=== PATIENT | male | born 1960 | race Caucasian/White ===

== ENCOUNTER → 2018-10-25 14:55 | Outpatient (CLI) | payer OTHER, SELFPAY ==
--- NOTE | 2018-10-25 15:04 | VDLE_ITS ---
Reason For Study: Pain RIGHT LEFT GSV is normal. GSV is normal. CFV is compressible, spontaneous, phasic, CFV is compressible, spontaneous, phasic, competent and demonstrates normal competent, and demonstrates normal augmentation. augmentation. FV is compressible, spontaneous, phasic, FV is compressible, spontaneous, phasic, competent and demonstrates normal competent and demonstrates normal augmentation. augmentation. POP V is compressible, spontaneous, phasic, POP V is compressible, spontaneous, phasic, competent and demonstrates normal competent and demonstrates normal augmentation. augmentation. T/P Trunk is compressible. T/P Trunk is compressible. Acute deep vein thrombosis is noted in the PTV is compressible. right peroneal vein. LT PerV is compressible. Acute deep vein thrombosis is noted in the right posterior tibial vein. Acute deep vein thrombosis is noted in the right Gastroc V. Procedure Exam performed in department. A preliminary report was called and/or faxed to Dr. Wong. Interpretation Summary Acute deep vein thrombosis is noted in the right peroneal vein. Acute deep vein thrombosis is noted in the right posterior tibial vein. Acute deep vein thrombosis is noted in the right gastrocnemius vein. The remainder of the right lower extremity deep venous system is patent and compressible. Deep veins of the left lower extremity are patent and compressible segmentally. There is no evidence of left lower extremity deep vein thrombosis. Valvular competence appears intact within the proximal deep venous systems bilaterally. The greater saphenous veins appear bilaterally patent and compressible segmentally. Ordering Physician: Filomena Wong Referring Physician: Filomena Wong Performed By: Dionna Bray RVT, RDCS and Student
== END ==
PROVIDERS: Family Provider Family Medicine; PCP Family Medicine; Referring Provider Family Medicine; Visit Provider Family Medicine
DX: M79.606 Pain in leg, unspecified (principal)
CPT/HCPCS: 93970

== ENCOUNTER 2020-04-03 20:23 | Observation (INO) | payer OTHER, SELFPAY ==
[2020-04-03 20:23] VITALS: BP 137/91; PULSE 97; RESP 18; TEMP 36.6; O2SAT 96; BMI 27.1
--- NOTE | 2020-04-03 21:25 | ED.DCSUM_ITS ---
- ER Visit Summary Date of Service: 04/03/20 Chief Complaint: Rectal Bleeding History of Present Illness: The patient is a 59 M history of prior DVTs and diverticulosis. He is only on aspirin he does not take blood thinners otherwise. States today has had 3 episodes of bright red blood per rectum he considers a significant amount in the toilet bowl. No clots. No history of GI bleeds. Physical Examination: Middle-aged male no acute distress company by his vital signs stable afebrile. Initial blood pressure 137/91. He does not look septic or toxic. H EENT exam unremarkable. Neck nontender. Lungs clear to auscultation bilaterally. Heart regular rhythm no murmur. Abdomen soft nontender normal bowel sounds no peritoneal signs. Patient moving all 4 extremities. No edema. Neurologically is awake alert with no focal motor deficits. Test Results: CBC normal white count 8. Hemoglobin 14. Chemistries unremarkable normal creatinine and gap. PT/INR normal. Emergency Department Course and Treatment: Middle-aged male with suspected lower GI bleed. Possible diverticular bleed versus other etiologies. Type and screen labs. Most likely will need to be admitted for further evaluation. Treatment Plan: Repeat exam patient is doing well at 11:50 PM. He states he also had 2 further episodes of bleeding while in the emergency department in the bathroom. I have already spoken the hospitalist will be admitted for further evaluation and possible colonoscopy. I have the surgeon on page. Disposition: admission Impression: Lower GI bleed uncertain etiology Prior DVT History of diverticulosis This note was generated with [employer] dictation software. It may contain incorrect words, spelling, and punctuation that were not noted in review of the chart prior to signing ED Disposition - Plan for ED Patient: Referrals: Filomena Wong MD [Primary Care Provider] -
[2020-04-03 21:38] LABS: Absolute Lymphocyte Count 2.11 X10^3/uL (0.83-4.51); Absolute Neutrophil Count 5.5 X10^3/uL (2.0-7.7); Basophil# 0.04 X10^3/uL; Basophil% 0.5 % (0-1); Eosinophil# 0.21 X10^3/uL; Eosinophils% 2.4 % (0-5); Hematocrit 43.2 % (40-54); Hemoglobin 14.6 g/dL (13.0-16.5); Lymphocyte # 2.11 X10^3/ul (4.0); Lymphocyte % 23.8 % (19-41); Mean Corp Hgb Conc 33.8 g/dL (32-36); Mean Corpuscular Hgb 33.7 pg (27.0-32.0); Mean Corpuscular Volume 99.8 fL (80-94); Mean Platelet Vol. 9.7 fl (6.2-12.0); Monocyte# 0.94 X10^3/uL; Monocyte% 10.6 % (0-10); NRBC Flagged by Analyzer 0 % (0-5); Neutrophil # 5.49 X10^3/uL (2.7-7.7); Neutrophil % 61.7 % (47-70); Platelet Count 315 K/mm3 (150-450); RBC Distribution Width CV 12.4 % (11.6-14.6); RBC Distribution Width SD 45.2 fl (35.1-43.9); Red Blood Count 4.33 M/mm3 (4.6-6.2); White Blood Count 8.9 K/mm3 (4.4-11.0)
[2020-04-03 21:50] LABS: Anion Gap 7 (5-15); BUN 6 mg/dL (7-18); BUN/Creat Ratio 9.4 RATIO (10-20); Calcium,Total 8.5 mg/dL (8.5-10.1); Chloride 104 mmol/L (98-107); Creatinine, Serum 0.64 mg/dL (0.70-1.30); EST Glomerular Filtration Rate 137 mL/min (>60); Est Glom Filt Rate - Afr Amer 166 mL/min (>60); Estimated Creatinine Clearance 135.63 ml/min; Glucose 93 mg/dL (74-106); Potassium 3.8 mmol/L (3.5-5.1); Sodium Level 137 mmol/L (136-145)
[2020-04-03 21:53] LABS: Prothrombin Time (Protime)PT. 12.8 SECONDS (11.7-14.9)
[2020-04-03 23:00] VITALS: BP 152/102; PULSE 89; RESP 17; O2SAT 96
[2020-04-04 00:07] VITALS: BP 153/102; PULSE 89; RESP 18; TEMP 36.8; O2SAT 96
[2020-04-04 00:37] VITALS: BMI 25.5
[2020-04-04 00:40] VITALS: BMI 25.6
[2020-04-04] MEDS: 0.9% Normal Saline 1,000 ML 75 ML IV (00:51)
[2020-04-04 01:02] VITALS: BP 152/93; PULSE 89; RESP 16; TEMP 36.9; O2SAT 96
--- NOTE | 2020-04-04 01:16 | HP.PCM_ITS ---
Problem List (1) GI bleed Status: Acute Qualifiers: GI bleed type/associated pathology: unspecified gastrointestinal hemorrhage type Qualified Code(s): K92.2 - Gastrointestinal hemorrhage, unspecified (2) Diverticulosis Status: Chronic (3) History of DVT (deep vein thrombosis) Status: Chronic History of Present Illness Date of Admission: 04/04/20 Chief Complaint: Bright red bleeding per rectum - 1 day The patient is a 59 year old M with past medical history of DVT, on aspirin 325 mg daily, history of diverticulosis seen on last colonoscopy 8 years ago who comes in with complaints of rectal bleeding that started on the day of admission. Patient has had 5 episodes of bright red bleeding per rectum. Their initial stools were mixed with blood and later on bowel movements with just bloody. He reported having some abdominal discomfort on and off ongoing for about a month. At his last colonoscopy with Dr. Hollis, patient said they were just diverticulosis and nothing more. Denied any dizziness or palpitations or chest pain. He denies any use of NSAIDs. At time of being seen, patient denied any abdominal pain or dizziness. His vitals in the ED showed temperature of 98F, heart rate 97, blood pressure 137/91, respiratory rate 18, SPO2 96% on room air. BBC count is 8.9, hemoglobin 14.6, platelet count 315, INR 1.0, BMP was unremarkable. Past Medical History Past Medical History (Chronic Problems): Chronic Problems Diverticulosis (Chronic) History of DVT (deep vein thrombosis) (Chronic) Allergies No Known Allergies Allergy (Verified 04/03/20 20:26) Home Medications: Ambulatory Orders Medication Instructions Recorded Aspirin 325 mg PO DAILY 04/03/20 Surgical History: - - s/p cardiac cath in his 30s Psychiatric History: No pertinent psych hx Lives: Spouse/ Significant Other Smoking Status: Current every day smoker Tobacco Use: Cigarettes Alcohol: Heavy Drugs: None - *Family History Maternal History Items: No pertinent history Paternal History Items: Cancer - lung cancer Review of Systems Constitutional: Denies: Anorexia, Chills, Fever, Malaise, Weakness, Weight Change Eyes: Denies: Blurred vision, Cataracts, Pain, Redness HEENT: Denies: Difficulty Hearing, Difficulty Swallowing, Head Aches, Hearing Ch anges, Sinus Congestion, Sinus Drainage Cardiovascular: Denies: Chest Pain, Claudication, Light Headedness, Orthopnea, Palpitations Respiratory: Denies: Cough, Hemoptysis, Shortness of Breath, Shortness of breath at rest, Shortness of breath upon exertion, Sputum production Gastrointestinal: Reports: Hematochezia. Denies: Abdominal Pain, Constipation, Hematemesis, Nausea, Melena, Vomiting Genitourinary: Denies: Dysuria, Frequency, Incontinence Musculoskeletal: Denies: Joint Pain, Joint stiffness, Joint swelling, Joint Tenderness Skin: Denies: Rash, Wounds Neurological: Denies: Difficulty swallowing, Focal weakness, Numbness, Tingling Psychiatric: Denies: Anxiety, Depression, Homicidal Ideations, Suicidal Ideations Hematologic/ Lymphatic: Denies: Easy Bruising, Easy Bleeding VTE Information - Inpt Only VTE Present on Admission: No VTE Pharm Prophylaxis ordered?: Yes Patient Problems: Active and Suspected Problems GI bleed (Acute) - Physical Exam Vitals/I&O's: Vital Signs Temp Pulse Resp BP Pulse Ox 98.4 F 89 16 152/93 H 96 04/04/20 01:02 04/04/20 01:02 04/04/20 01:02 04/04/20 01:02 04/04/20 01:02 Oxygen Delivery Method Room Air Weight: 83.2 kg Body Mass Index (BMI) 25.5 General: Alert, Oriented x3, Cooperative, No apparent distress HEENT: Atraumatic, PERRLA, EOMI, Normocephalic Oral: Moist Mucosa Neck: Supple Lungs: Clear to auscultation, Normal air movement Cardiovascular: Regular rate, Regular Rhythm, Normal S2, No murmurs Abdomen: Bowel Sounds Present, Soft, Non Tender, Non-Distended, No Hepato- splenomegaly Extremities: No edema Skin: No rashes, No breakdown Musculoskeletal: No Tenderness to Palpation of Joints or Extremities Lymphatic: No Cervical, Supraclavicular, or Inguinal Adenopathy Neurological: Cranial nerves II-XII grossly intact, Neuro grossly intact Psych/Mental Status: Normal Affect Laboratory Results 04/03/20 21:27: WBC 8.9, RBC 4.33 L, Hgb 14.6, Hct 43.2, MCV 99.8 H, MCH 33.7 H, MCHC 33.8, RDW Std Deviation 45.2 H, RDW Coeff of Amber 12.4, Plt Count 315, MPV 9.7, Immature Gran % (Auto) 1.000 H, Neut % (Auto) 61.7, Lymph % (Auto) 23.8, [place] % (Auto) 10.6 H, Eos % (Auto) 2.4, Baso % (Auto) 0.5, Absolute Neuts (auto) 5.5, Absolute Lymphs (auto) 2.11, Nucleated RBC % 0 04/03/20 21:27: Sodium 137, Potassium 3.8, Chloride 104, Carbon Dioxide 26.0, Anion Gap 7, BUN 6 L, Creatinine 0.64 L, Estim Creat Clear Calc 135.63, Est GFR (MDRD) Af Amer 166, Est GFR (MDRD) Non-Af 137, BUN/Creatinine Ratio 9.4 L, Glucose 93, Calcium 8.5 04/03/20 21:27: PT 12.8, INR 1.0 04/03/20 21:27: Blood Type A NEGATIVE, Antibody Screen NEGATIVE Current Medications Acetaminophen (Tylenol) 650 mg PO Q6H PRN PRN PRN Reason: Pain Score 1-10/Temp > 100.7 F Al Hydroxide/Mg Hydroxide (Mylanta Ii) 30 ml PO Q6H PRN PRN PRN Reason: Gastric Burning Albuterol Sulfate (Ventolin Aerosols) 2.5 mg INHALATION Q2H PRN PRN PRN Reason: Shortness of Breath/Wheezing Sodium Chloride () 1,000 mls @ 75 mls/hr IV .[id number] [facility] Last Admin: 04/04/20 00:51 Dose: 75 mls/hr Documented by: Morphine Sulfate () 2 mg IV Q3H PRN PRN PRN Reason: Pain Score 6-10/10 Nicotine (Nicoderm Cq (Pbkc)) 21 mg TRANSDERM. DAILY [facility] Nicotine Polacrilex (Rugby Nicotine (Bkc)) 2 mg PO Q2H PRN PRN PRN Reason: Nicotine Craving Ondansetron HCl (Zofran) 4 mg IV Q8H PRN PRN PRN Reason: NAUSEA/VOMITING Oxycodone HCl (Oxyir) 5 mg PO Q4H PRN PRN PRN Reason: Pain Score 4-5/10 Psyllium Hydrophilic Mucilloid (Metamucil) 1 packet PO DAILY PRN PRN PRN Reason: Constipation Senna/Docusate Sodium (Senokot-S, Esther-Colace) 2 tablet PO BID PRN PRN PRN Reason: Constipation Sodium Chloride (0.9% Nacl (Sterile) Posiflush) 10 - 40 ml IV UD PRN PRN Reason: Port access or dressing change Sodium Chloride () 10 - 40 ml IV UD PRN PRN Reason: Midline Flush Sodium Chloride () 10 - 40 ml IV UD PRN PRN Reason: SALINE FLUSH Assessment/Plan All Active Problems GI bleed (Acute) 59 year old M with past medical history of DVT, on aspirin 325 mg daily, history of diverticulosis seen on last colonoscopy 8 years ago who comes in with complaints of rectal bleeding that started on the day of admission. 1. Acute GI bleed, likely lower, probably diverticular bleed No significant drop in Hb compared to previous. Hb 14.6 Will hold aspirin for now, clear liquid diet Empiric IV PPI BID for now Trend HH, gentle IVF, general surgeon consulted from ED 2. H/o recurrent DVT, on aspirin, Aspirin on hold for now Will continue on SCDs for now 3. DVT PPx- SCDs Inpatient E&M: 70176 Init Hosp L3
[2020-04-04 01:30] LABS: Hematocrit 40.7 % (40-54); Hemoglobin 14.1 g/dL (13.0-16.5)
[2020-04-04 05:29] VITALS: BP 132/84; PULSE 92; RESP 18; TEMP 37; O2SAT 97
[2020-04-04 06:38] LABS: Hematocrit 38.4 % (40-54)
[2020-04-04 08:16] VITALS: BP 138/87; PULSE 88; RESP 16; TEMP 36.5; O2SAT 98
--- NOTE | 2020-04-04 09:44 | NM_ITS ---
Tagged red blood cell scan next INDICATION: Diverticulitis, rectal bleeding. TECHNIQUE: After the administration of tagged red blood cells intravenously, multiple scintigraphic images of the abdomen were obtained. FINDINGS: Normal perfusion of the abdominal aorta and iliac arteries. Normal perfusion of the liver spleen and kidneys. Normal excretion by the kidneys into the bladder. No focal abnormal area of increased uptake within the abdomen or pelvis to suggest active gastrointestinal hemorrhage. Next IMPRESSION: No scintigraphic evidence of active gastrointestinal hemorrhage. Electronically Signed: Jaren Pitt MD at 11:50 EDT Tel , Service support , NM/GI Bleed Scan
[2020-04-04] MEDS: 0.9% Saline Lock 10 ML Syringe IV (09:55)
--- NOTE | 2020-04-04 10:00 | NURSING ---
Patient ordered to have a bleeding scan completed by Dr. Dias. Notified by ALYSHA Tavares that if result is negative that Dr. Dias will plan a colonoscopy as an outpatient but if bleeding is found that it may be completed this stay.
--- NOTE | 2020-04-04 10:55 | CON.PCM_ITS ---
Problem List (1) GI bleed Status: Acute Qualifiers: GI bleed type/associated pathology: unspecified gastrointestinal hemorrhage type Qualified Code(s): K92.2 - Gastrointestinal hemorrhage, unspecified Reason for Consult Date of Consultation: 04/04/20 Reason for Consultation: Lower GI bleed History of Present Illness: The patient is a 59 year old M who presented to the ED with rectal bleeding x 3 episodes. Patient noted the bleeding started yesterday afternoon. Patient noted gas-like pressure/pain and had a bowel movement which was mixed with blood. Patient noted the pain was located under the umbilicus and bilateral lower abdomen. Patient noted he had rectal bleeding twice throughout the night and 1 episode of bleeding this morning. He notes abdominal pain was not relieved with bowel movements however now the abdominal pain is relieved by a bowel movement. Patient's previous colonoscopy was [address] Hollis. He notes having 2 polyps being removed. He notes Dr. Hollis was not worried about the pathology of the polyps. Patient notes he has been taking a full strength daily aspirin. He has a previous history of DVT's with the last one being 1 year ago. Patient notes at age 35, he had pericarditis. He melgoza snot currently see a pipe insulator. Past Medical History Past Medical History (Chronic Problems): Chronic Problems Diverticulosis (Chronic) History of DVT (deep vein thrombosis) (Chronic) Allergies No Known Allergies Allergy (Verified 04/03/20 20:26) Home Medications: Ambulatory Orders Medication Instructions Recorded Aspirin 325 mg PO DAILY 04/03/20 Surgical History: - - s/p cardiac cath in his 30s Psychiatric History: No pertinent psych hx Lives: Spouse/ Significant Other Smoking Status: Current every day smoker Tobacco Use: Cigarettes Alcohol: Heavy Drugs: None - *Family History Maternal History Items: No pertinent history Paternal History Items: Cancer - lung cancer Review of Systems Constitutional: Reports: Malaise, Fatigue. Denies: Anorexia, Chills, Fever, Weight Change HEENT: Denies: Head Aches, Sinus Congestion, Sinus Drainage Cardiovascular: Denies: Chest Pain, Palpitations Respiratory: Denies: Cough, Shortness of breath at rest, Sputum production Gastrointestinal: Reports: Abdominal Pain, Diarrhea, Hematochezia. Denies: Hematemesis, Nausea, Melena, Vomiting Genitourinary: Denies: Dysuria Musculoskeletal: Denies: Joint Pain, Joint Tenderness Skin: Denies: Rash, Wounds Neurological: Denies: Numbness, Tingling, Focal weakness Psychiatric: Denies: Anxiety, Depression, Homicidal Ideations, Suicidal Ideations Hematologic/ Lymphatic: Denies: Easy Bruising, Easy Bleeding Patient Problems: Active and Suspected Problems GI bleed (Acute) - Physical Exam Vitals/I&O's: Vital Signs Temp Pulse Resp BP Pulse Ox 97.7 F L 88 16 138/87 H 98 04/04/20 08:16 04/04/20 08:16 04/04/20 08:16 04/04/20 08:16 04/04/20 08:16 Oxygen Delivery Method Room Air Weight: 183 lb 6.793 oz Body Mass Index (BMI) 25.5 Intake and Output for Last 24 Hours 04/02/20 04/03/20 04/04/20 23:59 23:59 23:59 Intake Total 192.5 / 192.5 Balance 192.5 / 192.5 General: Alert, Oriented x3, Cooperative HEENT: Atraumatic, PERRLA, EOMI, Normocephalic Neck: Supple, No JVD, Negative Carotid Bruits Lungs: Clear to auscultation, Normal air movement Cardiovascular: Regular rate, No murmurs Abdomen: Soft, Non Tender, Distended - slightly Extremities: No edema, Capillary Refill Less than 3 Seconds Skin: No rashes, No breakdown Musculoskeletal: No Tenderness to Palpation of Joints or Extremities Neurological: Neuro grossly intact Psych/Mental Status: Normal Affect, Appropriate Laboratory Results 04/03/20 21:27: WBC 8.9, RBC 4.33 L, Hgb 14.6, Hct 43.2, MCV 99.8 H, MCH 33.7 H, MCHC 33.8, RDW Std Deviation 45.2 H, RDW Coeff of Amber 12.4, Plt Count 315, MPV 9.7, Immature Gran % (Auto) 1.000 H, Neut % (Auto) 61.7, Lymph % (Auto) 23.8, [place] % (Auto) 10.6 H, Eos % (Auto) 2.4, Baso % (Auto) 0.5, Absolute Neuts (auto) 5.5, Absolute Lymphs (auto) 2.11, Nucleated RBC % 0 04/03/20 21:27: Sodium 137, Potassium 3.8, Chloride 104, Carbon Dioxide 26.0, Anion Gap 7, BUN 6 L, Creatinine 0.64 L, Estim Creat Clear Calc 135.63, Est GFR (MDRD) Af Amer 166, Est GFR (MDRD) Non-Af 137, BUN/Creatinine Ratio 9.4 L, Glucose 93, Calcium 8.5 04/03/20 21:27: PT 12.8, INR 1.0 04/03/20 21:27: Blood Type A NEGATIVE, Antibody Screen NEGATIVE 04/04/20 01:03: Hgb 14.1, Hct 40.7 04/04/20 06:34: Hgb 13.0, Hct 38.4 L Current Medications Acetaminophen (Tylenol) 650 mg PO Q6H PRN PRN PRN Reason: Pain Score 1-10/Temp > 100.7 F Al Hydroxide/Mg Hydroxide (Mylanta Ii) 30 ml PO Q6H PRN PRN PRN Reason: Gastric Burning Albuterol Sulfate (Ventolin Aerosols) 2.5 mg INHALATION Q2H PRN PRN PRN Reason: Shortness of Breath/Wheezing Sodium Chloride () 1,000 mls @ 75 mls/hr IV .[id number] [facility] Last Infusion: 04/04/20 02:16 Dose: 75 mls/hr Documented by: Pantoprazole Sodium 40 mg/ (Sodium Chloride) 110 mls @ 330 mls/hr IV Q12 [facility] Last Infusion: 04/04/20 02:16 Dose: Infused Documented by: Morphine Sulfate () 2 mg IV Q3H PRN PRN PRN Reason: Pain Score 6-10/10 Nicotine (Nicoderm Cq (Pbkc)) 21 mg TRANSDERM. DAILY [facility] Nicotine Polacrilex (Rugby Nicotine (Bkc)) 2 mg PO Q2H PRN PRN PRN Reason: Nicotine Craving Ondansetron HCl (Zofran) 4 mg IV Q8H PRN PRN PRN Reason: NAUSEA/VOMITING Oxycodone HCl (Oxyir) 5 mg PO Q4H PRN PRN PRN Reason: Pain Score 4-5/10 Psyllium Hydrophilic Mucilloid (Metamucil) 1 packet PO DAILY PRN PRN PRN Reason: Constipation Senna/Docusate Sodium (Senokot-S, Esther-Colace) 2 tablet PO BID PRN PRN PRN Reason: Constipation Sodium Chloride (0.9% Nacl (Sterile) Posiflush) 10 - 40 ml IV UD PRN PRN Reason: Port access or dressing change Sodium Chloride () 10 - 40 ml IV UD PRN PRN Reason: Midline Flush Last Admin: 04/04/20 09:55 Dose: 10 ml Documented by: Sodium Chloride () 10 - 40 ml IV UD PRN PRN Reason: SALINE FLUSH Assessment/Plan All Active Problems GI bleed (Acute) I have been consulted in conjunction with Dr. Dias Impression: Lower GI bleed Plan: I have discussed this patient in conjunction with Dr. Dias. Plan for bleeding scan. Hgb stable. Recommend upper/lower scope as an outpatient. If any active/urgent bleeding noted on the scan, patient may have to have urgent intervention. Patient has had the opportunity to ask and have questions answered. Patient verbally understands and agrees with the plan. Thank you for allowing us to participate in this patient's care. Office Visits / Consults: [id number] IP Consult L3
[2020-04-04 12:37] VITALS: BP 137/93; PULSE 82; RESP 16; TEMP 36.8; O2SAT 97
[2020-04-04 12:39] LABS: Hematocrit 41.4 % (40-54); Hemoglobin 13.8 g/dL (13.0-16.5)
--- NOTE | 2020-04-04 15:35 | PCM.DC.GS ---
Discharge Diet: Light diet - advance as tolerated Discharge Activity: Return to Normal Activity Additional Instructions: You will start Hydrocortisone with Lidocaine suppositories twice a day for 14 days. You will pick up attendant this prescription at the outpatient pharmacy once you are discharged. This medication will help with the bleeding. You will follow-up with our office in 7 days and also schedule a colonoscopy with Dr. Dias as an outpatient. Allergies/Adverse Reactions: Allergies No Known Allergies Allergy (Verified 04/03/20 20:26) Medications to take at Discharge Aspirin 325 mg PO DAILY 04/03/20 Primary Care Physician: Filomena Wong MD [Primary Care Provider] - Test Results: Test results from this visit will be discussed in further detail at your follow-up appointment, if applicable. Please Follow Up With: Kyra Small PA-C - [phone] When: 7 days
--- NOTE | 2020-04-04 16:34 | DCINST_ITS ---
- Discharge Diagnoses Current Active Problems: Current Active and Chronic Problems GI bleed (Acute) Diverticulosis (Chronic) History of DVT (deep vein thrombosis) (Chronic) You will use the following diet at home:: Regular Your food should be the consistency of: Regular Your liquids should be the consistency of: Regular/Thin Discharge Activity: Return to Normal Activity Call your doctor if you observe: Fever of 101 or Higher, Shortness of breath, Dizziness, Fainting spells, Swelling in the ankles, Chest pain, Increased palpitations (irregular heartbeat) Allergies/Adverse Reactions: Allergies No Known Allergies Allergy (Verified 04/03/20 20:26) Medications to take at Discharge Aspirin 325 mg PO DAILY 04/03/20 hydrocortisone See Rx Instructions .ROUTE .MEDSUPPLY #[id number] ea 04/04/20 Primary Care Physician: Filomena Wong MD [Primary Care Provider] - Please follow up with your Primary Care Physician in: 3-5 days Test Results: Test results from this visit will be discussed in further detail at your follow- up appointment, if applicable. Please Follow Up With: Kyra Small PA-C - [phone] When: 7 days
--- NOTE | 2020-04-04 16:36 | DS.PCM_ITS ---
Discharge Date and Diagnosis - Problem List Patient Problems: Active and Suspected Problems GI bleed (Acute) Date of Admission: 04/04/20 Date of Discharge: 04/04/20 - Primary Discharge Diagnosis Acute Problems: Active Problems GI bleed (Acute) - Secondary Discharge Diagnosis Chronic Problems: Chronic Problems Diverticulosis (Chronic) History of DVT (deep vein thrombosis) (Chronic) Hospital Course and Treatment Imaging Results: Bleeding Scan: IMPRESSION: No scintigraphic evidence of active gastrointestinal hemorrhage. Consults: General Surgery Operations: None Procedures: None Summary of Care Provided: Per HPI: The patient is a 59 year old M with past medical history of DVT, on aspirin 325 mg daily, history of diverticulosis seen on last colonoscopy 8 years ago who comes in with complaints of rectal bleeding that started on the day of admission. Patient has had 5 episodes of bright red bleeding per rectum. Their initial stools were mixed with blood and later on bowel movements with just bloody. He reported having some abdominal discomfort on and off ongoing for about a month. At his last colonoscopy with Dr. Hollis, patient said they were just diverticulosis and nothing more. Denied any dizziness or palpitations or chest pain. He denies any use of NSAIDs. At time of being seen, patient denied any abdominal pain or dizziness. His vitals in the ED showed temperature of 98F, heart rate 97, blood pressure 137/91, respiratory rate 18, SPO2 96% on room air. BBC count is 8.9, hemoglobin 14.6, platelet count 315, INR 1.0, BMP was unremarkable. Hospital Course: 1. Bright red blood per [id number]-old male who is only on a chronic aspirin because he has had 2 previous provoked DVTs presents with bright red blood per rectum for 1 day. He says this is painless. He had a colonoscopy about 8 years ago where polyps were removed. Denies any cramping or abdominal pain with this episode of bleeding. Surgery was consulted and they recommended a bleeding scan which was negative, given his hemoglobin being stable at around 13.8, it was felt that these were likely internal hemorrhoids that were bleeding and therefore he was discharged on a hydrocortisone suppository and follow-up in a week with general surgery. I recommend that he also follow-up with his primary care doctor in 3 to 5 days. I discussed the discharge plan with him and his both of whom expressed understanding of the risks and benefits of going home today. Patient Problems: Active and Suspected Problems GI bleed (Acute) - Physical Exam Vitals/I&O's: Vital Signs Temp Pulse Resp BP Pulse Ox 98.2 F 82 16 137/93 H 97 04/04/20 12:37 04/04/20 12:37 04/04/20 12:37 04/04/20 12:37 04/04/20 12:37 Oxygen Delivery Method Room Air Weight: 183 lb 6.793 oz Body Mass Index (BMI) 25.5 Intake and Output for Last 24 Hours 04/02/20 04/03/20 04/04/20 23:59 23:59 23:59 Intake Total 1045.0 / 1045.0 Balance 1045.0 / 1045.0 General: Alert, Oriented x3, Cooperative, No apparent distress HEENT: Atraumatic, PERRLA, EOMI, Normocephalic Oral: Moist Mucosa Neck: Supple, No JVD Lungs: Clear to auscultation, Normal air movement, No rhonchi, No wheeze, No rales Cardiovascular: Regular rate, Regular Rhythm, Normal S1, Normal S2, No murmurs Abdomen: Soft, Non Tender, Non-Distended, No Hepato-splenomegaly Extremities: No edema, Capillary Refill Less than 3 Seconds Skin: No rashes, No breakdown Neurological: Neuro grossly intact, Sensory exam intact to light touch and pain Psych/Mental Status: Normal Affect, Appropriate Laboratory Results 04/03/20 21:27: WBC 8.9, RBC 4.33 L, Hgb 14.6, Hct 43.2, MCV 99.8 H, MCH 33.7 H, MCHC 33.8, RDW Std Deviation 45.2 H, RDW Coeff of Amber 12.4, Plt Count 315, MPV 9.7, Immature Gran % (Auto) 1.000 H, Neut % (Auto) 61.7, Lymph % (Auto) 23.8, [place] % (Auto) 10.6 H, Eos % (Auto) 2.4, Baso % (Auto) 0.5, Absolute Neuts (auto) 5.5, Absolute Lymphs (auto) 2.11, Nucleated RBC % 0 04/03/20 21:27: Sodium 137, Potassium 3.8, Chloride 104, Carbon Dioxide 26.0, Anion Gap 7, BUN 6 L, Creatinine 0.64 L, Estim Creat Clear Calc 135.63, Est GFR (MDRD) Af Amer 166, Est GFR (MDRD) Non-Af 137, BUN/Creatinine Ratio 9.4 L, Glucose 93, Calcium 8.5 04/03/20 21:27: PT 12.8, INR 1.0 04/03/20 21:27: Blood Type A NEGATIVE, Antibody Screen NEGATIVE 04/04/20 01:03: Hgb 14.1, Hct 40.7 04/04/20 06:34: Hgb 13.0, Hct 38.4 L 04/04/20 12:24: Hgb 13.8, Hct 41.4 Current Medications Acetaminophen (Tylenol) 650 mg PO Q6H PRN PRN PRN Reason: Pain Score 1-10/Temp > 100.7 F Al Hydroxide/Mg Hydroxide (Mylanta Ii) 30 ml PO Q6H PRN PRN PRN Reason: Gastric Burning Albuterol Sulfate (Ventolin Aerosols) 2.5 mg INHALATION Q2H PRN PRN PRN Reason: Shortness of Breath/Wheezing Sodium Chloride () 1,000 mls @ 75 mls/hr IV .[id number] [facility] Last Infusion: 04/04/20 13:11 Dose: 75 mls/hr Documented by: Pantoprazole Sodium 40 mg/ (Sodium Chloride) 110 mls @ 330 mls/hr IV Q12 [facility] Last Infusion: 04/04/20 13:11 Dose: Infused Documented by: Morphine Sulfate () 2 mg IV Q3H PRN PRN PRN Reason: Pain Score 6-10/10 Nicotine (Nicoderm Cq (Pbkc)) 21 mg TRANSDERM. DAILY [facility] Last Admin: 04/04/20 13:11 Dose: Not Given Documented by: Nicotine Polacrilex (Rugby Nicotine (Bkc)) 2 mg PO Q2H PRN PRN PRN Reason: Nicotine Craving Ondansetron HCl (Zofran) 4 mg IV Q8H PRN PRN PRN Reason: NAUSEA/VOMITING Oxycodone HCl (Oxyir) 5 mg PO Q4H PRN PRN PRN Reason: Pain Score 4-5/10 Psyllium Hydrophilic Mucilloid (Metamucil) 1 packet PO DAILY PRN PRN PRN Reason: Constipation Senna/Docusate Sodium (Senokot-S, Esther-Colace) 2 tablet PO BID PRN PRN PRN Reason: Constipation Sodium Chloride (0.9% Nacl (Sterile) Posiflush) 10 - 40 ml IV UD PRN PRN Reason: Port access or dressing change Sodium Chloride () 10 - 40 ml IV UD PRN PRN Reason: Midline Flush Last Admin: 04/04/20 09:55 Dose: 10 ml Documented by: Sodium Chloride () 10 - 40 ml IV UD PRN PRN Reason: SALINE FLUSH Discharge Diet: Light diet - advance as tolerated Discharge Activity: Return to Normal Activity Call your doctor if you observe: Fever of 101 or Higher, Shortness of breath, Dizziness, Fainting spells, Swelling in the ankles, Chest pain, Increased palpitations (irregular heartbeat) Home Medications: Medications to take at Discharge Aspirin 325 mg PO DAILY 04/03/20 hydrocortisone See Rx Instructions .ROUTE .MEDSUPPLY #[id number] ea 04/04/20 Primary Care Physician: Filomena Wong MD [Primary Care Provider] - Please follow up with your Primary Care Physician in: 3-5 days Please Follow Up With: Kyra Small PA-C - [phone] When: 7 days Additional Instructions: You will start Hydrocortisone with Lidocaine suppositories twice a day for 14 days. You will lease picker this prescription at the outpatient pharmacy once you are discharged. This medication will help with the bleeding. You will follow-up with our office in 7 days and also schedule a colonoscopy with Dr. Dias as an outpatient. Disposition: Home Minutes spent on discharge:: 35 Patient Condition:: Stable Medical Necessity - Tobacco Use Smoking Status: Current every day smoker Tobacco Use: Cigarettes Meaningful Use Info Meaningful Use Diagnoses (Choose all that apply): None applicable OBSV E&M: 28183 Observ/hosp same date L3
== END 2020-04-04 16:46 | disposition home or self-care (01) ==
LOC: ED 21:04 → MS3 04-04 00:46
PROVIDERS: Admitting Provider Internal Medicine; Emergency Provider Emergency Medicine; PCP Family Medicine; Referring Provider Internal Medicine; Visit Provider Family Medicine
DX: K57.91 Diverticulosis of intestine, part unspecified, without perforation or abscess with bleeding (principal); Z86.718 Personal history of other venous thrombosis and embolism; Z79.82 Long term (current) use of aspirin; F17.210 Nicotine dependence, cigarettes, uncomplicated
CPT/HCPCS: 36415; 78278; 80048; 85014; 85018; 85025; 85610; 86850; 86900; 86901; 96361; 96365; 96366; 99218; 99284; 99406; A9560; J7030; A4216; G0378

== ENCOUNTER 2020-05-02 07:29 | Day surgery (SDC) | payer OTHER, SELFPAY ==
[2020-04-20 14:20] VITALS: BMI 25.5
--- NOTE | 2020-04-29 07:14 | HP_ITS ---
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 Wolfgang Dias MD) Smoking Status: Current every day smoker HPI HPI Surgical H&P: Yes HPI: LINDSAY HUNTER, is a 59 M who presents to the office today for Evaluation for colonoscopy. Patient had his last colonoscopy on August 07, 2009. He was noted to haveEvaluation for colonoscopy. Patient had his last colonoscopy on August 07, 2009. He was noted to have Some diverticulosis And some internal hemorrhoids. He subsequently was seen at [facility] on 04/04/2020. He was noted to have a lower GI bleed. He had a bleeding scan which was negative and no further episodes of bleeding and subsequently is following up in my office for an outpatient colonoscopy. He has had no bleeding for 1 week. ROS General General: No weight change, appetite, fatigue, colon cancer, breast cancer or weakness HEENT HEENT: No difficulty swallowing, eye injury, eye surgery, swollen glands or hoarseness Endo Endocrine: No thyroid disease, diabetes mellitus, thyroid cancer, Hair loss, heat intolerance or cold intolerance Musc Musculoskeletal: Yes back problems; no arthritis, rheumatoid arthritis, gout or joint pain Cardio Cardiovascular: No murmur, pacemaker, heart disease, atrial fibrillation, high blood pressure, heart attack, heart stent, palpitations, shortness of breat with exertion or chest pain Psych Psychiatric: No depression, anxiety or hearing voices Resp Respiratory: No shortness of breath, No sleep apnea, No cough, No COPD, No asthma, No emphysema, No wheezing Gastro Gastrointestinal: No abdominal pain, No nausea or vomiting, No diarrhea, No constipation, Yes blood in stool, Yes acid reflux, Yes hemorrhoids, No ulcers, No gallbladder problem, No black,tarry stools Neeraj Hematologic: Yes blood thinners, No blood disorders, No bleeding, No anemia, Yes blood clots Neuro Neurologic: No weakness Exam Const General: no acute distress, well developed, well hydrated Orientation: oriented to person, oriented to place, oriented to time [facility] Head: normocephalic, atraumatic Ears: external ears normal Mouth: moist mucous membranes Eyes Sclera: sclerae normal Pupils: normal by confrontation Neck Neck: no lymphadenopathy noted Neck mass: No Thyroid: thyroid normal, symmetrical Chest Chest palpation & inspection: normal inspection of the chest Resp Effort & Inspection: normal respiratory effort Auscultation: clear to auscultation bilaterally Percussion: percussion normal Cardio Rate: regular rate Rhythm: regular rhythm Heart Sounds: no murmurs GI Palpation: soft, no hepatosplenomegaly, no masses, nontender Rectal Exam: other Other: Rectal exam deferred. Extrem General: normal to inspection, no clubbing, cyanosis or edema Assessment & Plan Problems 1. Gastrointestinal hemorrhage, unspecified gastrointestinal hemorrhage type K92.2 Plan I have discussed the above with the patient. I have offered the patient colonoscopy for evaluation. I have explained the risks/benefits of the procedure and described the procedure. I have discussed the risks with the patient, including but not limited to: infection, bleeding, perforation of the GI tract requiring emergency surgery, inability to complete the procedure, injury to any internal organs, complications of anesthesia, etc. - the patient understands and agrees to proceed. I have answered all the patient's questions to the patient's satisfaction and the patient has no further questions. The patient has been given instructions for the colon cleansing preparation. Orders Orders: Colonoscopy 04/20/20 Coding Level of Care Code Off vis,est,level 3 Diagnoses Gastrointestinal hemorrhage, unspecified gastrointestinal hemorrhage type K92.2 ??GI bleed type/associated pathology: unspecified gastrointestinal hemorrhage type COVID (Procedure Consent) Procedure Criteria Procedure Criteria: Yes Elective The surgeon/proceduralist and patient have discussed in detail the risk of exposure to and/or potential harm posed by the COVID-19 virus with having a surgery/procedure at this time versus the risk of? delaying the surgery/procedure. It is not possible to know either the risk of delaying the surgery or procedure or chance of getting an infection with perfect accuracy, but a joint decision was made between the patient and the surgeon/proceduralist ?to proceed at this time with the scheduled surgery/procedure as indicated on the consent form. 04/29/201913 <Electronically signed by Wolfgang walden MD> Date _ Wolfgang Dias MD I have re-examined the patient. There are no clinical changes since date of exam.
[2020-05-02] VITALS (7 sets, daily range): BP systolic 133–162; BP diastolic 80–96; PULSE 75–82; RESP 16; TEMP 36.5–37.6; O2SAT 97–100; BMI 26.4
[2020-05-02] MEDS: Lactated Ringers 1,000 ML 100 ML IV (07:51)
--- NOTE | 2020-05-02 08:47 | OP.CCLET_ITS ---
05/02/2020 Filomena Wong [address] [place] [address] Re : Colonoscopy procedure for Giovany Barnard Dear Dr. Wong This procedure was performed on Saturday, May 02, 2020. My impressions and recommendations are as follows: Impressions : - Mild diverticulosis in the descending colon and in the transverse colon. There was no evidence of diverticular bleeding. No specimens collected. - Non-bleeding internal hemorrhoids. - The examination was otherwise normal. Recommendations : - Discharge patient to home. - Resume previous diet. - Continue present medications. - Repeat colonoscopy in 10 years for screening purposes. - Return to my office in 1 week. My findings are described in the full procedure note, which is enclosed. If I can be of further assistance, please feel free to contact me at Doctor phone number(s): , Fax: [phone], Work: . Sincerely, MD Wolfgang Steiner MD 05/02/2020 8:46:16 AM This report has been signed electronically.
--- NOTE | 2020-05-02 08:47 | OP.COLON_ITS ---
Patient Name: Giovany Barnard Procedure Date: 05/02/2020 8:24 AM Date of : 1960 Age: 59 Procedure: Colonoscopy Indications: Hematochezia Providers: Wolfgang Dias MD Referring MD: Filomena Wong Medicines: See the Anesthesia note for documentation of the administered medications Patient Profile: This is a 59 year old male. Refer to note in patient chart for documentation of history and physical. Last Colonoscopy: July 2009. Complications: No immediate complications. Procedure: Pre-Anesthesia Assessment: - Prior to the procedure, a History and Physical was performed, and patient medications and allergies were reviewed. The patient's tolerance of previous anesthesia was also reviewed. The risks and benefits of the procedure and the sedation options and risks were discussed with the patient. All questions were answered, and informed consent was obtained. Prior Anticoagulants: The patient has taken aspirin, last dose was 1 week prior to procedure. ASA Grade Assessment: II - A patient with mild systemic disease. After reviewing the risks and benefits, the patient was deemed in satisfactory condition to undergo the procedure. After I obtained informed consent, the scope was passed under direct vision. Throughout the procedure, the patient's blood pressure, pulse, and oxygen saturations were monitored continuously. The colonoscope was introduced through the anus and advanced to the cecum, identified by appendiceal orifice and ileocecal valve. The colonoscopy was performed without difficulty. The patient tolerated the procedure well. The quality of the bowel preparation was good. Scope In: 8:32:30 AM Scope Withdrawal Time 0 hours 6 minutes 41 seconds Scope Out: 8:41:44 AM Total Procedure Duration Time 0 hours 9 minutes 14 seconds Findings: Multiple small-mouthed diverticula were found in the descending colon and transverse colon. There was no evidence of diverticular bleeding. No biopsies or other specimens were collected for this exam. Non-bleeding internal hemorrhoids were found during retroflexion. The hemorrhoids were mild and small. The exam was otherwise without abnormality. Impression: - Mild diverticulosis in the descending colon and in the transverse colon. There was no evidence of diverticular bleeding. No specimens collected. - Non-bleeding internal hemorrhoids. - The examination was otherwise normal. Recommendation: - Discharge patient to home. - Resume previous diet. - Continue present medications. - Repeat colonoscopy in 10 years for screening purposes. - Return to my office in 1 week. Procedure Code(s): --- Professional --- 67581, Colonoscopy, flexible; diagnostic, including collection of specimen(s) by brushing or washing, when performed (separate procedure) Diagnosis Code(s): --- Professional --- K64.8, Other hemorrhoids K92.1, Melena (includes Hematochezia) K57.30, Diverticulosis of large intestine without perforation or abscess without bleeding CPT copyright 2017 [employer]. All rights reserved. The codes documented in this report are preliminary and upon bee worker review may be revised to meet current compliance requirements. MD Wolfgang Steiner MD 05/02/2020 8:46:16 AM This report has been signed electronically. Number of Addenda: 0 Note Initiated On: 05/02/2020 8:24 AM
== END 2020-05-02 09:21 | disposition home or self-care (01) ==
LOC: EN 07:29 → AC 07:30
PROVIDERS: Anesthesiology; PCP Family Medicine; Referring Provider Family Medicine; Visit Provider Surgery
PROC: 0DJD8ZZ Inspection of Lower Intestinal Tract, Via Natural or Artificial Opening Endoscopic (ICD-10-PCS; CPT 45378; principal; 2020-05-02 08:40)
DX: K92.1 Melena (principal); K64.8 Other hemorrhoids; K57.30 Diverticulosis of large intestine without perforation or abscess without bleeding; Z11.59 Encounter for screening for other viral diseases; Z79.82 Long term (current) use of aspirin; Z86.718 Personal history of other venous thrombosis and embolism; F17.200 Nicotine dependence, unspecified, uncomplicated; K21.9 Gastro-esophageal reflux disease without esophagitis
CPT/HCPCS: 45378; 87635; 94799; J7120; J1610; U0003

== ENCOUNTER 2020-12-14 14:31 | Outpatient (RCR) | payer OTHER, SELFPAY ==
[2020-05-02 07:46] VITALS: BMI 26.4
[2020-12-14] MEDS: COVID-19 VACC, MRNA(PFIZER)/PF 30 MCG/0.3 ML SYRINGE IM (16:26)
[2021-01-04] MEDS: COVID-19 VACC, MRNA(PFIZER)/PF 30 MCG/0.3 ML SYRINGE IM (15:50)
== END 2020-12-14 23:59 ==
LOC: IMMUN 14:31
PROVIDERS: PCP Family Medicine; Visit Provider Family Medicine
DX: Z23 Encounter for immunization (principal)
CPT/HCPCS: 0001A; 0002A; 91300

== ENCOUNTER 2021-09-17 11:13 | Outpatient (CLI) | payer OTHER, SELFPAY ==
[2021-09-17 11:40] VITALS: BP 161/81; PULSE 105; RESP 18; TEMP 36.9; O2SAT 95; BMI 29.0
[2021-09-17] MEDS: 0.9% Saline Lock 10 ML Syringe IV (11:50)
[2021-09-17 12:31] VITALS: BP 157/87; PULSE 92; RESP 18; TEMP 36.9; O2SAT 95
[2021-09-17 13:24] VITALS: BP 163/84; PULSE 93; RESP 16; TEMP 37.1; O2SAT 96
== END 2021-09-17 13:45 | disposition home or self-care (01) ==
LOC: MS3OUT 11:13 → MS3 11:14
PROVIDERS: PCP Family Medicine; Referring Provider Nurse Practitioner Adult Health; Visit Provider Nurse Practitioner Adult Health
DX: Z23 Encounter for immunization (principal); U07.1 COVID-19
CPT/HCPCS: J7050; M0245; Q0245; A4216

== ENCOUNTER → 2023-10-22 | Outpatient (CLI) | payer OTHER, SELFPAY ==
--- NOTE | 2023-10-22 13:40 | VDLE_ITS ---
Reason For Study: RLE Pain RIGHT LEFT GSV is normal. CFV is compressible, spontaneous, phasic, CFV is patent and compressible. competent, and demonstrates normal Acute thrombus within Prox SFV noted augmentation. approximately 4.77cm distal to SFJ. Incidental Finding. Acute deep vein thrombosis is noted in Extensive heterogenous irregular plaque is Profunda Femoral Vein. Itis dilated and noted in bilateral Common Femoral Arteries. NONCOMPRESSIBLE. 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 FV. It is dilated and NONCOMPRESSIBLE. Acute deep vein thrombosis is noted in the POP V. It is dilated and NONCOMPRESSIBLE. Acute deep vein thrombosis is noted in the Gastrocnemius V. It is dilated and NONCOMPRESSIBLE. Acute deep vein thrombosis is noted in the T/P Trunk. It is dilated and NONCOMPRESSIBLE. Acute deep vein thrombosis is noted in the PTV. It is dilated and NONCOMPRESSIBLE. RT PerV is compressible. Procedure This is a venous duplex using B-mode, color flow and spectral Doppler. Exam performed in department. The exam was diagnostic. A preliminary report was called and/or faxed to Dr. De Leon. VL/Venous Duplex US, Unilateral Interpretation Summary Acute deep vein thrombosis is noted in the right femoral vein, profunda vein, p opliteal vein, gastrocnemius vein, tibioperoneal trunk vein, posterior tibial vein. Acute superficial vein thrombosis noted in the right great saphenous vein. Incidental finding, bilateral common femoral artery plaque Ordering Physician: David De Leon Referring Physician: David De Leon Performed By: Tigre Sewell, RVT
== END | disposition home or self-care (01) ==
LOC: CVS 13:38
PROVIDERS: PCP Family Medicine; Referring Provider Family Medicine; Visit Provider Family Medicine
DX: M79.604 Pain in right leg (principal)
CPT/HCPCS: 93971

== ENCOUNTER → 2023-10-26 | Outpatient (CLI) | payer OTHER, SELFPAY ==
[2023-10-26 17:05] LABS: Absolute Lymphocyte Count 1.43 X10^3/uL (0.83-4.51); Absolute Neutrophil Count 6.6 X10^3/uL (2.0-7.7); Basophil# 0.07 X10^3/uL; Basophil% 0.7 % (0-1); Eosinophil# 0.31 X10^3/uL; Eosinophils% 3.2 % (0-5); Hematocrit 43.6 % (40-54); Hemoglobin 14.6 g/dL (13.0-16.5); Lymphocyte # 1.43 X10^3/ul (0.83-4.51); Lymphocyte % 14.6 % (19-41); Mean Corp Hgb Conc 33.5 g/dL (32-36); Mean Corpuscular Hgb 32.5 pg (27.0-32.0); Mean Corpuscular Volume 97.1 fL (80-94); Mean Platelet Vol. 9.5 fl (6.2-12.0); Monocyte# 1.35 X10^3/uL; Monocyte% 13.8 % (0-10); NRBC Flagged by Analyzer 0 % (0-5); Neutrophil # 6.55 X10^3/uL (2.7-7.7); Neutrophil % 66.7 % (47-70); Platelet Count 360 K/mm3 (150-450); RBC Distribution Width CV 12.2 % (11.6-14.6); RBC Distribution Width SD 43.6 fl (35.1-43.9); Red Blood Count 4.49 M/mm3 (4.6-6.2); White Blood Count 9.8 K/mm3 (4.4-11.0)
[2023-10-26 17:48] LABS: ALB/GLOB Ratio 0.6 RATIO (0.9-2.4); AST(SGOT) 37 U/L (15-37); Alanine Aminotransfer ALT/SGPT 36 U/L (16-61); Albumin, Serum 2.9 g/dL (3.2-5.0); Alkaline Phosphatase 90 U/L (45-117); Anion Gap 8 (5-15); BUN 12 mg/dL (7-18); BUN/Creat Ratio 17.8 RATIO (10-20); Calcium,Total 9.5 mg/dL (8.5-10.1); Chloride 100 mmol/L (98-107); Cholesterol 197 mg/dL (200); Creatinine, Serum 0.68 mg/dL (0.70-1.30); EST Glomerular Filtration Rate 127 mL/min (>60); Est Glom Filt Rate - Afr Amer 154 mL/min (>60); Globulin 5.1 g/dL (2.2-4.2); Glucose 111 mg/dL (74-106); High Density Lipoprotein 33 mg/dL; Potassium 3.7 mmol/L (3.5-5.1); Sodium Level 131 mmol/L (136-145); Thyroid Stim Hormone (TSH) 2.14 uIU/mL (0.358-3.74); Triglycerides 150 mg/dL; Very Low Density Lipoprotein 30 mg/dL (5-40)
== END | disposition home or self-care (01) ==
LOC: LAB 16:43
PROVIDERS: PCP Family Medicine; Referring Provider Family Medicine; Visit Provider Family Medicine
DX: I10 Essential (primary) hypertension (principal)
CPT/HCPCS: 36415; 80053; 80061; 84443; 85025

== ENCOUNTER → 2023-11-04 | Outpatient (CLI) | payer OTHER, SELFPAY ==
--- NOTE | 2023-11-04 12:49 | VDLE_ITS ---
Reason For Study: Pain RLE RIGHT LEFT Rt CFV, Rt FV, Rt PopV, Rt T/P Trunk, and Rt CFV is compressible, spontaneous, phasic, GastrocV are dilated and NON COMPRESSIBLE competent, and demonstrates normal Compared to previous study on 10/22/23 DVT is augmentation. now extending into Rt CFV. GSV is normal. PTV is compressible. RT PerV is compressible. Procedure This is a venous duplex using B-mode, color flow and spectral Doppler. Exam performed in department. A preliminary report was called and/or faxed to Richa MEZA, [facility] [employer]. VL/Venous Duplex US, Unilateral Interpretation Summary Acute deep vein thrombosis is noted in the right common femoral vein, femoral v ein, popliteal vein, tibioperoneal trunk vein, gastrocnemius vein. Extension of thrombus into common femoral vein new from prior study Ordering Physician: Yazan Jones Referring Physician: Filomena Wong Performed By: Doris Lin, HANNAH, RVT
== END | disposition home or self-care (01) ==
LOC: CVS 12:45
PROVIDERS: PCP Family Medicine; Referring Provider Surgery Trauma Surgery; Visit Provider Surgery Trauma Surgery
DX: I82.419 Acute embolism and thrombosis of unspecified femoral vein (principal)
CPT/HCPCS: 93971

== ENCOUNTER 2023-11-09 16:43 | Inpatient (IN) | payer OTHER, SELFPAY ==
[2023-11-09 16:29] VITALS: BMI 30.3
[2023-11-09 16:32] VITALS: BMI 30.3
[2023-11-09 17:00] VITALS: BP 155/95; PULSE 88; RESP 18; TEMP 36.3; O2SAT 98
--- NOTE | 2023-11-09 17:23 | PCM.HP.STD ---
HPI - General General Date of Admission: 11/09/23 HPI Narrative LINDSAY HUNTER, is a 63 M who presents with extensive RLE DVT with no improvement in symptoms or thrombus resolution with~3 weeks of anticoagulation. He presents for heparin bridging prior to venogram and thrombectomy. [facility] Medical History Diverticulosis GI bleed Hemorrhoid History of DVT (deep vein thrombosis) Home Medications omeprazole 20 mg capsule,delayed release 20 mg PO DAILY 04/20/20 [History Last Taken 11/09/23 09:00] amlodipine 5 mg tablet 5 mg PO DAILY 11/02/23 [History Last Taken 11/09/23 09:00] apixaban 5 mg (74 tabs) tablets in a dose pack (Eliquis DVT-PE Treat 30D Start) See Rx Instructions PO PER PKG DIR 11/02/23 [History Last Taken Unknown] enoxaparin 100 mg/mL subcutaneous syringe (Lovenox) 100 mg subcut Q12H 30 days #60 mL 11/03/23 [Rx Last Taken 11/09/23 09:00] Allergy/AdvReac Type Severity Reaction Status Date / Time erythromycin base AdvReac Intermediate Vomiting Verified 11/02/23 14:17 Family History Other Cancer Diabetes Heart disease Hypertension Myocardial infarction Surgical History History of cardiac catheterization History of colonoscopy (~2008) Social History Smoking Status: Current every day smoker tobacco type: cigarettes ROS Constitutional Constitutional: Denies chills, fever(s), frequent falls, lethargy or weakness Eyes Eyes: Denies blind spots, change in vision or loss of vision ENT HEENT: Denies bleeding gums, hoarseness or sore throat Cardiovascular Cardiovascular: Reports edema and leg edema; Denies abdominal pain, bluish discoloration of hand/feet, chest pain with activity, claudication, cold extremities, cyanosis, dyspnea on exertion, erythema on extremities, irregular heart rhythm, leg ulcers, numbness in extremities or weakness in extremities Respiratory/Chest Respiratory/Chest: Denies cough, excessive phlegm production, shortness of breath at rest, shortness of breath with exertion or wheezing Gastrointestinal Gastrointestinal: Denies anorexia, change in stool character, constipation, diarrhea, melena or rectal bleeding Genitourinary Genitourinary: Denies dysuria or hematuria Musculoskeletal Musculoskeletal: Denies abnormal gait Integumentary Integumentary: Reports other Details: ; Denies erythema, non-healing lesions or wounds Neurologic Neurologic: Denies abnormal speech, focal weakness, headache(s), loss of vision, numbness, paresthesias or sensory deficit Hematologic/Lymphatic Hematologic/Lymphatic: Denies easy bleeding, easy bruising or lymphadenopathy Vital Signs Vital Signs Vital Signs: 11/09/23 16:47 11/09/23 17:00 Temperature 97.3 F L Temperature Source Temporal Pulse Rate 88 Respiratory Rate 18 Respiratory Effort Normal Non-Labored Respiratory Depth Normal Respiratory Pattern Normal Blood Pressure 155/95 H Blood Pressure Mean 115 Blood Pressure Source Monitor Blood Pressure Position Semi-Fowlers Blood Pressure Location Left Arm Pulse Ox 98 Oxygen Delivery Method Room Air Room Air Weight Weight: 217 lb 6.012 oz Body Mass Index (BMI) 30.3 Physical Exam Const alert, oriented x3, no apparent distress and healthy appearing General Appearance: cooperative; Negative for combative or lethargic Orientation / Consciousness: awake Exam Limitations: no limitations HEENT Head and Scalp: normocephalic and atraumatic Eyes EOMs intact bilaterally General Eye: normal appearance of both eyes Neck full ROM, no lymphadenopathy, thyroid normal and No no carotid bruits General: trachea midline; Negative for lymphadenopathy or tenderness Thyroid: thyroid normal Lymph Lymphatic: Negative for no lymphadenopathy noted Resp normal respiratory effort and no use of accessory muscles Effort and Inspection: Negative for labored, stridor or audible wheezes Cardio regular rate and regular rhythm Back/Spine Cervical Spine: cervical ROM normal Extremity full ROM and normal capillary refill General Extremity: edema right lower extremity Skin no rashes or lesions noted and no wounds Neuro oriented x3, CN's II-XII intact bilaterally, no focal motor deficits and no sensory deficits noted Psych thought process normal, cooperative, affect normal, speech normal and activity/motor behavior normal Results Lab / Micro Data 11/09/23 17:02 11/09/23 17:02 Assessment & Plan Assessment/Plan (1) Dvt femoral (deep venous thrombosis): QUALIFIERS: Chronicity: acute Laterality: right Qualified Code(s): I82.411 - Acute embolism and thrombosis of right femoral vein PLAN: -heparin -venogram tomorrow
[2023-11-09 17:35] VITALS: O2SAT 94
[2023-11-09 17:50] LABS: Hematocrit 46.4 % (40-54); Hemoglobin 15.3 g/dL (13.0-16.5); Mean Corpuscular Hgb 31.6 pg (27.0-32.0); Mean Corpuscular Volume 95.9 fL (80-94); Mean Platelet Vol. 10.4 fl (6.2-12.0); Platelet Count 506 K/mm3 (150-450); RBC Distribution Width CV 11.9 % (11.6-14.6); RBC Distribution Width SD 41.7 fl (35.1-43.9); Red Blood Count 4.84 M/mm3 (4.6-6.2); White Blood Count 7.9 K/mm3 (4.4-11.0)
[2023-11-09 18:03] LABS: Anion Gap 6 (5-15); BUN 9 mg/dL (7-18); BUN/Creat Ratio 11.7 RATIO (10-20); Chloride 102 mmol/L (98-107); Creatinine, Serum 0.77 mg/dL (0.70-1.30); EST Glomerular Filtration Rate 110 mL/min (>60); Est Glom Filt Rate - Afr Amer 133 mL/min (>60); Estimated Creatinine Clearance 120.58 ml/min; Glucose 103 mg/dL (74-106); Partial Thromboplast Time 31.8 Seconds (24.1-36.2); Potassium 3.9 mmol/L (3.5-5.1); Sodium Level 136 mmol/L (136-145)
[2023-11-09] MEDS: HEPARIN/D5w 25,000 UNITS 25,000 UNITS/250 ML IV.SOLN. 14 UNITS CONT INF (18:35)
[2023-11-09 21:37] VITALS: BP 147/80; PULSE 80; RESP 18; TEMP 36.6; O2SAT 98
[2023-11-09] MEDS: 0.9% Normal Saline (1000mL) 1,000 ML 100 ML IV (23:00)
[2023-11-09] MEDS: 0.9% Normal Saline (1000mL) 1,000 ML 15 ML IV (23:00)
[2023-11-10] VITALS (12 sets, daily range): BP systolic 124–156; BP diastolic 81–94; PULSE 73–92; RESP 16–18; TEMP 36.2–36.9; O2SAT 93–99; BMI 30.3
[2023-11-10 00:58] LABS: Partial Thromboplast Time 46.1 Seconds (24.1-36.2)
--- NOTE | 2023-11-10 05:33 | EKG12_ITS ---
Test Reason : Pre-op Blood Pressure : / mmHG Vent. Rate : 082 BPM Atrial Rate : 082 BPM P-R Int : 164 ms QRS Dur : 080 ms QT Int : 394 ms P-R-T Axes : 072 042 046 degrees QTc Int : 460 ms Normal sinus rhythm Normal ECG When compared with ECG of 21-OCT-2015 12:34, No significant change was found Confirmed by Alan Del Cid [id number]), publishing editor KIM NARAYANAN ([id number]) on 11/10/2023 1:50:49 PM Referred By: Yazan Jones Confirmed By:Alan Del Cid
[2023-11-10 07:27] LABS: Hematocrit 41.7 % (40-54); Hemoglobin 13.9 g/dL (13.0-16.5); Mean Corp Hgb Conc 33.3 g/dL (32-36); Mean Corpuscular Hgb 31.6 pg (27.0-32.0); Mean Corpuscular Volume 94.8 fL (80-94); Mean Platelet Vol. 9.9 fl (6.2-12.0); Platelet Count 430 K/mm3 (150-450); RBC Distribution Width CV 11.9 % (11.6-14.6); RBC Distribution Width SD 41.1 fl (35.1-43.9); White Blood Count 7.2 K/mm3 (4.4-11.0)
[2023-11-10 08:07] LABS: Anion Gap 5 (5-15); BUN 9 mg/dL (7-18); BUN/Creat Ratio 13.8 RATIO (10-20); Calcium,Total 9.6 mg/dL (8.5-10.1); Chloride 107 mmol/L (98-107); Creatinine, Serum 0.65 mg/dL (0.70-1.30); EST Glomerular Filtration Rate 132 mL/min (>60); Est Glom Filt Rate - Afr Amer 160 mL/min (>60); Estimated Creatinine Clearance 142.84 ml/min; Glucose 120 mg/dL (74-106); Potassium 3.8 mmol/L (3.5-5.1); Sodium Level 137 mmol/L (136-145)
[2023-11-10 08:53] LABS: Partial Thromboplast Time 57.4 Seconds (24.1-36.2)
[2023-11-10] MEDS: amLODIPine 5 MG Tablet PO (08:59)
[2023-11-10] MEDS: 0.9% Normal Saline (1000mL) 1,000 ML 100 ML IV ×2 (09:37→20:14)
--- NOTE | 2023-11-10 10:40 | CASEMGMT ---
SUSANA KAUR Assessment: Face to Face with pt for initial transition planning/care coordination assessment. SUSANA KAUR introduced self and role at [facility], pt voices understanding and consents to assessment. Pt is A&O x4 and answers all questions appropriately at this time. Pt sitting up in bed in no distress with at bedside. Care providers, pharmacy, and demographics verified/updated. Admitting Dx: DVT/heparin bridge PCP:Judith Specialists: silva Jones Preferred Pharmacy: [facility] Retail Insurance: [employer] [facility] Prescription Benefit: yes LNOK: Lizett Barnard, Living Arrangements: Pt lives with in a two story home with 4 steps to enter. Pt reports he is I in ADL's and denies concerns at home. Transportation: Pt drives self and denies concerns with transportation. DME:Denies HHC/SNF: Denies hx of Pt states no concerns with going home at time of dc. Pt has given lovenox to self before in the past if he should need to again. Pt states no further concerns/needs. CM to follow. Advised pt to ask CM if any further question/concerns/needs arise, voices understanding. Pt Goal: Home Plan: Home Updated SUSANA KAUR
[2023-11-10] MEDS: HEPARIN/D5w 25,000 UNITS 25,000 UNITS/250 ML IV.SOLN. 15 UNITS CONT INF (12:13)
--- NOTE | 2023-11-10 16:13 | OP.PCM_ITS ---
Report of Operation Date of Procedure: 11/10/23 Pre-Operative Diagnosis: DVT Post-Operative Diagnosis: same Surgery/Procedure Performed:: Venogram IVC, right lower extremity IVUS IVC, right common/external iliac, right common femoral, right femoral/popliteal veins Percutaneous mechanical thrombectomy right lower extremity Angioplasty/stent right common/external iliac veins Surgeon: Yazan Jones Type of Anesthesia: Local and Sedation,Conscious Estimated Blood Loss (mL): 25 Description of Procedure: HPI: Patient is a 63-year-old male with extensive deep venous thrombosis which was unprovoked in nature. He has failed to improve symptoms and has actually had progression of thrombus while on anticoagulation. Who presents now for attempted percutaneous mechanical thrombectomy and evaluation for central obstruction. Description of procedure: Upon obtaining form consent and verification correct patient procedure site patient taken to the catheter he was positioned prepped and draped in you sterile fashion. Time was performed conscious sedation administered with Versed and fentanyl. Skin overlying the right popliteal vein was anesthetized with 1% lidocaine the vessel accessed under ultrasound guidance micropuncture needle wire. This then exchanged out for micropuncture sheath through which injection popliteal femoral venogram was performed which confirmed position within the main vessel and acute appearing thrombus. Through this a glide advantage wire was advanced the micro sheath exchanged out for an 8 [place] sheath. Using a glide advantage it a quick cross catheter were able to navigate across the thrombus and ultimately advance her catheter into the inferior vena cava and then traverse the atrium into the superior vena cava. Cath was then withdrawn and intravascular shunt probe was advanced recorded pullback performed of the IVC, right common iliac vein, right external and vein, right common femoral vein, right popliteal vein. This confirmed acute to subacute appearing thrombus throughout the femoral-popliteal vein as well as into the ostia of the profunda vein. There is also significant compression of both the common and ext ernal iliac veins. The patient was then bolused heparinized circuit for 3 minutes and the 8 [place] sheath exchanged for the Inari sheath. The Inari sheath and the clot Treiver device was advanced and multiple passes performed subacute appearing thrombus returned. After 2 passes with no more significant thrombus was returned repeat venogram was performed which revealed brisk contrast transit with no significant luminal irregularity. Intravascular supply was then readvanced and recorded pullback performed which confirmed resolution of the thrombus and no significant change in the compression visualized. Next a [employer] Vena 16 x 140 was advanced in position and deployed adequate coverage of the entirety of the compressed segments. This was then postdilated with a 14 mm angioplasty balloon after which the intravascular shunt probe was readvanced and recorded pullback of the stented segment performed which revealed adequate stent wall apposition and positioning with no residual compression. Repeat venogram confirmed brisk contrast transit across the stented segment. Wires and catheters then withdrawn and silk suture placed to the popliteal access site after which it was secured while removing the sheath. Manage pressure was then held after which satisfactory stasis noted. Patient was then taken the PACU for recovery bedrest. Grafts/Implants Used: Cook Vena [place] [id number]
[2023-11-10 16:24] LABS: ACT Activated Clotting Time 223 sec (74-137)
[2023-11-10 23:01] LABS: Partial Thromboplast Time 55.9 Seconds (24.1-36.2)
[2023-11-11 00:30] VITALS: BP 145/76; PULSE 92; RESP 18; TEMP 36.8; O2SAT 96
[2023-11-11 04:21] VITALS: BP 128/80; PULSE 85; RESP 18; TEMP 36.8; O2SAT 95
[2023-11-11] MEDS: 0.9% Normal Saline (1000mL) 1,000 ML 100 ML IV (04:24)
[2023-11-11] MEDS: HEPARIN/D5w 25,000 UNITS 25,000 UNITS/250 ML IV.SOLN. 13 UNITS CONT INF (04:25)
[2023-11-11 07:08] LABS: Hematocrit 41.1 % (40-54); Hemoglobin 13.6 g/dL (13.0-16.5); Mean Corp Hgb Conc 33.1 g/dL (32-36); Mean Corpuscular Hgb 32.1 pg (27.0-32.0); Mean Corpuscular Volume 96.9 fL (80-94); Mean Platelet Vol. 10.3 fl (6.2-12.0); Platelet Count 386 K/mm3 (150-450); RBC Distribution Width CV 11.9 % (11.6-14.6); RBC Distribution Width SD 42.6 fl (35.1-43.9); Red Blood Count 4.24 M/mm3 (4.6-6.2); White Blood Count 8.2 K/mm3 (4.4-11.0)
[2023-11-11 07:32] LABS: Anion Gap 6 (5-15); BUN 6 mg/dL (7-18); BUN/Creat Ratio 9.5 RATIO (10-20); Calcium,Total 9.1 mg/dL (8.5-10.1); Chloride 107 mmol/L (98-107); Creatinine, Serum 0.63 mg/dL (0.70-1.30); EST Glomerular Filtration Rate 137 mL/min (>60); Est Glom Filt Rate - Afr Amer 166 mL/min (>60); Estimated Creatinine Clearance 147.38 ml/min; Glucose 106 mg/dL (74-106); Potassium 3.9 mmol/L (3.5-5.1); Sodium Level 139 mmol/L (136-145)
--- NOTE | 2023-11-11 08:45 | PCM.PN.SRG ---
Subjective Subjective Patient is seen resting comfortably in bed this morning. He has been ambulating around the room without difficulty, tolerating a normal diet, voiding without difficulty. There is no bleeding or hematoma formation at the R popliteal fossa access site. Objective Data Objective Data Vital Signs: Vital Signs Temp Pulse Resp BP Pulse Ox O2 Del Method 98.2 F 85 18 128/80 H 95 Room Air 11/11/23 04:21 11/11/23 04:21 11/11/23 04:21 11/11/23 04:21 11/11/23 04:21 11/11/23 04:25 Oxygen Delivery Method Room Air Weight: 217 lb 6.012 oz Body Mass Index (BMI) 30.3 Intake & Output: Intake and Output for Last 24 Hours 11/09/23 11/10/23 11/11/23 23:59 23:59 23:59 Intake Total 240 / 740 4023.25 / 4023.25 973.75 / 973.75 Balance 240 / 740 4023.25 / 4023.25 973.75 / 973.75 Lab / Micro Data 11/11/23 06:30 11/11/23 06:30 Labs: Laboratory Results - last 24 hr 11/10/23 07:18: APTT 57.4 H 11/10/23 15:05: Activated Clotting Time 223 H 11/10/23 22:18: APTT 55.9 H 11/11/23 06:30: WBC 8.2, RBC 4.24 L, Hgb 13.6, Hct 41.1, MCV 96.9 H, MCH 32.1 H, MCHC 33.1, RDW Std Deviation 42.6, RDW Coeff of Amber 11.9, Plt Count 386, MPV 10.3, Sodium 139, Potassium 3.9, Chloride 107, Carbon Dioxide 26.0, Anion Gap 6, BUN 6 L, Creatinine 0.63 L, Estim Creat Clear Calc 147.38, Est GFR (MDRD) Af Amer 166, Est GFR (MDRD) Non-Af 137, BUN/Creatinine Ratio 9.5 L, Glucose 106, Calcium 9.1 Physical Exam Const alert, oriented x3 and no apparent distress General Appearance: cooperative and comfortable HEENT normocephalic, head/scalp atraumatic, hearing grossly normal bilaterally, external ears normal and external nose normal Eyes EOMs intact bilaterally General Eye: normal appearance of both eyes Neck General: normal visual inspection and trachea midline Resp normal respiratory effort, normal air movement, no retractions and no use of accessory muscles Effort and Inspection: able to speak in complete sentences; Negative for labored, grunting, stridor or audible wheezes Cardio regular rate and regular rhythm Extremity Extremity Narrative: R popliteal fossa access site with suture intact. No hematoma, ecchymosis, bleeding, erythema, focal swelling. Skin no rashes or lesions noted Trauma: no lacerations or abrasions Neuro oriented x3, CN's II-XII intact bilaterally, moves all extremities, no focal motor deficits and no sensory deficits noted Speech: speech normal Psych mental status grossly normal Appearance: grossly normal Attitude: calm and engaged Activity / Motor Behavior: appropriate eye contact Speech: normal speech Assessment & Plan Assessment/Plan (1) Dvt femoral (deep venous thrombosis): QUALIFIERS: Chronicity: acute Laterality: right Qualified Code(s): I82.411 - Acute embolism and thrombosis of right femoral vein PLAN: Plan Patient is s/p RLE thrombectomy and right iliac vein stenting. He tolerated the procedure well. He has been on therapeutic heparin drip overnight with no bleeding/hematoma at the access site. Hgb is stable. Will transition from heparin to lovenox this morning. He will continue lovenox at home x 1 month prior to transition to Xarelto. Will continue with Plavix 75mg daily at home. He will discharge home today with follow-up in the office in 1 week for suture removal.
--- NOTE | 2023-11-11 08:53 | PCM.DC.SUM ---
Providers Date of Admission: 11/09/23 Primary Care Physician: Dr. Filomena Wong MD Reason For Visit: DVT/ HEPARIN BRIDGE Diagnosis Discharge Diagnosis (1) Dvt femoral (deep venous thrombosis): Status: Acute Code(s): I82.419 - Acute embolism and thrombosis of unspecified femoral vein Qualifiers: Chronicity: acute Laterality: right Qualified Code(s): I82.411 - Acute embolism and thrombosis of right femoral vein Plan Patient is s/p RLE thrombectomy and right iliac vein stenting. He tolerated the procedure well. He has been on therapeutic heparin drip overnight with no bleeding/hematoma at the access site. Hgb is stable. Will transition from heparin to lovenox this morning. He will continue lovenox at home x 1 month prior to transition to Xarelto. Will continue with Plavix 75mg daily at home. He will discharge home today with follow-up in the office in 1 week for suture removal. Medications at Discharge Home Medications omeprazole 20 mg capsule,delayed release 20 mg PO DAILY 04/20/20 amlodipine 5 mg tablet 5 mg PO DAILY 11/02/23 enoxaparin 100 mg/mL subcutaneous syringe (Lovenox) 100 mg subcut Q12H 30 days #60 mL 11/03/23 clopidogrel 75 mg tablet 75 mg PO DAILY 30 days #30 tabs 11/11/23 oxycodone 5 mg tablet 5 mg PO Q8H PRN PRN Pain Score 4-10 3 days #9 tabs 11/11/23 Hospital Course Operations - (RLE thrombectomy and R iliac vein stent) Summary of Care Provided Hospital Course: Mr. Giovany Barnard is a 63-year-old male who was admitted on 11/09/2023 for heparin bridge for planned right lower extremity venogram with thrombectomy on 11/10/2023. The procedure went well with significant clot burden removed and right iliac vein stenting to address central venous compression. Patient tolerated the procedure well. Following the procedure he was transitioned back to therapeutic heparin drip which he tolerated overnight without any complications. This morning he was transitioned from heparin back to Lovenox which he will continue as an outpatient. Due to the right iliac vein stent, he was also initiated on Plavix. He received a loading dose of 300 mg yesterday and will continue with the maintenance dose of 75 mg p.o. daily for 1 year. The right popliteal access site has 1 suture which is intact and will remain in place for 1 week, he will return to the office in 1 week for suture removal. He is medically stable for discharge home today. Physical Exam Const alert, oriented x3 and no apparent distress General Appearance: cooperative and comfortable HEENT normocephalic, head/scalp atraumatic, hearing grossly normal bilaterally, external ears normal and external nose normal Eyes EOMs intact bilaterally General Eye: normal appearance of both eyes Neck General: normal visual inspection and trachea midline Resp normal respiratory effort, normal air movement, no retractions and no use of accessory muscles Effort and Inspection: able to speak in complete sentences; Negative for labored, grunting, stridor or audible wheezes Cardio regular rate and regular rhythm Extremity Extremity Narrative: R popliteal fossa access site with suture intact. No hematoma, ecchymosis, bleeding, erythema, focal swelling. Skin no rashes or lesions noted Trauma: no lacerations or abrasions Neuro oriented x3, CN's II-XII intact bilaterally, moves all extremities, no focal motor deficits and no sensory deficits noted Speech: speech normal Psych mental status grossly normal Appearance: grossly normal Attitude: calm and engaged Activity / Motor Behavior: appropriate eye contact Speech: normal speech Weight / BMI Weight Weight: 217 lb 6.012 oz Body Mass Index (BMI) 30.3 ABG / Lab / Microbiology Data 11/11/23 06:30 11/11/23 06:30 Laboratory: Laboratory Results - last 24 hr 11/10/23 07:18: APTT 57.4 H 11/10/23 15:05: Activated Clotting Time 223 H 11/10/23 22:18: APTT 55.9 H 11/11/23 06:30: WBC 8.2, RBC 4.24 L, Hgb 13.6, Hct 41.1, MCV 96.9 H, MCH 32.1 H, MCHC 33.1, RDW Std Deviation 42.6, RDW Coeff of Amber 11.9, Plt Count 386, MPV 10.3, Sodium 139, Potassium 3.9, Chloride 107, Carbon Dioxide 26.0, Anion Gap 6, BUN 6 L, Creatinine 0.63 L, Estim Creat Clear Calc 147.38, Est GFR (MDRD) Af Amer 166, Est GFR (MDRD) Non-Af 137, BUN/Creatinine Ratio 9.5 L, Glucose 106, Calcium 9.1 D/C Instructions Discharge Diet: No restrictions May shower in (days): 1 Weight Bearing Status: Weight bearing as tolerated Lifting Restricted to (Lbs): 20 Lifting Restrictions: Do not lift greater than 20 pounds for 2 weeks Call your doctor if your incision/area has: Sudden Increased Bleeding, Increased Pain/ Swelling and Foul Smelling Discharge Call your doctor if you observe: Fever of 101 or Higher and Uncontrolled pain Additional Instructions: There is 1 suture at the access site behind your right knee. We will remove this suture at your follow-up appointment in 1 week. You may leave the access site open to air or cover with a dry dressing to your comfort. You may shower, is okay for soap and water to rinse over the access site. Pat to dry. Do not submerge the access site in water for 2 weeks. Do not lift greater than 20 pounds for 2 weeks. Otherwise, you may proceed with activity as tolerated. Continue with compression stocking or Ba bandage wrap for compression. Continue to administer Lovenox 100 mg subcutaneously every 12 hours. Continue to take Plavix 75 mg by mouth once daily. You have been prescribed oxycodone 5 mg to be taken every 8 hours as needed for pain. Do not combine this with any other prescription pain medications. You may take this with Tylenol as needed. Our paralegal legal secretary will contact you to schedule your 1 week follow-up for suture removal. In addition, we will also keep your follow-up appointment as scheduled on 12/03/2023. Please contact the office at with any questions, concerns, or to change your appointment. Please Follow Up With: Ariadan Negrete PA When: 1 week Meaningful Use Info Meaningful Use Diagnoses (Choose all that apply): VTE VTE Anticoag overlap given w/in hospital stay or rx'd at dc?: Yes Pt receive overlap for 5 days?: Yes Discharge Plan Admission Admit Date/Time: 11/09/23 16:43 Primary Reason for Your Visit: RLE venogram with thrombectomy Attending Provider: Yazan Jones Primary Care Provider: Filomena Wong Instructions Additional Instructions / Restrictions: There is 1 suture at the access site behind your right knee. We will remove this suture at your follow-up appointment in 1 week. You may leave the access site open to air or cover with a dry dressing to your comfort. You may shower, is okay for soap and water to rinse over the access site. Pat to dry. Do not submerge the access site in water for 2 weeks. Do not lift greater than 20 pounds for 2 weeks. Otherwise, you may proceed with activity as tolerated. Continue with compression stocking or Ba bandage wrap for compression. Continue to administer Lovenox 100 mg subcutaneously every 12 hours. Continue to take Plavix 75 mg by mouth once daily. You have been prescribed oxycodone 5 mg to be taken every 8 hours as needed for pain. Do not combine this with any other prescription pain medications. You may take this with Tylenol as needed. Our paralegal legal secretary will contact you to schedule your 1 week follow-up for suture removal. In addition, we will also keep your follow-up appointment as scheduled on 12/03/2023. Please contact the office at with any questions, concerns, or to change your appointment. Discharge Orders/Prescriptions Prescriptions: New clopidogrel 75 mg Tablet 75 mg PO DAILY 30 Days Qty: 30 11RF oxycodone 5 mg Tablet 5 mg PO Q8H PRN PRN (Reason: Pain Score 4-10) 3 Days Qty: 9 0RF Continued omeprazole 20 mg capsule,delayed release(DR/EC) 20 mg PO DAILY amlodipine 5 mg tablet 5 mg PO DAILY enoxaparin [Lovenox] 100 mg/mL syringe 100 mg subcut Q12H 30 Days Qty: 60 2RF Discontinued Eliquis DVT-PE Treat 30D Start 5 mg (74 tabs) tablets,dose pack See Rx Instructions PO PER PKG DIR Hold Instructions: switched to Lovenox for now Rx Instructions: PO PER PKG DIR Referrals / Follow Up: Filomena Wong MD [Primary Care Provider] - Disposition Disposition (needs filled in before D/C Order can be placed): Home, Self Care
[2023-11-11 09:02] LABS: Prothrombin Time (Protime)PT. 13.5 SECONDS (11.7-14.9)
--- NOTE | 2023-11-11 09:40 | CASEMGMT ---
SUSANA KAUR DC F/U: This RN CM met with pt at bedside. Pt denies any concerns or discharge needs at this time. Pt states he remains comfortable with administering lovenox shots and states his is able to assist him as needed. DC Plan: Home w/spouse support Matt Hayes RN AC
[2023-11-11 10:12] VITALS: BP 152/88; PULSE 80; RESP 16; TEMP 36.6; O2SAT 97
[2023-11-11] MEDS: Enoxaparin 100 MG/ML Syringe SC (10:17)
[2023-11-11] MEDS: Clopidogrel Bisulfate 75 MG Tablet PO (10:18)
[2023-11-11] MEDS: amLODIPine 5 MG Tablet PO (10:18)
--- NOTE | 2023-11-11 11:31 | PHA.DC_ITS ---
Pharmacy [facility] has performed discharge medication reconciliation and counseling for this patient. 1. CLOPIDOGREL 75MG PO DAILY 2. OXYCODONE 5MG PO Q8H PRN PAIN 4-10 The patient's discharge medication list was reviewed for discrepancies and discrepancies were resolved. The patient was counseled on the following discharge medications and changes in medications for homegoing were reviewed. The Reason for Use, instructions for use, and potential side effects were reviewed for all new medications. The patient's questions regarding all of their medications were answered. The patient was able to verbally demonstrate an understanding of their discharge medications. Patient counseled by pharmacy technician traineeWilfredo. Medications at Discharge Home Medications omeprazole 20 mg capsule,delayed release 20 mg PO DAILY reflux 04/20/20 amlodipine 5 mg tablet 5 mg PO DAILY blood pressure 11/02/23 enoxaparin 100 mg/mL subcutaneous syringe (Lovenox) 100 mg subcut Q12H blood thinner 30 days #60 mL 11/03/23 clopidogrel 75 mg tablet 75 mg PO DAILY 30 days #30 tabs 11/11/23 oxycodone 5 mg tablet 5 mg PO Q8H PRN PRN Pain Score 4-10 3 days #9 tabs 11/11/23
== END 2023-11-11 12:04 | disposition home or self-care (01) | DRG 271 ==
LOC: PCU 17:22 → CLSP 17:22 → PCU 17:22
PROVIDERS: Admitting Provider Surgery Trauma Surgery; PCP Family Medicine; Referring Provider Surgery Trauma Surgery; Visit Provider Surgery Trauma Surgery
DX: I82.411 Acute embolism and thrombosis of right femoral vein (principal); I87.1 Compression of vein; F17.210 Nicotine dependence, cigarettes, uncomplicated; Z79.01 Long term (current) use of anticoagulants; Z79.02 Long term (current) use of antithrombotics/antiplatelets
CPT/HCPCS: 36005; 36010; 36415; 37187; 37238; 37252; 37253; 75820; 75825; 76937; 80048; 85027; 85347; 85610; 85730; 93005; 94668; 99152; 99153; 99252; 99406; C1753; C1757; C1887; C1894; J7030; Q9967; C1725; C1769; C1876; G0463

== ENCOUNTER → 2024-12-06 | Outpatient (CLI) | payer OTHER, SELFPAY ==
--- NOTE | 2024-12-06 08:58 | ART_ITS ---
Reason For Study Reason For Study: Claudication Procedure A bilateral lower extremity continuous wave Doppler with analog waveform analysis,segmental pressures,and ankle brachial indexes with exercise. Left Segmental Pressures Left brachial= 161mmHg. Left high thigh = 123mmHg. Left low thigh = 129mmHg. Left calf = 106mmHg. Left posterior tibial artery = 100mmHg. Left dorsalis pedis artery = 101mmHg. Left digit = 80 mmHg. The left dorsalis pedis waveforms are biphasic. The left posterior tibial artery waveforms are biphasic. Right Segmental Pressures Right brachial= 149mmHg. Right high thigh = 178mmHg. Right low thigh = 149mmHg. Right calf = 99mmHg. Right dorsalis pedis artery = 149mmHg. Right posterior tibial artery = 178mmHg. Right digit = 82 mmHg. The right dorsalis pedis waveforms are biphasic. The right posterior tibial artery waveforms are biphasic. Indices The right ankle brachial index by the dorsalis pedis is 0.61. The right ankle brachial index by the posterior tibial artery is 0.60. The right digital-brachial index is 0.51. The right post exercise ankle brachial index is 0.27. The left ankle brachial index by the dorsalis pedis is 0.63. The left ankle brachial index by the posterior tibial artery is 0.62. The left digital-brachial index is 0.50. The left post exercise ankle brachial index is 0.28. VL/Lower Ext Art Exam w/ Exercise Interpretation Summary Right ROSA ISELA 0.61, moderate arterial insufficiency. Doppler/PVR waveforms and segm ental pressures reveal proximal femoral, distal SFA/popliteal disease. Right lower extremity with abnormal response to exercise and post exercise ROSA ISELA in the severe category. Left ROSA ISELA 0.63, moderate arterial insufficiency. Doppler/PVR waveforms and segme ntal pressures reveal aorto-iliac, distal SFA/popliteal disease. Left lower extremity with abnormal response to exercise and post exercise ROSA ISELA i n the severe category. Ordering Physician: Yazan Jones Referring Physician: Filomena Wong M.D. Performed By: Kristi Roque RVT
--- NOTE | 2024-12-06 08:58 | AAVD_ITS ---
Reason For Study Reason For Study: S/P Right iliac vein stent Inferior Vena Cava Proximal inferior vena cava measures 1.01 x 2.27 cm. in the cross-sectional axis. Proximal inferior vena cava measures 0.94 cm. in the longitudinal axis. Mid inferior vena cava measures 1.41 x 1.56 cm. in the cross-sectional axis. Mid inferior vena cava measures 1.40 cm. in the longitudinal axis. Distal inferior vena cava measures 1.16 x 1.87 cm. in the cross-sectional axis. Distal inferior vena cava measures 1.06 cm. in the longitudinal axis. The inferior vena cava has spontaneous, phasic flow throughout. Left Common Iliac Vein Left common iliac vein measures 0.80 x 1.26 cm. in the cross-sectional axis. Left common iliac vein measures 0.71 cm. in the longitudinal axis. The left common iliac vein has spontaneous, phasic flow throughout. Right Common Iliac Vein Right common iliac vein measures 1.31 x 1.13 cm. in the cross-sectional axis. Right common iliac vein measures 1.43 cm. in the longitudinal axis. The right common iliac vein has spontaneous, phasic flow throughout. Stent noted in the right CIV. Procedure Aorta IVC Iliac vasculature or bypass grafts [id number]. Exam performed in department. VL/Abd Aortic/IVC Duplex scan Interpretation Summary Inferior vena cava and left iliac vein patent with normal venous flow pattern. Right iliac vein stent patent with normal venous flow pattern. Ordering Physician: Yazan Jones Referring Physician: Filomena Wong M.D. Performed By: Kristi Roque RVT
== END | disposition home or self-care (01) ==
LOC: CVS 08:57
PROVIDERS: PCP Family Medicine; Referring Provider Surgery Trauma Surgery; Visit Provider Surgery Trauma Surgery
DX: I70.213 Atherosclerosis of native arteries of extremities with intermittent claudication, bilateral legs (principal); I82.419 Acute embolism and thrombosis of unspecified femoral vein
CPT/HCPCS: 93924; 93978

== ENCOUNTER → 2025-01-25 | Outpatient (CLI) | payer OTHER, SELFPAY ==
--- NOTE | 2025-01-25 13:06 | RAD_ITS ---
PROCEDURE: LUMBAR SPINE 2 OR 3 VIEWS 01/25/2025 REASON FOR EXAM: CLAUDICATION, NUMBNESS IN FEET TECHNIQUE: 3 view(s) of the lumbar spine COMPARISON: None FINDINGS: There are 5 lumbar type vertebral bodies below the last set of paired ribs. The vertebral body heights are within normal limits. There is a very subtle dextroscoliosis of the lumbar spine. There disc space narrowing involving the L5-S1 disc space. The remaining disc spaces appear to be well-maintained. SI joints and hip joints are aligned and appear unremarkable. Pubic symphysis is unremarkable. Sacrum appears grossly unremarkable. Extensive arteriosclerotic vascular disease of the aorta is noted. A right iliac stent is noted. RAD/Lumbar Spine 2 or 3 Views IMPRESSION: Subtle dextroscoliosis of the lumbar spine. Degenerative disc disease involving the L5-S1 disc. Extensive arteriosclerotic vascular disease of the aorta. Reading Location: [id number]
== END | disposition home or self-care (01) ==
LOC: RAD 13:05
PROVIDERS: PCP Family Medicine; Referring Provider Physician Assistant; Visit Provider Physician Assistant
DX: R20.0 Anesthesia of skin (principal); I73.9 Peripheral vascular disease, unspecified
CPT/HCPCS: 72100

== ENCOUNTER 2025-05-30 07:50 | Emergency (ER) | payer OTHER, SELFPAY ==
[2025-05-30] VITALS (9 sets, daily range): BP systolic 136–184; BP diastolic 76–91; PULSE 87–115; RESP 14–18; TEMP 37–37.1; O2SAT 92–96; BMI 31.4
--- NOTE | 2025-05-30 08:27 | EKG12_ITS ---
Test Reason : SOB Blood Pressure : */* mmHG Vent. Rate : 97 BPM Atrial Rate : 97 BPM P-R Int : 150 ms QRS Dur : 78 ms QT Int : 354 ms P-R-T Axes : 53 67 56 degrees QTcB Int : 449 ms Normal sinus rhythm PROMINENT ANTERIO T WAVE BORDERLINE Confirmed by Alan Del Cid ([id number]), supervising editor news reel ENRIQUE VALENZUELA ([id number]) on 05/31/2025 8:18:58 AM Referred By: Confirmed By: Alan Del Cid
--- NOTE | 2025-05-30 08:48 | RAD_ITS ---
PROCEDURE: CHEST PA AND LATERAL 05/30/2025 REASON FOR EXAM: CHEST PAIN TECHNIQUE: Procedure Code: RADCXR Modality: DX Procedure: CHEST PA AND LATERAL COMPARISON: None FINDINGS: Hardware: EKG leads are present Heart: Normal-size Mediastinum: Normal Lungs: Clear Bones: Minimal degenerative changes RAD/Chest PA and Lateral IMPRESSION: No acute cardiopulmonary process Reading [id number]
[2025-05-30 08:57] LABS: Hematocrit 42.9 % (40-54); Hemoglobin 15.2 g/dL (13.0-16.5); Immature Granulocytes Count 0.040 X10^3/uL (0.0-0.0); Mean Corp Hgb Conc 35.4 g/dL (32-36); Mean Corpuscular Volume 94.5 fL (80-94); Mean Platelet Vol. 10.1 fl (6.2-12.0); NRBC Flagged by Analyzer 0 % (0-5); Platelet Count 264 K/mm3 (150-450); RBC Distribution Width CV 12.2 % (11.6-14.6); RBC Distribution Width SD 42.2 fl (35.1-43.9); Red Blood Count 4.54 M/mm3 (4.6-6.2); White Blood Count 8.7 K/mm3 (4.4-11.0)
[2025-05-30 09:58] LABS: D-Dimer Quantitative (DVT/PE) 0.27 FEU/ug/m (0.27-0.49)
--- OUTSIDE RECORDS SUMMARY | 2025-05-30 10:00 | XMS RPT_ITS | CCD ---
Author Organization [facility] Care Team Providers Care Mailhouse Operator Name Role Phone Dr. Filomena Wong Primary Care Provider Dr. Yazan Jones Attending Provider [phone] MD David De Leon Referring Provider Dr. Filomena Wong Referring Provider Dr. Yazan Jones Admit Provider Dr. Yazan Jones Referring Provider [phone] Yazan Jones Other Provider ALYSHA Negrete Attending Provider [phone] Filomena Wong MD Primary Care Provider Dr. Yazan Jones MD Attending Provider Dr. Yazan Jones MD Referring Provider Dr. Filomena Wong MD Referring Provider Penelope ENCARNACION, Ariadna Attending Provider [phone] Filomena Wong Primary Care Unavailable Yazan Jones Attending Unavailable Yazan Jones Referring Unavailable David De Leon Primary Care Unavailable Ariadna Negrete Attending Unavailable Ariadna Negrete Referring Unavailable Filomena Wong Primary Care Unavailable Yazan Jones Attending Unavailable Yazan Jones Referring Unavailable Ariadna Negrete Attending Unavailable Filomena Wong Primary Care Unavailable Filomena Wong Referring Unavailable Allergies Allergy Classification Reported Allergen(s) Allergy Type Date of Onset Reaction(s) Facility (3 sources) Erythromycin Drug Allergy 11-02-[address] [facility] (1 source) Erythromycin Drug Allergy 12-07-[address] [facility] Repository Medications Current Medications Medication Drug Class(es) Dates Sig (Normalized) Sig (Original) amLODIPine 5 mg oral tablet (3 sources) Dihydropyridine Calcium Channel Shell Start: 11-02-2023 take 1 tablet by mouth once daily Amlodipine 5 mg tablet Active 5 mg PO DAILY November 02, 2023 1:00am clopidogrel 75 mg oral tablet (3 sources) P2Y12 Platelet Inhibitor Start: 11-11-2023 End: 11-02-2024 take 1 tablet by mouth once daily Clopidogrel 75 mg tablet Active 75 mg PO DAILY November 02, 2024 8:54am omeprazole 20 mg delayed release oral capsule (5 sources) Proton Pump Inhibitor Start: 04-20-2020 take 1 capsule by mouth once daily Omeprazole 20 mg capsule,delayed release(DR/EC) Active 20 mg PO DAILY April 20, 2020 12:00am Completed/Discontinued Medications Medication Drug Class(es) Dates Sig (Normalized) Sig (Original) apixaban 5 mg oral tablet (3 sources) Factor Xa Inhibitor Start: 11-02-2023 End: 11-11-2023 take 1 tablet by mouth once Apixaban (Eliquis Dvt-Pe Treat 30d Start) 5 mg (74 tabs) tablets,dose pack Discontinued 0 PO per package directions November 02, 2023 1:00am November 11, 2023 10:01am On Hold: switched to Lovenox for now PO PER PKG DIR aspirin 81 mg delayed release oral tablet (6 sources) Platelet Aggregation Inhibitor, Nonsteroidal Anti-inflammatory Drug Start: 12-07-2024 take 1 tablet by mouth once daily Aspirin 81 mg tablet,delayed release (DR/EC) Discontinued 81 mg PO daily December 07, 2024 12:00am Start: 04-03-2020 End: 11-02-2023 take 1 tablet by mouth once daily Aspirin 325 MG tablet Discontinued 325 mg PO DAILY April 03, 2020 12:00am November 02, 2023 3:18pm 1 ml enoxaparin sodium 100 mg/ml prefilled syringe (3 sources) Low Molecular Weight Heparin Start: 11-03-2023 End: 12-09-2023 Enoxaparin (Lovenox) 100 mg/mL syringe Discontinued 100 mg SC Q12H 60 November 03, 2023 1:00am December 09, 2023 1:10pm oxyCODONE hydrochloride 5 mg oral tablet (2 sources) Opioid Agonist Start: 11-11-2023 End: 12-09-2023 take 1 tablet by mouth every eight hours as needed for pain Oxycodone 5 mg Tablet Discontinued 5 mg PO EVERY 8 HOURS NEEDED as needed for Pain Score 4-10 9 3 November 11, 2023 December 09, 2023 1:10pm rivaroxaban 20 mg oral tablet (2 sources) Factor Xa Inhibitor Start: 11-18-2023 End: 12-07-2024 take 1 tablet by mouth once daily at dinner Rivaroxaban (Xarelto) 20 mg tablet Discontinued 20 mg PO DAILY June 01, 2024 11:54am December 07, 2024 1:23pm must administer with evening meal Problems Problem Classification Problem Date Documented Da te Episodic/Chronic Diverticulosis and diverticulitis (5 sources) Diverticular disease; Translations: [Diverticulosis of intestine, part unspecified, without perforation or abscess without bleeding] 04-20-2020 Chronic Gastrointestinal hemorrhage (5 sources) Gastrointestinal hemorrhage; Translations: [Gastrointestinal hemorrhage, unspecified] 04-20-2020 Episodic Immunizations and screening for infectious disease (10 sources) Contact with or exposure to other viral diseases; Translations: [Exposure to COVID-19 virus] 09-14-2021 Episodic Other diseases of veins and lymphatics (2 sources) Occlusion of iliac vein; Translations: [Compression of vein] 12-10-2024 Episodic Comment on above: s/p R iliac vein sherry nt 10/2023 Other nervous system disorders (1 source) Anesthesia of skin; Translations: [Anesthesia of skin] Onset: Episodic Other nutritional; endocrine; and metabolic disorders (5 sources) Overweight in adulthood with body mass index of 25 or more but less than 30; Translations: [Body mass index (BMI) 29.0-29.9, adult] 09-16-2021 Episodic Peripheral and visceral atherosclerosis (7 sources) Intermittent claudication of bilateral lower limbs co-occurrent and due to atherosclerosis; Translations: [Atherosclerosis of three affiliated arteries of extremities with intermittent claudication, bilateral legs] Onset: 5 12-09-2023 Chronic Comment on above: LEAS 12/08/24:R ROSA ISELA 0 .61; biphasic waveformsL ROSA ISELA 0.63; biphasic waveformsAbnormal response to exercise with post-exercise ABIs in the severe category bilaterally Phlebitis; thrombophlebitis and thromboembolism (12 sources) H/O: Deep vein thrombosis; Translations: [Personal history of other venous thrombosis and embolism] 04-20-2020 Episodic Comment on above: s/p RLE venous throm bectomy 10/2023 Viral infection (10 sources) Disease caused by 2019-nCoV; Translations: [COVID-19] 09-16-2021 Episodic Results Test Name Value Interpretation Reference Range Facility Lumbar Spine 2 or 3 Viewson 01-25-2025 Lumbar Spine 2 or 3 Views [facility] Imaging Services [address] [place] [address] Lumbar Spine 2 or 3 Views MR#: [id number] Acct: [id number] Name: LINDSAY HUNTER Rep #: [id number] : 1960 M 64 From: Kasie Soriano PCP: Dr. David De Leon MD Status: REG CLI Study: Lumbar Spine 2 or 3 Views Date of Exam: Exam# [id number] Ordering Dr: Ariadna Negrete PROCEDURE: LUMBAR SPINE 2 OR 3 VIEWS 01/25/2025 REASON FOR EXAM: CLAUDICATION, NUMBNESS IN FEET TECHNIQUE: 3 view(s) of the lumbar spine COMPARISON: None FINDINGS: There are 5 lumbar type vertebral bodies below the last set of paired ribs. The vertebral body heights are within normal limits. There is a very subtle dextroscoliosis of the lumbar spine. There disc space narrowing involving the L5-S1 disc space. The remaining disc spaces appear to be well-maintained. SI joints and hip joints are aligned and appear unremarkable. Pubic symphysis is unremarkable. Sacrum appears grossly unremarkable. Extensive arteriosclerotic vascular disease of the aorta is noted. A right iliac stent is noted. RAD/Lumbar Spine 2 or 3 Views IMPRESSION: Subtle dextroscoliosis of the lumbar spine. Degenerative disc disease involving the L5-S1 disc. Extensive arteriosclerotic vascular disease of the aorta. Reading Location: [id number] CC: ALYSHA Ruiz; Dr. David De Leon MD Annealing Torch Operator: Signed Normal [facility] Abdominal aortic duplex scan reportOrdered By: Yazan Jones on 12-07-2024 US.doppler Thoracic and abdominal aorta [facility] [address] [place] [address] Abd Aortic/IVC Duplex scan 12/06/24 0904 MR#: [id number] Acct: [id number] Name: LINDSAY HUNTER Rep #:[id number] : 1960 64 From: Yazan Redd Attending Dr: Dr. Yazan Jones MD S tatus: REG CLI Ordering Dr: Yazan Jones MD Date: 08/22 Location: [facility] Sex: M C Admitted: Reason For Study Reason For Study: S/P Right iliac vein stent Inferior Vena Cava Proximal inferior vena cava measures 1.01 x 2.27 cm. in the cross-sectional axis. Proximal inferior vena cava measures 0.94 cm. in the longitudinal axis. Mid inferior vena cava measures 1.41 x 1.56 cm. in the cross-sectional axis. Mid inferior vena cava measures 1.40 cm. in the longitudinal axis. Distal inferior vena cava measures 1.16 x 1.87 cm. in the cross-sectional axis. Distal inferior vena cava measures 1.06 cm. in the longitudinal axis. The inferior vena cava has spontaneous, phasic flow throughout. Left Common Iliac Vein Left common iliac vein measures 0.80 x 1.26 cm. in the cross-sectional axis. Left common iliac vein measures 0.71 cm. in the longitudinal axis. The left common iliac vein has spontaneous, phasic flow throughout. Right Common Iliac Vein Right common iliac vein measures 1.31 x 1.13 cm. in the cross-sectional axis. Right common iliac vein measures 1.43 cm. in the longitudinal axis. The right common iliac vein has spontaneous, phasic flow throughout. Stent noted in the right CIV. Procedure Aorta IVC Iliac vasculature or bypass grafts [id number]. Exam performed in department. VL/Abd Aortic/IVC Duplex scan Interpretation Summary Inferior vena cava and left iliac vein patent with normal venous flow pattern. Right iliac vein stent patent with normal venous flow pattern. Ordering Physician: Yazan Jones Referring Physician: Filomena Wong M.D. Performed By: Kristi Roque RVT 12/07/24702 Date _ Yazan Jones MD CC: Dr. Filomena Wong MD; Dr. Yazan Jones MD ~ Date Dictated: 12/06/24903 Date Transcribed: 12/07/24702 Annealing Torch Operator: Signed [facility] Work Phone: Arterial study reportOrdered By: Yazan Jones on 12-07-2024 Noninvasive arteriosclerosis study report [facility] Services [address] [place] [address] Lower Ext Art Exam w/ Exercise 12/06/24916 MR#: [id number] Acct: [id number] Name: LINDSAY HUNTER Rep #:[id number] : 1960 64 From: Yazan Redd Attending Dr: Dr. Yazan Jones MD S tatus: REG CLI Ordering Dr: Yazan Jones MD Date: 08/22 Location: [facility] Sex: M C Admitted: Reason For Study Reason For Study: Claudication Procedure A bilateral lower extremity continuous wave Doppler with analog waveform analysis,segmental pressures,and ankle brachial indexes with exercise. Left Segmental Pressures Left brachial= 161mmHg. Left high thigh = 123mmHg. Left low thigh = 129mmHg. Left calf = 106mmHg. Left posterior tibial artery = 100mmHg. Left dorsalis pedis artery = 101mmHg. Left digit = 80 mmHg. The left dorsalis pedis waveforms are biphasic. The left posterior tibial artery waveforms are biphasic. Right Segmental Pressures Right brachial= 149mmHg. Right high thigh = 178mmHg. Right low thigh = 149mmHg. Right calf = 99mmHg. Right dorsalis pedis artery = 149mmHg. Right posterior tibial artery = 178mmHg. Right digit = 82 mmHg. The right dorsalis pedis waveforms are biphasic. The right posterior tibial artery waveforms are biphasic. Indices The right ankle brachial index by the dorsalis pedis is 0.61. The right ankle brachial index by the posterior tibial artery is 0.60. The right digital-brachial index is 0.51. The right post exercise ankle brachial index is 0.27. The left ankle brachial index by the dorsalis pedis is 0.63. The left ankle brachial index by the posterior tibial artery is 0.62. The left digital-brachial index is 0.50. The left post exercise ankle brachial index is 0.28. VL/Lower Ext Art Exam w/ Exercise Interpretation Summary Right ROSA ISELA 0.61, moderate arterial insufficiency. Doppler/PVR waveforms and segmental pressures reveal proximal femoral, distal SFA/popliteal disease. Right lower extremity with abnormal response to exercise and post exercise ROSA ISELA in the severe category. Left ROSA ISELA 0.63, moderate arterial insufficiency. Doppler/PVR waveforms and segmental pressures reveal aorto-iliac, distal SFA/popliteal disease. Left lower extremity with abnormal response to exercise and post exercise ROSA ISELA inthe severe category. Ordering Physician: Yazan Jones Referring Physician: Filomena Wong M.D. Performed By: Kristi Roque RVT 12/07/24 0701 Date _ Yazan Jones MD CC: Dr. Filomena Wong MD; Dr. Yazan Jones MD ~ Date Dictated: 12/06/24 0917 Date Transcribed: 12/07/24 07 Annealing Torch Operator: Signed [facility] Work Phone: MR/Sintia 12-07-2024 MR/RICHI.MARIA LUISA [facility] Vascular Surgery [address] [place] [address] OFFICE VISIT Date of Service: 12/07/24 MR#: [id number] Acct: [id number] Name: LINDSAY HUNTER Rep #: [id number] : 1960 Provider: ALYSHA Ruiz Age/Sex: 64/M Location: [facility] [place] Status: Signed Intake Vital Signs 11/10/23 09:38 12/07/24 13:17 Height 5 ft 11 in Weight: 233 lb BP 165/84 H Blood Pressure Location Rt brachial Position Sitting Respiration 16 Pulse 100 Pulse Source Monitor Temp 97.8 F Temp Source Temporal Pulse Oximetry (%) 96 Oxygen Delivery Method room air Intake Visit Reasons: 1 YR FU, DISCUSS STUDIES Is patient in pain?: Yes Allergies erythromycin base Adverse Reaction (Intermediate, Verified 12/07/24 13:22) Vomiting Medications ???Medication ???Instructions ???Recorded ???Confirmed ???Type omeprazole 20 mg capsule,delayed 20 mg PO DAILY reflux 04/20/2009/21 History release amlodipine 5 mg tablet 5 mg PO DAILY blood pressure 11/0212/07/24 History clopidogrel 75 mg tablet 75 mg PO DAILY 30 days #30 tabs 12/07/24 Rx aspirin 81 mg tablet,delayed 81 mg PO QDAY 12/07/24 12/07/24 Hi story release Have you fallen in the past year?: No PFSH Medical History (Updated 12/10/24 @ 08:32 by ALYSHA Ruiz) Hemorrhoid History of DVT (deep vein thrombosis) Diverticulosis GI bleed Surgical History History of cardiac catheterization History of colonoscopy ( 2008) Family History Other Cancer Diabetes Heart disease Hypertension Myocardial infarction Social History (Updated 12/07/24 @ 13:17 by Richa R Anabel) Smoking Status: Heavy Smoker (>10/day) HPI HPI HPI: LINDSAY HUNTER, is a 64 M who presents to the office today for follow-up of his venous and arterial disease. He is accompanied to his appointment by his . He had venogram with RLE mechanical thrombectomy and angioplasty/stent right common/external iliac veins on 11/11/23. He had updated duplex 12/07/24 demonstrating patent R iliac vein stent with normal flow pattern. He denies any new/worsening RLE swelling, discoloration or recurrent tightness/heaviness sensation. He continues to tolerate ASA and Plavix. He also has bilateral lower extremity claudication at about 100 yards. He has to sit down for the pain to go away. He did not think a grocery cart helped much, but his does not think he really tried it. He does have some associated numbness in his feet as well. These symptoms have been present a few years. He thinks they are a bit better than when he was here last. He did complete an LEAS which demonstrated moderate PAD with bilateral ABIs 0.6 and with drop into the severe category with exercise. He does continue to smoke about 1.52 ppd. He is not diabetic. ROS General General: Yes weight change and fatigue; No appetite, colon cancer, breast cancer or weakness HEENT HEENT: No difficulty swallowing, eye injury, eye surgery, swollen glands or hoarseness Endo Endocrine: No thyroid disease, diabetes mellitus, thyroid cancer, Hair loss, heat intolerance or cold intolerance Skin Skin: No rash or changing moles Musc Musculoskeletal: No back problems, arthritis, rheumatoid arthritis, gout or joint pain Cardio Cardiovascular: Yes murmur and high blood pressure; No pacemaker, heart disease, atrial fibrillation, heart attack, heart stent, palpitations, shortness of breath with exertion or chest pain Psych Psychiatric: Yes depression and anxiety; No hearing voices Resp Respiratory: No shortness of breath, Yes sleep apnea, Yes cough, No COPD, No asthma, No emphysema and No wheezing Gastro Gastrointestinal: No abdominal pain, No nausea or vomiting, Yes diarrhea, Yes constipation, No blood in stool, Yes acid reflux, Yes hemorrhoids, No ulcers, No gallbladder problem and No black,tarry stools Neeraj Hematologic: Yes blood thinners, No blood disorders, No bleeding, No anemia and Yes blood clots Neuro Neurologic: No system reviewed and no additional complaints, except as documented, No as per HPI, No abnormal gait, No abnormal hearing, No abnormal movements, No abnormal speech, No behavioral changes, No burning sensations, No confusion, No convulsions, Yes disequilibrium, Yes dizziness, Yes localized weakness, No frequent falls, No headache(s), Yes lack of coordination, No loss of vision, No memory loss, Yes numbness, No other visual disturbances, No radicular pain, Yes restless legs, No sensory deficit, No syncope, Yes tingling, No tremor(s), No weakness and No other Exam Const General: cooperative, healthy appearing, comfortable, no acute distress and well developed Nutr (more content not included)... Normal [facility] Abd Aortic/IVC Duplex scanon 12-06-2024 Abd Aortic/IVC Duplex scan [facility] [address] [place] [address] Abd Aortic/IVC Duplex scan 12/06/24 0904 MR#: [id number] Acct: [id number] Name: LINDSAY HUNTER Rep #: [id number] : 1960 64 From: Yazan Jones MD Attending Dr: Dr. Yazan Jones MD Status: CHRISTOPHER JONES Ordering Dr: Yazan Jones MD Date: 12/06/24 Location: [facility] Sex: M C Admitted: Reason For Study Reason For Study: S/P Right iliac vein stent Inferior Vena Cava Proximal inferior vena cava measures 1.01 x 2.27 cm. in the cross-sectional axis. Proximal inferior vena cava measures 0.94 cm. in the longitudinal axis. Mid inferior vena cava measures 1.41 x 1.56 cm. in the cross- sectional axis. Mid inferior vena cava measures 1.40 cm. in the longitudinal axis. Distal inferior vena cava measures 1.16 x 1.87 cm. in the cross-sectional axis. Distal inferior vena cava measures 1.06 cm. in the longitudinal axis. The inferior vena cava has spontaneous, phasic flow throughout. Left Common Iliac Vein Left common iliac vein measures 0.80 x 1.26 cm. in the cross-sectional axis. Left common iliac vein measures 0.71 cm. in the longitudinal axis. The left common iliac vein has spontaneous, phasic flow throughout. Right Common Iliac Vein Right common iliac vein measures 1.31 x 1.13 cm. in the cross-sectional axis. Right common iliac vein measures 1.43 cm. in the longitudinal axis. The right common iliac vein has spontaneous, phasic flow throughout. Stent noted in the right CIV. Procedure Aorta IVC Iliac vasculature or bypass grafts [id number]. Exam performed in department. VL/Abd Aortic/IVC Duplex scan Interpretation Summary Inferior vena cava and left iliac vein patent with normal venous flow pattern. Right iliac vein stent patent with normal venous flow pattern. Ordering Physician: Yazan Jones Referring Physician: Filomena Wong M.D. Performed By: Kristi Roque Verónica 12/07/24 0703 Date Yazan Jones MD CC: Dr. Filomena Wong MD; Dr. Yazan Jones MD Date Dictated: 12/06/24903 Date Transcribed: 12/07/24702 Annealing Torch Operator: Signed Normal [facility] Lower Ext Art Exam w/ Exerci raghav 12-06-2024 Lower Ext Art Exam w/ Exercise [facility] [address] [place] [address] Lower Ext Art Exam w/ Exercise 12/06/24916 MR#: [id number] Acct: [id number] Name: LINDSYA HUNTER Rep #: [id number] : 1960 64 From: Yazan Jones MD Attending Dr: Dr. Yazan Jones MD Status: REG C Ordering Dr: Yazan Jones MD Date: 12/06/24 Location: [facility] Sex: M C Admitted: Reason For Study Reason For Study: Claudication Procedure A bilateral lower extremity continuous wave Doppler with analog waveform analysis,segmental pressures,and ankle brachial indexes with exercise. Left Segmental Pressures Left brachial= 161mmHg. Left high thigh = 123mmHg. Left low thigh = 129mmHg. Left calf = 106mmHg. Left posterior tibial artery = 100mmHg. Left dorsalis pedis artery = 101mmHg. Left digit = 80 mmHg. The left dorsalis pedis waveforms are biphasic. The left posterior tibial artery waveforms are biphasic. Right Segmental Pressures Right brachial= 149mmHg. Right high thigh = 178mmHg. Right low thigh = 149mmHg. Right calf = 99mmHg. Right dorsalis pedis artery = 149mmHg. Right posterior tibial artery = 178mmHg. Right digit = 82 mmHg. The right dorsalis pedis waveforms are biphasic. The right posterior tibial artery waveforms are biphasic. Indices The right ankle brachial index by the dorsalis pedis is 0.61. The right ankle brachial index by the posterior tibial artery is 0.60. The right digital-brachial index is 0.51. The right post exercise ankle brachial index is 0.27. The left ankle brachial index by the dorsalis pedis is 0.63. The left ankle brachial index by the posterior tibial artery is 0.62. The left digital-brachial index is 0.50. The left post exercise ankle brachial index is 0.28. VL/Lower Ext Art Exam w/ Exercise Interpretation Summary Right ROSA ISELA 0.61, moderate arterial insufficiency. Doppler/PVR waveforms and segmental pressures reveal proximal femoral, distal SFA/popliteal disease. Right lower extremity with abnormal response to exercise and post exercise ROSA ISELA in the severe category. Left ROSA ISELA 0.63, moderate arterial insufficiency. Doppler/PVR waveforms and segmental pressures reveal aorto-iliac, distal SFA/popliteal disease. Left lower extremity with abnormal response to exercise and post exercise ROSA ISELA in the severe category. Ordering Physician: Yazan Jones Referring Physician: Filomena Wong M.D. Performed By: Kristi Roque RVT 12/07/24700 Date Yazan Jones MD CC: Dr. Filomena Wong MD; Dr. Yazan Jones MD Date Dictated: 12/06/24916 Date Transcribed: 12/07/24700 Annealing Torch Operator: Signed Normal [facility] Activated partial thrombopla stin time (aPTT) in platelet poor plasma by coagulation aOrdered By: Yazan Jones on 11-11-2023 aPTT Coag (PPP) [Time] 43.0 s 24.1-36.2 [facility] Basophil percentageOrdered B y: Yazan Jones on 11-11-2023 Chloride [Moles/Vol] 107 mmol/L 98-107 [facility] Glucose [Mass/Vol] 106 mg/dL 74-106 [facility] Comment on above: Fasting Glucose resu lt from 100 to 125 mg/dL suggests IMPAIRED HOMEOSTASIS per A.D.A. criteria. Hemoglobin (Bld) [Mass/Vol] 13.6 g/dL 13.0-16.[address] [facility] Potassium [Moles/Vol] 3.9 mmol/L 3.5-5.1 [facility] Sodium [Moles/Vol] 139 mmol/L 136-145 [facility] WBC (Bld) [#/Vol] 8.2 10*3/uL 4.4-11.0 [facility] Determination of erythrocyte mean corpuscular volume (MCV)Ordered By: Yazan Jones on 11-11-2023 MCV (RBC) [Entitic vol] 96.9 fL 80-94 [facility] Erythrocyte distribution wid th ratioOrdered By: Yazan Jones on 11-11-2023 Erythrocyte distribution width (RBC) [Ratio] 11.9 % 11.6-14.[address] [facility] Erythrocyte distribution wid th standard deviationOrdered By: Yazan Jones on 11-11-2023 Erythrocyte distribution width (RBC) [Entitic vol] 42.6 fL 35.1-43.[address] [facility] Hematocrit Auto (Bld) [Volum e fraction]Ordered By: Yazan Jones on 11-11-2023 Hematocrit (Bld) [Volume fraction] 41.1 % 40-[address] [facility] Laboratory - Chemistry and C hemistry - challengeOrdered By: Yazan Jones on 11-11-2023 CO2 [Moles/Vol] 26.0 mmol/L 21.0-32.[address] [facility] Urea nitrogen/Creatinine [Mass ratio] 9.5 mg/mg 10-[address] [facility] Laboratory - CoagulationOrde red By: Yazan Jones on 11-11-2023 INR Coag (Bld) [Relative time] 1.0 {INR} [facility] PT Coag (PPP) [Time] 13.5 s 11.7-14.9 [facility] Laboratory - Hematology and Cell countsOrdered By: Yazan Jones on 11-11-2023 MCH (RBC) [Entitic mass] 32.1 pg 27.0-32.[address] [facility]C (RBC) [Mass/Vol] 33.1 g/dL 32-36 [facility] Platelet mean volume (Bld) [Entitic vol] 10.3 fL 6.2-12.[address] [facility] Platelets (Bld) [#/Vol] 386 10*3/uL 150-[address] [facility] No Panel InformationOrdered By: Yazan Jones on 11-11-2023 Estimated Creatinine Clearance Calc 147.38 ml/min [facility] Estimated GFR (MDRD) Amer 166 mL/min >[address] [facility] Comment on above: GFR Calc Estimated GFR (MDRD) Non-Af Amer 137 mL/min >[address] [facility] Comment on above: Non- GFR Calc RBC Auto (Bld) [#/Vol]Ordere d By: Yazan Jones on 11-11-2023 RBC (Bld) [#/Vol] 4.24 10*6/uL 4.6-6.2 [facility] Serum or plasma calcium alonso urement (mass/volume)Ordered By: Yazan Jones on 11-11-2023 Calcium [Mass/Vol] 9.1 mg/dL 8.5-10.1 [facility] Serum or plasma creatinine m easurement (mass/volume)Ordered By: Yazan Jones on 11-11-2023 Creatinine [Mass/Vol] 0.63 mg/dL 0.70-1.30 [facility] Comment on above: The validity of the calculated GFR & GFRAA in patients over 70 years has not been determined. Clinical correlation is essential. Serum or plasma urea nitroge n measurement (mass/volume)Ordered By: Yazan Jones on 11-11-2023 Urea nitrogen [Mass/Vol] 6 mg/dL 7-[address] [facility] Thin prep Papanicolaou smear with manual screeningOrdered By: Yazan Jones on 11-11-2023 Thin prep Papanicolaou smear with manual screening 6 5-[address] [facility] No Panel InformationOrdered By: Yazan Jones on 11-10-2023 Activated Clotting Time 223 sec 74-137 [facility] Absolute lymphocyte countOrd ered By: David De Leon on 10-26-2023 Lymphocytes Auto (Unsp spec) [#/Vol] 1.43 10*3/uL 0.83-4.[address] [facility] Automated lymphocyte count a s percentage of total leukocytesOrdered By: David De Leon on 10-26-2023 Lymphocytes/100 WBC Auto (Unsp spec) 14.6 % 19-[address] [facility] Basophil percentageOrdered B y: David De Leon on 10-26-2023 Basophils/100 WBC (Bld) 0.7 % 0-1 [facility] Bilirubin [Mass/Vol] 0.50 mg/dL 0.20-1.00 [facility] Comment on above: For patients on eltr ombopag therapy, use of Dimension [place] TBIL is not recommended. Chloride [Moles/Vol] 100 mmol/L 98-107 [facility] Cholesterol [Mass/Vol] 197 mg/dL <200 [facility] Comment on above: <200 mg/dL Desirable 200-240 mg/dL Borderline >240 mg/dL High Risk Eosinophils/100 WBC (Bld) 3.2 % 0-[address] [facility] Glucose [Mass/Vol] 111 mg/dL 74-106 [facility] Comment on above: Fasting Glucose resu lt from 100 to 125 mg/dL suggests IMPAIRED HOMEOSTASIS per A.D.A. criteria. Hemoglobin (Bld) [Mass/Vol] 14.6 g/dL 13.0-16.[address] [facility] Monocytes/100 WBC (Bld) 13.8 % 0-10 [facility] Neutrophils (Bld) [#/Vol] 6.6 10*3/uL 2.0-7.[address] [facility] Neutrophils/100 WBC (Bld) 66.7 % 47-[address] [facility] Potassium [Moles/Vol] 3.7 mmol/L 3.5-5.1 [facility] Protein [Mass/Vol] 8.0 g/dL 6.4-8.2 [facility] Sodium [Moles/Vol] 131 mmol/L 136-145 [facility] Triglyceride [Mass/Vol] 150 mg/dL <199 [facility] Comment on above: The drugs N-Acetylcy steine and Metamizole may falsely depress this assay.Serum Triglycerides Reference Interval Normal <150 mg/dL Borderline high 150 - 199 mg/dL High 200 - 499 mg/dL Very High > or = 500 mg/dL WBC (Bld) [#/Vol] 9.8 10*3/uL 4.4-11.0 [facility] Determination of erythrocyte mean corpuscular volume (MCV)Ordered By: David De Leon on 10-26-2023 MCV (RBC) [Entitic vol] 97.1 fL 80-94 [facility] Erythrocyte distribution wid th ratioOrdered By: David De Leon on 10-26-2023 Erythrocyte distribution width (RBC) [Ratio] 12.2 % 11.6-14.[address] [facility] Erythrocyte distribution wid th standard deviationOrdered By: David Moises on 10-26-2023 Erythrocyte distribution width (RBC) [Entitic vol] 43.6 fL 35.1-43.[address] [facility] Hematocrit Auto (Bld) [Volum e fraction]Ordered By: David De Leon on 10-26-2023 Hematocrit (Bld) [Volume fraction] 43.6 % 40-[address] [facility] High density lipoprotein (HD L) measurementOrdered By: David De Leon on 10-26-2023 Cholesterol in HDL (Body fld) [Mass/Vol] 33 mg/dL >[address] [facility] Comment on above: The drugs N-Acetylcy steine and Metamizole may falsely depress this assay. Reference Range HDL <40 mg/dL Low HDL Cholesterol HDL >or= 60 mg/dL High HDL Cholesterol Immature granulocytes/100 WB C Auto (Bld)Ordered By: David De Leon on 10-26-2023 Immature granulocytes/100 WBC (Bld) 1.000 % 0.0-0.[address] [facility] Comment on above: IG% - Immature Granu locytes (promyelocytes, myelocytes and metamyelocytes) > 1% indicates that a LEFT SHIFT is Present. Laboratory - Chemistry and C hemistry - challengeOrdered By: David De Leon on 10-26-2023 Albumin/Globulin [Mass ratio] 0.6 {ratio} 0.9-2.[address] [facility] ALP [Catalytic activity/Vol] 90 U/L 45-[address] [facility] ALT [Catalytic activity/Vol] 36 U/L 16-[address] [facility] CO2 [Moles/Vol] 23.0 mmol/L 21.0-32.[address] [facility] Globulin (S) [Mass/Vol] 5.1 g/dL 2.2-4.2 [facility] Urea nitrogen/Creatinine [Mass ratio] 17.8 mg/mg 10-[address] [facility] Laboratory - Hematology and Cell countsOrdered By: David De Leon on 10-26-2023 MCH (RBC) [Entitic mass] 32.5 pg 27.0-32.[address] [facility] MCHC (RBC) [Mass/Vol] 33.5 g/dL 32-36 [facility] Nucleated RBC/100 WBC (Bld) [Ratio] 0 % 0-[address] [facility] Platelets (Bld) [#/Vol] 360 10*3/uL 150-[address] [facility] Low density lipoprotein (LDL ) cholesterol measurementOrdered By: David De Leon on 10-26-2023 Cholesterol in LDL (Body fld) [Moles/Vol] 134 mg/dL 0-[address] [facility] No Panel InformationOrdered By: David De Leon on 10-26-2023 Estimated GFR (MDRD) Amer 154 mL/min >[address] [facility] Comment on above: GFR Calc Estimated GFR (MDRD) Non-Af Amer 127 mL/min >[address] [facility] Comment on above: Non- GFR Calc Platelet mean volume Rafael-Ec ker (Bld) [Entitic vol]Ordered By: David De Leon on 10-26-2023 Platelet mean volume (Bld) [Entitic vol] 9.5 fL 6.2-12.[address] [facility] RBC Auto (Bld) [#/Vol]Ordere d By: David De Leon on 10-26-2023 RBC (Bld) [#/Vol] 4.49 10*6/uL 4.6-6.2 [facility] Serum or plasma calcium alonso urement (mass/volume)Ordered By: David De Leon on 10-26-2023 Calcium [Mass/Vol] 9.5 mg/dL 8.5-10.1 [facility] Serum or plasma creatinine m easurement (mass/volume)Ordered By: David De Leon on 10-26-2023 Creatinine [Mass/Vol] 0.68 mg/dL 0.70-1.30 [facility] Comment on above: The validity of the calculated GFR & GFRAA in patients over 70 years has not been determined. Clinical correlation is essential. Serum or plasma thyroid stim ulating hormone (TSH) measurement (units/volume)Ordered By: David De Leon on 10-26-2023 TSH Qn 2.14 uIU/mL 0.358-3.[address] [facility] Serum or plasma urea nitroge n measurement (mass/volume)Ordered By: David De Leon on 10-26-2023 Urea nitrogen [Mass/Vol] 12 mg/dL 7-[address] [facility] Thin prep Papanicolaou smear with manual screeningOrdered By: David De Leon on 10-26-2023 Thin prep Papanicolaou smear with manual screening 2.9 g/dL 3.2-5.[address] [facility] Thin prep Papanicolaou smear with manual screening 37 U/L 15-[address] [facility] Thin prep Papanicolaou smear with manual screening 8 5-[address] [facility] Very low density lipoprotein (VLDL) cholesterol measurementOrdered By: David De Leon on 10-26-2023 Cholesterol in VLDL Calc [Moles/Vol] 30 mg/dL 5-[address] [facility] Vital Signs Date Time Vital Sign Value Performing Clinician Faci lity 12-07-2024 13:17-0400 Body temperature 97.8 [degF] Dr. Filomena Wong MD Work Phone: [facility] 12-07-2024 13:17-0400 Body weight 105.[address] Filomena Wong MD Work Phone: [facility] 12-07-2024 13:17-0400 Diastolic blood pressure 84 mm[Hg] Dr. Filomena Wong MD Work Phone: [facility] 12-07-2024 13:17-0400 Heart rate 100 /min Dr. Filomena Wong MD Work Phone: [facility] 12-07-2024 13:17-0400 Respiratory rate 16 /min Dr. Filomena Wong MD Work Phone: [facility] 12-07-2024 13:17-0400 SaO2% (BldA) [Mass fraction] 96 % Dr. Filomena Wong MD Work Phone: [facility] 12-07-2024 13:17-0400 Systolic blood pressure 165 mm[Hg] Dr. Filomena Wong MD Work Phone: [facility] 11-11-2023 10:12-0500 Body temperature 97.9 [degF] Dr. Filomena Wong Work Phone: [facility] 11-11-2023 10:12-0500 Diastolic blood pressure 88 mm[Hg] Dr. Filomena Wong Work Phone: [facility] 11-11-2023 10:12-0500 Heart rate 80 /min Dr. Filomena Wong Work Phone: [facility] 11-11-2023 10:12-0500 Respiratory rate 16 /min Dr. Filomena Wong Work Phone: [facility] 11-11-2023 10:12-0500 SaO2% (BldA) [Mass fraction] 97 % Dr. Filomena Wong Work Phone: [facility] 11-11-2023 10:12-0500 Systolic blood pressure 152 mm[Hg] Dr. Filomena Wong Work Phone: [facility] 11-10-2023 09:38-0500 Body height 180.[address] Filomena Wong Work Phone: [facility] 11-10-2023 09:38-0500 Body mass index (BMI) [Ratio] 30.3 kg/m2 Dr. Filomena Wong Work Phone: [facility] 11-10-2023 09:38-0500 Body weight 98.[address] Filomena Wong Work Phone: [facility] 11-02-2023 14:14-0500 Body temperature 98.2 [degF] Dr. Filomena Wong Work Phone: [facility] 11-02-2023 14:14-0500 Body weight 101.[address] Filomena Wong Work Phone: [facility] 11-02-2023 14:14-0500 Diastolic blood pressure 84 mm[Hg] Dr. Filomena Wong Work Phone: [facility] 11-02-2023 14:14-0500 Heart rate 103 /min Dr. Filomena Wong Work Phone: [facility] 11-02-2023 14:14-0500 Respiratory rate 16 /min Dr. Filomena Wong Work Phone: [facility] 11-02-2023 14:14-0500 SaO2% (BldA) [Mass fraction] 97 % Dr. Filomena Wong Work Phone: [facility] 11-02-2023 14:14-0500 Systolic blood pressure 130 mm[Hg] Dr. Filomena Wong Work Phone: [facility] Encounters Encounter Date Encounter Type Care Provider Facility Start: 01-25-2025 End: 01-25-2025 ambulatory David De Leon Facility:[facility] Start: 12-07-2024 End: 12-07-2024 Patient encounter procedure Ariadna ENCARNACION -[facility] Work Phone: Start: 12-07-2024 End: 12-07-2024 ambulatory Ariadna Negrete Facility:[facility] [place] Start: 12-06-2024 Non-patient / Non-visit Dr. Yazan nguyen MD -[facility] Start: 12-06-2024 End: 12-06-[address] Filomena Wong MD Work Phone: [facility] Work Phone: Start: 12-06-2024 End: 12-06-[address] Yazan Jones MD -Cardiovascular Services Work Phone: Start: 12-06-2024 End: 12-06-2024 ambulatory Filomena Wong Facility:[facility] Start: 11-11-2023 Non-patient / Non-visit Dr. Spike Wong Work Phone: [facility] Start: 11-09-2023 Non-patient / Non-visit Dr. Spike Wong Work Phone: [facility] Start: 11-09-2023 End: 11-11-2023 Evaluation and management of inpatient Dr. Filomena Wong Work Phone: [facility]-Progressive Care Unit Work Phone: Start: 11-04-2023 Non-patient / Non-visit Dr. Spike Wong Work Phone: [facility] Start: 11-04-2023 End: 11-04-[address] Filomena Wong Work Phone: [facility] Work Phone: Start: 11-04-2023 End: 11-04-[address] Filomena Wong Work Phone: [facility] Work Phone: Start: 11-02-2023 End: 11-02-[address] Filomena Wong Work Phone: [facility] Work Phone: Start: 10-26-2023 End: 10-26-[address] Filomena Wong Work Phone: [facility] Work Phone: Start: 10-26-2023 End: 10-26-[address] Filomena Wong Work Phone: [facility]-Laboratory Work Phone: Start: 10-22-2023 Non-patient / Non-visit Dr. Spike Wong Work Phone: [facility] Start: 10-22-2023 End: 10-22-[address] Filomena Wong Work Phone: [facility] Work Phone: Start: 10-22-2023 End: 10-22-[address] Filomena Wong Work Phone: [facility]-Cardiovascular Services Work Phone: Plan of Treatment Date Care Activity Detail Author Start: 11-11-2023 Patient discharge [facility] Start: 11-10-2023 Elevation of head of bed [facility] Start: 11-10-2023 Bedrest [facility] Start: 11-10-2023 Notification of physician [facility] Start: 11-10-2023 Provision of activity privileges [facility] Start: 11-10-2023 Pulse taking [facility] Start: 11-10-2023 Taking patient vital signs [facility] Start: 11-10-2023 End: 11-10-2023 [facility] Start: 11-09-2023 Ambulation without limitation [facility] Start: 11-09-2023 Assessment of risk o f venous thromboembolism [facility] Start: 11-09-2023 Elevation of affected extremity [facility] Start: 11-09-2023 Incentive spirometry [facility] Start: 11-09-2023 Insertion of cathete r into peripheral vein [facility] Start: 11-09-2023 Measuring intake and output [facility] Start: 11-09-2023 Medication not administered [facility] Start: 11-09-2023 Notification of physician [facility] Start: 11-09-2023 Oxygen therapy [facility] Start: 11-09-2023 Providing care accor ding to standard [facility] Start: 11-09-2023 Self-administration of medication [facility] Start: 11-09-2023 [facility] Start: 11-09-2023 Admission procedure [facility] Start: 11-09-2023 Verification routine [facility] Start: 11-09-2023 Following clinical p athway protocol [facility] Patient referral [facility] Work Phone: XR Lumbar spine 2 or [address] [facility] Immunizations Immunization Date Immunization Notes Care Provider Fa cility 01-04-2021 Covid (Pfizer) Dr. Filomena barry Work Phone: [facility] 12-14-2020 Covid (Pfizer) Dr. Filomena barry Work Phone: [facility] 03-31-2016 tetanus and diphther ia toxoids, adsorbed, preservative free, for adult use (2 Lf of tetanus toxoid and 2 Lf of diphtheria toxoid) Dr. Filomena Wong Work Phone: [facility] Payers Date Payer Category Payer Self-pay [id number] 2023 Unknown [id number] Private Health Insurance [facility] [id number] Private Health Insurance [facility] [id number] Unknown [facility] MHS DO NOT USE 22 [id number] Unknown [id number] Unknown [id number] Unknown [id number] Unknown [id number] Social History Date Type Detail Facility Start: 09-16-2021 End: 11-09-2023 Tobacco smoking status NHIS Unknown if ever smoked [facility] Start: 04-04-2020 Heavy [facility] Start: 04-04-2020 None [facility] Start: 04-04-2020 Spouse/ Signif icant Other [facility] Start: 04-26-2020 Cigarettes [facility] Start: 1960 Sex Assigned At Male [facility] Start: 12-07-2024 Tobacco smoking status NHIS Current Heavy tobacco smoker [facility] Start: 12-14-2024 Sex Male (finding) [facility] Medical Equipment Procedure Code Equipment Code Equipment Origin al Text Equipment Identifier Dates Iliofemoral vein stent ()[id number] [id number] [facility] Start: 11-10-2023 Goals Date Patient Goal Desired Activity /State Functional Status Date Assessment Result Facility 11-11-2023 Functional status Ambulates [facility] Work Phone: Mental Status Date Assessment Result Facility 11-11-2023 Cognitive function Voice/Name [facility] Work Phone: Evaluation note 12-07-2024 Note Date & Type Note Facility 12-07-2024 Evaluation note Diagnosis Onset Date Resolution Claudication acute December 07, 2024 12:51pm Iliac vein stenosis, right acute December 07, 2024 12:51pm PAD (peripheral artery disease) acute December 07, 2024 12:51pm History of DVT (deep vein thrombosis) chronic December 07 12:51pm [facility] Work Phone: Discharge summary 11-11-2023 Note Date & Type Note Facility 11-11-2023 Discharge summary Note Date/Time November 11, 2023 9:01am [facility] Medical Records Department [address] [place] [address] Discharge Summary 11/11/23 0853 MR#: [id number] Acct: [id number] Name: LINDSAY HUNTER Rep #:[id number] : 1960 63 From: Ariadna ENCARNACION PCP: Dr. Filomena Wong MD Status:ADM IN Location: [place] [address] Providers Date of Admission: 11/09/23 Primary Care Physician: Dr. Filomena Wong MD Reason For Visit: DVT/ HEPARIN BRIDGE Diagnosis Discharge Diagnosis (1) Dvt femoral (deep venous thrombosis): Status: Acute Code(s): I82.419 - Acute embolism and thrombosis of unspecified femoral vein Qualifiers: Chronicity: acute Laterality: right Qualified Code(s): I82.411 - Acuteembolism and thrombosis of right femoral vein Plan Patient is s/p RLE thrombectomy and right iliac vein stenting. He tolerated the procedure well. He has been on therapeutic heparin drip overnight with no bleeding/hematoma at the access site. Hgb is stable. Will transition from heparin to lovenox this morning. He will continue lovenox at home x 1 month prior to transition to Xarelto. Will continue with Plavix 75mg daily at home. He will discharge home today with follow-up in the office in 1 week for suture removal. Medications at Discharge Home Medications omeprazole 20 mg capsule,delayed release 20 mg PO DAILY 04/20/20 amlodipine 5 mg tablet 5 mg PO DAILY 11/02/23 enoxaparin 100 mg/mL subcutaneous syringe (Lovenox) 100 mg subcut Q12H 30 days #60 mL 11/03/23 clopidogrel 75 mg tablet 75 mg PO DAILY 30 days #30 tabs 11/11/23 oxycodone 5 mg tablet 5 mg PO Q8H PRN PRN Pain Score 4-10 3 days #9 tabs 11/11/23 Hospital Course Operations - (RLE thrombectomy and R iliac vein stent) Summary of Care Provided Hospital Course: Mr. Lindsay Hunter is a 63-year-old male who was admitted on 11/09/2023 for heparin bridge for planned right lower extremity venogram with thrombectomy on 11/10/2023. The procedure went well with significant clot burden removed and right iliac vein stenting to address central venous compression. Patient tolerated the procedure well. Following the procedure he was transitioned back to therapeutic heparin drip which he tolerated overnight without any complications. This morning he was transitioned from heparin back to Lovenox which he will continue as an outpatient. Due to the right iliac vein stent, he was also initiated on Plavix. He received a loading dose of 300 mg yesterday and will continue with the maintenance dose of 75 mg p.o. daily for 1 year. The right popliteal access site has 1 suture which is intact and will remain in place for 1 week, he will return to the office in 1 week for suture removal. He is medically stable for discharge home today. Physical Exam Const alert, oriented x3 and no apparent distress General Appearance: cooperative and comfortable HEENT normocephalic, head/scalp atraumatic, hearing grossly normal bilaterally, external ears normal and external nose normal Eyes EOMs intact bilaterally General Eye: normal appearance of both eyes Neck General: normal visual inspection and trachea midline Resp normal respiratory effort, normal air movement, no retractions and no use of accessory muscles Effort and Inspection: able to speak in complete sentences; Negative for labored, grunting, stridor or audible wheezes Cardio regular rate and regular rhythm Extremity Extremity Narrative: R popliteal fossa access site with suture intact. No hematoma, ecchymosis, bleeding, erythema, focal swelling. Skin no rashes or lesions noted Trauma: no lacerations or abrasions Neuro oriented x3, CN's II-XII intact bilaterally, moves all extremities, no focal motor deficits and no sensory deficits noted Speech: speech normal Psych mental status grossly normal Appearance: grossly normal Attitude: calm and engaged Activity / Motor Behavior: appropriate eye contact Speech: normal speech Weight / BMI Weight Weight: 217 lb 6.012 oz Body Mass Index (BMI) 30.3 ABG / Lab / Microbiology Data 11/11/23 06:30 11/11/23 06:30 Laboratory: Laboratory Results - last 24 hr 11/10/23 07:18: APTT 57.4 H 11/10/23 15:05: Activated Clotting Time 223 H 11/10/23 22:18: APTT 55.9 H 11/11/23 06:30: WBC 8.2, RBC 4.24 L, Hgb 13.6, Hct 41.1, MCV 96.9 H, MCH 32.1 H,MCHC 33.1, RDW Std Deviation 42.6, RDW Coeff of Amber 11.9, Plt Count 386, MPV 10.3, Sodium 139, Potassium 3.9, Chloride 107, Carbon Dioxide 26.0, Anion Gap 6,BUN 6 L, Creatinine 0.63 L, Estim Creat Clear Calc 147.38, Est GFR (MDRD) Af Amer 166, Est GFR (MDRD) Non-Af 137, BUN/Creatinine Ratio 9.5 L, Glucose 106, Calcium 9.1 D/C Instructions Discharge Diet: No restrictions May shower in (days): 1 Weight Bearing Status: Weight bearing as tolerated Lifting Restricted to (Lbs): 20 Lifting Restrictions: Do not lift greater than 20 pounds for 2 weeks Call your doctor if your incision/area has: Sudden Increased Bleeding, IncreasedPain/ Swelling and Foul Smelling Discharge Call your doctor if you observe: Fever of 101 or Higher and Uncontrolled pain Additional Instructions: There is 1 suture at the access site behind your right knee. We will remove this suture at your follow-up appointment in 1 week. You may leave the access site open to air or cover with a dry dressing to your comfort. You may shower, is okay for soap and water to rinse over the access site. Pat to dry. Do not submerge the access site in water for 2 weeks. Do not lift greater than 20 pounds for 2 weeks. Otherwise, you may proceed withactivity as tolerated. Continue with compression stocking or Ba bandage wrap for compression. Continue to administer Lovenox 100 mg subcutaneously every 12 hours. Continue to take Plavix 75 mg by mouth once daily. You have been prescribed oxycodone 5 mg to be taken every 8 hours as needed for pain. Do not combine this with any other prescription pain medications. You may take this with Tylenol as needed. Our medical assistant secretary will contact you to schedule your 1 week follow-up for suture removal. In addition, we will also keep your follow-up appointment as scheduledon 12/03/2023. Please contact the office at with any questions, concerns, or to change your appointment. Please Follow Up With: Ariadna Negrete PA When: 1 week Meaningful Use Info Meaningful Use Diagnoses (Choose all that apply): VTE VTE Anticoag overlap given w/in hospital stay or rx'd at dc?: Yes Pt receive overlap for 5 days?: Yes Discharge Plan Admission Admit Date/Time: 11/09/23 16:43 Primary Reason for Your Visit: RLE venogram with thrombectomy Attending Provider: Yazan Jones Primary Care Provider: Filomena Wong Instructions Additional Instructions / Restrictions: There is 1 suture at the access site behind your right knee. We will remove this suture at your follow-up appointment in 1 week. You may leave the access site open to air or cover with a dry dressing to your comfort. You may shower, is okay for soap and water to rinse over the access site. Pat to dry. Do not submerge the access site in water for 2 weeks. Do not lift greater than 20 pounds for 2 weeks. Otherwise, you may proceed withactivity as tolerated. Continue with compression stocking or Ba bandage wrap for compression. Continue to administer Lovenox 100 mg subcutaneously every 12 hours. Continue to take Plavix 75 mg by mouth once daily. You have been prescribed oxycodone 5 mg to be taken every 8 hours as needed for pain. Do not combine this with any other prescription pain medications. You may take this with Tylenol as needed. Our medical assistant secretary will contact you to schedule your 1 week follow-up for suture removal. In addition, we will also keep your follow-up appointment as scheduledon 12/03/2023. Please contact the office at with any questions, concerns, or to change your appointment. Discharge Orders/Prescriptions Prescriptions: New clopidogrel 75 mg Tablet 75 mg PO DAILY 30 Days Qty: 30 11RF oxycodone 5 mg Tablet 5 mg PO Q8H PRN PRN (Reason: Pain Score 4-10) 3 Days Qty: 9 0RF Continued omeprazole 20 mg capsule,delayed release(DR/EC) 20 mg PO DAILY amlodipine 5 mg tablet 5 mg PO DAILY enoxaparin [Lovenox] 100 mg/mL syringe 100 mg subcut Q12H 30 Days Qty: 60 2RF Discontinued Eliquis DVT-PE Treat 30D Start 5 mg (74 tabs) tablets,dose pack See Rx Instructions PO PER PKG DIR Hold Instructions: switched to Lovenox for now Rx Instructions: PO PER PKG DIR Referrals / Follow Up: Filomena Wong MD [Primary Care Provider] - Disposition Disposition (needs filled in before D/C Order can be placed): Home, Self Care 11/11/23 0907 <Electronically signed by Ariadna ENCARNACION> Cosigner Signature (if applicable): 11/11/23 1051 <Electronically signed by Yazan Jones MD> CC: ALYSHA Ruiz; Dr. Filomena Wong MD; Dr. Yazan Jones MD~ Signed [facility] Work Phone: Progress note 11-11-2023 Note Date & Type Note Facility 11-11-2023 Progress note Note Date/Time November 11, 2023 8:52am [facility] Medical Records Department [address] [place] [address] Progress Note - Surgery 11/11/23 0845 MR#: [id number] Acct: [id number] Name: LINDSAY HUNTER Rep #:[id number] : 1960 63 From: Ariadna ENCARNACION PCP: Dr. Filomena Wong MD Status:ADM IN Location: [place] [address] Subjective Subjective Patient is seen resting comfortably in bed this morning. He has been ambulating around the room without difficulty, tolerating a normal diet, voiding without difficulty. There is no bleeding or hematoma formation at the R popliteal fossa access site. Objective Data Objective Data Vital Signs: Vital Signs Temp Pulse Resp BP Pulse Ox O2 Del Method 98.2 F 85 18 128/80 H 95 Room Air 11/11/23 04:21 11/11/23 04:21 11/11/23 04:21 11/11/23 04:21 11/11/23 04:21 11/11/23 04:25 Oxygen Delivery Method Room Air Weight: 217 lb 6.012 oz Body Mass Index (BMI) 30.3 Intake & Output: Intake and Output for Last 24 Hours 11/09/23 11/10/23 11/11/23 23:59 23:59 23:59 Intake Total 240 / 740 4023.25 / 4023.25 973.75 / 973.75 Balance 240 / 740 4023.25 / 4023.25 973.75 / 973.75 Lab / Micro Data 11/11/23 06:30 11/11/23 06:30 Labs: Laboratory Results - last 24 hr 11/10/23 07:18: APTT 57.4 H 11/10/23 15:05: Activated Clotting Time 223 H 11/10/23 22:18: APTT 55.9 H 11/11/23 06:30: WBC 8.2, RBC 4.24 L, Hgb 13.6, Hct 41.1, MCV 96.9 H, MCH 32.1 H,MCHC 33.1, RDW Std Deviation 42.6, RDW Coeff of Amber 11.9, Plt Count 386, MPV 10.3, Sodium 139, Potassium 3.9, Chloride 107, Carbon Dioxide 26.0, Anion Gap 6,BUN 6 L, Creatinine 0.63 L, Estim Creat Clear Calc 147.38, Est GFR (MDRD) Af Amer 166, Est GFR (MDRD) Non-Af 137, BUN/Creatinine Ratio 9.5 L, Glucose 106, Calcium 9.1 Physical Exam Const alert, oriented x3 and no apparent distress General Appearance: cooperative and comfortable HEENT normocephalic, head/scalp atraumatic, hearing grossly normal bilaterally, external ears normal and external nose normal Eyes EOMs intact bilaterally General Eye: normal appearance of both eyes Neck General: normal visual inspection and trachea midline Resp normal respiratory effort, normal air movement, no retractions and no use of accessory muscles Effort and Inspection: able to speak in complete sentences; Negative for labored, grunting, stridor or audible wheezes Cardio regular rate and regular rhythm Extremity Extremity Narrative: R popliteal fossa access site with suture intact. No hematoma, ecchymosis, bleeding, erythema, focal swelling. Skin no rashes or lesions noted Trauma: no lacerations or abrasions Neuro oriented x3, CN's II-XII intact bilaterally, moves all extremities, no focal motor deficits and no sensory deficits noted Speech: speech normal Psych mental status grossly normal Appearance: grossly normal Attitude: calm and engaged Activity / Motor Behavior: appropriate eye contact Speech: normal speech Assessment & Plan Assessment/Plan (1) Dvt femoral (deep venous thrombosis): QUALIFIERS: Chronicity: acute Laterality: right Qualified Code(s): I82.411 - Acute embolism and thrombosis of right femoral vein PLAN: Plan Patient is s/p RLE thrombectomy and right iliac vein stenting. He tolerated the procedure well. He has been on therapeutic heparin drip overnight with no bleeding/hematoma at the access site. Hgb is stable. Will transition from heparin to lovenox this morning. He will continue lovenox at home x 1 month prior to transition to Xarelto. Will continue with Plavix 75mg daily at home. He will discharge home today with follow-up in the office in 1 week for suture removal. 11/11/23 0858 <Electronically signed by Ariadna ENCARNACION> Cosigner Signature (if applicable): 11/11/23 1051 <Electronically signed by Yazan Jones MD> CC: ~ Signed [facility] Work Phone: History and physical note 11-09-2023 Note Date & Type Note Facility 11-09-2023 History and physi holli note Note Date/Time November 09, 2023 5:24pm [facility] Medical Records Department [address] [place] [address] History & Physical Exam 11/09/23 1723 MR#: [id number] Acct: [id number] Name: LINDSAY HUNTER Rep #:[id number] : 1960 63 From: Yazan Jones MD PCP: Dr. Filomena Wong MD Status:ADM IN Location: [place] [address] HPI - General General Date of Admission: 11/09/23 HPI Narrative LINDSAY HUNTER, is a 63 M who presents with extensive RLE DVT with no improvement in symptoms or thrombus resolution with~3 weeks of anticoagulation. He presents for heparin bridging prior to venogram and thrombectomy. [facility] Medical History Diverticulosis GI bleed Hemorrhoid History of DVT (deep vein thrombosis) Home Medications omeprazole 20 mg capsule,delayed release 20 mg PO DAILY 04/20/20 [History Last Taken 11/09/23 09:00] amlodipine 5 mg tablet 5 mg PO DAILY 11/02/23 [History Last Taken 11/09/23 09:00] apixaban 5 mg (74 tabs) tablets in a dose pack (Eliquis DVT-PE Treat 30D Start) See Rx Instructions PO PER PKG DIR 11/02/23 [History Last Taken Unknown] enoxaparin 100 mg/mL subcutaneous syringe (Lovenox) 100 mg subcut Q12H 30 days #60 mL 11/03/23 [Rx Last Taken 11/09/23 09:00] Allergy/AdvReac Type Severity Reaction Status Date / Time erythromycin base AdvReac Intermediate Vomiting Verified 11/02/23 14:17 Family History Other Cancer Diabetes Heart disease Hypertension Myocardial infarction Surgical History History of cardiac catheterization History of colonoscopy (~2008) Social History Smoking Status: Current every day smoker tobacco type: cigarettes ROS Constitutional Constitutional: Denies chills, fever(s), frequent falls, lethargy or weakness Eyes Eyes: Denies blind spots, change in vision or loss of vision ENT HEENT: Denies bleeding gums, hoarseness or sore throat Cardiovascular Cardiovascular: Reports edema and leg edema; Denies abdominal pain, bluish discoloration of hand/feet, chest pain with activity, claudication, cold extremities, cyanosis, dyspnea on exertion, erythema on extremities, irregular heart rhythm, leg ulcers, numbness in extremities or weakness in extremities Respiratory/Chest Respiratory/Chest: Denies cough, excessive phlegm production, shortness of breath at rest, shortness of breath with exertion or wheezing Gastrointestinal Gastrointestinal: Denies anorexia, change in stool character, constipation, diarrhea, melena or rectal bleeding Genitourinary Genitourinary: Denies dysuria or hematuria Musculoskeletal Musculoskeletal: Denies abnormal gait Integumentary Integumentary: Reports other Details: ; Denies erythema, non-healing lesions or wounds Neurologic Neurologic: Denies abnormal speech, focal weakness, headache(s), loss of vision,numbness, paresthesias or sensory deficit Hematologic/Lymphatic Hematologic/Lymphatic: Denies easy bleeding, easy bruising or lymphadenopathy Vital Signs Vital Signs Vital Signs: 11/09/23 16:47 11/09/23 17:00 Temperature 97.3 F L Temperature Source Temporal Pulse Rate 88 Respiratory Rate 18 Respiratory Effort Normal Non-Labored Respiratory Depth Normal Respiratory Pattern Normal Blood Pressure 155/95 H Blood Pressure Mean 115 Blood Pressure Source Monitor Blood Pressure Position Semi-Fowlers Blood Pressure Location Left Arm Pulse Ox 98 Oxygen Delivery Method Room Air Room Air Weight Weight: 217 lb 6.012 oz Body Mass Index (BMI) 30.3 Physical Exam Const alert, oriented x3, no apparent distress and healthy appearing General Appearance: cooperative; Negative for combative or lethargic Orientation / Consciousness: awake Exam Limitations: no limitations HEENT Head and Scalp: normocephalic and atraumatic Eyes EOMs intact bilaterally General Eye: normal appearance of both eyes Neck full ROM, no lymphadenopathy, thyroid normal and No no carotid bruits General: trachea midline; Negative for lymphadenopathy or tenderness Thyroid: thyroid normal Lymph Lymphatic: Negative for no lymphadenopathy noted Resp normal respiratory effort and no use of accessory muscles Effort and Inspection: Negative for labored, stridor or audible wheezes Cardio regular rate and regular rhythm Back/Spine Cervical Spine: cervical ROM normal Extremity full ROM and normal capillary refill General Extremity: edema right lower extremity Skin no rashes or lesions noted and no wounds Neuro oriented x3, CN's II-XII intact bilaterally, no focal motor deficits and no sensory deficits noted Psych thought process normal, cooperative, affect normal, speech normal and activity/motor behavior normal Results Lab / Micro Data 11/09/23 17:02 11/09/23 17:02 Assessment & Plan Assessment/Plan (1) Dvt femoral (deep venous thrombosis): QUALIFIERS: Chronicity: acute Laterality: right Qualified Code(s): I82.411 - Acute embolism and thrombosis of right femoral vein PLAN: -heparin -venogram tomorrow 11/09/23 5154 <Electronically signed by Yazan Jones MD> Cosigner Signature (if applicable): CC: Dr. Filomena Wong MD; Dr. Yazan Jones MD~ Signed [facility] Work Phone: Consult note Note Date & Type Note Facility Consult note Note Date/Time November 11, 2023 11:32am [facility] Medical Records Department [address] [place] [address] Counseling Note - Pharmacy 11/11/231130 MR#: [id number] Acct: [id number] Name: LINDSAY HUNTER Rep #:[id number] : 1960 63 From: Mariana Whitley PCP: Dr. Filomena Wong MD Status:ADM IN Y Location: [place] [address] Pharmacy [facility] Pharmacy Service has performed discharge medication reconciliation and counseling for this patient. 1. CLOPIDOGREL 75MG PO DAILY 2. OXYCODONE 5MG PO Q8H PRN PAIN 4-10 The patient's discharge medication list was reviewed for discrepancies and discrepancies were resolved. The patient was counseled on the following discharge medications and changes in medications for homegoing were reviewed. The Reason for Use, instructions for use, and potential side effects were reviewed for all new medications. The patient's questions regarding all of their medications were answered. The patient was able to verbally demonstrate an understanding of their dischargemedications. Patient counseled by pharmacy technician per diem, Wilfredo. Medications at Discharge Home Medications omeprazole 20 mg capsule,delayed release 20 mg PO DAILY reflux 04/20/20 amlodipine 5 mg tablet 5 mg PO DAILY blood pressure 11/02/23 enoxaparin 100 mg/mL subcutaneous syringe (Lovenox) 100 mg subcut Q12H blood thinner 30 days #60 mL 11/03/23 clopidogrel 75 mg tablet 75 mg PO DAILY 30 days #30 tabs 11/11/23 oxycodone 5 mg tablet 5 mg PO Q8H PRN PRN Pain Score 4-10 3 days #9 tabs 11/11/23 11/11/23 1132 <Electronically signed by Mariana Whitley> Date _ Mariana Whitley Cosigner Signature (if applicable): Date CC: ~ Signed [facility] Work Phone: Evaluation note Note Date & Type Note Facility Evaluation note No assessment information availa ble [facility] Work Phone: Evaluation note Note Date & Type Note Facility Evaluation note Diagnosis Onset Date Dvt femoral (deep venous thrombosis) [facility] Work Phone: Evaluation note Note Date & Type Note Facility Evaluation note Diagnosis Onset Date Dvt femoral (deep venous thrombosis) acute Dvt femoral (deep venous thrombosis) [facility] Work Phone: Reason for referral (narrative) Note Date & Type Note Facility Reason for referral (narrative) No reason for referral information available [facility] Work Phone: Chief Complaint and Reason for Visit Chief Complaint PAIN IN RIGHT LEG Chief Complaint PAIN IN RIGHT LEG E-ORDER Chief Complaint PAIN IN RIGHT LEG E-ORDER CONSULT-DVT OF LEG I82.419 Acute embolism and thrombosis of unspecifi Reason for Visit Dvt femoral (deep ve nous thrombosis) Chief Complaint PAIN IN RIGHT LEG E-ORDER CONSULT-DVT OF LEG I82.419 Acute embolism and thrombosis of unspecifi DVT/ HEPARIN BRIDGE DVT/ HEPARIN BRIDGE DVT/ HEPARIN BRIDGE Reason for Visit Dvt femoral (deep ve nous thrombosis) Dvt femoral (deep venous thrombosis) Chief Complaint Admit Date CLAUDICATION/ILIAC VEIN STENTS November 8:57am 1 YR FU, DISCUSS STUDIES December 07 12:51pm Reason for Visit Admit Date Claudication December 07, 2024 12: 51pm Iliac vein stenosis, right December 07, 2 025 12:51pm PAD (peripheral artery disease) December 072024 12:51pm History of DVT (deep vein thrombosis) [facility] 2024 12:51pm Family History No Family History Records Found Relationship Condition Age at Onset Recorded Date/T ghanshyam Unknown Family History?Cancer Unknown March 302019 12:17pm Family History?No pertinent history Unkno wn April 26, 2020 12:17pm Relationship Condition Age at Onset Recorded Date/T ghanshyam Not Specified Diabetes mellitus Unknown Cardiac disease Unknown Myocardial infarction Unknown Malignant neoplasm Unknown Hypertension Unknown Advance Directives No Advanced Directives Records Found Advance Directive Response Recorded Date/ Time Living Will No April 26, 2020 12:17pm Power of Hand Tool Filer No April 26 12:17pm Advance Directive Response Recorded Date/ Time Living Will No November 09 4:37pm Power of Hand Tool Filer No November 09, 2023 4:37pm Advance Directive Response Recorded Date/ Time Living Will No November 09 5:37pm Power of Hand Tool Filer No November 09, 2023 5:37pm Summary Purpose Additional Source Comments Care Teams (unrecognized sec tion and content) Team Status: Active Member Role Status Dates Dr. Filomena Wong MD Family Provider Active Dr. Filomena Wong MD Primary Care Provider Active Team Status: Active Member Role Status Dates Dr. Filomena Wong MD Primary Care Provider Active Dr. Yazan Jones MD Attending Provider Active Team Status: Inactive Member Role Status Dates Dr. Filomena Wong MD Primary Care Provider Active David De Leon MD Attending Provider, Referring Provide r Active Team Status: Active Member Role Status Dates Dr. Filomena Wong MD Primary Care Provider Active Dr. Yazan Jones MD Attending Provider Active David De Leon MD Referring Provider Active Team Status: Inactive Member Role Status Dates Dr. Filomena Wong MD Primary Care Provider, Referrin g Provider Active Dr. Yazan Jones MD Attending Provider Active Team Status: Inactive Member Role Status Dates Dr. Filomena Wong MD Primary Care Provider Active Dr. Yazan Jones MD Attending Provider, Referring Pro vider Active Team Status: Active Member Role Status Dates Dr. Filomena Wong MD Primary Care Provider Active Dr. Yazan Jones MD Admit Provider, Att ending Provider, Referring Provider, Other Provider Active Team Status: Active Member Role Status Dates Dr. Filomena Wong MD Primary Care Provider Active Dr. Yazan Jones MD Admit Provider, Ref erring Provider, Other Provider Active ALYSHA Ruiz Attending Provider Active Team Status: Inactive Member Role Status Dates Dr. Filomena Wong MD Primary Care Provider Active Dr. Yazan Jones MD Admit Provider, Att ending Provider, Referring Provider Active Team Status: Active Member Role Status Dates Dr. Filomena Wong MD Primary Care Provider Active Team Status: Inactive Member Role Status Dates Dr. Filomena Wong MD Primary Care Provider Active Start: December 06, 2024 End: December 06, 2024 Dr. Yazan Jones MD Attending Provider Active S tart: December 06, 2024 End: December 06, 2024 Dr. Yazan Jones MD Referring Provider Active S tart: December 06, 2024 End: December 06, 2024 Team Status: Active Member Role Status Dates Dr. Filomena Wong MD Primary Care Provider Active Start: December 06, 2024 Dr. Yazan Jones MD Attending Provider Active S tart: December 06, 2024 Dr. Yazan Jones MD Referring Provider Active S tart: December 06, 2024 Team Status: Inactive Member Role Status Dates Dr. Filomena Wong MD Primary Care Provider Active Start: December 07, 2024 End: December 07, 2024 Dr. Filomena Wong MD Referring Provider Active Start: December 07, 2024 End: December 07, 2024 ALYSHA Ruiz Attending Provider Active Star t: December 07, 2024 End: December 07, 2024 Goals (unrecognized section and content) Goals may be documented in a n alternate sectionGoals may be documented in an alternate sectionGoals may be documented in an alternate sectionGoals may be documented in an alternate section (unrecognized sect ion and content) No Status Records Found INFORMATION SOURCE (unrecogn ized section and content) DATE CREATED AUTHOR 01/30/2025 [facility] FOR RECORDS PERTAINING TO PATIENTS WHO ARE OR HAVE BEEN ENROLLED IN A CHEMICAL DEPENDENCY/SUBSTANCEABUSE PROGRAM, SOME INFORMATION MAY BE OMITTED. This clinical summary was aggregated from multiple sources. Caution should be exercised in using it in the provision of clinical care. This summary normalizes information from multiple sources, and as a consequence, information in this document may materially change the coding, format and clinical context of patient data. In addition, data may be omitted in some cases. CLINICAL DECISIONS SHOULD BE BASED ON THE PRIMARY CLINICAL RECORDS. [employer] provides no warranty or guarantee of the accuracy or completeness of information in this document.
[2025-05-30 11:21] LABS: Anion Gap 13 (5-15); BUN 4 mg/dL (4-19); BUN/Creat Ratio 5.5 RATIO (10-20); Calcium,Total 9.2 mg/dL (7.6-11.0); Carbon Dioxide 23.8 mmol/L (21.0-32.0); Chloride 96 mmol/L (98-108); Estimated Creatinine Clearance 143.49 ml/min (50-250); Glucose 113 mg/dL (70-99); Magnesium 2.1 mg/dL (1.5-2.2); Potassium 4.3 mmol/L (3.3-5.1); Pro- Brain NATRIURETIC PEPTIDE 59 pg/mL (<=900); Troponin T High Sensitivity 11 ng/L (<=22)
[2025-05-30 11:47] LABS: Troponin T High Sens 2 HR 9 ng/L (<=22)
--- NOTE | 2025-05-30 16:51 | ED.VIS.DYS ---
HPI History of Present Illness Chief Complaint: Shortness of Breath Narrative Narrative: Patient is a 64-year-old male presenting to the emergency department for shortness of breath and anxiety. Patient has a past medical history of peripheral artery disease, DVT, COVID. Patient states over the last few days he has been more short of breath specifically when he goes to sleep at night. States that his anxiety increases around this time as well. He reports some nausea with no vomiting. He denies chest pain. Denies any recent travel, hospitalizations or surgeries. Denies any use of oral anticoagulation. Denies any pleuritic chest pain. Denies any lower extremity edema. States he has been diagnosed with anxiety and does not take anything for it felt like it was fairly well-controlled until the past few days. Reports that he did recently lose his job which could contribute to this. He does report some viral type symptoms including cough and congestion over the past few days and has similar symptoms. [facility] Medical History Hemorrhoid History of DVT (deep vein thrombosis) Diverticulosis GI bleed Home Medications ?Medication ?Instructions ?Recorded ?Last Taken ?Type omeprazole 20 mg capsule,delayed 20 mg PO DAILY reflux 04/20/20 11/09/23 09:00 History release amlodipine 5 mg tablet 5 mg PO DAILY blood pressure 11/02/23 11/09/23 09:00 History clopidogrel 75 mg tablet 75 mg PO DAILY 30 days #30 tabs 11/02/24 Unknown Rx aspirin 81 mg tablet,delayed 81 mg PO QDAY 12/07/24 Unknown History release albuterol sulfate 90 mcg/actuation 2 puff inhalation Q4H PRN PRN 05/30/25 Unknown Rx aerosol inhaler (Ventolin HFA) Wheezing ##1 Allergy/AdvReac Type Severity Reaction Status Date / Time erythromycin base AdvReac Intermediate Vomiting Verified 05/30/25 07:50 Family History Other Cancer Diabetes Heart disease Hypertension Myocardial infarction Surgical History History of cardiac catheterization History of colonoscopy (~2008) Social History Smoking Status: Heavy Smoker (>10/day) ROS ROS ED ROS Narrative See HPI EXAM Physical Exam Narrative Exam Narrative: Vital signs: Reviewed General: Alert and oriented x 3. No acute distress HEENT: Head is normocephalic and atraumatic, sinuses nontender, pupils equal round and reactive. Nares are patent. Oropharynx and throat exams normal. Neck: Supple without lymphadenopathy nontender Cardiovascular: Regular rate and rhythm, no murmurs. No rubs or gallops. Normal S1 and S2 Respiratory: Mild expiratory wheezing in the bilateral lower lobes. No rhonchi or rails heard. Abdominal: Soft and nontender. Normal bowel sounds. No guarding or rebound. Nonsurgical abdomen Extremities: No edema noted. No tenderness. No bruising. Normal range of motion. Normal sensation. Skin: No rash or redness. Neurological: Cranial nerves II through XII are grossly intact. Normal strength and sensation. Normal cerebellar function The rest of the physical exam is unremarkable Const Vital Signs: 05/30/25 07:50 05/30/25 08:26 05/30/25 08:50 Temperature 98.7 F Temperature Source Oral Pulse Rate 115 H 94 96 Respiratory Rate 18 16 14 Respiratory Effort Respiratory Pattern Blood Pressure 184/91 H 151/91 H Blood Pressure Mean 122 111 Pulse Ox 95 96 Oxygen Delivery Method Room Air Room Air 05/30/25 09:36 05/30/25 10:00 05/30/25 11:37 Temperature Temperature Source Pulse Rate 90 88 Respiratory Rate 14 18 Respiratory Effort Non-Labored Short of Breath Respiratory Pattern Normal Blood Pressure 149/84 H Blood Pressure Mean 105 Pulse Ox 96 94 Oxygen Delivery Method Room Air Room Air Room Air 05/30/25 12:00 05/30/25 13:00 05/30/25 13:06 Temperature 98.6 F 98.6 F Temperature Source Oral Pulse Rate 87 97 97 Respiratory Rate 18 18 18 Respiratory Effort Respiratory Pattern Blood Pressure 136/76 H 138/76 H 138/76 H Blood Pressure Mean 96 96 96 Pulse Ox 92 96 96 Oxygen Delivery Method Room Air Room Air MDM MDM MDM Narrative Medical decision making narrative: Patient is a 64-year-old male presenting to the emergency department for shortness of breath and anxiety. Patient was seen and examined. Vitals are stable. Patient resting bed comfortably no acute distress. Differential includes but is not limited to: ACS, cardiac dysrhythmia, CHF, PE, pneumonia, viral illness, electrolyte abnormality CBC with no leukocytosis and a normal hemoglobin. BMP with no significant abnormalities. BNP within normal limits at 59. Magnesium and TSH within normal limits. D-dimer within normal limits. Troponins downtrending and no significant delta change at 11 and 9. EKG with normal sinus rhythm, no ischemic changes. No dysrhythmia. Chest x-ray reviewed by myself, no opacities, no widened mediastinum, no pneumothorax. Radiology read with no acute cardiopulmonary process. Patient was given a DuoNeb breathing treatment given the mild wheezing on exam. Patient was reevaluated and him and his were updated on the lab and imaging findings being negative. I did prescribe an albuterol inhaler for home given his mild wheezing. This may be viral in nature. I did recommend that he follow-up with primary care doctor as soon as possible and return to the ED with any new or worsening symptoms. Patient discharged from the Emergency Department. I do not feel that the patient's evaluation reveals any acute reason for admission at this time. I instructed them to either follow-up with their primary care physician or promptly return to the Emergency Department for reevaluation should symptoms worsen or new symptoms develop. I explained what symptoms would indicate the need to return to the emergency department. Shared decision making was used. The patient voiced understanding of the treatment plan and is agreeable with it. Clinical impression Dyspnea History & Record Review Discussion w/independent historian: Patient and Family Lab Data Attestation: I reviewed the patient's lab results. Labs: Laboratory Results - last 24 hr 05/30/25 05/30/25 08:34 10:12 WBC 8.7 RBC 4.54 L Hgb 15.2 Hct 42.9 MCV 94.5 H MCH 33.5 H MCHC 35.4 RDW Std Deviation 42.2 RDW Coeff of Amber 12.2 Plt Count 264 MPV 10.1 Immature Gran % (Auto) 0.500 Neut % (Auto) 62.2 Lymph % (Auto) 18.1 L [place] % (Auto) 10.7 H Eos % (Auto) 7.7 H Baso % (Auto) 0.8 Absolute Neuts (auto) 5.4 Absolute Lymphs (auto) 1.57 Nucleated RBC % 0 D-Dimer Quant (PE/DVT) 0.27 Sodium 133 Potassium 4.3 Chloride 96 L Carbon Dioxide 23.8 Anion Gap 13 BUN 4 Creatinine 0.65 L Estim Creat Clear Calc 143.49 Est GFR (MDRD) Non-Af 107 BUN/Creatinine Ratio 5.5 L Glucose 113 H Calcium 9.2 Magnesium 2.1 Troponin T High Sens 11 Troponin T Hi Sens 2 Hr 9 NT pro BNP II 59 TSH 1.540 Radiography Diagnostic Testing: Clinical Impression(s) from Imaging Studies Chest X-Ray 05/30/25 08:48 IMPRESSION: No acute cardiopulmonary process [id number] Triage Chief Complaint: Shortness of Breath ED Provider: Adelaide Nayak Dx/Rx/DC Orders Clinical Impression: Shortness of breath Instructions: ED Dyspnea Prescriptions: New albuterol sulfate [Ventolin HFA] 90 mcg/actuation HFA aerosol inhaler 2 puff inhalation Q4H PRN PRN (Reason: Wheezing) Qty: 1 0RF No Action omeprazole 20 mg capsule,delayed release(DR/EC) 20 mg PO DAILY amlodipine 5 mg tablet 5 mg PO DAILY clopidogrel 75 mg tablet 75 mg PO DAILY 30 Days Qty: 30 11RF Primary Care Provider: David De Leon Referrals: David De Leon MD [Primary Care Provider] - 2 Days Activity Restrictions/Additional Instructions: Your evaluation in the Emergency Department did not reveal any acute reason for admission. However, I want to emphasize that you may be early in the course of a disease process or illness even if it is not present. For this reason you should follow-up within 24 hours for reevaluation with either your primary care physician or if necessary back here in the Emergency Department. You should return to the Emergency Department immediately if your symptoms worsen or new symptoms develop. Print Language: Malawian Disposition Disposition: Home, Self Care Discharge Date/Time: 05/30/25 13:10
== END 2025-05-30 13:10 | disposition home or self-care (01) ==
PROVIDERS: Emergency Provider Student in an Organized Health Care Education/Training Program; PCP Family Medicine; Visit Provider Student in an Organized Health Care Education/Training Program
DX: R06.02 Shortness of breath (principal); F41.9 Anxiety disorder, unspecified; I73.9 Peripheral vascular disease, unspecified; F17.200 Nicotine dependence, unspecified, uncomplicated; Z87.19 Personal history of other diseases of the digestive system; Z79.02 Long term (current) use of antithrombotics/antiplatelets; Z79.82 Long term (current) use of aspirin; Z86.16 Personal history of COVID-19; Z86.718 Personal history of other venous thrombosis and embolism; Z79.899 Other long term (current) drug therapy
CPT/HCPCS: 71046; 80048; 83735; 83880; 84443; 84484; 85025; 85379; 93005; 94640; 99285; A4216

== ENCOUNTER 2025-06-19 22:22 | Emergency (ER) | payer OTHER, SELFPAY ==
[2025-06-19] VITALS (10 sets, daily range): BP systolic 154–181; BP diastolic 89–90; PULSE 96–123; RESP 13–29; TEMP 36.9–37.1; O2SAT 90–98; BMI 31.1
--- NOTE | 2025-06-19 22:47 | CT_ITS ---
PROCEDURE: CTA CHEST W/WO CONTRAST 06/20/2025 REASON FOR EXAM: DYSPNEA TECHNIQUE: Procedure Code: [id number] Modality: CT Procedure: CTA CHEST W/WO CONTRAST Multiplanar Sagittal and Coronal images were obtained. CONTRAST: isovue 370 VOLUME: 75 mL One or more dose reduction techniques were used (e.g., Automated exposure control, adjustment of the mA and/or kV according to patient size, use of iterative reconstruction technique). RADIATION DOSE SUMMARY: CTDI Vol 14.6 MGy DLP :613mGycm COMPARISON: 30-May-2025 CR FINDINGS: Suboptimal examination quality due to respiratory motion artifact. No evidence of any filling defect in the main pulmonary trunk, bilateral main pulmonary arteries, segmental arteries and subsegmental arteries to suggest acute or chronic pulmonary embolism. Patent thoracic aorta showing intimal irregularities and calcified atheromatous plaques. No intraluminal hypodense thrombi, dissecting intimal flaps or significant aneurysmal dilatation. Atherosclerotic changes of the aortic arch branches with rigth subclavian mild ostial stenosis. No obvious cardiac abnormalities detected. Bilateral pulmonary emphysema. Bilateral pulmonary atelectatic changes. Possible bilateral perihilar endobronchial hypodensities/secretions noted. No obvious pulmonary masses or consolidations. No pleural or pericardial sac collections. No pathologically enlarged lymph nodes are noted. Scanned osseous structures show no osseous destruction. Thoracic spondylosis. CT/CTA Chest W/WO Contrast IMPRESSION: No evidence of pulmonary arterial thromboembolism. Patent thoracic aorta. No intraluminal hypodense thrombi, dissecting intimal fl aps or significant aneurysmal dilatation. Bilateral pulmonary emphysema. No obvious pulmonary masses or consolidations. Reading Location: [place] [id number]
[2025-06-19] MEDS: Albuterol 2.5 MG/3 ML VIAL.NEB. INHALATION (22:51)
[2025-06-19 23:01] LABS: Hematocrit 44.1 % (40-54); Hemoglobin 15.6 g/dL (13.0-16.5); Immature Granulocytes Count 0.060 X10^3/uL (0.0-0.0); Mean Corp Hgb Conc 35.4 g/dL (32-36); Mean Corpuscular Volume 94.4 fL (80-94); Mean Platelet Vol. 10.0 fl (6.2-12.0); NRBC Flagged by Analyzer 0 % (0-5); Platelet Count 301 K/mm3 (150-450); RBC Distribution Width CV 12.4 % (11.6-14.6); RBC Distribution Width SD 43.0 fl (35.1-43.9); Red Blood Count 4.67 M/mm3 (4.6-6.2); White Blood Count 10.2 K/mm3 (4.4-11.0)
[2025-06-19 23:14] LABS: Prothrombin Time (Protime)PT. 13.1 SECONDS (11.7-14.9)
[2025-06-19 23:15] LABS: Partial Thromboplast Time 26.0 Seconds (24.1-36.2)
--- OUTSIDE RECORDS SUMMARY | 2025-06-19 23:15 | XMS RPT_ITS | CCD ---
Author Organization [facility] CliniSyky Care Team Providers Care Glass Science Engineer Name Role Phone Dr. Filomena Wong Primary Care Provider Dr. Yazan Jones Attending Provider [phone] MD David De Leon Referring Provider [phone] Dr. Filomena Wong Referring Provider Dr. Yazan Jones Admit Provider Dr. Yazan Jones Referring Provider [phone] Yazan Jones Other Provider ALYSHA Negrete Attending Provider [phone] Filomena Wong MD Primary Care Provider [phone] Dr. Yazan Jones MD Attending Provider Dr. Yazan Jones MD Referring Provider [phone] Filomena Wong MD Referring Provider Ariadna Larios Attending Provider [phone] Moises ARMSTRONG, David Primary Care Provider Dr. Adelaide Nayak MD Emergency Provider Unavailab josh Nayak MD, Dr. Bryson Attending Provider Unavailab Dr. Filomena Tidwell MD Referring Provider [phone] Penelope PA, Ariadna Attending Provider [phone] Yazan Jones Referring Unavailable Yazan Jones Attending Unavailable Cyndeeiff, Filomena S Primary Care Unavailable Adelaide Nayak Attending Unavailable David De Leon Primary Care Unavailable Ariadna Negrete Attending Unavailable Jolliff, Filomena S Referring Unavailable Cyndeeiff, Filomena S Primary Care Unavailable Ariadna Negrete Attending Unavailable David De Leon Primary Care Unavailable Jolliff, Filomena S Referring Unavailable Ariadna Negrete Referring Unavailable Ariadna Negrete Attending Unavailable David De Leon Primary Care Unavailable Yazan Jones Referring Unavailable Yazan Jones Attending Unavailable Filomena Wong Primary Care Unavailable Allergies Allergy Classification Reported Allergen(s) Allergy Type Date of Onset Reaction(s) Facility (5 sources) Erythromycin Drug Allergy 11-02-2023 Vomiting [facility] (1 source) Erythromycin Drug Allergy 06-07-2025 [facility] Repository Medications Current Medications Medication Drug Class(es) Dates Sig (Normalized) Sig (Original) [id number] 200 actuat albuterol 0.09 mg/actuat metered dose inhaler (2 sources) beta2-Adrenergic Agonist Start: 05-30-2025 Albuterol Sulfate (Ventolin Hfa) 90 mcg/actuation HFA aerosol inhaler Active 2 NMA INHALATION EVERY 4 HOURS NEEDED as needed for Wheezing 1 0 May 30, 2025 12:00am amLODIPine 5 mg oral tablet (5 sources) Dihydropyridine Calcium Channel Shell Start: 11-02-2023 take 1 tablet by mouth once daily Amlodipine 5 mg tablet Active 5 mg PO DAILY November 02, 2023 1:00am blood pressure aspirin 81 mg delayed release oral tablet (10 sources) Platelet Aggregation Inhibitor, Nonsteroidal Anti-inflammatory Drug Start: 12-07-2024 take 1 tablet by mouth once daily Aspirin 81 mg tablet,delayed release (DR/EC) Active 81 mg PO daily December 07, 2024 12:00am Start: 04-03-2020 End: 11-02-2023 take 1 tablet by mouth once daily Aspirin 325 MG tablet Discontinued 325 mg PO DAILY April 03, 2020 12:00am November 02, 2023 3:18pm clopidogrel 75 mg oral tablet (7 sources) P2Y12 Platelet Inhibitor Start: 11-11-2023 End: 11-02-2024 take 1 tablet by mouth once daily Clopidogrel 75 mg tablet Active 75 mg PO DAILY 30 30 11 November 02, 2024 8:54am omeprazole 20 mg delayed release oral capsule (7 sources) Proton Pump Inhibitor Start: 04-20-2020 take 1 capsule by mouth once daily Omeprazole 20 mg capsule,delayed release(DR/EC) Active 20 mg PO DAILY April 20, 2020 12:00am reflux Completed/Discontinued Medications Medication Drug Class(es) Dates Sig (Normalized) Sig (Original) apixaban 5 mg oral tablet (5 sources) Factor Xa Inhibitor Start: 11-02-2023 End: 11-11-2023 take 1 tablet by mouth once Apixaban (Eliquis Dvt-Pe Treat 30d Start) 5 mg (74 tabs) tablets,dose pack Discontinued 0 PO per package directions November 02, 2023 1:00am November 11, 2023 10:01am On Hold: switched to Lovenox for now PO PER PKG DIR 1 ml enoxaparin sodium 100 mg/ml prefilled syringe (5 sources) Low Molecular Weight Heparin Start: 11-03-2023 End: 12-09-2023 Enoxaparin (Lovenox) 100 mg/mL syringe Discontinued 100 mg SC Q12H 60 30 2 November 03, 2023 1:00am December 09, 2023 1:10pm blood thinner Jj-Ifi-Rsagy-K1-Lyco pen-Lutein (Centrum Silver Men) 893-90-859-300 mcg tablet (1 source) Start: 06-07-2025 Vu-Qfm-Btodx-K1-Lyco pen-Lutein (Centrum Silver Men) 658-21-022-300 mcg tablet Discontinued 1 {tbl} PO daily June 07, 2025 12:00am oxyCODONE hydrochloride 5 mg oral tablet (4 sources) Opioid Agonist Start: 11-11-2023 End: 12-09-2023 take 1 tablet by mouth every eight hours as needed for pain Oxycodone 5 mg Tablet Discontinued 5 mg PO EVERY 8 HOURS NEEDED as needed for Pain Score 4-10 9 3 0 November 11, 2023 December 09, 2023 1:10pm Postoperative pain Other acute postprocedural pain rivaroxaban 20 mg oral tablet (6 sources) Factor Xa Inhibitor Start: 11-18-2023 End: 12-07-2024 take 1 tablet by mouth once daily at dinner Rivaroxaban (Xarelto) 20 mg tablet Discontinued 20 mg PO DAILY 30 3 June 01, 2024 11:54am December 07, 2024 1:23pm must administer with evening meal Problems Active Problems Problem Classification Problem Date Documented Da te Episodic/Chronic Diverticulosis and diverticulitis (7 sources) Diverticular disease; Translations: [Diverticulosis of intestine, part unspecified, without perforation or abscess without bleeding] 04-20-2020 Chronic Gastrointestinal hemorrhage (7 sources) Gastrointestinal hemorrhage; Translations: [Gastrointestinal hemorrhage, unspecified] 04-20-2020 Episodic Immunizations and screening for infectious disease (14 sources) Contact with or exposure to other viral diseases; Translations: [Exposure to COVID-19 virus] 09-14-2021 Episodic Other diseases of veins and lymphatics (4 sources) Occlusion of iliac vein; Translations: [Compression of vein] 12-10-2024 Episodic Comment on above: s/p R iliac vein sherry nt 10/2023 Other lower respiratory disease (2 sources) Dyspnea; Translations: [Shortness of breath] 05-30-2025 Episodic Other lower respiratory disease (1 source) Shortness of breath; Translations: [Shortness of breath] Onset: Episodic Other nutritional; endocrine; and metabolic disorders (7 sources) Overweight in adulthood with body mass index of 25 or more but less than 30; Translations: [Body mass index (BMI) 29.0-29.9, adult] 09-16-2021 Episodic Peripheral and visceral atherosclerosis (13 sources) Intermittent claudication of bilateral lower limbs co-occurrent and due to atherosclerosis; Translations: [Atherosclerosis of [place] arteries of extremities with intermittent claudication, bilateral legs] Onset: 5 12-09-2023 Chronic Comment on above: LEAS 12/08/24:R ROSA ISELA 0 .61; biphasic waveformsL ROSA ISELA 0.63; biphasic waveformsAbnormal response to exercise with post-exercise ABIs in the severe category bilaterally Phlebitis; thrombophlebitis and thromboembolism (16 sources) H/O: Deep vein thrombosis; Translations: [Personal history of other venous thrombosis and embolism] 04-20-2020 Episodic Comment on above: s/p RLE venous throm bectomy 10/2023 Viral infection (14 sources) Disease caused by 2019-nCoV; Translations: [COVID-19] 09-16-2021 Episodic Past or Other Problems Problem Classification Problem Date Documented Da te Episodic/Chronic Other nervous system disorders (1 source) Anesthesia of skin; Translations: [Anesthesia of skin] Onset: 01-28-2025 Episodic Results Test Name Value Interpretation Reference Range Facility Cecilio 06-07-2025 /LUIS FELIPE [facility] [address] [place] [address] OFFICE VISIT Date of Service: 06/07/25 MR#: [id number] Acct: [id number] Name: LINDSAY HUNTER Rep #: [id number] : 1960 Provider: ALYSHA Ruiz Age/Sex: 64/M Location: [facility] Status: Signed Intake Vital Signs 11/10/23 09:38 05/30/25 07:50 06/07/25 13:15 Height 5 ft 11 in 5 ft 11 in Weight: 223 lb BP 140/88 H Blood Pressure Location Rt brachial Position Sitting Respiration 18 Pulse 94 Pulse Source Monitor Temp 98.4 F Temp Source Temporal Pulse Oximetry (%) 96 Oxygen Delivery Method room air Intake Visit Reasons: 6 M FU Chief Complaint: establish care Is patient in pain?: Yes Allergies erythromycin base Adverse Reaction (Intermediate, Verified 06/07/25 13:13) Vomiting Medications ???Medication ???Instructions ???Recorded ???Confirmed ???Type omeprazole 20 mg capsule,delayed 20 mg PO DAILY reflux 04/20/2007/22 History release amlodipine 5 mg tablet 5 mg PO DAILY blood pressure 11/0206/07/25 History clopidogrel 75 mg tablet 75 mg PO DAILY 30 days #30 tabs 06/07/25 Rx aspirin 81 mg tablet,delayed 81 mg PO QDAY 12/07/24 06/07/25 Hi story release albuterol sulfate 90 mcg/actuation 2 puff inhalation Q4H PRN PRN 06/07/25 Rx aerosol inhaler (Ventolin HFA) Wheezing ##1 tihbbdyf-va-tlozc 300 mcg-K 60 1 tab PO QDAY 06/07/25 06/07/25 Hi story mcg-lycop 600 mcg-lutein 300 mcg tablet (Centrum Silver Men) Have you fallen in the past year?: No PFSH Medical History Hemorrhoid History of DVT (deep vein thrombosis) Diverticulosis GI bleed Surgical History History of cardiac catheterization History of colonoscopy ( 2008) Family History Other Cancer Diabetes Heart disease Hypertension Myocardial infarction Social History Smoking Status: Heavy Smoker (>10/day) HPI HPI HPI: LINDSAY HUNTER, is a 64 M who presents to the office today for follow-up of his venous and arterial disease. He is accompanied to his appointment by his . Recall he had venogram with RLE mechanical thrombectomy and angioplasty/stent right common/external iliac veins on 11/11/23. He had updated duplex 12/07/24 demonstrating patent R iliac vein stent with normal flow pattern. He continues to take ASA and Plavix. To this point, he has not had any new/worsening RLE swelling, discoloration or recurrent tightness/heaviness sensation. He is next due for imaging in 11/2025. He has PAD with bilateral lower extremity claudication which occurred at about 100 yards at last OV; at last OV, plan was to implement consistent structured exercise and monitor symptoms and defer initiation of pletal. He reports that he has been participating in increased exercise though admittedly could be more focused in this effort. Today, he reports that he can walk about 200 yards before needing to rest though he will still have discomfort. He does continue to have numbness/paresthesia s in the bilateral feet though this seems maybe a bit better as well. He does continue to smoke. He is not diabetic. He also complains of persistent fatigue, sensation of SOB particularly at night which wakes him from sleep with feelings of anxiety as well. His notes that he snores and notes that when he was in ER recently for workup related to increased SOB (fairly comprehensive workout negative for ACS, PE and ultimately felt to be viral) she noted that when he dozed off and snored his pulse ox would drop in to the 80s. He does have PCP visit for ER f/u this coming Thursday. ROS General General: Yes weight change, fatigue and weakness; No appetite, colon cancer or breast cancer HEENT HEENT: No difficulty swallowing, eye injury, eye surgery, swollen glands or hoarseness Endo Endocrine: Yes cold intolerance; No thyroid disease, diabetes mellitus, thyroid cancer, Hair loss or heat intolerance Skin Skin: Yes changing moles; No rash Musc Musculoskeletal: Yes back problems, arthritis and joint pain; No rheumatoid arthritis or gout Cardio Cardiovascular: Yes murmur and high blood pressure; No pacemaker, heart disease, atrial fibrillation, heart attack, heart stent, palpitations, shortness of breath with exertion or chest pain Psych Psychiatric: Yes depression and anxiety; No hearing voices Resp Respiratory: Yes shortness of breath, Yes sleep apnea, Yes cough, No COPD, No asthma, No emphysema and No wheezing Gastro Gastrointestinal: Yes abdominal pain (slight), No nausea or vomiting, Yes diarrhea, Yes cons (more content not included)... Normal [facility] 12 Lead EKGon 05-30-2025 12 Lead EKG [facility] Cardi[facility] Services [address] [place] [address] 12 Lead EKG 05/30/25 0757 MR#: [id number] Acct: [id number] Name: LINDSAY HUNTER Rep #: [id number] : 1960 64 From: Alan Del Cid MD Attending Dr: Status: DEP ER Ordering Dr: Adelaide Nayak MD Date: 05/30/25 Location: ED Sex: M C Admitted: Test Reason : SOB Blood Pressure : */* mmHG Vent. Rate : 97 BPM Atrial Rate : 97 BPM P-R Int : 150 ms QRS Dur : 78 ms QT Int : 354 ms P-R-T Axes : 53 67 56 degrees QTcB Int : 449 ms Normal sinus rhythm PROMINENT ANTERIO T WAVE BORDERLINE Confirmed by Alan Del Cid ([id number]), loan expeditor ENRIQUE VALENZUELA ([id number]) on 05/31/2025 8:18:58 AM Referred By: Confirmed By: Alan Del Cid 05/31/25 0818 Date Alan Del Cid MD CC: Dr. David De Leon MD; Dr. Adelaide Nayak MD Signed Normal [facility] Absolute lymphocyte countOrd ered By: Adelaide Nayak on 05-30-2025 Lymphocytes Auto (Unsp spec) [#/Vol] 1.57 10*3/uL 0.83-4.51 [facility] Absolute neutrophil countOrd ered By: Adelaide Nayak on 05-30-2025 Neutrophils (Bld) [#/Vol] 5.4 10*3/uL 2.0-7.7 [facility] Anion gap in Serum or Plasma Ordered By: Adelaide Nayak on 05-30-2025 Anion gap [Moles/Vol] 13 mmol/L 5-15 [facility] Automated lymphocyte count a s percentage of total leukocytesOrdered By: Adelaide Nayak on 05-30-2025 Lymphocytes/100 WBC Auto (Unsp spec) 18.1 % Low 19-41 [facility] BUN/creatinine ratioOrdered By: Adelaide Nayak on 05-30-2025 Urea nitrogen/Creatinine [Mass ratio] 5.5 mg/mg Low 10-20 [facility] Basic Metabolic Profile (BMP )on 05-30-2025 BUN/CRE 5.5 RATIO Low 10- [facility] Comment on above: Performed By: #### L 300.8000, L100.0100, L500.2500, L503.7505, L501.4021, L501.5200, L501.9520 #### [facility] Laboratory [address] [place], [address] Calcium [Mass/Vol] 9.2 mg/dL Normal 7.6-11.0 [facility] Comment on above: Performed By: #### L 300.8000, L100.0100, L500.2500, L503.7505, L501.4021, L501.5200, L501.9520 #### [facility] Laboratory [address] [place], [address] Chloride [Moles/Vol] 96 mmol/L Low 98-108 [facility] Comment on above: Performed By: #### L 300.8000, L100.0100, L500.2500, L503.7505, L501.4021, L501.5200, L501.9520 #### [facility] Laboratory [address] [place], [address] CO2 [Moles/Vol] 23.8 mmol/L Normal 21.0-32.0 [facility] Comment on above: Performed By: #### L 300.8000, L100.0100, L500.2500, L503.7505, L501.4021, L501.5200, L501.9520 #### [facility] Laboratory [address] [place], [address] Creatinine [Mass/Vol] 0.65 mg/dL Low 0.70-1.20 [facility] Comment on above: Performed By: #### L 300.8000, L100.0100, L500.2500, L503.7505, L501.4021, L501.5200, L501.9520 #### [facility] Laboratory [address] [place], [address] ECRCL 143.49 ml/min Normal 50-250 [facility] Comment on above: Performed By: #### L 300.8000, L100.0100, L500.2500, L503.7505, L501.4021, L501.5200, L501.9520 #### [facility] Laboratory [address] [place], [address] GAP 13 Normal 5-15 [facility] Comment on above: Performed By: #### L 300.8000, L100.0100, L500.2500, L503.7505, L501.4021, L501.5200, L501.9520 #### [facility] Laboratory [address] [place], [address] GFR/1.73 sq M.predicted among non-blacks MDRD (S/P/Bld) [Vol rate/Area] 107 mL/min/{1.73_m2} Normal >60 [facility] Comment on above: Result Comment: mL/m in/1.73m2 CKD-EPI Creatinine Equation (2020) Performed By: #### L 300.8000, L100.0100, L500.2500, L503.7505, L501.4021, L501.5200, L501.9520 #### [facility] Laboratory [address] [place], [address] Glucose [Mass/Vol] 113 mg/dL High 70-99 [facility] Comment on above: Performed By: #### L 300.8000, L100.0100, L500.2500, L503.7505, L501.4021, L501.5200, L501.9520 #### [facility] Laboratory [address] [place], [address] Potassium [Moles/Vol] 4.3 mmol/L Normal 3.3-5.1 [facility] Comment on above: Performed By: #### L 300.8000, L100.0100, L500.2500, L503.7505, L501.4021, L501.5200, L501.9520 #### [facility] Laboratory [address] [place], [address] Sodium [Moles/Vol] 133 mmol/L Normal 133-145 [facility] Comment on above: Performed By: #### L 300.8000, L100.0100, L500.2500, L503.7505, L501.4021, L501.5200, L501.9520 #### [facility] Laboratory [address] [place], [address] Urea nitrogen [Mass/Vol] 4 mg/dL Normal 4-19 [facility] Comment on above: Performed By: #### L 300.8000, L100.0100, L500.2500, L503.7505, L501.4021, L501.5200, L501.9520 #### [facility] Laboratory [address] [place], [address] Basophil percentageOrdered B y: Adelaide Nayak on 05-30-2025 Basophils/100 WBC (Bld) 0.8 % 0-1 [facility] CBC W/Diff, Automatedon Absolute Lymph 1.57 X10 3/uL Normal 0.83-4.51 [facility] Comment on above: Performed By: #### L 300.8000, L100.0100, L500.2500, L503.7505, L501.4021, L501.5200, L501.9520 #### [facility] Laboratory [address] [place], [address] Absolute Neut 5.4 X10 3/uL Normal 2.0-7.7 [facility] Comment on above: Performed By: #### L 300.8000, L100.0100, L500.2500, L503.7505, L501.4021, L501.5200, L501.9520 #### [facility] Laboratory [address] [place], [address] Basophils/100 WBC (Bld) 0.8 % Normal 0-1 [facility] Comment on above: Performed By: #### L 300.8000, L100.0100, L500.2500, L503.7505, L501.4021, L501.5200, L501.9520 #### [facility] Laboratory [address] [place], [address] Eosinophils/100 WBC (Bld) 7.7 % High 0-5 [facility] Comment on above: Performed By: #### L 300.8000, L100.0100, L500.2500, L503.7505, L501.4021, L501.5200, L501.9520 #### [facility] Laboratory [address] [place], [address] Erythrocyte distribution width (RBC) [Ratio] 12.2 % Normal 11.6-14.6 [facility] Comment on above: Performed By: #### L 300.8000, L100.0100, L500.2500, L503.7505, L501.4021, L501.5200, L501.9520 #### [facility] Laboratory [address] [place], [address] Hematocrit (Bld) [Volume fraction] 42.9 % Normal 40-54 [facility] Comment on above: Performed By: #### L 300.8000, L100.0100, L500.2500, L503.7505, L501.4021, L501.5200, L501.9520 #### [facility] Laboratory [address] [place], [address] Hemoglobin (Bld) [Mass/Vol] 15.2 g/dL Normal 13.0-16.5 [facility] Comment on above: Performed By: #### L 300.8000, L100.0100, L500.2500, L503.7505, L501.4021, L501.5200, L501.9520 #### [facility] Laboratory [address] [place], [address] IG% 0.500 Normal 0.0-0.9 [facility] Comment on above: Result Comment: IG% - Immature Granulocytes (promyelocytes, myelocytes and metamyelocytes) > 1% indicates that a LEFT SHIFT is Present. Performed By: #### L 300.8000, L100.0100, L500.2500, L503.7505, L501.4021, L501.5200, L501.9520 #### [facility] Laboratory [address] [place], [address] Lymphocytes/100 WBC (Bld) 18.1 % Low 19-41 [facility] Comment on above: Performed By: #### L 300.8000, L100.0100, L500.2500, L503.7505, L501.4021, L501.5200, L501.9520 #### [facility] Laboratory [address] [place], [address] MCH (RBC) [Entitic mass] 33.5 pg High 27.0-32.0 [facility] Comment on above: Performed By: #### L 300.8000, L100.0100, L500.2500, L503.7505, L501.4021, L501.5200, L501.9520 #### [facility] Laboratory [address] [place], [address] MCHC (RBC) [Mass/Vol] 35.4 g/dL Normal 32-36 [facility] Comment on above: Performed By: #### L 300.8000, L100.0100, L500.2500, L503.7505, L501.4021, L501.5200, L501.9520 #### [facility] Laboratory [address] [place], [address] MCV (RBC) [Entitic vol] 94.5 fL High 80-94 [facility] Comment on above: Performed By: #### L 300.8000, L100.0100, L500.2500, L503.7505, L501.4021, L501.5200, L501.9520 #### [facility] Laboratory [address] [place], [address] Monocytes/100 WBC (Bld) 10.7 % High 0-10 [facility] Comment on above: Performed By: #### L 300.8000, L100.0100, L500.2500, L503.7505, L501.4021, L501.5200, L501.9520 #### [facility] Laboratory [address] [place], [address] Neutrophils/100 WBC (Bld) 62.2 % Normal 47-70 [facility] Comment on above: Performed By: #### L 300.8000, L100.0100, L500.2500, L503.7505, L501.4021, L501.5200, L501.9520 #### [facility] Laboratory [address] [place], [address] Nucleated RBC (Bld) [#/Vol] 0 10*3/uL Normal 0-5 [facility] Comment on above: Performed By: #### L 300.8000, L100.0100, L500.2500, L503.7505, L501.4021, L501.5200, L501.9520 #### [facility] Laboratory [address] [place], [address] Platelet mean volume (Bld) [Entitic vol] 10.1 fL Normal 6.2-12.0 [facility] Comment on above: Performed By: #### L 300.8000, L100.0100, L500.2500, L503.7505, L501.4021, L501.5200, L501.9520 #### [facility] Laboratory [address] [place], [address] Platelets (Bld) [#/Vol] 264 10*3/uL Normal 150-450 [facility] Comment on above: Performed By: #### L 300.8000, L100.0100, L500.2500, L503.7505, L501.4021, L501.5200, L501.9520 #### [facility] Laboratory [address] [place], [address] RBC (Bld) [#/Vol] 4.54 10*6/uL Low 4.6-6.2 [facility] Comment on above: Performed By: #### L 300.8000, L100.0100, L500.2500, L503.7505, L501.4021, L501.5200, L501.9520 #### [facility] Laboratory [address] [place], [address] RDW SD 42.2 fl Normal 35.1-43.9 [facility] Comment on above: Performed By: #### L 300.8000, L100.0100, L500.2500, L503.7505, L501.4021, L501.5200, L501.9520 #### [facility] Laboratory [address] [place], [address] WBC (Bld) [#/Vol] 8.7 10*3/uL Normal 4.4-11.0 [facility] Comment on above: Performed By: #### L 300.8000, L100.0100, L500.2500, L503.7505, L501.4021, L501.5200, L501.9520 #### [facility] Laboratory [address], [place], [address] Carbon dioxide, total [Moles /volume] in Central venous bloodOrdered By: Adelaide Nayak on 05-30-2025 CO2 [Moles/Vol] 23.8 mmol/L 21.0-32.0 [facility] Chest PA and Lateralon 05-30 Chest PA and Lateral [facility] Imaging Services [address] [place], [place] [address] Chest PA and Lateral MR#: [id number] Acct: [id number] Name: LINDSAY HUNTER Rep #: [id number] : 1960 M 64 From: Deven Garcia MD PCP: Dr. David De Leon MD Status: REG ER Study: Chest PA and Lateral Date of Exam: 05/30/25 Exam# [id number] Ordering Dr: Adeliade Nayak MD PROCEDURE: CHEST PA AND LATERAL 05/30/2025 REASON FOR EXAM: CHEST PAIN TECHNIQUE: Procedure Code: RADCXR Modality: DX Procedure: CHEST PA AND LATERAL COMPARISON: None FINDINGS: Hardware: EKG leads are present Heart: Normal-size Mediastinum: Normal Lungs: Clear Bones: Minimal degenerative changes RAD/Chest PA and Lateral IMPRESSION: No acute cardiopulmonary process Reading Location: [id number] CC: Dr. David De Leon MD; Dr. Adelaide Nayak MD Grants Assistant: Signed Normal [facility] Chloride assayOrdered By: Bill Nayak on 05-30-2025 Chloride [Moles/Vol] 96 mmol/L Low 98-108 [facility] D-Dimer Quantitative (DVT/PE )on 05-30-2025 D-DIMER QUANT 0.27 FEU/ug/m Normal 0.27-0.49 [facility] Comment on above: Result Comment: NORM AL D-Dimer level (<0.50) indicates no DVT or PE. Performed By: #### L 300.8000, L100.0100, L500.2500, L503.7505, L501.4021, L501.5200, L501.9520 #### [facility] Laboratory [address] [place], [address] Emergency Department Summary on 05-30-2025 Emergency Department Summary [facility] Medical Records Department [address] [place] [address] Emergency Department Summary 05/30/25 MR#: [id number] Acct: [id number] Name: LINDSAY HUNTER Rep #: [id number] : 1960 64 From: Adelaide Nayak MD PCP: Dr. David De Leon MD Status:DEP ER Location: ED HPI History of Present Illness Chief Complaint: Shortness of Breath Narrative Narrative: Patient is a 64-year-old male presenting to the emergency department for shortness of breath and anxiety. Patient has a past medical history of peripheral artery disease, DVT, COVID. Patient states over the last few days he has been more short of breath specifically when he goes to sleep at night. States that his anxiety increases around this time as well. He reports some nausea with no vomiting. He denies chest pain. Denies any recent travel, hospitalizations or surgeries. Denies any use of oral anticoagulation. Denies any pleuritic chest pain. Denies any lower extremity edema. States he has been diagnosed with anxiety and does not take anything for it felt like it was fairly well-controlled until the past few days. Reports that he did recently lose his job which could contribute to this. He does report some viral type symptoms including cough and congestion over the past few days and has similar symptoms. [facility] Medical History Hemorrhoid History of DVT (deep vein thrombosis) Diverticulosis GI bleed Home Medications ???Medication ???Instructions ???Recorded ???Last Taken ???Type omeprazole 20 mg capsule,delayed 20 mg PO DAILY reflux 04/20/2009/20 09:00 History release amlodipine 5 mg tablet 5 mg PO DAILY blood pressure 11/0211/09/23 09:00 History clopidogrel 75 mg tablet 75 mg PO DAILY 30 days #30 tabs Unknown Rx aspirin 81 mg tablet,delayed 81 mg PO QDAY 12/07/24 Unknown His tory release albuterol sulfate 90 mcg/actuation 2 puff inhalation Q4H PRN PRN Unknown Rx aerosol inhaler (Ventolin HFA) Wheezing ##1 Allergy/AdvReac Type Severity Reaction Status Date / Time erythromycin base AdvReac Intermediate Vomiting Verified 05/30/25 07:50 Family History Other Cancer Diabetes Heart disease Hypertension Myocardial infarction Surgical History History of cardiac catheterization History of colonoscopy ( 2008) Social History Smoking Status: Heavy Smoker (>10/day) ROS ROS ED ROS Narrative See HPI EXAM Physical Exam Narrative Exam Narrative: Vital signs: Reviewed General: Alert and oriented x 3. No acute distress HEENT: Head is normocephalic and atraumatic, sinuses nontender, pupils equal round and reactive. Nares are patent. Oropharynx and throat exams normal. Neck: Supple without lymphadenopathy nontender Cardiovascular: Regular rate and rhythm, no murmurs. No rubs or gallops. Normal S1 and S2 Respiratory: Mild expiratory wheezing in the bilateral lower lobes. No rhonchi or rails heard. Abdominal: Soft and nontender. Normal bowel sounds. No guarding or rebound. Nonsurgical abdomen Extremities: No edema noted. No tenderness. No bruising. Normal range of motion. Normal sensation. Skin: No rash or redness. Neurological: Cranial nerves II through XII are grossly intact. Normal strength and sensation. Normal cerebellar function The rest of the physical exam is unremarkable Const Vital Signs: 05/30/25 07:50 05/30/25 08:26 05/30/25 08:50 Temperature 98.7 F Temperature Source Oral Pulse Rate 115 H 94 96 Respiratory Rate 18 16 14 Respiratory Effort Respiratory Pattern Blood Pressure 184/91 H 151/91 H Blood Pressure Mean 122 111 Pulse Ox 95 96 Oxygen Delivery Method Room Air Room Air 05/30/25 09:36 05/30/25 10:00 05/30/25 11:37 Temperature Temperature Source Pulse Rate 90 88 Respiratory Rate 14 18 Respiratory Effort Non-Labored Short of Breath Respiratory Pattern Normal Blood Pressure 149/84 H Blood Pressure Mean 105 Pulse Ox 96 94 Oxygen Delivery Method Room Air Room Air Room Air 05/30/25 12:00 05/30/25 13:00 05/30/25 13:06 Temperature 98.6 F 98.6 F Temperature Source Oral Pulse Rate 87 97 97 Respiratory Rate 18 18 18 Respiratory Effort Respiratory Pattern Blood Pressure 136/76 H 138/76 H 138/76 H Blood Pressure Mean 96 96 96 Pulse Ox 92 96 96 Oxygen Delivery Method Room Air Room Air MDM MDM MDM Narrative Medical decision making narrative: Patient is a 64-year-old male presenting to the emergency department for shortness of breath and anxiety. Patient was seen and (more content not included)... Normal [facility] Eosinophil percentageOrdered By: Adelaide Nayak on 05-30-2025 Eosinophils/100 WBC (Bld) 7.7 % High 0-5 [facility] Erythrocyte distribution wid th ratioOrdered By: Adelaide Nayak on 05-30-2025 Erythrocyte distribution width (RBC) [Ratio] 12.2 % 11.6-14.6 [facility] Erythrocyte distribution wid th standard deviationOrdered By: Adelaide Nayak on 05-30-2025 Erythrocyte distribution width (RBC) [Ratio] 42.2 fl 35.1-43.9 [facility] Glomerular filtration rate ( GFR) estimation/1.73 sq m using serum, plasma, or whole bOrdered By: Adelaide Nayak on 05-30-2025 GFR/1.73 sq M.predicted among non-blacks MDRD (S/P/Bld) [Vol rate/Area] 107 mL/min/{1.73_m2} >60 [facility] Comment on above: mL/min/1.73m2 CKD-EP I Creatinine Equation (2020) Hematocrit Auto (Bld) [Volum e fraction]Ordered By: Adelaide Nayak on 05-30-2025 Hematocrit (Bld) [Volume fraction] 42.9 % 40-54 [facility] Hemoglobin measurementOrdere d By: Adelaide Nayak on 05-30-2025 Hemoglobin (Bld) [Mass/Vol] 15.2 g/dL 13.0-16.5 [facility] Immature granulocytes/100 WB C Auto (Bld)Ordered By: Adelaide Nayak on 05-30-2025 Immature granulocytes/100 WBC (Bld) 0.500 % 0.0-0.9 [facility] Comment on above: IG% - Immature Granu locytes (promyelocytes, myelocytes and metamyelocytes) > 1% indicates that a LEFT SHIFT is Present. L501.4021on 05-30-2025 Trop T High Sen 11 ng/L Normal <=22 [facility] Comment on above: Performed By: #### L 300.8000, L100.0100, L500.2500, L503.7505, L501.4021, L501.5200, L501.9520 #### [facility] Laboratory [address] [place], [place], [id number] MCV (mean corpuscular volume ) determinationOrdered By: Adelaide Nayak on 05-30-2025 MCV (RBC) [Entitic vol] 94.5 fL High 80-94 [facility] Magnesiumon 05-30-2025 Magnesium [Mass/Vol] 2.1 mg/dL Normal 1.5-2.2 [facility] Comment on above: Performed By: #### L 300.8000, L100.0100, L500.2500, L503.7505, L501.4021, L501.5200, L501.9520 #### [facility] Laboratory [address] [place], [place], [id number] Magnesium measurement (mass/ volume)Ordered By: Adelaide Nayak on 05-30-2025 Magnesium (Unsp spec) [Mass/Vol] 2.1 mg/dL 1.5-2.2 [facility] Mean corpuscular hemoglobin (MCH) determinationOrdered By: Adelaide Nayak on 05-30-2025 MCH (RBC) [Entitic mass] 33.5 pg High 27.0-32.0 [facility] Mean corpuscular hemoglobin concentration (MCHC) determinationOrdered By: Adelaide Nayak on 05-30-2025 MCHC (RBC) [Mass/Vol] 35.4 g/dL 32-36 [facility] Mean platelet volume determi nationOrdered By: Adelaide Nayak on 05-30-2025 Platelet mean volume (Bld) [Entitic vol] 10.1 fL 6.2-12.0 [facility] Monocyte percentageOrdered B y: Adelaide Nayak on 05-30-2025 Monocytes/100 WBC (Bld) 10.7 % High 0-10 [facility] Natriuretic peptide.B prohor newton N-Terminal [Mass/volume] in Serum or PlasmaOrdered By: Adelaide Nayak on 05-30-2025 Natriuretic peptide.B prohormone N-Terminal [Mass/Vol] 59 pg/mL <900 [facility] Comment on above: Heart Failure Unlike ly: < 300 pg/mLHeart Failure Likely< 50 Years: > 450 pg/mL50-75 Years: > 900 pg/mL>75 Years: > 1800 pg/mL Neutrophil percentageOrdered By: Adelaide Nayak on 05-30-2025 Neutrophils/100 WBC (Bld) 62.2 % 47-70 [facility] Nucleated red blood cell per centageOrdered By: Adelaide Nayak on 05-30-2025 Nucleated RBC/100 WBC (Bld) [Ratio] 0 % 0-5 [facility] Platelet countOrdered By: Bill Nayak on 05-30-2025 Platelets (Bld) [#/Vol] 264 10*3/uL 150-450 [facility] Potassium measurement (mass/ volume)Ordered By: Adelaide Nayak on 05-30-2025 Potassium (Unsp spec) [Mass/Vol] 4.3 mmol/L 3.3-5.1 [facility] Pro- Brain NATRIURETIC PEPTI Shayne 05-30-2025 Natriuretic peptide B (Bld) [Mass/Vol] 59 pg/mL Normal <=900 [facility] Comment on above: Result Comment: Hear t Failure Unlikely: < 300 pg/mL Heart Failure Likely < 50 Years: > 450 pg/mL 50-75 Years: > 900 pg/mL >75 Years: > 1800 pg/mL Performed By: #### L 300.8000, L100.0100, L500.2500, L503.7505, L501.4021, L501.5200, L501.9520 ####[facility] [id number] [place], [address] RBC Auto (Bld) [#/Vol]Ordere d By: Adelaide Nayak on 05-30-2025 RBC (Bld) [#/Vol] 4.54 10*6/uL Low 4.6-6.2 [facility] Serum creatinine measurement (mass/volume)Ordered By: Adelaide Nayak on 05-30-2025 Creatinine [Mass/Vol] 0.65 mg/dL Low 0.70-1.20 [facility] Serum glucose measurement (m ass/volume)Ordered By: Adelaide Nayak on 05-30-2025 Glucose [Mass/Vol] 113 mg/dL High 70-99 [facility] Serum or plasma calcium alonso urement (mass/volume)Ordered By: Adelaide Nayak on 05-30-2025 Calcium [Mass/Vol] 9.2 mg/dL 7.6-11.0 [facility] Serum or plasma urea nitroge n measurement (mass/volume)Ordered By: Adelaide Nayak on 05-30-2025 Urea nitrogen [Mass/Vol] 4 mg/dL 4-19 [facility] Sodium levelOrdered By: Yazan Nayak on 05-30-2025 Sodium [Moles/Vol] 133 mmol/L 133-145 [facility] TSH DL <= 0.005 mIU/L QnOrde red By: Adelaide Nayak on 05-30-2025 TSH Qn 1.540 uIU/mL 0.300-4.200 [facility] Thyroid Stim Hormone (TSH)on 05-30-2025 TSH 1.540 uIU/mL Normal 0.300-4.200 [facility] Comment on above: Performed By: #### L 300.8000, L100.0100, L500.2500, L503.7505, L501.4021, L501.5200, L501.9520 ####[facility] [id number] [place], [place], [address] Troponin T HS 2 HRon 025 Trop T High Sen 9 ng/L Normal <=22 [facility] Comment on above: Performed By: #### L 499.0042 ####[facility] [id number] [place], [place], [address] Troponin T.cardiac [Mass/vol ume] in Serum or Plasma by High sensitivity methodOrdered By: Adelaide Nayak on 05-30-2025 Troponin T.cardiac High sensitivity method [Mass/Vol] 9 ng/L <22 [facility] Troponin T.cardiac High sensitivity method [Mass/Vol] 11 ng/L <22 [facility] White blood cell (WBC) count Ordered By: Adelaide Nayak on 05-30-2025 WBC (Bld) [#/Vol] 8.7 10*3/uL 4.4-11.0 [facility] Lumbar Spine 2 or 3 Viewson 01-25-2025 Lumbar Spine 2 or 3 Views [facility] Imaging Services [address] [place], [place] [address] Lumbar Spine 2 or 3 Views MR#: [id number] Acct: [id number] Name: LINDSAY HUNTER Rep #: [id number] : 1960 M 64 From: Kasie Soriano PCP: Dr. David De Leon MD Status: REG CLI Study: Lumbar Spine 2 or 3 Views Date of Exam: Exam# [id number] Ordering Dr: Ariadna Negrete PROCEDURE: LUMBAR SPINE [...] vascular disease of the aorta. Reading Location: [id number] CC: ALYSHA Ruiz; Dr. David De Leon MD Grants Assistant: Signed Normal [facility] Abdominal aortic duplex scan reportOrdered By: Yazan Jones on 12-07-2024 US.doppler Thoracic and abdominal aorta [facility] Cardiovascular Services [address] [place] [address] Abd Aortic/IVC Duplex scan 12/06/24 0904 MR#: [id number] Acct: [id number] Name: LINDSAY HUNTER Rep #:[id number] : 1960 64 From: Yazan Redd Attending Dr: Dr. Yazan Jones MD S tatus: REG CLI Ordering Dr: Yazan Jones MD Date: 08/22 Location: [facility] Sex: M C Admitted: Reason For Study [...] Aorta IVC Iliac vasculature or bypass grafts 91411. Exam performed in department. VL/Abd Aortic/IVC Duplex [...] ~ Date Dictated: 12/06/24903 Date Transcribed: 12/07/24702 Grants Assistant: Signed [facility] Work Phone: Arterial study reportOrdered By: Yazan Jones on 12-07-2024 Noninvasive arteriosclerosis study report [facility] Cardiovascular Services [address] [place] [address] Lower Ext Art Exam w/ Exercise 12/06/24916 MR#: [id number] Acct: [id number] Name: LINDSAY HUNTER Rep #:[id number] : 1960 64 From: Yazan Redd Attending [...] Performed By: Kristi Roque RVT 12/07/24700 Date _ Yazan Jones MD CC: Dr. Filomena Wong MD; Dr. Yazan Jones MD ~ Date Dictated: 12/06/24916 Date Transcribed: 12/07/24700 Grants Assistant: Signed [facility] Work Phone: MR/BMS.BVSon 12-07-2024 MR/BMS.S [facility] Vascular Surgery [address] [place] [address] OFFICE VISIT Date of Service: 12/07/24 MR#: [id number] Acct: [id number] Name: LINDSAY HUNTER Georgina Rep #: [id number] : 1960 Provider: ALYSHA Ruiz Age/Sex: 64/M Location: [facility] Status: Signed Intake Vital Signs 11/10/23 09:38 [...] History (Updated 12/07/24 @ 13:17 by Richa Little) Smoking Status: Heavy Smoker (>10/day) HPI HPI [...] developed Nutr (more content not included)... Normal [facility] Abd Aortic/IVC Duplex scanon 12-06-2024 Abd Aortic/IVC Duplex scan [facility] Cardi[facility] Services [address] [place] [address] Abd Aortic/IVC Duplex scan 12/06/24 0904 MR#: [id number] Acct: [id number] Name: LINDSAY HUNTER Rep #: [id number] : 1960 64 From: Yazan Jones MD [...] Aorta IVC Iliac vasculature or bypass grafts 84449. Exam performed in department. VL/Abd Aortic/IVC Duplex scan Interpretation Summary Inferior vena cava and left iliac vein patent with normal venous flow pattern. Right iliac vein stent patent with normal venous flow pattern. Ordering Physician: Yazan Jones Referring Physician: Filomena Wong M.D. Performed By: Kristi Roque RVT 12/07/24702 Date aYzan Jones MD CC: Dr. Filomena Wong MD; Dr. Yazan Jones MD Date Dictated: 12/06/24903 Date Transcribed: 12/07/24702 Grants Assistant: Signed Normal [facility] Lower Ext Art Exam w/ Exerci raghav 12-06-2024 Lower Ext Art Exam w/ Exercise [facility] Cardiovascular Services [address] [place] [address] Lower Ext Art Exam w/ Exercise 12/06/24 0917 MR#: [id number] Acct: [id number] Name: LINDSAY HUNTER Rep #: [id number] : 1960 64 From: Yazan Jones MD Attending Dr: Dr. Yazan Jones MD Status: CHRISTOPHER JONES Ordering Dr: Yazan Jones MD Date: 12/06/24 Location: [facility] Sex: M C Admitted: Reason For Study [...] Exam w/ Exercise Interpretation Summary Right ROSA IESLA 0.61, moderate arterial insufficiency. Doppler/PVR waveforms and [...] Physician: Filomena Wong M.D. Performed By: Kristi Roque, RVT 12/07/24700 Date Yazan Jones MD CC: Dr. iFlomena Wong MD; Dr. Yazan Jones MD Date Dictated: 12/06/24916 Date Transcribed: 12/07/24700 Grants Assistant: Signed Normal [facility] Activated partial thrombopla stin time (aPTT) in platelet poor plasma by coagulation aOrdered By: Yazan Jones on 11-11-2023 aPTT Coag (PPP) [Time] 43.0 s 24.1-36.2 [facility] Basophil percentageOrdered B y: Yazan Jones on 11-11-2023 Chloride [Moles/Vol] 107 mmol/L 98-107 [facility] Glucose [Mass/Vol] 106 mg/dL 74-106 [facility] Comment on above: Fasting Glucose resu lt from 100 to 125 mg/dL suggests IMPAIRED HOMEOSTASIS per A.D.A. criteria. Hemoglobin (Bld) [Mass/Vol] 13.6 g/dL 13.0-16.5 [facility] Potassium [Moles/Vol] 3.9 mmol/L 3.5-5.1 [facility] Sodium [Moles/Vol] 139 mmol/L 136-145 [facility] WBC (Bld) [#/Vol] 8.2 10*3/uL 4.4-11.0 [facility] Determination of erythrocyte mean corpuscular volume (MCV)Ordered By: Yazan Jones on 11-11-2023 MCV (RBC) [Entitic vol] 96.9 fL 80-94 [facility] Erythrocyte distribution wid th ratioOrdered By: Yazan Jones on 11-11-2023 Erythrocyte distribution width (RBC) [Ratio] 11.9 % 11.6-14.6 [facility] Erythrocyte distribution wid th standard deviationOrdered By: Yazan Jones on 11-11-2023 Erythrocyte distribution width (RBC) [Entitic vol] 42.6 fL 35.1-43.9 [facility] Hematocrit Auto (Bld) [Volum e fraction]Ordered By: Yazan Jones on 11-11-2023 Hematocrit (Bld) [Volume fraction] 41.1 % 40-54 [facility] Laboratory - Chemistry and C hemistry - challengeOrdered By: Yazanvonnie Jones on 11-11-2023 CO2 [Moles/Vol] 26.0 mmol/L 21.0-32.0 [facility] Urea nitrogen/Creatinine [Mass ratio] 9.5 mg/mg 10-20 [facility] Laboratory - CoagulationOrde red By: Yazan Jones on 11-11-2023 INR Coag (Bld) [Relative time] 1.0 {INR} [facility] PT Coag (PPP) [Time] 13.5 s 11.7-14.9 [facility] Laboratory - Hematology and Cell countsOrdered By: Yazan Jones on 11-11-2023 MCH (RBC) [Entitic mass] 32.1 pg 27.0-32.0 [facility] MCHC (RBC) [Mass/Vol] 33.1 g/dL 32-36 [facility] Platelet mean volume (Bld) [Entitic vol] 10.3 fL 6.2-12.0 [facility] Platelets (Bld) [#/Vol] 386 10*3/uL 150-450 [facility] No Panel InformationOrdered By: Yazan Jones on 11-11-2023 Estimated Creatinine Clearance Calc 147.38 ml/min [facility] Estimated GFR (MDRD) Amer 166 mL/min >60 [facility] Comment on above: GFR Calc Estimated GFR (MDRD) Non-Af Amer 137 mL/min >60 [facility] Comment on above: Non- GFR Calc RBC Auto (Bld) [#/Vol]Ordere d By: Yazan Jones on 11-11-2023 RBC (Bld) [#/Vol] 4.24 10*6/uL 4.6-6.2 [facility] Serum or plasma calcium alonso urement (mass/volume)Ordered By: Yazan Jones on 11-11-2023 Calcium [Mass/Vol] 9.1 mg/dL 8.5-10.1 [facility] Serum or plasma creatinine m easurement (mass/volume)Ordered By: Yazan Jones on 11-11-2023 Creatinine [Mass/Vol] 0.63 mg/dL 0.70-1.30 [facility] Comment on above: The validity of the calculated GFR & GFRAA in patients over 70 years has not been determined. Clinical correlation is essential. Serum or plasma urea nitroge n measurement (mass/volume)Ordered By: Yazan Jones on 11-11-2023 Urea nitrogen [Mass/Vol] 6 mg/dL 7-18 [facility] Thin prep Papanicolaou smear with manual screeningOrdered By: Yazan Jones on 11-11-2023 Thin prep Papanicolaou smear with manual screening 6 5-15 [facility] No Panel InformationOrdered By: Yazan Jones on 11-10-2023 Activated Clotting Time 223 sec 74-137 [facility] Absolute lymphocyte countOrd ered By: David De Leon on 10-26-2023 Lymphocytes Auto (Unsp spec) [#/Vol] 1.43 10*3/uL 0.83-4.51 [facility] Automated lymphocyte count a s percentage of total leukocytesOrdered By: David De Leon on 10-26-2023 Lymphocytes/100 WBC Auto (Unsp spec) 14.6 % 19-41 [facility] Basophil percentageOrdered B y: David De Leon on 10-26-2023 Basophils/100 WBC (Bld) 0.7 % 0-1 [facility] Bilirubin [Mass/Vol] 0.50 mg/dL 0.20-1.00 [facility] Comment on above: For patients on eltr ombopag therapy, use of Dimension [place] TBIL is not recommended. Chloride [Moles/Vol] 100 mmol/L 98-107 [facility] Cholesterol [Mass/Vol] 197 mg/dL <200 [facility] Comment on above: <200 mg/dL Desirable 200-240 mg/dL Borderline >240 mg/dL High Risk Eosinophils/100 WBC (Bld) 3.2 % 0-5 [facility] Glucose [Mass/Vol] 111 mg/dL 74-106 [facility] Comment on above: Fasting Glucose resu lt from 100 to 125 mg/dL suggests IMPAIRED HOMEOSTASIS per A.D.A. criteria. Hemoglobin (Bld) [Mass/Vol] 14.6 g/dL 13.0-16.5 [facility] Monocytes/100 WBC (Bld) 13.8 % 0-10 [facility] Neutrophils (Bld) [#/Vol] 6.6 10*3/uL 2.0-7.7 [facility] Neutrophils/100 WBC (Bld) 66.7 % 47-70 [facility] Potassium [Moles/Vol] 3.7 mmol/L 3.5-5.1 [facility] Protein [Mass/Vol] 8.0 g/dL 6.4-8.2 [facility] Sodium [Moles/Vol] 131 mmol/L 136-145 [facility] Triglyceride [Mass/Vol] 150 mg/dL <199 [facility] Comment on above: The drugs N-Acetylcy steine and Metamizole may falsely depress this assay.Serum Triglycerides Reference Interval Normal <150 mg/dL Borderline high 150 - 199 mg/dL High 200 - 499 mg/dL Very High > or = 500 mg/dL WBC (Bld) [#/Vol] 9.8 10*3/uL 4.4-11.0 [facility] Determination of erythrocyte mean corpuscular volume (MCV)Ordered By: David De Leon on 10-26-2023 MCV (RBC) [Entitic vol] 97.1 fL 80-94 [facility] Erythrocyte distribution wid th ratioOrdered By: David De Leon on 10-26-2023 Erythrocyte distribution width (RBC) [Ratio] 12.2 % 11.6-14.6 [facility] Erythrocyte distribution wid th standard deviationOrdered By: David De Leon on 10-26-2023 Erythrocyte distribution width (RBC) [Entitic vol] 43.6 fL 35.1-43.9 [facility] Hematocrit Auto (Bld) [Volum e fraction]Ordered By: David De Leon on 10-26-2023 Hematocrit (Bld) [Volume fraction] 43.6 % 40-54 [facility] High density lipoprotein (HD L) measurementOrdered By: David De Leon on 10-26-2023 Cholesterol in HDL (Body fld) [Mass/Vol] 33 mg/dL >40 [facility] Comment on above: The drugs N-Acetylcy steine and Metamizole may falsely depress this assay. Reference Range HDL <40 mg/dL Low HDL Cholesterol HDL >or= 60 mg/dL High HDL Cholesterol Immature granulocytes/100 WB C Auto (Bld)Ordered By: David De Leon on 10-26-2023 Immature granulocytes/100 WBC (Bld) 1.000 % 0.0-0.9 [facility] Comment on above: IG% - Immature Granu locytes (promyelocytes, myelocytes and metamyelocytes) > 1% indicates that a LEFT SHIFT is Present. Laboratory - Chemistry and C hemistry - challengeOrdered By: David De Leon on 10-26-2023 Albumin/Globulin [Mass ratio] 0.6 {ratio} 0.9-2.4 [facility] ALP [Catalytic activity/Vol] 90 U/L 45-117 [facility] ALT [Catalytic activity/Vol] 36 U/L 16-61 [facility] CO2 [Moles/Vol] 23.0 mmol/L 21.0-32.0 [facility] Globulin (S) [Mass/Vol] 5.1 g/dL 2.2-4.2 [facility] Urea nitrogen/Creatinine [Mass ratio] 17.8 mg/mg 10-20 [facility] Laboratory - Hematology and Cell countsOrdered By: David De Leon on 10-26-2023 MCH (RBC) [Entitic mass] 32.5 pg 27.0-32.0 [facility] MCHC (RBC) [Mass/Vol] 33.5 g/dL 32-36 [facility] Nucleated RBC/100 WBC (Bld) [Ratio] 0 % 0-5 [facility] Platelets (Bld) [#/Vol] 360 10*3/uL 150-450 [facility] Low density lipoprotein (LDL ) cholesterol measurementOrdered By: David De Leon on 10-26-2023 Cholesterol in LDL (Body fld) [Moles/Vol] 134 mg/dL 0-130 [facility] No Panel InformationOrdered By: David De Leon on 10-26-2023 Estimated GFR (MDRD) Amer 154 mL/min >60 [facility] Comment on above: GFR Calc Estimated GFR (MDRD) Non-Af Amer 127 mL/min >60 [facility] Comment on above: Non- GFR Calc Platelet mean volume Rafael-Ec ker (Bld) [Entitic vol]Ordered By: David De Leon on 10-26-2023 Platelet mean volume (Bld) [Entitic vol] 9.5 fL 6.2-12.0 [facility] RBC Auto (Bld) [#/Vol]Ordere d By: David De Leon on 10-26-2023 RBC (Bld) [#/Vol] 4.49 10*6/uL 4.6-6.2 [facility] Serum or plasma calcium alonso urement (mass/volume)Ordered By: David De Leon on 10-26-2023 Calcium [Mass/Vol] 9.5 mg/dL 8.5-10.1 [facility] Serum or plasma creatinine m easurement (mass/volume)Ordered By: David De Leon on 10-26-2023 Creatinine [Mass/Vol] 0.68 mg/dL 0.70-1.30 [facility] Comment on above: The validity of the calculated GFR & GFRAA in patients over 70 years has not been determined. Clinical correlation is essential. Serum or plasma thyroid stim ulating hormone (TSH) measurement (units/volume)Ordered By: David De Leon on 10-26-2023 TSH Qn 2.14 uIU/mL 0.358-3.74 [facility] Serum or plasma urea nitroge n measurement (mass/volume)Ordered By: David De Leon on 10-26-2023 Urea nitrogen [Mass/Vol] 12 mg/dL 7-18 [facility] Thin prep Papanicolaou smear with manual screeningOrdered By: David De Leon on 10-26-2023 Thin prep Papanicolaou smear with manual screening 2.9 g/dL 3.2-5.0 [facility] Thin prep Papanicolaou smear with manual screening 37 U/L [facility] Thin prep Papanicolaou smear with manual screening 8 515 [facility] Very low density lipoprotein (VLDL) cholesterol measurementOrdered By: David De Leon on 10-26-2023 Cholesterol in VLDL Calc [Moles/Vol] 30 mg/dL [facility] Vital Signs Date Time Vital Sign Value Performing Clinician Faci lity 06-07-2025 13:15-0400 Body temperature 98.4 [degF] David De Leon MD Work Phone: [facility] 06-07-2025 13:15-0400 Body weight 101.15 kg David De Leon MD Work Phone: [facility] 06-07-2025 13:15-0400 Diastolic blood pressure 88 mm[Hg] David De Leon MD Work Phone: [facility] 06-07-2025 13:15-0400 Heart rate 94 /min David De Leon MD Work Phone: [facility] 06-07-2025 13:15-0400 Respiratory rate 18 /min David De Leon MD Work Phone: [facility] 06-07-2025 13:15-0400 SaO2% (BldA) [Mass fraction] 96 % David De Leon MD Work Phone: [facility] 06-07-2025 13:15-0400 Systolic blood pressure 140 mm[Hg] David De Leon MD Work Phone: [facility] 05-30-2025 13:06-0400 Body temperature 98.6 [degF] David De Leon MD Work Phone: [facility] 05-30-2025 13:06-0400 Diastolic blood pressure 76 mm[Hg] David De Leon MD Work Phone: 5(544)401-411047 [place] [address] 05-30-2025 13:06-0400 Heart rate 97 /min David De Leon MD Work Phone: 1(256)502-605747 [place] [address] 05-30-2025 13:06-0400 Respiratory rate 18 /min David De Leon MD Work Phone: 0(869)609-304698 [place] [address] 05-30-2025 13:06-0400 SaO2% (BldA) [Mass fraction] 96 % David De Leon MD Work Phone: 7(439)586-923398 [place] [address] 05-30-2025 13:06-0400 Systolic blood pressure 138 mm[Hg] David De Leon MD Work Phone: 7(135)556-341698 [place] [address] 05-30-2025 07:50-0400 Body height 180.34 cm David De Leon MD Work Phone: 2(908)558-138698 [place] [address] 05-30-2025 07:50-0400 Body mass index (BMI) [Ratio] 31.4 kg/m2 David De Leon MD Work Phone: 8(971)963-834698 [place] [address] 05-30-2025 07:50-0400 Body weight 102.28 kg David De Leon MD Work Phone: 6(573)517-861998 [place] [address] 12-07-2024 13:17-0400 Body temperature 97.8 [degF] Dr. Filomena Wong MD Work Phone: 5(534)068-945398 [place] [address] 12-07-2024 13:17-0400 Body weight 105.[address] Filomena Wong MD Work Phone: 8(387)938-098598 [place] [address] 12-07-2024 13:17-0400 Diastolic blood pressure 84 mm[Hg] Dr. Filomena Wong MD Work Phone: 3(155)494-847298 [place] [address] 12-07-2024 13:17-0400 Heart rate 100 /min Dr. Filomena Wong MD Work Phone: 4(120)522-312947 [place] [address] 12-07-2024 13:17-0400 Respiratory rate 16 /min Dr. Filomena Wong MD Work Phone: 4(652)791-377698 [place] [address] 12-07-2024 13:17-0400 SaO2% (BldA) [Mass fraction] 96 % Dr. Filomena Wong MD Work Phone: [facility] 12-07-2024 13:17-0400 Systolic blood pressure 165 mm[Hg] Dr. Filomena Wong MD Work Phone: [facility] 11-11-2023 10:12-0500 Body temperature 97.9 [degF] Dr. Filomena Wong Work Phone: [facility] 11-11-2023 10:12-0500 Diastolic blood pressure 88 mm[Hg] Dr. Filomena Wong Work Phone: [facility] 11-11-2023 10:12-0500 Heart rate 80 /min Dr. Filomena Wong Work Phone: [facility] 11-11-2023 10:12-0500 Respiratory rate 16 /min Dr. Filomena Wong Work Phone: [facility] 11-11-2023 10:12-0500 SaO2% (BldA) [Mass fraction] 97 % Dr. Filomena Wong Work Phone: [facility] 11-11-2023 10:12-0500 Systolic blood pressure 152 mm[Hg] Dr. Filomena Wong Work Phone: [facility] 11-10-2023 09:38-0500 Body height 180.[address] Filomena Wong Work Phone: [facility] 11-10-2023 09:38-0500 Body mass index (BMI) [Ratio] 30.3 kg/m2 Dr. Filomena Wong Work Phone: [facility] 11-10-2023 09:38-0500 Body weight 98.[address] Filomena Wong Work Phone: [facility] 11-02-2023 14:14-0500 Body temperature 98.2 [degF] Dr. Filomena Wong Work Phone: [facility] 11-02-2023 14:14-0500 Body weight 101.[address] Filomena Wong Work Phone: [facility] 11-02-2023 14:14-0500 Diastolic blood pressure 84 mm[Hg] Dr. Filomena Wong Work Phone: [facility] 11-02-2023 14:14-0500 Heart rate 103 /min Dr. Filomena Wong Work Phone: [facility] 11-02-2023 14:14-0500 Respiratory rate 16 /min Dr. Filomena Wong Work Phone: [facility] 11-02-2023 14:14-0500 SaO2% (BldA) [Mass fraction] 97 % Dr. Filomena Wong Work Phone: [facility] 11-02-2023 14:14-0500 Systolic blood pressure 130 mm[Hg] Dr. Filomena Wong Work Phone: [facility] Encounters Encounter Date Encounter Type Care Provider Facility Start: 06-07-2025 End: 06-07-2025 Patient encounter procedure Ariadna Negrete [facility] Work Phone: Start: 06-07-2025 End: 06-07-2025 ambulatory David De Leon MD Work Phone: [facility] Start: 05-30-2025 End: 05-30-2025 Emergency department patient visit David De Leon MD Work Phone: -Emergency Department Work Phone: Start: 01-25-2025 End: 01-25-2025 ambulatory Ariadna Negrete Facility:[facility] Start: 12-07-2024 End: 12-07-2024 Patient encounter procedure Ariadna Negrete [facility] Surgery Work Phone: Start: 12-07-2024 End: 12-07-2024 ambulatory Ariadna Negrete Facility:[facility] Start: 12-06-2024 Non-patient / Non-visit Dr. Yazan nguyen MD -[facility] Start: 12-06-2024 End: 12-06-[address] Filomena Wong MD Work Phone: [facility] Work Phone: Start: 12-06-2024 End: 12-06-[address] Yazan Jones MD -Cardiovascular Services Work Phone: Start: 12-06-2024 End: 12-06-2024 ambulatory Yazan Jones Facility:[facility] Start: 11-11-2023 Non-patient / Non-visit Dr. Spike Wong Work Phone: [facility] Start: 11-09-2023 Non-patient / Non-visit Dr. Spike Wong Work Phone: [facility] Start: 11-09-2023 End: 11-11-2023 Evaluation and management of inpatient Dr. Filomena Wong Work Phone: [facility]-Progressive Care Unit Work Phone: Start: 11-04-2023 Non-patient / Non-visit Dr. Spike Wong Work Phone: [facility] Start: 11-04-2023 End: 11-04-[address] Filomena Wong Work Phone: [facility] Work Phone: Start: 11-04-2023 End: 11-04-[address] Filomena Wong Work Phone: [facility]-Cardiovascular Services Work Phone: Start: 11-02-2023 End: 11-02-[address] Filomena Wong Work Phone: [facility]ascular Surgery Work Phone: Start: 10-26-2023 End: 10-26-[address] Filomean Wong Work Phone: [facility] Work Phone: Start: 10-26-2023 End: 10-26-[address] Filomena Wong Work Phone: [facility]-Laboratory Work Phone: Start: 10-22-2023 Non-patient / Non-visit Dr. Spike Wong Work Phone: [facility] Start: 10-22-2023 End: 10-22-[address] Filomena Wong Work Phone: [facility] Work Phone: Start: 10-22-2023 End: 10-22-[address] Filomena Wong Work Phone: [facility]-Cardiovascular Services Work Phone: Procedures Date Procedure Procedure Detail Performing Clinician Start: 05-30-2025 X-ray of chest, PA a nd lateral views David De Leon MD Work Phone: Start: 05-30-2025 D-dimer assay, quantitative Dvaid De Leon MD Work Phone: Comment on above: NORMAL D-Dimer level (<0.50) indicates no DVT or PE. Start: 05-30-2025 Estimated creatinine clearance David De Leon MD Work Phone: Plan of Treatment Date Care Activity Detail Author Start: 05-30-2025 [facility] Start: 05-30-2025 [facility] Start: 11-11-2023 Patient discharge [facility] Start: 11-10-2023 Elevation of head of bed [facility] Start: 11-10-2023 Bedrest [facility] Start: 11-10-2023 Notification of physician [facility] Start: 11-10-2023 Provision of activit y privileges [facility] Start: 11-10-2023 Pulse taking [facility] Start: 11-10-2023 Taking patient vital signs [facility] Start: 11-10-2023 End: 11-10-2023 [facility] Start: 11-09-2023 Ambulation without limitation [facility] Start: 11-09-2023 Assessment of risk o f venous thromboembolism [facility] Start: 11-09-2023 Elevation of affected extremity [facility] Start: 11-09-2023 Incentive spirometry [facility] Start: 11-09-2023 Insertion of cathete r into peripheral vein [facility] Start: 11-09-2023 Measuring intake and output [facility] Start: 11-09-2023 Medication not administered [facility] Start: 11-09-2023 Notification of physician [facility] Start: 11-09-2023 Oxygen therapy [facility] Start: 11-09-2023 Providing care accor ding to standard [facility] Start: 11-09-2023 Self-administration of medication [facility] Start: 11-09-2023 [facility] Start: 11-09-2023 Admission procedure [facility] Start: 11-09-2023 Verification routine [facility] Start: 11-09-2023 Following clinical p athway protocol [facility] Patient Education ED Dyspnea [facility] Work Phone: Patient referral [facility] Work Phone: XR Lumbar spine 2 or 3 Views [facility] Immunizations Immunization Date Immunization Notes Care Provider Justina perez 01-04-2021 Covid (Pfizer) Dr. Filomena barry Work Phone: [facility] 12-14-2020 Covid (Pfizer) Dr. Filomena barry Work Phone: [facility] 03-31-2016 tetanus and diphther ia toxoids, adsorbed, preservative free, for adult use (2 Lf of tetanus toxoid and 2 Lf of diphtheria toxoid) Dr. Filomena Wong Work Phone: [facility] Payers Date Payer Category Payer Self-pay [id number] 2023 Unknown [id number] Private Health Insurance [id number] Private Health Insurance [facility] [id number] Unknown [facility] DO NOT USE 22 [id number] Unknown [id number] Unknown [id number] Unknown [id number] 64 Unknown [id number] 64 Unknown [id number] 64 Unknown [id number] Social History Date Type Detail Facility Start: 09-16-2021 End: 11-09-2023 Tobacco smoking status MOIS Unknown if ever smoked [facility] Start: 04-04-2020 Heavy [facility] Start: 04-04-2020 None [facility] Start: 04-04-2020 Spouse/ Signif icant Other [facility] Start: 04-26-2020 Cigarettes [facility] Start: 1960 Sex Assigned At Male [facility] Start: 12-07-2024 End: 05-30-2025 Tobacco smoking status NHIS Current Heavy tobacco smoker [facility] Start: 12-14-2024 Sex Male (finding) [facility] Medical Equipment Procedure Code Equipment Code Equipment Origin al Text Equipment Identifier Dates Iliofemoral vein stent ()[id number] FDA Start: 11-10-2023 Goals Date Patient Goal Desired Activity /State Functional Status Date Assessment Result Facility 11-11-2023 Functional status Ambulates [facility] Work Phone: Mental Status Date Assessment Result Facility 11-11-2023 Cognitive function Voice/Name [facility] Work Phone: Clinical Notes 11-09-2023 to 05-30-2025 Note Date & Type Note Facility 05-30-2025 Radiology Diagnostic study note [facility] Imaging Services [address] [place], [place] [address] Chest PA and Lateral MR#: [id number] Acct: [id number] Name: LINDSAY HUNTER Rep #: [id number] : 1960 M 64 From: Teo Garcia MD PCP: Dr. David De Leon MD Status: REG ER Study:Chest PA and Lateral Date of Exam: 05/30/25 Exam# [id number] Ordering Dr: Bill Nayak MD PROCEDURE: CHEST PA AND LATERAL 05/30/2025 REASON FOR EXAM: CHEST PAIN TECHNIQUE: Procedure Code: RADCXR Modality: DX Procedure: CHEST PA AND LATERAL COMPARISON: None FINDINGS: Hardware: EKG leads are present Heart: Normal-size Mediastinum: Normal Lungs: Clear Bones: Minimal degenerative changes RAD/Chest PA and Lateral IMPRESSION: No acute cardiopulmonary process [id number] CC: Dr. David De Leon MD; Dr. Adelaide Nayak MD ~ Grants Assistant: Signed [facility] 12-07-2024 Evaluation note Diagnosis Onset Date Resolution Claudication acute December 07, 2024 12:51pm Iliac vein stenosis, right acute December 07, 2024 12:51pm PAD (peripheral artery disease) acute December 07, 2024 12:51pm History of DVT (deep vein thrombosis) chronic December 07 12:51pm [facility] Work Phone: 1([phone]) 244-362602-14-2024 Discharge summary Author Yazan Jones [facility] November 11, 2023 10:51am Note Date/Time November 11, 2023 9:01am [facility] Medical Records Department [address] [place] [address] Discharge Summary 11/11/23 0853 MR#: [id number] Acct: [id number] Name: LINDSAY HUNTER Rep #:[id number] : 1960 63 From: Ariadna ENCARNACION PCP: Dr. Filomena Wong MD Status:ADM IN Location: [place] [address] Providers Date of Admission: 11/09/23 Primary Care [...] take this with Tylenol as needed. Our membership secretary will contact you to schedule your [...] given w/in hospital stay or rx'd at or?: Yes Pt receive overlap for 5 days?: [...] take this with Tylenol as needed. Our membership secretary will contact you to schedule your [...] Wong MD; Dr. Yazan Jones MD~ Signed [facility] Work Phone: 1(794) 996-806202-14-2024 Progress note Author Yazan Jones [facility] November 11, 2023 10:51am Note Date/Time November 11, 2023 8:52am [facility] Medical Records Department [address] [place] [address] Progress Note - Surgery 11/11/23844 MR#: [id number] Acct: [id number] Name: LINDSAY HUNTER Rep #:[id number] : 1960 63 From: Ariadna ENCARNACION PCP: Dr. Filomena Wong MD Status:ADM IN Location: [place] [address] Subjective Subjective Patient is seen resting comfortably [...] in 1 week for suture removal. 11/11/23 0853 <Electronically signed by Ariadna ENCARNACION> Cosigner Signature (if applicable): 11/11/23 1051 <Electronically signed by Yazan Jones MD> CC: ~ Signed [facility] [place] Work Phone: 1(478) 856-518002-12-2024 History and physical note Author Yazan Jones [facility] [place] November 09, 2023 5:24pm Note Date/Time November 09, 2023 5:24pm [facility] Medical Records Department [address] [place] [address] History & Physical Exam 11/09/23 1723 MR#: [id number] Acct: [id number] Name: LINDSAY HUNTER Rep #:[id number] : 1960 63 From: Yazan Jones MD PCP: Dr. Filomena Wong MD Status:ADM IN Location: [place] [address] HPI - General General Date of Admission: 11/09/23 HPI Narrative LINDSAY HUNTER, is a 63 M who presents with extensive RLE DVT with no improvement in symptoms or thrombus resolution with~3 weeks of anticoagulation. He presents for heparin bridging prior to venogram and thrombectomy. [facility] Medical History Diverticulosis GI bleed Hemorrhoid History [...] femoral vein PLAN: -heparin -venogram tomorrow 11/09/23 9734 <Electronically signed by Yazan Jones MD> Cosigner Signature (if applicable): CC: Dr. Filomena Wong MD; Dr. Yazan Jones MD~ Signed [facility] [place] Work Phone: Consult note Author Mariana Whitley [facility] November 11, 2023 11:32am Note Date/Time November 11, 2023 11:32am [facility] Medical Records Department [address] [place] [address] Counseling Note - Pharmacy 11/11/23 1131 MR#: [id number] Acct: [id number] Name: HUNTERLINDSAY L Rep #:[id number] : 1960 63 From: Mariana Whitley PCP: Dr. Filomena Wong MD Status:ADM IN Y Location: [place] [address] Pharmacy [facility] Service has performed discharge medication reconciliation [...] understanding of their dischargemedications. Patient counseled by certified pharmacy tech, Wilfredo. Medications at Discharge Home Medications omeprazole [...] Signature (if applicable): Date CC: ~ Signed [facility] [place] Work Phone: Evaluation noteNo assessment information available [facility] Work Phone: Evaluation note* Diagnosis Onset Date Resolution Status Dvt femoral (deep venous thrombosis) acute [facility] [place] Work Phone: Evaluation note* Diagnosis Onset Date Resolution Status Dvt femoral (deep venous thrombosis) acute Dvt femoral (deep venous thrombosis) acute [facility] [place] Work Phone: Hospital Discharge instructionsAdditional Instructions Your evaluation in the Emergency Department did not reveal any acute reason for admission. However, I want to emphasize that you may be early in the course of a disease process or illness even if it is not present. For this reason you should follow-up within 24 hours for reevaluation with either your primary care physician or if necessary back here in the Emergency Department. You should return to the Emergency Department immediately if your symptoms worsen or new symptoms develop.[facility] Work Phone: Reason for referral (narrative)No reason for referral information available[facility] Work Phone: Chief Complaint and Reason for [...] 12:51pm History of DVT (deep vein thrombosis) [facility] 2024 12:51pm Chief Complaint Admit Date sob May 30, 2025 7:50am Chief Complaint Admit Date sob May 30, 2025 7:50am 6 M FU June 07, 2025 12:55pm Family History No Family History Records Found [...] No April 26, 2020 12:17pm Power of Land Surveyor No April 26 0 12:17pm Advance Directive Response Recorded Date/ Time Living Will No November 09 4:37pm Power of Land Surveyor No November 09, 2023 4:37pm Advance Directive Response Recorded Date/ Time Living Will No November 09 5:37pm Power of Land Surveyor No November 09, 2023 5:37pm Advance Directive Response Recorded Date/ Time Do you have a Healthcare Power of Land Surveyor? No May 30, 2025 8:23am Summary Purpose Additional Source Comments Care Teams [...] Status: Inactive Member Role Status Dates Dr. Fliomena Wong MD Primary Care Provider, Referrin g [...] December 07, 2024 End: December 07, 2024 Team Status: Active Member Role/Relationship Status Dates David De Leon MD Primary Care Provider Active Team Status: Inactive Member Role/Relationship Status Dates David De Leon MD Primary Care Provider Active St art: May 30, 2025 End: May 30, 2025 Dr. Adelaide Nayak MD Emergency Provider Active S tart: May 30, 2025 End: May 30, 2025 Team Status: Inactive Member Role/Relationship Status Dates David De Leon MD Primary Care Provider Active St art: May 30, 2025 End: May 30, 2025 Dr. Adelaide Nayak MD Attending Provider Active S tart: May 30, 2025 End: May 30, 2025 Dr. Adelaide Nayak MD Emergency Provider Active S tart: May 30, 2025 End: May 30, 2025 Team Status: Inactive Member Role/Relationship Status Dates Dr. Filomena Wong MD Referring Provider Active Start: June 07, 2025 End: June 07, 2025 ALYSHA Ruiz Attending Provider Active Star t: June 07, 2025 End: June 07, 2025 David De Leon MD Primary Care Provider Active St art: June 07, 2025 End: June 07, 2025 Goals (unrecognized section and content) Goals may [...] ized section and content) DATE CREATED AUTHOR 06/09/2025 [facility] FOR RECORDS PERTAINING TO PATIENTS WHO ARE [...] BE BASED ON THE PRIMARY CLINICAL RECORDS. [employer] provides no warranty or guarantee of the accuracy or completeness of information in this document.
[2025-06-19 23:18] LABS: Anion Gap 18 (5-15); BUN 3 mg/dL (4-19); BUN/Creat Ratio 4.6 RATIO (10-20); Calcium,Total 9.5 mg/dL (7.6-11.0); Carbon Dioxide 20.7 mmol/L (21.0-32.0); Chloride 93 mmol/L (98-108); Estimated Creatinine Clearance 152.68 ml/min (50-250); Glucose 110 mg/dL (70-99); Magnesium 2.1 mg/dL (1.5-2.2); Potassium 3.2 mmol/L (3.3-5.1); Pro- Brain NATRIURETIC PEPTIDE 120 pg/mL (<=900)
[2025-06-19] MEDS: 0.9% Normal Saline (1000mL) 1,000 ML 999 ML IV (23:57)
[2025-06-20] VITALS: BP 154/89; PULSE 106; PULSE 111; RESP 19; RESP 21; TEMP 37; O2SAT 91; O2SAT 93
[2025-06-20 00:15] VITALS: PULSE 108; RESP 27; O2SAT 91
[2025-06-20 00:30] VITALS: PULSE 106; RESP 21; O2SAT 91
[2025-06-20 02:00] VITALS: BP 153/118; PULSE 101; RESP 18; TEMP 36.7; O2SAT 93
[2025-06-20 02:23] VITALS: O2SAT 97
--- NOTE | 2025-06-20 02:41 | EX.ED.DYSGE1 ---
HPI History of Present Illness Chief Complaint: Shortness of Breath Informant: patient and spouse/S.O. Narrative Narrative: Patient is a 65-year-old male with past medical history of hypertension as well as peripheral vascular disease/DVT. He reports he has a long-term smoking history of over 1 pack a day for approximately 40 years. He states he quit roughly 4 to 5 days ago. He states he does not have a formal diagnosis of COPD or emphysema. He reports that he has been dealing with shortness of breath and cough since early May. He has been seen in the ER for this and states he had a negative workup as well as been following with his family doctor. He reports this evening his cough worsened as well as the shortness of breath and he cannot catch his breath which concerned him and cause increased anxiety and therefore he comes to the ER for evaluation. The patient states that there is no associated chest pain palpitations nausea vomiting or diaphoresis [facility] Medical History Hemorrhoid History of DVT (deep vein thrombosis) Diverticulosis GI bleed Home Medications ?Medication ?Instructions ?Recorded ?Last Taken ?Type omeprazole 20 mg capsule,delayed 20 mg PO DAILY reflux 04/20/20 11/09/23 09:00 History release amlodipine 5 mg tablet 5 mg PO DAILY blood pressure 11/02/23 11/09/23 09:00 History clopidogrel 75 mg tablet 75 mg PO DAILY 30 days #30 tabs 11/02/24 Unknown Rx aspirin 81 mg tablet,delayed 81 mg PO QDAY 12/07/24 Unknown History release albuterol sulfate 90 mcg/actuation 2 puff inhalation Q4H PRN PRN 05/30/25 Unknown Rx aerosol inhaler (Ventolin HFA) Wheezing ##1 omlgqcxj-ds-jrxej 300 mcg-K 60 1 tab PO QDAY 06/07/25 Unknown History mcg-lycop 600 mcg-lutein 300 mcg tablet (Centrum Silver Men) albuterol sulfate 90 mcg/actuation 1 - 2 puff inhalation Q4H PRN PRN 06/20/25 Unknown Rx aerosol inhaler (Ventolin HFA) Wheezing #1 device codeine 10 mg-guaifenesin 100 mg/5 10 ml PO 4X/DAY PRN cough 7 days 06/20/25 Unknown Rx mL oral liquid #280 mL doxycycline monohydrate 100 mg 100 mg PO BID #14 CAPSULES 06/20/25 Unknown Rx capsule prednisone 10 mg tablet 10 mg PO UD #33 tabs 06/20/25 Unknown Rx Allergy/AdvReac Type Severity Reaction Status Date / Time erythromycin base AdvReac Intermediate Vomiting Verified 06/19/25 22:30 Family History Other Cancer Diabetes Heart disease Hypertension Myocardial infarction Surgical History History of cardiac catheterization History of colonoscopy (~2008) Social History Smoking Status: Heavy Smoker (>10/day) ROS ROS ED Constitutional Constitutional ED: Denies chills or fever(s) Eyes Eyes: Denies change in vision ENT ENT ED: Reports rhinorrhea and sore throat Cardiovascular Cardiovascular: Denies chest pain, palpitations or racing heartbeat Respiratory/Chest Respiratory/Chest: Reports cough and dyspnea Gastrointestinal Gastrointestinal: Denies abdominal pain, diarrhea, nausea or vomiting Genitourinary Genitourinary ED: Denies dysuria Musculoskeletal Musculoskeletal: Denies myalgias Integumentary Denies rash Neurologic Neurologic: Denies headache(s) Hematologic/Lymphatic Hematologic/Lymphatic: Reports easy bleeding and easy bruising Allergic/Immunologic Allergic/Immunologic ED: Denies mouth swelling or tongue swelling EXAM Physical Exam Const Vital Signs: 06/19/25 22:22 06/19/25 22:33 06/19/25 22:33 Temperature 98.5 F Temperature Source Oral Pulse Rate 117 H 101 H Respiratory Rate 24 H 24 H Respiratory Effort Normal Respiratory Pattern Blood Pressure 181/90 H Blood Pressure Mean 120 Pulse Ox 91 94 Oxygen Delivery Method Room Air 06/19/25 22:45 06/19/25 22:51 06/19/25 23:00 Temperature Temperature Source Pulse Rate 102 H 101 H 96 Respiratory Rate 13 16 14 Respiratory Effort Respiratory Pattern Normal Blood Pressure Blood Pressure Mean Pulse Ox 93 98 Oxygen Delivery Method 06/19/25 23:15 06/19/25 23:30 06/19/25 23:45 Temperature Temperature Source Pulse Rate 116 H 118 H 123 H Respiratory Rate 19 H 24 H 22 H Respiratory Effort Respiratory Pattern Blood Pressure Blood Pressure Mean Pulse Ox 93 92 91 Oxygen Delivery Method 06/19/25 23:57 06/19/25 23:59 06/20/25 00:00 Temperature 98.7 F 98.6 F Temperature Source Oral Oral Pulse Rate 111 H 109 H 106 H Respiratory Rate 29 H 23 H 19 H Respiratory Effort Respiratory Pattern Blood Pressure 154/89 H 154/89 H 154/89 H Blood Pressure Mean 104 110 110 Pulse Ox 90 92 93 Oxygen Delivery Method Room Air Room Air 06/20/25 00:00 06/20/25 00:15 06/20/25 00:30 Temperature Temperature Source Pulse Rate 111 H 108 H 106 H Respiratory Rate 21 H 27 H 21 H Respiratory Effort Respiratory Pattern Blood Pressure Blood Pressure Mean Pulse Ox 91 91 91 Oxygen Delivery Method 06/20/25 02:00 06/20/25 02:00 06/20/25 02:50 Temperature 98.0 F 98.3 F Temperature Source Oral Pulse Rate 101 H 92 Respiratory Rate 18 20 H Respiratory Effort Respiratory Pattern Blood Pressure 153/118 H 153/118 H 150/90 H Blood Pressure Mean 129 129 110 Pulse Ox 93 95 Oxygen Delivery Method Room Air Positive well nourished and well developed Constitutional Narrative: Patient is in mild respiratory distress with tachypnea and slight accessory muscle use General Appearance ED: well developed; Negative for pallor HEENT HEENT Narrative: Normocephalic atraumatic No tongue or lip swelling no oral lesions no airway edema or compromise There is cobblestoning noted in the posterior pharynx consistent with sinus drainage; no secondary findings to suggest infection Eyes PERRL and EOMs intact bilaterally General Eye ED: Negative for scleral icterus Neck supple and no JVD Chest Wall palpation of chest normal Chest Narrative: No bony deformity or subcutaneous emphysema noted Resp Resp Narrative: Patient is in mild respiratory distress with tachypnea and slight accessory muscle use Breath sounds are diminished throughout with diffuse expiratory wheeze as well as diffuse rhonchi Cardio regular rhythm Rate: tachycardic and other Other Details: Tachycardic rate with regular rhythm Radial and carotid pulses are equal and symmetric GI normal to inspection, nondistended, normoactive bowel sounds, non-tender, non-distended and no masses Auscultation: normoactive bowel sounds Palpation: soft Extremity normal to inspection Extremity Narrative: No asymmetric edema no pitting edema negative Homans' sign bilaterally Neuro oriented x3, CN's II-XII intact bilaterally and no sensory deficits noted Sensorium / Orientation: alert Motor Exam: strength 5/5 throughout Psych Mood & Affect: anxious Skin no rashes or lesions noted General Skin Exam: Negative for jaundice or pallor MDM MDM MDM Narrative Medical decision making narrative: Patient arrived to the ER hypertensive and in mild respiratory distress. He was seen on May 30 in the ER and that previous chart and laboratory studies were reviewed. His symptoms today are most consistent with a COPD exacerbation that was worsened by a viral upper respiratory tract infection. Because of his history of peripheral vascular disease/DVT and no true blood thinner to his Plavix patient could also be having symptoms secondary to a pulmonary embolus. Therefore I elected to perform a CT of the chest to check for PE versus pulmonary edema versus pneumonia or pneumothorax. Blood work was obtained to rule out electrolyte abnormality acute blood loss anemia or acute kidney injury. A viral swab was obtained to check for COVID influenza or RSV. Workup revealed no clinically significant findings. CTA revealed no PE or pneumonia or pneumothorax or signs of volume overload. With his over 1 pack a day smoking for 40 years coupled with exposure to fumes at his job patient most likely has COPD and this is exacerbated by a viral illness. He did have improvement of his work of breathing and breath sounds after receiving albuterol and DuoNeb as well as steroids. He was ambulated in the ER and his pulse ox remained above 90%. Therefore this time he is not hypoxic at rest he is not hypoxic with exertion he does not have lung pathology such as PE pneumonia or pneumothorax or volume overload. Therefore do not feel there is need for inpatient therapy but he can be placed on prednisone taper as well as symptomatic medications for his cough and I will cover him with doxycycline for his COPD exacerbation. But without need for supplemental oxygen or signs of persistent respiratory distress he is otherwise safe for discharge History & Record Review Discussion w/independent historian: Patient and Significant other Additional record(s) reviewed:: Prior ED visit and Prior labs Lab Data Attestation: I reviewed the patient's lab results. Labs: Laboratory Results - last 24 hr 06/19/25 22:34 WBC 10.2 RBC 4.67 Hgb 15.6 Hct 44.1 MCV 94.4 H MCH 33.4 H MCHC 35.4 RDW Std Deviation 43.0 RDW Coeff of Amber 12.4 Plt Count 301 MPV 10.0 Immature Gran % (Auto) 0.600 Neut % (Auto) 56.6 Lymph % (Auto) 20.3 [place] % (Auto) 13.0 H Eos % (Auto) 8.7 H Baso % (Auto) 0.8 Absolute Neuts (auto) 5.8 Absolute Lymphs (auto) 2.07 Nucleated RBC % 0 PT 13.1 INR 1.0 APTT 26.0 Sodium 132 L Potassium 3.2 L Chloride 93 L Carbon Dioxide 20.7 L Anion Gap 18 H BUN 3 L Creatinine 0.60 L Estim Creat Clear Calc 152.68 Est GFR (MDRD) Non-Af 108 BUN/Creatinine Ratio 4.6 L Glucose 110 H Calcium 9.5 Magnesium 2.1 NT pro BNP II 120 Radiography Diagnostic Testing: Clinical Impression(s) from Imaging Studies Chest CTA 06/19/25 22:47 IMPRESSION: No evidence of pulmonary arterial thromboembolism. Patent thoracic aorta. No intraluminal hypodense thrombi, dissecting intimal flaps or significant aneurysmal dilatation. Bilateral pulmonary emphysema. No obvious pulmonary masses or consolidations. Reading Location: [place] [address] Discharge Plan Triage Chief Complaint: Shortness of Breath ED Provider: Mikie England Dx/Rx/DC Orders Clinical Impression: Dyspnea, Viral upper respiratory tract infection with cough, PAD (peripheral artery disease), Hypertension Instructions: COPD: Wheezing and Chest Tightness, ED URI, Viral W/ Wheezing (Adult) Prescriptions: New prednisone 10 mg tablet 10 mg PO UD Qty: 33 0RF Rx Instructions: Take 4 tablets daily for 3 days, then 3 daily for 3 days, then 2 daily for 3 days, then 1 a day for 3 days then 1 QOD for 3 doses. doxycycline monohydrate 100 mg capsule 100 mg PO BID Qty: 14 0RF codeine-guaifenesin 10-100 mg/5 mL liquid 10 ml PO 4X/DAY PRN (Reason: cough) 7 Days Qty: 280 0RF albuterol sulfate [Ventolin HFA] 90 mcg/actuation HFA aerosol inhaler 1 - 2 puff inhalation Q4H PRN PRN (Reason: Wheezing) Qty: 1 0RF No Action omeprazole 20 mg capsule,delayed release(DR/EC) 20 mg PO DAILY amlodipine 5 mg tablet 5 mg PO DAILY aspirin 81 mg tablet,delayed release (DR/EC) 81 mg PO QDAY Centrum Silver Men [phone] mcg tablet 1 tab PO QDAY albuterol sulfate [Ventolin HFA] 90 mcg/actuation HFA aerosol inhaler 2 puff inhalation Q4H PRN PRN (Reason: Wheezing) Qty: 1 0RF clopidogrel 75 mg tablet 75 mg PO DAILY 30 Days Qty: 30 11RF Primary Care Provider: David De Leon Referrals: David De Leon MD [Primary Care Provider, Family Practice] Activity Restrictions/Additional Instructions: Your history and exam would indicate you have underlying COPD/emphysema and this has been exacerbated by a prolonged or recurrent viral upper respiratory infection. Please take the prescribed medications as directed to help control your symptoms. Follow-up with your family doctor to discuss need for pulmonary function testing to truly diagnose COPD/emphysema. Return to the ER should you have any further concerns or worsening of symptoms despite taking your medication Print Language: Northern Irish Disposition Disposition: Home, Self Care Discharge Date/Time: 06/20/25 02:51
[2025-06-20 02:50] VITALS: BP 150/90; PULSE 92; RESP 20; TEMP 36.8; O2SAT 95
== END 2025-06-20 02:51 | disposition home or self-care (01) ==
PROVIDERS: Emergency Provider Emergency Medicine; PCP Family Medicine; Visit Provider Emergency Medicine
DX: J06.9 Acute upper respiratory infection, unspecified (principal); R06.00 Dyspnea, unspecified; I10 Essential (primary) hypertension; I73.9 Peripheral vascular disease, unspecified; F17.200 Nicotine dependence, unspecified, uncomplicated; Z79.82 Long term (current) use of aspirin; Z79.02 Long term (current) use of antithrombotics/antiplatelets; Z86.718 Personal history of other venous thrombosis and embolism; Z79.899 Other long term (current) drug therapy
CPT/HCPCS: 71275; 80048; 83735; 83880; 85025; 85610; 85730; 87631; 94640; 96361; 96374; 96375; 99284; Q9967; A4216; J2405

== ENCOUNTER 2025-06-27 17:52 | Inpatient (IN) | payer OTHER, SELFPAY ==
[2025-06-27 17:54] VITALS: BP 189/103; PULSE 103; RESP 22; TEMP 36.4; O2SAT 94; BMI 31.6
--- NOTE | 2025-06-27 18:10 | EKG12_ITS ---
Test Reason : SOB Blood Pressure : */* mmHG Vent. Rate : 103 BPM Atrial Rate : 103 BPM P-R Int : 124 ms QRS Dur : 76 ms QT Int : 336 ms P-R-T Axes : 41 58 42 degrees QTcB Int : 440 ms Sinus tachycardia Otherwise normal ECG Confirmed by DORIE ARMSTRONG, SHAWN ([id number]), editorial director KIM NARAYANAN ([id number]) on 06/28/2025 8:24:34 AM Referred By: AR/UG Confirmed By: SHAWN OSHEA MD
--- NOTE | 2025-06-27 18:17 | CT_ITS ---
PROCEDURE: CT BRAIN/HEAD WITHOUT CONTRAST 06/27/2025 REASON FOR EXAM: TRAUMA, ANTITHROMBOTIC, SEVERE HEADACHE TECHNIQUE: Procedure Code: CTBR Modality: CT Procedure: BRAIN/HEAD WITHOUT CONTRAST Coronal and Sagittal reconstruction series were provided. One or more dose reduction techniques were used (e.g., Automated exposure control, adjustment of the mA and/or kV according to patient size, use of iterative reconstruction technique. RADIATION DOSE SUMMARY: CTDlvol: 44.99 mGy DLP: 863.6 mGycm COMPARISON: None. FINDINGS: No acute intracranial hemorrhage, extra-axial collection, mass effect or evidence of acute infarct. Ventricles and subarachnoid spaces are normal in size. Orbital contents are unremarkable. Intact skull base and calvarium. Well-aerated paranasal sinuses and mastoid air cells. CT/Brain/Head without Contrast IMPRESSION: No acute intracranial abnormality. Reading Location: [id number]
[2025-06-27 18:24] VITALS: O2SAT 97
--- NOTE | 2025-06-27 18:35 | RAD_ITS ---
PROCEDURE: RIBS UNI MIN 3V W/PA CHEST 06/27/2025 REASON FOR EXAM: DECREASED BREATH SOUNDS RIGHT, WHEEZING, TRAUMA TECHNIQUE: Procedure Code: RADRIB Modality: DX Procedure: RIBS UNI MIN 3V W/PA CHEST COMPARISON: 05/30/2025 FINDINGS: LUNGS AND PLEURA: Large right pneumothorax of approximately 60% with partial collapse of the right lung. No pleural effusion. HEART AND MEDIASTINUM: The heart size and mediastinal contours are normal. BONES: Acute right lateral 4th and 5th rib fractures with adjacent subcutaneous emphysema in the right lateral chest wall. RAD/Ribs Uni Min 3V w/PA Chest IMPRESSION: 1. Right lateral 4th and 5th rib fractures. 2. Large right pneumothorax with partial right lung collapse. Reading Location: [id number]
--- NOTE | 2025-06-27 18:53 | EX.ED.GENINJ ---
HPI History of Present Illness Chief Complaint: Shortness of Breath Detail of Chief Complaint: Increase shortness of breath and severe headache Informant: patient and spouse/S.O. Onset/Context/Timing Onset: Yesterday Mechanism/Context: Blunt Injury and Fall Location of pain/injuries: - (Right side of the head and right side of the chest) Quality of Pain: Throbbing (With respect to the headache) and - (Pain posteriorly with respect to the right side of his chest and shortness of breath) Location: Head and chest Current Severity: Severe Maximum Severity: Severe Worsened by: Nothing with respect to the head breathing and movement with respect to the Relieved by: Nothing for either Associated Symptoms Associated Symptoms: Positive for Loss of consciousness; Negative for Parasthesias, Weakness, Loss of function or Inability to ambulate Length of loss of consciousness: Unknown Narrative Narrative: Patient is a 65-year-old male. He is on aspirin and Plavix. He was closing the pool. He forgot he put something down in his path that he he normally would walk to the house. He tripped. He fell striking his head. He did have transient loss of conscious. He presents today because of severe headache. He also complains of right-sided chest pain and increased shortness of breath. His thought he was doing better with the antibiotics and treatment for his respiratory infection. He denies change in color of his urine or dark urine. He denies increased or decreased urine output. He denies posterior neck pain. He denies paresthesia or anesthesia of his upper or lower extremities. Denies weakness in his upper or lower extremities. He does have baseline neuropathy and has altered sensation in his feet. Prior similar symptoms: No Recent Illness/Hospitalization: No [facility] Medical History Hemorrhoid History of DVT (deep vein thrombosis) Diverticulosis GI bleed Home Medications ?Medication ?Instructions ?Recorded ?Last Taken ?Type omeprazole 20 mg capsule,delayed 20 mg PO DAILY reflux 04/20/20 11/09/23 09:00 History release amlodipine 5 mg tablet 5 mg PO DAILY blood pressure 11/02/23 11/09/23 09:00 History clopidogrel 75 mg tablet 75 mg PO DAILY 30 days #30 tabs 11/02/24 Unknown Rx aspirin 81 mg tablet,delayed 81 mg PO QDAY 12/07/24 Unknown History release albuterol sulfate 90 mcg/actuation 2 puff inhalation Q4H PRN PRN 05/30/25 Unknown Rx aerosol inhaler (Ventolin HFA) Wheezing ##1 vvtqxwyu-jf-foijn 300 mcg-K 60 1 tab PO QDAY 06/07/25 Unknown History mcg-lycop 600 mcg-lutein 300 mcg tablet (Centrum Silver Men) albuterol sulfate 90 mcg/actuation 1 - 2 puff inhalation Q4H PRN PRN 06/20/25 Unknown Rx aerosol inhaler (Ventolin HFA) Wheezing #1 device codeine 10 mg-guaifenesin 100 mg/5 10 ml PO 4X/DAY PRN cough 7 days 06/20/25 Unknown Rx mL oral liquid #280 mL doxycycline monohydrate 100 mg 100 mg PO BID #14 CAPSULES 06/20/25 Unknown Rx capsule prednisone 10 mg tablet 10 mg PO UD #33 tabs 06/20/25 Unknown Rx Allergy/AdvReac Type Severity Reaction Status Date / Time erythromycin base AdvReac Intermediate Vomiting Verified 06/27/25 17:54 Family History Other Cancer Diabetes Heart disease Hypertension Myocardial infarction Surgical History History of cardiac catheterization History of colonoscopy (~2008) Social History Smoking Status: Former smoker ROS ROS ED Constitutional Constitutional ED: Denies chills, fever(s) or subjective Eyes Eyes: Denies blurry vision or change in vision ENT ENT ED: Denies ear pain or rhinorrhea Cardiovascular Cardiovascular: Reports chest pain; Denies palpitations or paroxysmal nocturnal dyspnea Respiratory/Chest Respiratory/Chest: Reports cough, dyspnea, dyspnea on exertion, sputum and other Details: Sputum is clear and scant ; Denies paroxysmal nocturnal dyspnea Gastrointestinal Gastrointestinal: Reports nausea; Denies abdominal pain, constipation, diarrhea, melena or vomiting Genitourinary Genitourinary ED: Denies dysuria, hematuria or urinary frequency Musculoskeletal Musculoskeletal: Denies arthralgias, back pain, myalgias or neck pain Integumentary Denies rash Psychiatric Psychiatric: Denies anxiety or depression Endocrine Endocrinology: Denies cold intolerance or heat intolerance Hematologic/Lymphatic Hematologic/Lymphatic: Reports easy bruising EXAM Physical Exam Const Vital Signs: 06/27/25 17:54 06/27/25 18:24 06/27/25 19:53 Temperature 97.5 F L Temperature Source Temporal Pulse Rate 103 H 105 H Respiratory Rate 22 H 19 H Respiratory Effort Short of Breath Accessory Muscle Use Respiratory Depth Shallow Respiratory Pattern Tachypnea Blood Pressure 189/103 H 162/92 H Blood Pressure Mean 131 115 Pulse Ox 94 93 Oxygen Delivery Method Room Air Room Air Room Air Positive well nourished and well developed Constitutional Narrative: Patient appears uncomfortable. He grimaces with movement. Vital signs are marked for an elevated blood pressure. General Appearance ED: well developed HEENT HEENT Narrative: There is evidence of contusion to the forehead. There is no laceration. There is no palpable pression. There is no clinical signs of basilar skull fracture. There is no septal deviation hematoma. There is no dental trauma. There is no TMJ tenderness noted. Eyes PERRL and EOMs intact bilaterally General Eye ED: Yes other Other Details: There is no subconjunctival hemorrhage. There is no hyperesthesia of the infraorbital nerve. There is no step-off of the orbital rims. Neck full ROM General: Negative for tenderness Chest Wall inspection of chest normal and palpation of chest normal Chest Narrative: He has significant pain on the right side with AP pressure of the sternum. There is no crepitus or subcutaneous air appreciated. Resp Resp Narrative: Patient is in respiratory distress. Using accessory muscles and there is mild retractions. There is significantly diminished absent breath sounds on the right. Breath sounds are noted on the left with expiratory wheezing. Cardio regular rhythm, S1 normal heart sound, S2 normal heart sound and no murmurs Cardio Narrative: There is no Floresita's crunch. Rate: tachycardic GI normal to inspection, nondistended, normoactive bowel sounds, non-tender, non-distended and no masses GI Narrative: There is no hepatosplenomegaly. There is no tenderness left costal margin or right costal margin. Palpation: soft; Negative for tender, guarding or rebound tenderness present Back/Spine normal to inspection and no thoracic nor lumbar tenderness Extremity normal to inspection and full ROM Neuro oriented x3, CN's II-XII intact bilaterally, moves all extremities, no focal motor deficits, no sensory deficits noted and gait normal Neuro Narrative: There is no dysmetria. Narciso Coma Scale: document GCS findings Spontaneous Obeys Commands Oriented 15 Sensorium / Orientation: alert Deep Tendon Reflexes: Rt Triceps (C7): 2+, Lt Triceps (C7): 2+, Rt Biceps (C5, C6): 2+, Lt Biceps (C5, C6): 2+, Rt Brachioradialis (C6): 2+, Lt Brachioradialis (C6): 2+, Rt Patellar (L4): 2+, Lt Patellar (L4): 2+, Rt Ankle (S1): 2+ and Lt Ankle (S1): 2+ Deep Tendon Reflexes Back: Rt Patellar (L4): 2+, Lt Patellar (L4): 2+, Rt Ankle (S1): 2+ and Lt Ankle (S1): 2+ Plantar Reflex: Downgoing: bilateral Psych mental status grossly normal and thought process normal Skin no rashes or lesions noted, skin turgor normal and no jaundice PROC Procedures Other Procedures Procedure(s): 7 Malian thoracostomy tube placed with Heimlich valve on the right. Patient was prepped a sterile manner. The area was anesthetized. A small incision was made using an 11 blade, poke. Catheter was placed without difficulty. Three-way stopcock was attached to the catheter and tubing to the Heimlich valve. Approximately 1800 cc of air was aspirated from the right chest. Three-way stopcock remained in place. Where the air was aspirated was turned off and the safety Was placed to keep the area clean. MDM MDM MDM Narrative Medical decision making narrative: With head trauma on aspirin and Plavix with severe headache will obtain CT of the head to rule out intracranial bleed i.e. subdural hematoma, epidural hematoma, traumatic subarachnoid hemorrhage or intraparenchymal contusion. Chest x-ray was Tane with rib detail because of concern for fractured ribs and pneumothorax. Also need to consider hemothorax since he is on antithrombotic. Patient's chest x-ray reveals 1% collapse of his right lung. Patient required a thoracostomy 8 Malian tube with Heimlich valve. CT of the head was reviewed by me. There is no obvious intracranial abnormality. Lab Data Attestation: I reviewed the patient's lab results. Lab results narrative: CBC reveals elevated white count most likely due to trauma. Basic metabolic panel is remarked for glucose of 124. Liver enzymes are normal. Labs: Laboratory Results - last 24 hr 06/27/25 18:10 WBC 14.1 H RBC 4.87 Hgb 16.2 Hct 45.8 MCV 94.0 MCH 33.3 H MCHC 35.4 RDW Std Deviation 44.1 H RDW Coeff of Amber 12.7 Plt Count 347 MPV 9.6 Immature Gran % (Auto) 2.100 H Neut % (Auto) 82.1 H Lymph % (Auto) 7.7 L [place] % (Auto) 7.7 Eos % (Auto) 0.1 Baso % (Auto) 0.3 Absolute Neuts (auto) 11.6 H Absolute Lymphs (auto) 1.09 Nucleated RBC % 0 Sodium 130 L Potassium 4.5 Chloride 92 L Carbon Dioxide 22.9 Anion Gap 16 H BUN 6 Creatinine 0.63 L Estim Creat Clear Calc 146.49 Est GFR (MDRD) Non-Af 107 BUN/Creatinine Ratio 10.2 Glucose 124 H Calcium 9.9 Total Bilirubin 0.72 Direct Bilirubin 0.29 AST 32 ALT 46 Alkaline Phosphatase 88 Total Protein 7.7 Albumin 4.5 Globulin 3.3 Radiography Chest X-Ray - ED: Read by ED Physician Diagnostic Testing: Clinical Impression(s) from Imaging Studies Brain CT 06/27/25 18:17 IMPRESSION: No acute intracranial abnormality. Reading Location: [facility] Ribs w/Chest X-Ray 06/27/25 18:35 IMPRESSION: 1. Right lateral 4th and 5th rib fractures. 2. Large right pneumothorax with partial right lung collapse. Reading Location: [facility] Chest CT 06/27/25 18:55 IMPRESSION: 1. Acute mildly displaced fractures of the right lateral 4th and 5th ribs. 2. Small right pneumothorax. Thoracostomy tube in place. 3. Additional non-acute ancillary findings noted above. Reading Location: [facility] Management Discussion w/another healthcare provider: Information Resources Director (Spoke with Dr. Lane to. He requested a CT of the chest. He would like callback.) Treatment and Re-Evaluation Narrative: Dr. Lane was made aware of the CT findings per my review. He was informed the radiologist not read it. He would like the tube hooked up to pleural plaques. And suction. He will be admitted to his service to follow the pneumothorax and pain management. Discharge Plan Dx/Rx/DC Orders Clinical Impression: Traumatic fracture of ribs of right side with pneumothorax, Antiplatelet or antithrombotic long-term use, Acute respiratory distress, Hypertension, PAD (peripheral artery disease) Disposition Disposition: Acute Care Hospital [facility]
--- NOTE | 2025-06-27 18:55 | CT_ITS ---
PROCEDURE: CT CHEST WITHOUT CONTRAST 06/27/2025 REASON FOR EXAM: FALL; PNEUMOTHORAX, AFTER CHEST TUBE PLACED TECHNIQUE: Chest CT without contrast. Coronal and Sagittal reconstruction series were provided. One or more dose reduction techniques were used (e.g., Automated exposure control, adjustment of the mA and/or kV according to patient size, use of iterative reconstruction technique RADIATION DOSE SUMMARY: CTDlvol: 15.85 mGy DLP: 701.22 mGycm COMPARISON: CT chest 06/19/2025. FINDINGS: Lungs/pleura: Small right pneumothorax. Anterior right trans-pectoral approach thoracostomy tube terminating in the upper lateral right pleural space. No pleural effusion. Bibasilar dependent atelectasis, greater on the right. Patent central airways. Mild biapical subpleural and centrilobular emphysema. Mediastinum: Unremarkable. No mass or lymphadenopathy. Pneumomediastinum. Heart and Vasculature: Normal in size. No pericardial effusion. Mild coronary artery calcifications. Normal course and caliber of the central pulmonary vessels and thoracic aorta. Mild atherosclerotic disease. Upper Abdomen: No significant abnormality, as visualized. Bones: Mildly displaced acute fractures of the right lateral 4th and 5th ribs. Old healed fracture deformities of multiple anterior left ribs. Degenerative changes of the spine and bilateral shoulders. Old healed fracture deformity of the distal left clavicle, and probable inferior rim of the left scapular glenoid. CT/Chest without Contrast IMPRESSION: 1. Acute mildly displaced fractures of the right lateral 4th and 5th ribs. 2. Small right pneumothorax. Thoracostomy tube in place. 3. Additional non-acute ancillary findings noted above. Reading Location: [id number]
[2025-06-27 19:02] LABS: Hematocrit 45.8 % (40-54); Hemoglobin 16.2 g/dL (13.0-16.5); Immature Granulocytes Count 0.300 X10^3/uL (0.0-0.0); Mean Corp Hgb Conc 35.4 g/dL (32-36); Mean Corpuscular Volume 94.0 fL (80-94); Mean Platelet Vol. 9.6 fl (6.2-12.0); NRBC Flagged by Analyzer 0 % (0-5); Platelet Count 347 K/mm3 (150-450); RBC Distribution Width CV 12.7 % (11.6-14.6); RBC Distribution Width SD 44.1 fl (35.1-43.9); Red Blood Count 4.87 M/mm3 (4.6-6.2); White Blood Count 14.1 K/mm3 (4.4-11.0)
[2025-06-27] MEDS: HYDROmorphone 0.5 MG/0.5 ML SYRINGE IV (19:11)
[2025-06-27 19:23] LABS: AST(SGOT) 32 U/L (<=37); Alanine Aminotransfer ALT/SGPT 46 U/L (<=46); Albumin, Serum 4.5 g/dL (3.4-4.8); Alkaline Phosphatase 88 U/L (40-129); Anion Gap 16 (5-15); BUN 6 mg/dL (4-19); BUN/Creat Ratio 10.2 RATIO (10-20); Bilirubin, Direct 0.29 mg/dL (0.00-0.30); Calcium,Total 9.9 mg/dL (7.6-11.0); Carbon Dioxide 22.9 mmol/L (21.0-32.0); Chloride 92 mmol/L (98-108); Estimated Creatinine Clearance 146.49 ml/min (50-250); Globulin 3.3 g/dL (2.2-4.2); Glucose 124 mg/dL (70-99); Potassium 4.5 mmol/L (3.3-5.1)
[2025-06-27 19:53] VITALS: BP 162/92; PULSE 105; RESP 19; O2SAT 93
[2025-06-27 21:00] VITALS: BP 155/90; PULSE 101; RESP 20; O2SAT 92
--- NOTE | 2025-06-27 21:03 | ED.RN ---
Per Dr. Stewart, patient to be hooked up to suction, setting to low and continuous.
[2025-06-27 21:07] VITALS: BP 155/90; PULSE 101; RESP 20; TEMP 36.3; O2SAT 92
[2025-06-27 21:34] VITALS: BMI 29.8
[2025-06-27 21:45] VITALS: BP 174/82; PULSE 79; RESP 20; TEMP 36.8; O2SAT 94
[2025-06-28] VITALS (14 sets, daily range): BP systolic 138–175; BP diastolic 78–88; PULSE 88–97; RESP 16–18; TEMP 36.4–36.8; O2SAT 88–97
--- NOTE | 2025-06-28 05:10 | RAD_ITS ---
PROCEDURE: CHEST 1 VIEW (PORTABLE) 06/28/2025 REASON FOR EXAM: PNEUMOTHORAX TECHNIQUE: Frontal view of the chest. COMPARISON: June 27, 2025 FINDINGS: There is interval placement of the chest tube at the right apex. There is significant improvement in the right pneumothorax, now calculated at 32%. Heart size is within normal limits. The left lung appears clear. A left lower rib fracture is noted with callus formation. Aortic calcifications are visible. RAD/Chest 1 View (Portable) IMPRESSION: There is significant improvement in the right pneumothorax, now calculated at 3 2%. Reading Location: [facility]
--- NOTE | 2025-06-28 07:13 | RAD_ITS ---
PROCEDURE: CHEST 1 VIEW (PORTABLE) 06/28/2025 REASON FOR EXAM: PNEUMOTHORAX CHEST TUBE PLACEMENT TECHNIQUE: AP portable upright AP portable upright chest. COMPARISON: Chest x-ray of approximately 0521 hours, also on 06/28/2025. RAD/Chest 1 View (Portable) IMPRESSION: Right chest tube in place. A small right pneumothorax is markedly diminished since the prior study of yovany ier the same day. No significant pleural effusion is noted. Lungs otherwise appear unchanged. The cardiomediastinal silhouette is stable. Reading Location: [id number]
--- NOTE | 2025-06-28 07:34 | HP.PCM.SX_ITS ---
HPI - General General Date of Admission: 06/27/25 HPI Narrative LINDSAY HUNTER, is a 65 M who presents after a fall. The patient slipped and fell closing his pool. He hit his chest and his head. He reports that he is in a lot of pain. Pain is in his right chest. His abdomen is soft and nontender. He reports some shortness of breath. [facility] Medical History Hemorrhoid History of DVT (deep vein thrombosis) Diverticulosis GI bleed Home Medications ?Medication ?Instructions ?Recorded ?Last Taken ?Type omeprazole 20 mg capsule,delayed 20 mg PO DAILY reflux 04/20/20 11/09/23 09:00 History release amlodipine 5 mg tablet 5 mg PO DAILY blood pressure 11/02/23 11/09/23 09:00 History clopidogrel 75 mg tablet 75 mg PO DAILY blood thinner 30 11/02/24 Unknown Rx days #30 tabs aspirin 81 mg tablet,delayed 81 mg PO QDAY blood thinn er 12/07/24 Unknown History release albuterol sulfate 90 mcg/actuation 2 puff inhalation Q 4H PRN PRN 05/30/25 Unknown Rx aerosol inhaler (Ventolin HFA) Wheezing ##1 [id number]-ul-[id number] 300 mcg-K 60 1 tab PO QDAY supplemen t 06/07/25 Unknown History mcg-lycop 600 mcg-lutein 300 mcg tablet (Centrum Silver Men) albuterol sulfate 90 mcg/actuation 1 - 2 puff inhalati on Q4H PRN PRN 06/20/25 Unknown Rx aerosol inhaler (Ventolin HFA) Wheezing #1 device prednisone 10 mg tablet 10 mg PO UD virus #33 tabs 0 06/20/25 Unknown Rx potassium chloride 10 mEq 10 meq PO DAILY supplement 0 06/27/25 Unknown History tablet,extended release
--- NOTE | 2025-06-28 07:34 | PCM.HP.STD ---
HPI - General General Date of Admission: 06/27/25 HPI Narrative LINDSAY HUNTER, is a 65 M who presents after a fall. The patient slipped and fell closing his pool. He hit his chest and his head. He reports that he is in a lot of pain. Pain is in his right chest. His abdomen is soft and nontender. He reports some shortness of breath. [facility] Medical History Hemorrhoid History of DVT (deep vein thrombosis) Diverticulosis GI bleed Home Medications ?Medication ?Instructions ?Recorded ?Last Taken ?Type omeprazole 20 mg capsule,delayed 20 mg PO DAILY reflux 04/20/20 11/09/23 09:00 History release amlodipine 5 mg tablet 5 mg PO DAILY blood pressure 11/02/23 11/09/23 09:00 History clopidogrel 75 mg tablet 75 mg PO DAILY blood thinner 30 11/02/24 Unknown Rx days #30 tabs aspirin 81 mg tablet,delayed 81 mg PO QDAY blood thinner 12/07/24 Unknown History release albuterol sulfate 90 mcg/actuation 2 puff inhalation Q4H PRN PRN 05/30/25 Unknown Rx aerosol inhaler (Ventolin HFA) Wheezing ##1 uixbrcte-jq-rkycp 300 mcg-K 60 1 tab PO QDAY supplement 06/07/25 Unknown History mcg-lycop 600 mcg-lutein 300 mcg tablet (Centrum Silver Men) albuterol sulfate 90 mcg/actuation 1 - 2 puff inhalation Q4H PRN PRN 06/20/25 Unknown Rx aerosol inhaler (Ventolin HFA) Wheezing #1 device prednisone 10 mg tablet 10 mg PO UD virus #33 tabs 06/20/25 Unknown Rx potassium chloride 10 mEq 10 meq PO DAILY supplement 06/27/25 Unknown History tablet,extended release Allergy/AdvReac Type Severity Reaction Status Date / Time erythromycin base AdvReac Intermediate Vomiting Verified 06/27/25 17:54 Family History Other Cancer Diabetes Heart disease Hypertension Myocardial infarction Surgical History History of cardiac catheterization History of colonoscopy (~2008) Social History Smoking Status: Former smoker ROS Constitutional Constitutional: Denies anorexia, chills or fatigue Eyes Eyes: Denies blurry vision ENT HEENT: Denies abnormal hearing Cardiovascular Cardiovascular: Reports chest pain Respiratory/Chest Respiratory/Chest: Reports shortness of breath at rest; Denies cough Gastrointestinal Gastrointestinal: Denies abdominal pain Genitourinary Genitourinary: Denies change in urinary stream Musculoskeletal Musculoskeletal: Denies abnormal gait Integumentary Integumentary: Denies jaundice or new lesions Neurologic Neurologic: Denies abnormal gait Psychiatric Psychiatric: Denies anxiety Hematologic/Lymphatic Hematologic/Lymphatic: Denies easy bleeding Vital Signs Vital Signs Vital Signs: 06/27/25 17:54 06/27/25 18:24 06/27/25 19:53 Temperature 97.5 F L Temperature Source Temporal Pulse Rate 103 H 105 H Pulse Strength Respiratory Rate 22 H 19 H Respiratory Effort Short of Breath Accessory Muscle Use Respiratory Depth Shallow Respiratory Pattern Tachypnea Blood Pressure 189/103 H 162/92 H Blood Pressure Mean 131 115 Blood Pressure Source Blood Pressure Position Blood Pressure Location Pulse Ox 94 93 Oxygen Delivery Method Room Air Room Air Room Air Oxygen Flow Rate (L/min) 06/27/25 21:00 06/27/25 21:07 06/27/25 21:45 Temperature 97.4 F L 98.2 F Temperature Source Oral Pulse Rate 101 H 101 H 79 Pulse Strength Respiratory Rate 20 H 20 H 20 H Respiratory Effort Respiratory Depth Respiratory Pattern Blood Pressure 155/90 H 155/90 H 174/82 H Blood Pressure Mean 111 111 112 Blood Pressure Source Monitor Blood Pressure Position Semi-Fowlers Blood Pressure Location Right Arm Pulse Ox 92 92 94 Oxygen Delivery Method Room Air Nasal Cannula Oxygen Flow Rate (L/min) 2 06/27/25 21:50 06/27/25 22:00 06/28/25 01:23 Temperature 97.9 F Temperature Source Oral Pulse Rate 90 Pulse Strength Normal (2+) Respiratory Rate 18 Respiratory Effort Normal Short of Breath Respiratory Depth Normal Respiratory Pattern Normal Blood Pressure 175/88 H Blood Pressure Mean 117 Blood Pressure Source Monitor Blood Pressure Position Semi-Fowlers Blood Pressure Location Right Arm Pulse Ox 95 Oxygen Delivery Method Nasal Cannula Nasal Cannula Oxygen Flow Rate (L/min) 2 2 06/28/25 01:23 06/28/25 05:53 Temperature 97.6 F L Temperature Source Oral Pulse Rate 96 Pulse Strength Respiratory Rate 18 Respiratory Effort Normal Short of Breath Respiratory Depth Normal Respiratory Pattern Normal Blood Pressure 162/85 H Blood Pressure Mean 110 Blood Pressure Source Monitor Blood Pressure Position Semi-Fowlers Blood Pressure Location Right Arm Pulse Ox 94 Oxygen Delivery Method Nasal Cannula Nasal Cannula Oxygen Flow Rate (L/min) 2 2 Weight Weight: 214 lb 1.102 oz Body Mass Index (BMI) 29.8 Physical Exam Const oriented x3 and no apparent distress Resp normal respiratory effort Cardio regular rate and regular rhythm GI soft to palpation and non-tender Extremity normal to inspection Results Lab / Micro Data 06/27/25 18:10 06/27/25 18:10 Labs: Laboratory Results - last 24 hr 06/27/25 18:10: WBC 14.1 H, RBC 4.87, Hgb 16.2, Hct 45.8, MCV 94.0, MCH 33.3 H, MCHC 35.4, RDW Std Deviation 44.1 H, RDW Coeff of Amber 12.7, Plt Count 347, MPV 9.6, Immature Gran % (Auto) 2.100 H, Neut % (Auto) 82.1 H, Lymph % (Auto) 7.7 L, [place] % (Auto) 7.7, Eos % (Auto) 0.1, Baso % (Auto) 0.3, Absolute Neuts (auto) 11.6 H, Absolute Lymphs (auto) 1.09, Nucleated RBC % 0, Sodium 130 L, Potassium 4.5, Chloride 92 L, Carbon Dioxide 22.9, Anion Gap 16 H, BUN 6, Creatinine 0.63 L, Estim Creat Clear Calc 146.49, Est GFR (MDRD) Non-Af 107, BUN/Creatinine Ratio 10.2, Glucose 124 H, Calcium 9.9, Total Bilirubin 0.72, Direct Bilirubin 0.29, AST 32, ALT 46, Alkaline Phosphatase 88, Total Protein 7.7, Albumin 4.5, Globulin 3.3 Imaging Radiology Impression Brain CT 06/27/25 18:17 IMPRESSION: No acute intracranial abnormality. Reading Location: [facility] Ribs w/Chest X-Ray 06/27/25 18:35 IMPRESSION: 1. Right lateral 4th and 5th rib fractures. 2. Large right pneumothorax with partial right lung collapse. Reading Location: [id number] Chest CT 06/27/25 18:55 IMPRESSION: 1. Acute mildly displaced fractures of the right lateral 4th and 5th ribs. 2. Small right pneumothorax. Thoracostomy tube in place. 3. Additional non-acute ancillary findings noted above. Reading Location: [id number] Chest X-Ray 06/28/25 05:10 IMPRESSION: There is significant improvement in the right pneumothorax, now calculated at 32%. Reading Location: [id number] Assessment & Plan Assessment/Plan (1) Traumatic fracture of ribs of right side with pneumothorax: PLAN: The patient has 2 fractures of the right side. He is on morphine and oxycodone for pain control. I will add Toradol. Encourage incentive spirometer. The patient's morning chest x-ray shows persistent pneumothorax and it looks like the chest tube that was placed yesterday in the ER is kinked. I will replace a percutaneous chest tube and if this does not work I will replace it with a 28 Serbian chest tube. I discussed this with him in detail. The patient is on aspirin and Plavix for clots in his legs. I will hold these for a day or 2. Please see operative report for new tube placement (2) Head contusion: PLAN: CT of the head was normal
--- NOTE | 2025-06-28 07:46 | PCM.OPRPT ---
Operative Report (Standard) Operative Information Date of Procedure: 06/28/25 Pre-Operative Diagnosis: Persistent right pneumothorax Post-Operative Diagnosis: Same Surgery/Procedure Performed: Percutaneous right chest tube placement building wrecker: No Type of Anesthesia: Local Procedure Start Time: 07:20 Procedure Stop Time: 07:30 Select all DRAINS/GRAFTS/IMPLANTS that apply: Drains Drain details: 8 Telugu chest tube Estimated Blood Loss: 2 Specimen collected: No Description of surgery: The old chest tube was removed in the anterior chest. The right chest wall was prepped and draped in usual sterile fashion. An area of skin was injected with local anesthetic. A small luis eduardo was made with a scalpel blade and the chest tube with the needle was placed through the skin and over the rib and into the pleural space until air was aspirated. The catheter was run over the needle and the needle was removed. There was a breaux of air. The catheter was placed to suction and there was a large amount of air removed. The catheter was then sutured to the skin using 3-0 nylon suture. Bandage was placed. Chest x-ray will be obtained. There was a small airleak after the pneumothorax was resolved. Surgical Findings: Pneumothorax Complications Complications: No
[2025-06-28] MEDS: 0.9% Saline Lock 10 ML Syringe IV ×2 (08:45→14:25)
--- NOTE | 2025-06-28 08:49 | NURSING ---
pt states that he has been having anxiety and insomnia at home.
[2025-06-28] MEDS: Potassium Chloride Oral Tablet 10 MEQ PO (10:01)
--- NOTE | 2025-06-28 12:16 | CASEMGMT ---
Dx:R rib fx and pneumothorax LACE:2 6-Clicks:24 Medical record reviewed and patient evaluated for identification of discharge planning needs. Based on this review, at this time criteria are not present to indicate a need for discharge planning. Will remain available to assist with discharge planning needs as identified or requested. Pt with CT and is on 2L NC currently. Follow for oxygen needs upon dc.
[2025-06-29 02:09] VITALS: BP 146/77; PULSE 93; RESP 18; TEMP 36.6; O2SAT 95
--- NOTE | 2025-06-29 05:19 | RAD_ITS ---
PROCEDURE: CHEST 1 VIEW (PORTABLE) 06/29/2025 REASON FOR EXAM: PNEUMOTHORAX TECHNIQUE: Frontal view of the chest. COMPARISON: Upper 2024 FINDINGS: There is a chest tube on the right tube in position, unchanged. There is small residual right apical pneumothorax measuring 0.8 cm, less than 5%. Heart size is upper normal. Central vascularity appears mildly prominent. There are increased interstitial markings in the left mid and lower lung with no consolidation. There is no acute bony abnormality. Aortic calcifications are visible. RAD/Chest 1 View (Portable) IMPRESSION: There is small residual right apical pneumothorax measuring 0.8 cm, less than 5 %. Central vascularity appears mildly prominent. There are increased interstitial markings in the left mid and lower lung with n o consolidation. Reading Location: [facility]
[2025-06-29] MEDS: 0.9% Saline Lock 10 ML Syringe IV ×2 (06:34→21:51)
[2025-06-29] MEDS: Potassium Chloride Oral Tablet 10 MEQ PO (08:10)
[2025-06-29 08:44] VITALS: BP 144/90; PULSE 85; RESP 16; TEMP 36.6; O2SAT 98
--- NOTE | 2025-06-29 09:15 | PCM.PN.SRG ---
Subjective Subjective Patient evaluated resting comfortably in bed. He notes being able to sleep better last night. He notes pain has improved except with coughing and sneezing. He has been using his I.S. Objective Data Objective Data Vital Signs: Vital Signs Temp Pulse Resp BP Pulse Ox O2 Del Method O2 Flow Rate 97.8 F 85 16 144/90 H 98 Nasal Cannula 2 06/29/25 08:44 06/29/25 08:44 06/29/25 08:44 06/29/25 08:44 06/29/25 08:44 06/29/25 08:44 06/29/25 08:44 FiO2 2 06/28/25 09:55 Oxygen Flow Rate (L/min) 2 Oxygen Delivery Method Nasal Cannula Weight: 214 lb 1.102 oz Body Mass Index (BMI) 29.8 Intake & Output: Intake and Output for Last 24 Hours 06/27/25 06/28/25 06/29/25 23:59 23:59 23:59 Intake Total 1080 / 1080 800 / 800 Output Total 400 / 400 1000 / 1000 Balance 680 / 680 -200 / -200 Lab / Micro Data 06/27/25 18:10 06/27/25 18:10 Radiography Diagnostic Testing: Radiology Impression Chest X-Ray 06/29/25 05:19 IMPRESSION: There is small residual right apical pneumothorax measuring 0.8 cm, less than 5%. Central vascularity appears mildly prominent. There are increased interstitial markings in the left mid and lower lung with no consolidation. Reading Location: [id number] Physical Exam Resp Resp Narrative: Right lateral chest tube intact. No active leak noted. Blood within the tubing noted. Effort and Inspection: decreased respiratory effort and pain with movement Auscultation: breath sounds absent right (apex; otherwise clear ) Assessment & Plan Assessment/Plan (1) Traumatic fracture of ribs of right side with pneumothorax: PLAN: I am following this patient in conjunction with Dr. Winn in Dr. Anna's absence. He has independently evaluated this patient. CXR this morning demonstrated small residual right apical pneumothorax, <5% Will repeat CXR tomorrow morning Plan to leave chest tube to suction today Possible go to [facility] tomorrow Will try lidocaine patch to assist in avoiding narcotic pain medication Discussed with patient importance of ambulation and sitting upright Encourage I.S. 3-5 times per hour We will continue to monitor this patient Discharge timeframe unknown at this time Charges/Coding Visit Charges Inpatient E&M: 83282 Subs Hosp L2
[2025-06-29] MEDS: Lidocaine 5% Patch 2 PATCH TOPICAL (09:36)
[2025-06-29 11:22] VITALS: BP 124/81; PULSE 100; RESP 16; TEMP 36.4; O2SAT 96
[2025-06-29 16:07] VITALS: BP 130/83; PULSE 92; RESP 16; TEMP 36.6; O2SAT 98
[2025-06-29 16:20] VITALS: O2SAT 92
--- OUTSIDE RECORDS SUMMARY | 2025-06-29 21:09 | XMS RPT_ITS | CCD ---
Author Organization [facility] Care Team Providers Care Drivers' Cash Clerk Name Role Phone Dr. Filomena Wong Primary Care Provider Dr. Yazan Jones Attending Provider [phone] MD David De Leon Referring Provider [phone] Dr. Filomena Wong Referring Provider [phone] Yazan Jones Admit Provider Dr. Yazan Jones Referring Provider [phone] Yazan Jones Other Provider ALYSHA Negrete Attending Provider [phone] Filomena Wong MD Primary Care Provider Dr. Yazan Jones MD Attending Provider Dr. Yazan Jones MD Referring Provider Dr. Filomena Wong MD Referring Provider Ariadna Larios Attending Provider [phone] David De Leon MD Primary Care Provider Dr. Adelaide Nayak MD Emergency Provider Unavailab josh Nayak MD, Dr. Bryson Attending Provider Unavailab Dr. Filomena Tidwell MD Referring Provider [phone] Penelope ENCARNACION, Ariadna Attending Provider [phone] Filomena Wong Primary Care Unavailable Yazan Jones Attending Unavailable Yazan Jones Referring Unavailable Ariadna Negrete Referring Unavailable David De Leon Primary Care Unavailable Ariadna Negrete Attending Unavailable David De Leon Primary Care Unavailable Adelaide Nayak Attending Unavailable Mikie England Attending Unavailable David De Leon Primary Care Unavailable Filomena Wong Referring Unavailable David De Leon Primary Care Unavailable Ariadna Negrete Attending Unavailable Filomena Wong Primary Care Unavailable Yazan Jones Attending Unavailable Yazan Jones Referring Unavailable Filomena Wong Primary Care Unavailable Filomena Wong Referring Unavailable Ariadna Negrete Attending Unavailable Allergies Allergy Classification Reported Allergen(s) Allergy Type Date of Onset Reaction(s) Facility (5 sources) Erythromycin Drug Allergy 11-02-2023 Vomiting [facility] (1 source) Erythromycin Drug Allergy 06-19-2025 [facility] Repository Medications Current Medications Medication Drug Class(es) Dates Sig (Normalized) Sig (Original) [id number] 200 actuat albuterol 0.09 mg/actuat metered dose inhaler (2 sources) beta2-Adrenergic Agonist Start: 05-30-2025 Albuterol Sulfate (Ventolin Hfa) 90 mcg/actuation HFA aerosol inhaler Active 2 NMA INHALATION EVERY 4 HOURS NEEDED as needed for Wheezing 1 May 30, 2025 12:00am amLODIPine 5 mg [...] 1:00am December 09, 2023 1:10pm blood thinner Ix-Izz-Yargb-K1-Lyco pen-Lutein (Centrum Silver Men) 867-95-066-300 mcg tablet (1 source) Start: 06-07-2025 Oo-Gar-Rtfei-K1-Lyco pen-Lutein (Centrum Silver Men) 277-40-432-300 mcg tablet Discontinued 1 {tbl} PO daily [...] mass index (BMI) 29.0-29.9, adult] 09-16-2021 Episodic Other upper respiratory infections (1 source) Acute upper respiratory infection, unspecified; Translations: [Acute upper respiratory infection, unspecified] Onset: Episodic Peripheral and visceral atherosclerosis (13 sources) Intermittent claudication of bilateral lower limbs co-occurrent and due to atherosclerosis; Translations: [Atherosclerosis of tolowa dee-ni' arteries of extremities with intermittent claudication, bilateral [...] Test Name Value Interpretation Reference Range Facility Emergency Department Summary on 06-20-2025 Emergency Department Summary [facility] Medical Records Department [address] [place] [address] Emergency Department Summary 06/20/25 MR#: [id number] Acct: [id number] Name: LINDSAY HUNTER Rep #: [id number] : 1960 65 From: Mikie England DO PCP: Dr. David De Leon MD Status:DEP ER Location: ED HPI History of Present Illness Chief Complaint: Shortness of Breath Informant: patient and spouse/S.O. Narrative Narrative: Patient is a 65-year-old male with past medical history of hypertension as well as peripheral vascular disease/DVT. He reports he has a long-term smoking history of over 1 pack a day for approximately 40 years. He states he quit roughly 4 to 5 days ago. He states he does not have a formal diagnosis of COPD or emphysema. He reports that he has been dealing with shortness of breath and cough since early May. He has been seen in the ER for this and states he had a negative workup as well as been following with his family doctor. He reports this evening his cough worsened as well as the shortness of breath and he cannot catch his breath which concerned him and cause increased anxiety and therefore he comes to the ER for evaluation. The patient states that there is no associated chest pain palpitations nausea vomiting or diaphoresis [facility] Medical History Hemorrhoid History of DVT (deep [...] Rx aerosol inhaler (Ventolin HFA) Wheezing ##1 hrwakmwh-tk-dytmu 300 mcg-K 60 1 tab PO QDAY 06/07/25 Unknown His tory mcg-lycop 600 mcg-lutein 300 mcg tablet (Centrum Silver Men) albuterol sulfate 90 mcg/actuation 1 - 2 puff inhalation Q4H PRN SC N 06/20/25 Unknown Rx aerosol inhaler (Ventolin HFA) Wheezing #1 device codeine 10 mg-guaifenesin 100 mg/5 10 ml PO 4X/DAY PRN cough 7 days 06/20/25 Unknown Rx mL oral liquid #280 mL doxycycline monohydrate 100 mg 100 mg PO BID #14 CAPSULES 5 Unknown Rx capsule prednisone 10 mg tablet 10 mg PO UD #33 tabs 06/20/25 Unkn own Rx Allergy/AdvReac Type Severity Reaction Status Date / Time erythromycin base AdvReac Intermediate Vomiting Verified 06/19/25 22:30 Family History Other Cancer Diabetes Heart disease Hypertension Myocardial infarction Surgical History History of cardiac catheterization History of colonoscopy ( 2008) Social History Smoking Status: Heavy Smoker (>10/day) ROS ROS ED Constitutional Constitutional ED: Denies chills or fever(s) Eyes Eyes: Denies change in vision ENT ENT ED: Reports rhinorrhea and sore throat Cardiovascular Cardiovascular: Denies chest pain, palpitations or racing heartbeat Respiratory/Chest Respiratory/Chest: Reports cough and dyspnea Gastrointestinal Gastrointestinal: Denies abdominal pain, diarrhea, nausea or vomiting Genitourinary Genitourinary ED: Denies dysuria Musculoskeletal Musculoskeletal: Denies myalgias Integumentary Denies rash Neurologic Neurologic: Denies headache(s) Hematologic/Lymphati c Hematologic/Lymphati c: Reports easy bleeding and easy bruising Allergic/Immunologic Allergic/Immunologic ED: Denies mouth swelling or tongue swelling EXAM Physical Exam Const Vital Signs: 06/19/25 22:22 06/19/25 22:33 06/19/25 22:33 Temperature 98.5 F Temperature Source Oral Pulse Rate 117 H 101 H Respiratory Rate 24 H 24 H Respiratory Effort Normal Respiratory Pattern Blood Pressure 181/90 H Blood Pressure Mean 120 Pulse Ox 91 94 Oxygen Delivery Method Room Air 06/19/25 22:45 06/19/25 22:51 06/19/25 23:00 Temperature Temperature Source Pulse Rate 102 H 101 H 96 Respiratory Rate 13 16 14 Respiratory Effort Respiratory Pattern Normal Blood Pressure Blood Pressure Mean Pulse Ox 93 98 Oxygen Delivery Method 06/19/25 23:15 06/19/25 23:30 06/19/25 23:45 Temperature Temperature Source Pulse Rate 116 H 118 H 123 H Respiratory Rate 19 H 24 H 22 H Respiratory Effort Respiratory Pattern Blood Pressure Blood Pressure Mean Pulse Ox 93 92 91 Oxygen (more content not included)... Normal [facility] Basic Metabolic Profile (BMP )on 06-19-2025 BUN/CRE 4.6 RATIO Low 10-20 [facility] Comment on above: Performed By: #### L 500.2500, L501.5200, L300.3900, L503.7505, L300.4310, L100.0100 ####[facility] [address] [place], [address] Calcium [Mass/Vol] 9.5 mg/dL Normal 7.6-11.0 [facility] Comment on above: Performed By: #### L 500.2500, L501.5200, L300.3900, L503.7505, L300.4310, L100.0100 ####[facility] [address] [place], [address] Chloride [Moles/Vol] 93 mmol/L Low 98-108 [facility] Comment on above: Performed By: #### L 500.2500, L501.5200, L300.3900, L503.7505, L300.4310, L100.0100 ####[facility] [address] [place], [address] CO2 [Moles/Vol] 20.7 mmol/L Low 21.0-32.0 [facility] Comment on above: Performed By: #### L 500.2500, L501.5200, L300.3900, L503.7505, L300.4310, L100.0100 ####[facility] [address] [place], [address] Creatinine [Mass/Vol] 0.60 mg/dL Low 0.70-1.20 [facility] Comment on above: Performed By: #### L 500.2500, L501.5200, L300.3900, L503.7505, L300.4310, L100.0100 ####[facility] [address] [place], [address] ECRCL 152.68 ml/min Normal 50-250 [facility] Comment on above: Performed By: #### L 500.2500, L501.5200, L300.3900, L503.7505, L300.4310, L100.0100 ####[facility] [address] [place], [address] GAP 18 High 5-15 [facility] Comment on above: Performed By: #### L 500.2500, L501.5200, L300.3900, L503.7505, L300.4310, L100.0100 ####[facility] [address] [place], [address] GFR/1.73 sq M.predicted among non-blacks MDRD (S/P/Bld) [Vol rate/Area] 108 mL/min/{1.73_m2} Normal >60 [facility] Comment on above: Result Comment: mL/m in/1.73m2 CKD-EPI Creatinine Equation (2020) Performed By: #### L 500.2500, L501.5200, L300.3900, L503.7505, L300.4310, L100.0100 ####[facility] [address] [place], [address] Glucose [Mass/Vol] 110 mg/dL High 70-99 [facility] Comment on above: Performed By: #### L 500.2500, L501.5200, L300.3900, L503.7505, L300.4310, L100.0100 ####[facility] [address] [place], [address] Potassium [Moles/Vol] 3.2 mmol/L Low 3.3-5.1 [facility] Comment on above: Performed By: #### L 500.2500, L501.5200, L300.3900, L503.7505, L300.4310, L100.0100 ####[facility] [address] [place], [address] Sodium [Moles/Vol] 132 mmol/L Low 133-145 [facility] Comment on above: Performed By: #### L 500.2500, L501.5200, L300.3900, L503.7505, L300.4310, L100.0100 ####[facility] [address] [place], [address] Urea nitrogen [Mass/Vol] 3 mg/dL Low 4-19 [facility] Comment on above: Performed By: #### L 500.2500, L501.5200, L300.3900, L503.7505, L300.4310, L100.0100 ####[facility] [address] [place], [address] CBC W/Diff, Automatedon 09-2 -2024 Absolute Lymph 2.07 X10 3/uL Normal 0.83-4.51 [facility] Comment on above: Performed By: #### L 500.2500, L501.5200, L300.3900, L503.7505, L300.4310, L100.0100 ####[facility] [address] [place], [address] Absolute Neut 5.8 X10 3/uL Normal 2.0-7.7 [facility] Comment on above: Performed By: #### L 500.2500, L501.5200, L300.3900, L503.7505, L300.4310, L100.0100 ####[facility] [address] [place], [address] Basophils/100 WBC (Bld) 0.8 % Normal 0-1 [facility] Comment on above: Performed By: #### L 500.2500, L501.5200, L300.3900, L503.7505, L300.4310, L100.0100 ####[facility] [address] [place], [address] Eosinophils/100 WBC (Bld) 8.7 % High 0-5 [facility] Comment on above: Performed By: #### L 500.2500, L501.5200, L300.3900, L503.7505, L300.4310, L100.0100 ####[facility] [address] [place], [address] Erythrocyte distribution width (RBC) [Ratio] 12.4 % Normal 11.6-14.6 [facility] Comment on above: Performed By: #### L 500.2500, L501.5200, L300.3900, L503.7505, L300.4310, L100.0100 ####[facility] [address] [place], [address] Hematocrit (Bld) [Volume fraction] 44.1 % Normal 40-54 [facility] Comment on above: Performed By: #### L 500.2500, L501.5200, L300.3900, L503.7505, L300.4310, L100.0100 ####[facility] [address] [place], [address] Hemoglobin (Bld) [Mass/Vol] 15.6 g/dL Normal 13.0-16.5 [facility] Comment on above: Performed By: #### L 500.2500, L501.5200, L300.3900, L503.7505, L300.4310, L100.0100 ####[facility] [address] [place], [address] IG% 0.600 Normal 0.0-0.9 [facility] Comment on above: Result Comment: IG% - Immature Granulocytes (promyelocytes, myelocytes and metamyelocytes) > 1% indicates that a LEFT SHIFT is Present. Performed By: #### L 500.2500, L501.5200, L300.3900, L503.7505, L300.4310, L100.0100 ####[facility] [address] [place], [address] Lymphocytes/100 WBC (Bld) 20.3 % Normal 19-41 [facility] Comment on above: Performed By: #### L 500.2500, L501.5200, L300.3900, L503.7505, L300.4310, L100.0100 ####[facility] [address] [place], [address] MCH (RBC) [Entitic mass] 33.4 pg High 27.0-32.0 [facility] Comment on above: Performed By: #### L 500.2500, L501.5200, L300.3900, L503.7505, L300.4310, L100.0100 ####[facility] [address] [place], [address] MCHC (RBC) [Mass/Vol] 35.4 g/dL Normal 32-36 [facility] Comment on above: Performed By: #### L 500.2500, L501.5200, L300.3900, L503.7505, L300.4310, L100.0100 ####[facility] [address] [place], [address] MCV (RBC) [Entitic vol] 94.4 fL High 80-94 [facility] Comment on above: Performed By: #### L 500.2500, L501.5200, L300.3900, L503.7505, L300.4310, L100.0100 ####[facility] [address] [place], [address] Monocytes/100 WBC (Bld) 13.0 % High 0-10 [facility] Comment on above: Performed By: #### L 500.2500, L501.5200, L300.3900, L503.7505, L300.4310, L100.0100 ####[facility] [address] [place], [address] Neutrophils/100 WBC (Bld) 56.6 % Normal 47-70 [facility] Comment on above: Performed By: #### L 500.2500, L501.5200, L300.3900, L503.7505, L300.4310, L100.0100 ####[facility] [address] [place], [address] Nucleated RBC (Bld) [#/Vol] 0 10*3/uL Normal 0-5 [facility] Comment on above: Performed By: #### L 500.2500, L501.5200, L300.3900, L503.7505, L300.4310, L100.0100 ####[facility] [address] [place], [address] Platelet mean volume (Bld) [Entitic vol] 10.0 fL Normal 6.2-12.0 [facility] Comment on above: Performed By: #### L 500.2500, L501.5200, L300.3900, L503.7505, L300.4310, L100.0100 ####[facility] [address] [place], [address] Platelets (Bld) [#/Vol] 301 10*3/uL Normal 150-450 [facility] Comment on above: Performed By: #### L 500.2500, L501.5200, L300.3900, L503.7505, L300.4310, L100.0100 ####[facility] [address] [place], [address] RBC (Bld) [#/Vol] 4.67 10*6/uL Normal 4.6-6.2 [facility] Comment on above: Performed By: #### L 500.2500, L501.5200, L300.3900, L503.7505, L300.4310, L100.0100 ####[facility] [address] [place], [address] RDW SD 43.0 fl Normal 35.1-43.9 [facility] Comment on above: Performed By: #### L 500.2500, L501.5200, L300.3900, L503.7505, L300.4310, L100.0100 ####[facility] [address] [place], [address] WBC (Bld) [#/Vol] 10.2 10*3/uL Normal 4.4-11.0 [facility] Comment on above: Performed By: #### L 500.2500, L501.5200, L300.3900, L503.7505, L300.4310, L100.0100 ####[facility] [address] [place], [address] CTA Chest W/WO Contraston CTA Chest W/WO Contrast [facility] Imaging Services [address] [place] [address] CTA Chest W/WO Contrast MR#: [id number] Acct: [id number] Name: LINDSAY HUNTER Rep #: [id number] : 1960 M 65 From: Deidre hammond MD PCP: Dr. David De Leon MD Status: DEP ER Study: CTA Chest W/WO Contrast Date of Exam: 06/19/25 Exam# [id number] Ordering Dr: Mikie England DO PROCEDURE: CTA CHEST W/WO CONTRAST 06/20/2025 REASON FOR EXAM: DYSPNEA TECHNIQUE: Procedure Code: CTCTACHWW Modality: CT Procedure: CTA CHEST W/WO CONTRAST Multiplanar Sagittal and Coronal images were obtained. CONTRAST: isovue 370 VOLUME: 75 mL One or more dose reduction techniques were used (e.g., Automated exposure control, adjustment of the mA and/or kV according to patient size, use of iterative reconstruction technique). RADIATION DOSE SUMMARY: CTDI Vol 14.6 MGy DLP :613mGycm COMPARISON: 30-May-2025 CR FINDINGS: Suboptimal examination quality due to respiratory motion artifact. No evidence of any filling defect in the main pulmonary trunk, bilateral main pulmonary arteries, segmental arteries and subsegmental arteries to suggest acute or chronic pulmonary embolism. Patent thoracic aorta showing intimal irregularities and calcified atheromatous plaques. No intraluminal hypodense thrombi, dissecting intimal flaps or significant aneurysmal dilatation. Atherosclerotic changes of the aortic arch branches with rigth subclavian mild ostial stenosis. No obvious cardiac abnormalities detected. Bilateral pulmonary emphysema. Bilateral pulmonary atelectatic changes. Possible bilateral perihilar endobronchial hypodensities/secret ions noted. No obvious pulmonary masses or consolidations. No pleural or pericardial sac collections. No pathologically enlarged lymph nodes are noted. Scanned osseous structures show no osseous destruction. Thoracic spondylosis. CT/CTA Chest W/WO Contrast IMPRESSION: No evidence of pulmonary arterial thromboembolism. Patent thoracic aorta. No intraluminal hypodense thrombi, dissecting intimal flaps or significant aneurysmal dilatation. Bilateral pulmonary emphysema. No obvious pulmonary masses or consolidations. Reading Location: [place] [address] CC: Dr. David De Leon MD; Mikie England DO Damage Cutter: Signed Normal [facility] M100.678on 06-19-2025 M100.678 SARS-CoV-2 (COVID 19) Negative INFLUENZA A Negative INFLUENZA B Negative RSV PCR Negative Normal [facility] Comment on above: Performed By: #### M 100.678 #### [facility] [address] [place], [address] Magnesiumon 06-19-2025 Magnesium [Mass/Vol] 2.1 mg/dL Normal 1.5-2.2 [facility] Comment on above: Performed By: #### L 500.2500, L501.5200, L300.3900, L503.7505, L300.4310, L100.0100 ####[facility] [address] [place], [address] Partial Thromboplast Timeon 06-19-2025 aPTT Coag (Bld) [Time] 26.0 s Normal 24.1-36.2 [facility] Comment on above: Performed By: #### L 500.2500, L501.5200, L300.3900, L503.7505, L300.4310, L100.0100 ####[facility] [address] [place], [address] Pro- Brain NATRIURETIC PEPTI Shayne 06-19-2025 Natriuretic peptide B (Bld) [Mass/Vol] 120 pg/mL Normal <=900 [facility] Comment on above: Result Comment: Hear t Failure Unlikely: < 300 pg/mL Heart Failure Likely < 50 Years: > 450 pg/mL 50-75 Years: > 900 pg/mL >75 Years: > 1800 pg/mL Performed By: #### L 500.2500, L501.5200, L300.3900, L503.7505, L300.4310, L100.0100 ####[facility] [address] [place], [address] Prothrombin Time w/INRon INR Coag (PPP) [Relative time] 1.0 {INR} Normal [facility] Comment on above: Performed By: #### L 500.2500, L501.5200, L300.3900, L503.7505, L300.4310, L100.0100 ####[facility] [address] [place], [address] PT Coag (PPP) [Time] 13.1 s Normal 11.7-14.9 [facility] Comment on above: Performed By: #### L 500.2500, L501.5200, L300.3900, L503.7505, L300.4310, L100.0100 ####[facility] [address] [place], [address] MR/BMS.BVAries 06-07-2025 MR/BMS.S [facility] Vascular Surgery [address] [place] [address] OFFICE VISIT Date of Service: 06/07/25 MR#: [id number] Acct: [id number] Name: PADDY HUNTERROSALBA Erickson Rep #: [id number] : 1960 Provider: ALYSHA Ruiz Age/Sex: 64/M Location: [facility].BV[facility] Status: Signed Intake Vital Signs 11/10/23 09:38 [...] Rx aerosol inhaler (Ventolin HFA) Wheezing ##1 flwjurrf-qd-rwnib 300 mcg-K 60 1 tab PO QDAY [...] Yes cons (more content not included)... Normal [facility] 12 Lead EKGon 05-30-2025 12 Lead EKG [facility] Cardiovascular Services [address] [place] [address] 12 Lead EKG 05/30/25 0757 MR#: [id number] Acct: [id number] Name: LINDSAY HUNTER Rep #: [id number] : 1960 64 From: Alan Del Cid [...] WAVE BORDERLINE Confirmed by Alan Del Cid ([id number]), staff editor ENRIQUE VALENZUELA ([id number]) on 05/31/2025 8:18:58 AM Referred By: Confirmed By: Alan Del Cid 05/31/25817 Alan Del Cid MD CC: Dr. David De Leon MD; Dr. Adelaide Nayak MD Signed Normal [facility] Absolute lymphocyte countOrd ered By: Adelaide Nayak on 05-30-2025 Lymphocytes Auto (Unsp spec) [#/Vol] 1.57 10*3/uL 0.83-4.51 [facility] Absolute neutrophil countOrd ered By: Adelaide Nayak on 05-30-2025 Neutrophils (Bld) [#/Vol] 5.4 10*3/uL 2.0-7.7 [facility] Anion gap in Serum or Plasma Ordered By: Adelaide Nayak on 05-30-2025 Anion gap [Moles/Vol] 13 mmol/L 5-15 [facility] Automated lymphocyte count a s percentage of total leukocytesOrdered By: Adelaide Nayak on 05-30-2025 Lymphocytes/100 WBC Auto (Unsp spec) 18.1 % Low 19-41 [facility] BUN/creatinine ratioOrdered By: Adelaide Nayak on 05-30-2025 Urea nitrogen/Creatinine [Mass ratio] 5.5 mg/mg Low 10-20 [facility] Basic Metabolic Profile (BMP )on 05-30-2025 BUN/CRE 5.5 RATIO Low 10-20 [facility] Comment on above: Performed By: #### L 501.4021, L501.5200, L501.9520, L300.8000, L100.0100, L500.2500, L503.7505 ####[facility] [address] [place], [place], [address] Calcium [Mass/Vol] 9.2 mg/dL Normal 7.6-11.0 [facility] Comment on above: Performed By: #### L 501.4021, L501.5200, L501.9520, L300.8000, L100.0100, L500.2500, L503.7505 ####[facility] [address] [place], [address] Chloride [Moles/Vol] 96 mmol/L Low 98-108 [facility] Comment on above: Performed By: #### L 501.4021, L501.5200, L501.9520, L300.8000, L100.0100, L500.2500, L503.7505 ####[facility] [address] [place], [address] CO2 [Moles/Vol] 23.8 mmol/L Normal 21.0-32.0 [facility] Comment on above: Performed By: #### L 501.4021, L501.5200, L501.9520, L300.8000, L100.0100, L500.2500, L503.7505 ####[facility] [address] [place], [address] Creatinine [Mass/Vol] 0.65 mg/dL Low 0.70-1.20 [facility] Comment on above: Performed By: #### L 501.4021, L501.5200, L501.9520, L300.8000, L100.0100, L500.2500, L503.7505 ####[facility] [address] [place], [address] ECRCL 143.49 ml/min Normal 50-250 [facility] Comment on above: Performed By: #### L 501.4021, L501.5200, L501.9520, L300.8000, L100.0100, L500.2500, L503.7505 ####[facility] [address] [place], [address] GAP 13 Normal 5-15 [facility] Comment on above: Performed By: #### L 501.4021, L501.5200, L501.9520, L300.8000, L100.0100, L500.2500, L503.7505 ####[facility] [address] [place], [address] GFR/1.73 sq M.predicted among non-blacks MDRD (S/P/Bld) [Vol rate/Area] 107 mL/min/{1.73_m2} Normal >60 [facility] Comment on above: Result Comment: mL/m in/1.73m2 CKD-EPI Creatinine Equation (2020) Performed By: #### L 501.4021, L501.5200, L501.9520, L300.8000, L100.0100, L500.2500, L503.7505 ####[facility] [address] [place], [address] Glucose [Mass/Vol] 113 mg/dL High 70-99 [facility] Comment on above: Performed By: #### L 501.4021, L501.5200, L501.9520, L300.8000, L100.0100, L500.2500, L503.7505 ####[facility] [address] [place], [address] Potassium [Moles/Vol] 4.3 mmol/L Normal 3.3-5.1 [facility] Comment on above: Performed By: #### L 501.4021, L501.5200, L501.9520, L300.8000, L100.0100, L500.2500, L503.7505 ####[facility] [address] [place], [address] Sodium [Moles/Vol] 133 mmol/L Normal 133-145 [facility] Comment on above: Performed By: #### L 501.4021, L501.5200, L501.9520, L300.8000, L100.0100, L500.2500, L503.7505 ####[facility] [address] [place], [address] Urea nitrogen [Mass/Vol] 4 mg/dL Normal 4-19 [facility] Comment on above: Performed By: #### L 501.4021, L501.5200, L501.9520, L300.8000, L100.0100, L500.2500, L503.7505 ####[facility] [address] [place], [address] Basophil percentageOrdered B y: Adeliade Nayak on 05-30-2025 Basophils/100 WBC (Bld) 0.8 % 0-1 [facility] CBC W/Diff, Automatedon Absolute Lymph 1.57 X10 3/uL Normal 0.83-4.51 [facility] Comment on above: Performed By: #### L 501.4021, L501.5200, L501.9520, L300.8000, L100.0100, L500.2500, L503.7505 ####[facility] [address] [place], [address] Absolute Neut 5.4 X10 3/uL Normal 2.0-7.7 [facility] Comment on above: Performed By: #### L 501.4021, L501.5200, L501.9520, L300.8000, L100.0100, L500.2500, L503.7505 ####[facility] [address] [place], [address] Basophils/100 WBC (Bld) 0.8 % Normal 0-1 [facility] Comment on above: Performed By: #### L 501.4021, L501.5200, L501.9520, L300.8000, L100.0100, L500.2500, L503.7505 ####[facility] [address] [place], [address] Eosinophils/100 WBC (Bld) 7.7 % High 0-5 [facility] Comment on above: Performed By: #### L 501.4021, L501.5200, L501.9520, L300.8000, L100.0100, L500.2500, L503.7505 ####[facility] [address] [place], [address] Erythrocyte distribution width (RBC) [Ratio] 12.2 % Normal 11.6-14.6 [facility] Comment on above: Performed By: #### L 501.4021, L501.5200, L501.9520, L300.8000, L100.0100, L500.2500, L503.7505 ####[facility] [address] [place], [address] Hematocrit (Bld) [Volume fraction] 42.9 % Normal 40-54 [facility] Comment on above: Performed By: #### L 501.4021, L501.5200, L501.9520, L300.8000, L100.0100, L500.2500, L503.7505 ####[facility] [address] [place], [address] Hemoglobin (Bld) [Mass/Vol] 15.2 g/dL Normal 13.0-16.5 [facility] Comment on above: Performed By: #### L 501.4021, L501.5200, L501.9520, L300.8000, L100.0100, L500.2500, L503.7505 ####[facility] [address] [place], [address] IG% 0.500 Normal 0.0-0.9 [facility] Comment on above: Result Comment: IG% - Immature Granulocytes (promyelocytes, myelocytes and metamyelocytes) > 1% indicates that a LEFT SHIFT is Present. Performed By: #### L 501.4021, L501.5200, L501.9520, L300.8000, L100.0100, L500.2500, L503.7505 ####[facility] [address] [place], [address] Lymphocytes/100 WBC (Bld) 18.1 % Low 19-41 [facility] Comment on above: Performed By: #### L 501.4021, L501.5200, L501.9520, L300.8000, L100.0100, L500.2500, L503.7505 ####[facility] [address] [place], [address] MCH (RBC) [Entitic mass] 33.5 pg High 27.0-32.0 [facility] Comment on above: Performed By: #### L 501.4021, L501.5200, L501.9520, L300.8000, L100.0100, L500.2500, L503.7505 ####[facility] [address] [place], [address] MCHC (RBC) [Mass/Vol] 35.4 g/dL Normal 32-36 [facility] Comment on above: Performed By: #### L 501.4021, L501.5200, L501.9520, L300.8000, L100.0100, L500.2500, L503.7505 ####[facility] [address] [place], [address] MCV (RBC) [Entitic vol] 94.5 fL High 80-94 [facility] Comment on above: Performed By: #### L 501.4021, L501.5200, L501.9520, L300.8000, L100.0100, L500.2500, L503.7505 ####[facility] [address] [place], [address] Monocytes/100 WBC (Bld) 10.7 % High 0-10 [facility] Comment on above: Performed By: #### L 501.4021, L501.5200, L501.9520, L300.8000, L100.0100, L500.2500, L503.7505 ####[facility] [address] [place], [address] Neutrophils/100 WBC (Bld) 62.2 % Normal 47-70 [facility] Comment on above: Performed By: #### L 501.4021, L501.5200, L501.9520, L300.8000, L100.0100, L500.2500, L503.7505 ####[facility] [address] [place], [address] Nucleated RBC (Bld) [#/Vol] 0 10*3/uL Normal 0-5 [facility] Comment on above: Performed By: #### L 501.4021, L501.5200, L501.9520, L300.8000, L100.0100, L500.2500, L503.7505 ####[facility] [address] [place], [address] Platelet mean volume (Bld) [Entitic vol] 10.1 fL Normal 6.2-12.0 [facility] Comment on above: Performed By: #### L 501.4021, L501.5200, L501.9520, L300.8000, L100.0100, L500.2500, L503.7505 ####[facility] [address] [place], [address] Platelets (Bld) [#/Vol] 264 10*3/uL Normal 150-450 [facility] Comment on above: Performed By: #### L 501.4021, L501.5200, L501.9520, L300.8000, L100.0100, L500.2500, L503.7505 ####[facility] [address] [place], [address] RBC (Bld) [#/Vol] 4.54 10*6/uL Low 4.6-6.2 [facility] Comment on above: Performed By: #### L 501.4021, L501.5200, L501.9520, L300.8000, L100.0100, L500.2500, L503.7505 ####[facility] [address] [place], [address] RDW SD 42.2 fl Normal 35.1-43.9 [facility] Comment on above: Performed By: #### L 501.4021, L501.5200, L501.9520, L300.8000, L100.0100, L500.2500, L503.7505 ####[facility] [address] [place], [address] WBC (Bld) [#/Vol] 8.7 10*3/uL Normal 4.4-11.0 [facility] Comment on above: Performed By: #### L 501.4021, L501.5200, L501.9520, L300.8000, L100.0100, L500.2500, L503.7505 ####[facility] [address] [place], [address] Carbon dioxide, total [Moles /volume] in Central venous bloodOrdered By: Adelaide Nayak on 05-30-2025 CO2 [Moles/Vol] 23.8 mmol/L 21.0-32.0 [facility] Chest PA and Lateralon 05-30 Chest PA and Lateral [facility] Services [address] [place] [address] Chest PA and Lateral MR#: [id number] Acct: [id number] Name: LINDSAY HUNTER Rep #: [id number] : 1960 M 64 From: Deven Garcia MD PCP: Dr. David De Leon MD Status: REG ER Study: Chest PA and Lateral Date of Exam: 05/30/25 Exam# [id number] Ordering Dr: Adelaide Nayak MD PROCEDURE: CHEST PA AND LATERAL 05/30/2025 REASON FOR EXAM: CHEST PAIN TECHNIQUE: Procedure Code: RADCXR Modality: DX Procedure: CHEST PA AND LATERAL COMPARISON: None FINDINGS: Hardware: EKG leads are present Heart: Normal-size Mediastinum: Normal Lungs: Clear Bones: Minimal degenerative changes RAD/Chest PA and Lateral IMPRESSION: No acute cardiopulmonary process [id number] CC: Dr. David De Leon MD; Dr. Adelaide Nayak MD Damage Cutter: Signed Normal [facility] Chloride assayOrdered By: Bill Nayak on 05-30-2025 Chloride [Moles/Vol] 96 mmol/L Low 98-108 [facility] D-Dimer Quantitative (DVT/PE )on 05-30-2025 D-DIMER QUANT 0.27 FEU/ug/m Normal 0.27-0.49 [facility] Comment on above: Result Comment: NORM AL D-Dimer level (<0.50) indicates no DVT or PE. Performed By: #### L 501.4021, L501.5200, L501.9520, L300.8000, L100.0100, L500.2500, L503.7505 ####[facility] [address] [place], [address] Emergency Department Summary on 05-30-2025 Emergency Department Summary [facility] Medical Records Department [address] [place] [address] Emergency Department Summary 05/30/25 MR#: [id number] Acct: [id number] Name: LINDSAY HUNTER Rep #: [id number] : 1960 64 From: Adelaide Nayak MD [...] past few days and has similar symptoms. [facility] Medical History Hemorrhoid History of DVT (deep [...] seen and (more content not included)... Normal [facility] Eosinophil percentageOrdered By: Adelaide Nayak on 05-30-2025 Eosinophils/100 WBC (Bld) 7.7 % High 0-5 [facility] Erythrocyte distribution wid th ratioOrdered By: Adelaide Nayak on 05-30-2025 Erythrocyte distribution width (RBC) [Ratio] 12.2 % 11.6-14.6 [facility] Erythrocyte distribution wid th standard deviationOrdered By: Adelaide Nayak on 05-30-2025 Erythrocyte distribution width (RBC) [Ratio] 42.2 fl 35.1-43.9 [facility] Glomerular filtration rate ( GFR) estimation/1.73 sq m using serum, plasma, or whole bOrdered By: Adelaide Nayak on 05-30-2025 GFR/1.73 sq M.predicted among non-blacks MDRD (S/P/Bld) [Vol rate/Area] 107 mL/min/{1.73_m2} >60 [facility] Comment on above: mL/min/1.73m2 CKD-EP I Creatinine Equation (2020) Hematocrit Auto (Bld) [Volum e fraction]Ordered By: Adelaide Nayak on 05-30-2025 Hematocrit (Bld) [Volume fraction] 42.9 % 40-54 [facility] Hemoglobin measurementOrdere d By: Adelaide Nayak on 05-30-2025 Hemoglobin (Bld) [Mass/Vol] 15.2 g/dL 13.0-16.5 [facility] Immature granulocytes/100 WB C Auto (Bld)Ordered By: Adelaide Nayak on 05-30-2025 Immature granulocytes/100 WBC (Bld) 0.500 % 0.0-0.9 [facility] Comment on above: IG% - Immature Granu locytes (promyelocytes, myelocytes and metamyelocytes) > 1% indicates that a LEFT SHIFT is Present. L501.4021on 05-30-2025 Trop T High Sen 11 ng/L Normal <=22 [facility] Comment on above: Performed By: #### L 501.4021, L501.5200, L501.9520, L300.8000, L100.0100, L500.2500, L503.7505 ####[facility] [address] [place], [address] MCV (mean corpuscular volume ) determinationOrdered By: Adelaide Nayak on 05-30-2025 MCV (RBC) [Entitic vol] 94.5 fL High 80-94 [facility] Magnesiumon 05-30-2025 Magnesium [Mass/Vol] 2.1 mg/dL Normal 1.5-2.2 [facility] Comment on above: Performed By: #### M 100.678 #### [facility] [address] [place], [address] Magnesium measurement (mass/ volume)Ordered By: Adelaide Nayak on 05-30-2025 Magnesium (Unsp spec) [Mass/Vol] 2.1 mg/dL 1.5-2.2 [facility] Mean corpuscular hemoglobin (MCH) determinationOrdered By: Adelaide Nayak on 05-30-2025 MCH (RBC) [Entitic mass] 33.5 pg High 27.0-32.0 [facility] Mean corpuscular hemoglobin concentration (MCHC) determinationOrdered By: Adelaide Nayak on 05-30-2025 MCHC (RBC) [Mass/Vol] 35.4 g/dL 32-36 [facility] Mean platelet volume determi nationOrdered By: Adelaide Nayak on 05-30-2025 Platelet mean volume (Bld) [Entitic vol] 10.1 fL 6.2-12.0 [facility] Monocyte percentageOrdered B y: Adelaide Nayak on 05-30-2025 Monocytes/100 WBC (Bld) 10.7 % High 0-10 [facility] Natriuretic peptide.B prohor newton N-Terminal [Mass/volume] in Serum or PlasmaOrdered By: Adelaide Nayak on 05-30-2025 Natriuretic peptide.B prohormone N-Terminal [Mass/Vol] 59 pg/mL <900 [facility] Comment on above: Heart Failure Unlike ly: < 300 pg/mLHeart Failure Likely< 50 Years: > 450 pg/mL50-75 Years: > 900 pg/mL>75 Years: > 1800 pg/mL Neutrophil percentageOrdered By: Adelaide Nayak on 05-30-2025 Neutrophils/100 WBC (Bld) 62.2 % 47-70 [facility] Nucleated red blood cell per centageOrdered By: Adelaide Nayak on 05-30-2025 Nucleated RBC/100 WBC (Bld) [Ratio] 0 % 0-5 [facility] Platelet countOrdered By: Bill Nayak on 05-30-2025 Platelets (Bld) [#/Vol] 264 10*3/uL 150-450 [facility] Potassium measurement (mass/ volume)Ordered By: Adelaide Nayak on 05-30-2025 Potassium (Unsp spec) [Mass/Vol] 4.3 mmol/L 3.3-5.1 [facility] Pro- Brain NATRIURETIC PEPTI Shayne 05-30-2025 Natriuretic peptide B (Bld) [Mass/Vol] 59 pg/mL Normal <=900 [facility] Comment on above: Result Comment: Hear t Failure Unlikely: < 300 pg/mL Heart Failure Likely < 50 Years: > 450 pg/mL 50-75 Years: > 900 pg/mL >75 Years: > 1800 pg/mL Performed By: #### M 100.678 #### [facility] [address] [place], [address] RBC Auto (Bld) [#/Vol]Ordere d By: Adelaide Nayak on 05-30-2025 RBC (Bld) [#/Vol] 4.54 10*6/uL Low 4.6-6.2 [facility] Serum creatinine measurement (mass/volume)Ordered By: Adelaide Nayak on 05-30-2025 Creatinine [Mass/Vol] 0.65 mg/dL Low 0.70-1.20 [facility] Serum glucose measurement (m ass/volume)Ordered By: Adelaide Nayak on 05-30-2025 Glucose [Mass/Vol] 113 mg/dL High 70-99 [facility] Serum or plasma calcium alonso urement (mass/volume)Ordered By: Adelaide Nayak on 05-30-2025 Calcium [Mass/Vol] 9.2 mg/dL 7.6-11.0 [facility] Serum or plasma urea nitroge n measurement (mass/volume)Ordered By: Adelaide Nayak on 05-30-2025 Urea nitrogen [Mass/Vol] 4 mg/dL 4-19 [facility] Sodium levelOrdered By: Yazan Nayak on 05-30-2025 Sodium [Moles/Vol] 133 mmol/L 133-145 [facility] TSH DL <= 0.005 mIU/L QnOrde red By: Adelaide Nayak on 05-30-2025 TSH Qn 1.540 uIU/mL 0.300-4.200 [facility] Thyroid Stim Hormone (TSH)on 05-30-2025 TSH 1.540 uIU/mL Normal 0.300-4.200 [facility] Comment on above: Performed By: #### M 100.678 #### [facility] [address] [facility] [address] [place], [place], [id number] Troponin T HS 2 HRon 025 Trop T High Sen 9 ng/L Normal <=22 [facility] Comment on above: Performed By: #### M 100.678 #### [facility] [address] [place], [place], [id number] Troponin T.cardiac [Mass/vol ume] in Serum or Plasma by High sensitivity methodOrdered By: Adelaide Nayak on 05-30-2025 Troponin T.cardiac High sensitivity method [Mass/Vol] 9 ng/L <22 [facility] Troponin T.cardiac High sensitivity method [Mass/Vol] 11 ng/L <22 [facility] White blood cell (WBC) count Ordered By: Adelaide Nayak on 05-30-2025 WBC (Bld) [#/Vol] 8.7 10*3/uL 4.4-11.0 [facility] Lumbar Spine 2 or 3 Viewson 01-25-2025 Lumbar Spine 2 or 3 Views [facility] Services [address] [place], [place] [id number] Lumbar Spine 2 or 3 Views MR#: [id number] Acct: [id number] Name: LINDSAY HUNTER Rep #: [id number] : 1960 M 64 From: Kasie Soriano PCP: Dr. David De Leon MD Status: REG CLI Study: Lumbar Spine 2 or 3 Views Date of Exam: Exam# [id number] Ordering Dr: Ariadna Negrete PROCEDURE: LUMBAR SPINE [...] vascular disease of the aorta. Reading Location: [id number] CC: ALYSHA Ruiz; Dr. David De Leon MD Damage Cutter: Signed Normal [facility] Abdominal aortic duplex scan reportOrdered By: Yazan Jones on 12-07-2024 US.doppler Thoracic and abdominal aorta [facility] Cardiovascular Services [address] [facility] [place] [address] Abd Aortic/IVC Duplex scan 12/06/24 0904 MR#: [id number] Acct: [id number] Name: LINDSAY HUNTER Rep #:[id number] : 1960 64 From: Yazan Redd Attending Dr: Dr. Yazan Jones MD S tatus: REG CLI Ordering Dr: Yazan Jones MD Date: 08/22 Location: [facility] Sex: M C Admitted: Reason For [...] Aorta IVC Iliac vasculature or bypass grafts [address]. Exam performed in department. VL/Abd Aortic/IVC Duplex [...] ~ Date Dictated: 12/06/24903 Date Transcribed: 12/07/24702 Damage Cutter: Signed [facility] Work Phone: Arterial study reportOrdered By: Yazan Jones on 12-07-2024 Noninvasive arteriosclerosis study report [facility] [place] [address] [place] [address] Lower Ext Art Exam w/ Exercise 12/06/24916 MR#: [id number] Acct: [id number] Name: LINDSAY HUNTER Rep #:[id number] : 1960 64 From: Yazan Redd Attending Dr: Dr. Yazan Jones MD S tatus: REG CLI Ordering Dr: Yazan Jones MD Date: 08/22 Location: [facility] Sex: M C Admitted: Reason For [...] ~ Date Dictated: 12/06/24916 Date Transcribed: 12/07/24700 Damage Cutter: Signed [facility] Work Phone: MR/BMS.BVSon 12-07-2024 MR/BMS.S [facility] Vascular Surgery [address] [facility] [place] [address] OFFICE VISIT Date of Service: 12/07/24 MR#: [id number] Acct: [id number] Name: LINDSAY HUNTER Rep #: [id number] : 1960 Provider: ALYSHA Ruiz Age/Sex: 64/M Location: [facility] Status: Signed Intake Vital Signs 11/10/23 09:38 [...] developed Nutr (more content not included)... Normal [facility] Abd Aortic/IVC Duplex scanon 12-06-2024 Abd Aortic/IVC Duplex scan [facility] Services [address] [place] [address] Abd Aortic/IVC Duplex scan 12/06/24 0904 MR#: [id number] Acct: [id number] Name: LINDSAY HUNTER Rep #: [id number] : 1960 64 From: Yazan Jones MD [...] Aorta IVC Iliac vasculature or bypass grafts 280[address]. Exam performed in department. VL/Abd Aortic/IVC Duplex scan Interpretation Summary Inferior vena cava and left iliac vein patent with normal venous flow pattern. Right iliac vein stent patent with normal venous flow pattern. Ordering Physician: Yazan Jones Referring Physician: Filomena Wong M.D. Performed By: Kristi Roque RVT 12/07/24702 Date Yazan Jones MD CC: Dr. Filomena Wong MD; Dr. Yazan Jones MD Date Dictated: 12/06/24903 Date Transcribed: 12/07/24702 Damage Cutter: Signed Normal [facility] Lower Ext Art Exam w/ Exerci raghav 12-06-2024 Lower Ext Art Exam w/ Exercise [facility] [place] [address] [place] [address] Lower Ext Art Exam w/ Exercise 12/06/24916 MR#: [id number] Acct: [id number] Name: LINDSAY HUNTER Rep #: [id number] : 1960 64 From: Yazan Jones MD Attending Dr: Dr. Yazan Jones MD Status: REG C ROBERT Ordering Dr: Yazan Jones MD Date: 12/06/24 Location: [facility] Sex: M C Admitted: Reason For [...] Wong M.D. Performed By: Kristi Roque Verónica 12/07/24700 Date Yazan Jones MD CC: Dr. Filomena Wong MD; Dr. Yazan Jones MD Date Dictated: 12/06/24916 Date Transcribed: 12/07/24700 Damage Cutter: Signed Normal [facility] Activated partial thrombopla stin time (aPTT) in platelet poor plasma by coagulation aOrdered By: Yazan Jones on 11-11-2023 aPTT Coag (PPP) [Time] 43.0 s 24.1-36.2 [facility] Basophil percentageOrdered B y: Yazan Jones on 11-11-2023 Chloride [Moles/Vol] 107 mmol/L 98-107 [facility] Glucose [Mass/Vol] 106 mg/dL 74-106 [facility] Comment on above: Fasting Glucose resu lt from 100 to 125 mg/dL suggests IMPAIRED HOMEOSTASIS per A.D.A. criteria. Hemoglobin (Bld) [Mass/Vol] 13.6 g/dL 13.0-16.5 [facility] Potassium [Moles/Vol] 3.9 mmol/L 3.5-5.1 [facility] Sodium [Moles/Vol] 139 mmol/L 136-145 [facility] WBC (Bld) [#/Vol] 8.2 10*3/uL 4.4-11.0 [facility] Determination of erythrocyte mean corpuscular volume (MCV)Ordered By: Yazan Jones on 11-11-2023 MCV (RBC) [Entitic vol] 96.9 fL 80-94 [facility] Erythrocyte distribution wid th ratioOrdered By: Yazan Jones on 11-11-2023 Erythrocyte distribution width (RBC) [Ratio] 11.9 % 11.6-14.6 [facility] Erythrocyte distribution wid th standard deviationOrdered By: Yazan Jones on 11-11-2023 Erythrocyte distribution width (RBC) [Entitic vol] 42.6 fL 35.1-43.9 [facility] Hematocrit Auto (Bld) [Volum e fraction]Ordered By: Yazan Jones on 11-11-2023 Hematocrit (Bld) [Volume fraction] 41.1 % 40-54 [facility] Laboratory - Chemistry and C hemistry - challengeOrdered By: Yazan Jones on 11-11-2023 CO2 [Moles/Vol] 26.0 mmol/L 21.0-32.0 [facility] Urea nitrogen/Creatinine [Mass ratio] 9.5 mg/mg 10-20 [facility] Laboratory - CoagulationOrde red By: Yazan Jones on 11-11-2023 INR Coag (Bld) [Relative time] 1.0 {INR} [facility] PT Coag (PPP) [Time] 13.5 s 11.7-14.9 [facility] - Hematology and Cell countsOrdered By: Yazan Jones on 11-11-2023 MCH (RBC) [Entitic mass] 32.1 pg 27.0-32.0 [facility] MCHC (RBC) [Mass/Vol] 33.1 g/dL 32-36 [facility] Platelet mean volume (Bld) [Entitic vol] 10.3 fL 6.2-12.0 [facility] Platelets (Bld) [#/Vol] 386 10*3/uL 150-450 [facility] No Panel InformationOrdered By: Yazan Jones on 11-11-2023 Estimated Creatinine Clearance Calc 147.38 ml/min [facility] Estimated GFR (MDRD) Amer 166 mL/min >60 [facility] Comment on above: GFR Calc Estimated GFR (MDRD) Non-Af Amer 137 mL/min >60 [facility] Comment on above: Non- GFR Calc RBC Auto (Bld) [#/Vol]Ordere d By: Yazan Jones on 11-11-2023 RBC (Bld) [#/Vol] 4.24 10*6/uL 4.6-6.2 [facility] Serum or plasma calcium alonso urement (mass/volume)Ordered By: Yazan Jones on 11-11-2023 Calcium [Mass/Vol] 9.1 mg/dL 8.5-10.1 [facility] Serum or plasma creatinine m easurement (mass/volume)Ordered By: Yazan Jones on 11-11-2023 Creatinine [Mass/Vol] 0.63 mg/dL 0.70-1.30 [facility] Comment on above: The validity of the calculated GFR & GFRAA in patients over 70 years has not been determined. Clinical correlation is essential. Serum or plasma urea nitroge n measurement (mass/volume)Ordered By: Yazan Jones on 11-11-2023 Urea nitrogen [Mass/Vol] 6 mg/dL 7-18 [facility] Thin prep Papanicolaou smear with manual screeningOrdered By: Yazan Jones on 11-11-2023 Thin prep Papanicolaou smear with manual screening 6 5-15 [facility] No Panel InformationOrdered By: Yazan Jones on 11-10-2023 Activated Clotting Time 223 sec 74-137 [facility] Absolute lymphocyte countOrd ered By: David De Leon on 10-26-2023 Lymphocytes Auto (Unsp spec) [#/Vol] 1.43 10*3/uL 0.83-4.51 [facility] Automated lymphocyte count a s percentage of total leukocytesOrdered By: David De Leon on 10-26-2023 Lymphocytes/100 WBC Auto (Unsp spec) 14.6 % 19-41 [facility] Basophil percentageOrdered B y: David De Leon on 10-26-2023 Basophils/100 WBC (Bld) 0.7 % 0-1 [facility] Bilirubin [Mass/Vol] 0.50 mg/dL 0.20-1.00 [facility] Comment on above: For patients on eltr ombopag therapy, use of Dimension [place] TBIL is not recommended. Chloride [Moles/Vol] 100 mmol/L 98-107 [facility] Cholesterol [Mass/Vol] 197 mg/dL <200 [facility] Comment on above: <200 mg/dL Desirable 200-240 mg/dL Borderline >240 mg/dL High Risk Eosinophils/100 WBC (Bld) 3.2 % 0-5 [facility] Glucose [Mass/Vol] 111 mg/dL 74-106 [facility] Comment on above: Fasting Glucose resu lt from 100 to 125 mg/dL suggests IMPAIRED HOMEOSTASIS per A.D.A. criteria. Hemoglobin (Bld) [Mass/Vol] 14.6 g/dL 13.0-16.5 [facility] Monocytes/100 WBC (Bld) 13.8 % 0-10 [facility] Neutrophils (Bld) [#/Vol] 6.6 10*3/uL 2.0-7.7 [facility] Neutrophils/100 WBC (Bld) 66.7 % 47-70 [facility] Potassium [Moles/Vol] 3.7 mmol/L 3.5-5.1 [facility] Protein [Mass/Vol] 8.0 g/dL 6.4-8.2 [facility] Sodium [Moles/Vol] 131 mmol/L 136-145 [facility] Triglyceride [Mass/Vol] 150 mg/dL <199 [facility] Comment on above: The drugs N-Acetylcy steine and Metamizole may falsely depress this assay.Serum Triglycerides Reference Interval Normal <150 mg/dL Borderline high 150 - 199 mg/dL High 200 - 499 mg/dL Very High > or = 500 mg/dL WBC (Bld) [#/Vol] 9.8 10*3/uL 4.4-11.0 [facility] Determination of erythrocyte mean corpuscular volume (MCV)Ordered By: David De Leon on 10-26-2023 MCV (RBC) [Entitic vol] 97.1 fL 80-94 [facility] Erythrocyte distribution wid th ratioOrdered By: David De Leon on 10-26-2023 Erythrocyte distribution width (RBC) [Ratio] 12.2 % 11.6-14.6 [facility] Erythrocyte distribution wid th standard deviationOrdered By: [facility] Mo[facility] on 10-26-2023 Erythrocyte distribution width (RBC) [Entitic vol] 43.6 fL 35.1-43.9 [facility] Hematocrit Auto (Bld) [Volum e fraction]Ordered By: David De Leon on 10-26-2023 Hematocrit (Bld) [Volume fraction] 43.6 % 40-54 [facility] High density lipoprotein (HD L) measurementOrdered By: [facility] De Leon on 10-26-2023 Cholesterol in HDL (Body fld) [Mass/Vol] 33 mg/dL >40 [facility] Comment on above: The drugs N-Acetylcy steine and Metamizole may falsely depress this assay. Reference Range HDL <40 mg/dL Low HDL Cholesterol HDL >or= 60 mg/dL High HDL Cholesterol Immature granulocytes/100 WB C Auto (Bld)Ordered By: David De Leon on 10-26-2023 Immature granulocytes/100 WBC (Bld) 1.000 % 0.0-0.9 [facility] Comment on above: IG% - Immature Granu locytes (promyelocytes, myelocytes and metamyelocytes) > 1% indicates that a LEFT SHIFT is Present. Laboratory - Chemistry and C hemistry - challengeOrdered By: David De Leon on 10-26-2023 Albumin/Globulin [Mass ratio] 0.6 {ratio} 0.9-2.4 [facility] ALP [Catalytic activity/Vol] 90 U/L 45-117 [facility] ALT [Catalytic activity/Vol] 36 U/L 16-61 [facility] CO2 [Moles/Vol] 23.0 mmol/L 21.0-32.0 [facility] Globulin (S) [Mass/Vol] 5.1 g/dL 2.2-4.2 [facility] Urea nitrogen/Creatinine [Mass ratio] 17.8 mg/mg 10-20 [facility] Laboratory - Hematology and Cell countsOrdered By: David De Leon on 10-26-2023 MCH (RBC) [Entitic mass] 32.5 pg 27.0-32.0 [facility] MCHC (RBC) [Mass/Vol] 33.5 g/dL 32-36 [facility] Nucleated RBC/100 WBC (Bld) [Ratio] 0 % 0-5 [facility] Platelets (Bld) [#/Vol] 360 10*3/uL 150-450 [facility] Low density lipoprotein (LDL ) cholesterol measurementOrdered By: David De Leon on 10-26-2023 Cholesterol in LDL (Body fld) [Moles/Vol] 134 mg/dL 0-130 [facility] No Panel InformationOrdered By: David De Leon on 10-26-2023 Estimated GFR (MDRD) Amer 154 mL/min >60 [facility] Comment on above: GFR Calc Estimated GFR (MDRD) Non-Af Amer 127 mL/min >60 [facility] Comment on above: Non- GFR Calc Platelet mean volume Rafael-Ec ker (Bld) [Entitic vol]Ordered By: David De Leon on 10-26-2023 Platelet mean volume (Bld) [Entitic vol] 9.5 fL 6.2-12.0 [facility] RBC Auto (Bld) [#/Vol]Ordere d By: David De Leon on 10-26-2023 RBC (Bld) [#/Vol] 4.49 10*6/uL 4.6-6.2 [facility] Serum or plasma calcium alonso urement (mass/volume)Ordered By: David De Leon on 10-26-2023 Calcium [Mass/Vol] 9.5 mg/dL 8.5-10.1 [facility] Serum or plasma creatinine m easurement (mass/volume)Ordered By: David De Leon on 10-26-2023 Creatinine [Mass/Vol] 0.68 mg/dL 0.70-1.30 [facility] Comment on above: The validity of the calculated GFR & GFRAA in patients over 70 years has not been determined. Clinical correlation is essential. Serum or plasma thyroid stim ulating hormone (TSH) measurement (units/volume)Ordered By: David De Leon on 10-26-2023 TSH Qn 2.14 uIU/mL 0.358-3.74 [facility] Serum or plasma urea nitroge n measurement (mass/volume)Ordered By: Daivd De Leon on 10-26-2023 Urea nitrogen [Mass/Vol] 12 mg/dL 7-18 [facility] Thin prep Papanicolaou smear with manual screeningOrdered By: David De Leon on 10-26-2023 Thin prep Papanicolaou smear with manual screening 2.9 g/dL 3.2-5.0 [facility] Thin prep Papanicolaou smear with manual screening 37 U/L 15-37 [facility] Thin prep Papanicolaou smear with manual screening 8 5-15 [facility] Very low density lipoprotein (VLDL) cholesterol measurementOrdered By: David De Leon on 10-26-2023 Cholesterol in VLDL Calc [Moles/Vol] 30 mg/dL 5-40 [facility] Vital Signs Date Time Vital Sign Value Performing Clinician Faci lity 06-07-2025 13:15-0400 Body temperature 98.4 [degF] David De Leon MD Work Phone: [facility] 06-07-2025 13:15-0400 Body weight 101.15 kg David De Leon MD Work Phone: [facility] 06-07-2025 13:15-0400 Diastolic blood pressure 88 mm[Hg] David De Leon MD Work Phone: [facility] 06-07-2025 13:15-0400 Heart rate 94 /min David De Leon MD Work Phone: [facility] 06-07-2025 13:15-0400 Respiratory rate 18 /min David De Leon MD Work Phone: [facility] 06-07-2025 13:15-0400 SaO2% (BldA) [Mass fraction] 96 % David De Leon MD Work Phone: [facility] 06-07-2025 13:15-0400 Systolic blood pressure 140 mm[Hg] David De Leon MD Work Phone: 1(577)474-072193 [address] 05-30-2025 13:06-0400 Body temperature 98.6 [degF] David De Leon MD Work Phone: 5(446)813-243080 [place] [address] 05-30-2025 13:06-0400 Diastolic blood pressure 76 mm[Hg] David De Leon MD Work Phone: 5(707)091-901080 [place] [address] 05-30-2025 13:06-0400 Heart rate 97 /min David De Leon MD Work Phone: 4(415)612-159680 [place] [address] 05-30-2025 13:06-0400 Respiratory rate 18 /min David De Leon MD Work Phone: 3(114)350-187080 [place] [address] 05-30-2025 13:06-0400 SaO2% (BldA) [Mass fraction] 96 % David De Leon MD Work Phone: 7(340)029-145980 [place] [address] 05-30-2025 13:06-0400 Systolic blood pressure 138 mm[Hg] David De Leon MD Work Phone: 0(064)296-725780 [place] [address] 05-30-2025 07:50-0400 Body height 180.34 cm David De Leon MD Work Phone: 0(423)671-424180 [place] [address] 05-30-2025 07:50-0400 Body mass index (BMI) [Ratio] 31.4 kg/m2 David De Leon MD Work Phone: 2(881)024-305780 [place] [address] 05-30-2025 07:50-0400 Body weight 102.28 kg David De Leon MD Work Phone: 4(227)007-399080 [place] [address] 12-07-2024 13:17-0400 Body temperature 97.8 [degF] Dr. Filomena Wong MD Work Phone: 5(976)182-464680 [place] [address] 12-07-2024 13:17-0400 Body weight 105.[address] Filomena Wong MD Work Phone: 7(887)400-816480 [place] [address] 12-07-2024 13:17-0400 Diastolic blood pressure 84 mm[Hg] Dr. Filomena Wong MD Work Phone: 5(663)359-784580 [place] [address] 12-07-2024 13:17-0400 Heart rate 100 /min Dr. Filomena Wong MD Work Phone: [facility] 12-07-2024 13:17-0400 Respiratory rate 16 /min Dr. Filomena Wong MD Work Phone: [facility] 12-07-2024 13:17-0400 SaO2% (BldA) [Mass fraction] 96 % Dr. Filomena Wong MD Work Phone: [facility] 12-07-2024 13:17-0400 Systolic blood pressure 165 mm[Hg] Dr. Filomena Wong MD Work Phone: 8(301)241-571593 [address] 11-11-2023 10:12-0500 Body temperature 97.9 [degF] Dr. Filomena Wong Work Phone: 9(755)803-912293 [place] [address] 11-11-2023 10:12-0500 Diastolic blood pressure 88 mm[Hg] Dr. Filomena Wong Work Phone: 3(944)565-835593 [place] [address] 11-11-2023 10:12-0500 Heart rate 80 /min Dr. Filomena Wong Work Phone: 6(239)788-264893 [place] [address] 11-11-2023 10:12-0500 Respiratory rate 16 /min Dr. Filomena Wong Work Phone: [facility] 11-11-2023 10:12-0500 SaO2% (BldA) [Mass fraction] 97 % Dr. Filomena oWng Work Phone: [facility] 11-11-2023 10:12-0500 Systolic blood pressure 152 mm[Hg] Dr. Filomena Wong Work Phone: [facility] 11-10-2023 09:38-0500 Body height 180.[address] Filomena Wong Work Phone: [facility] 11-10-2023 09:38-0500 Body mass index (BMI) [Ratio] 30.3 kg/m2 Dr. Filoemna Wong Work Phone: [facility] 11-10-2023 09:38-0500 Body weight 98.[address] Filomena Wong Work Phone: [facility] 11-02-2023 14:14-0500 Body temperature 98.2 [degF] Dr. Filomena Wong Work Phone: [facility] 11-02-2023 14:14-0500 Body weight 101.[address] Filomena Wong Work Phone: [facility] 11-02-2023 14:14-0500 Diastolic blood pressure 84 mm[Hg] Dr. Filomena Wong Work Phone: [facility] 11-02-2023 14:14-0500 Heart rate 103 /min Dr. Filomena Wong Work Phone: [facility] 11-02-2023 14:14-0500 Respiratory rate 16 /min Dr. Filomena Wong Work Phone: [facility] 11-02-2023 14:14-0500 SaO2% (BldA) [Mass fraction] 97 % Dr. Filomena Wong Work Phone: [facility] 11-02-2023 14:14-0500 Systolic blood pressure 130 mm[Hg] Dr. Filomena Wong Work Phone: [facility] Encounters Encounter Date Encounter Type Care Provider Facility Start: 06-19-2025 End: 06-20-2025 Emergency department patient visit Mikie England Facility:[facility] Start: 06-07-2025 End: 06-07-2025 Patient encounter procedure Ariadna Negrete [place] [facility] Work Phone: Start: 06-07-2025 End: 06-07-2025 ambulatory David De Leon MD Work Phone: -[facility] Start: 05-30-2025 End: 05-30-2025 Emergency department patient visit David De Leon MD Work Phone: -Emergency Department Work Phone: Start: 01-25-2025 End: 01-25-2025 ambulatory Ariadna Negrete Facility:[facility] Start: 12-07-2024 End: 12-07-2024 Patient encounter procedure Ariadna ENCARNACION -[facility] Work Phone: Start: 12-07-2024 End: 12-07-2024 ambulatory Filomena Wong Facility:[facility] Start: 12-06-2024 Non-patient / Non-visit Dr. Yazan nguyen MD -[facility] Start: 12-06-2024 End: 12-06-[address] Filomena Wong MD Work Phone: [facility] Work Phone: Start: 12-06-2024 End: 12-06-[address] Yazan Jones MD -Cardiovascular Services Work Phone: Start: 12-06-2024 End: 12-06-2024 ambulatory Filomena Wong Facility:[facility] Start: 11-11-2023 Non-patient / Non-visit Dr. Spike Wong Work Phone: [facility] Start: 11-09-2023 Non-patient / Non-visit Dr. Spike Wong Work Phone: [facility] Start: 11-09-2023 End: 11-11-2023 Evaluation and management of inpatient Dr. Filomena Wong Work Phone: [facility]-Progressive Care Unit Work Phone: Start: 11-04-2023 Non-patient / Non-visit Dr. Spike Wong Work Phone: [facility] Start: 11-04-2023 End: 11-04-[address] Filomena Wong Work Phone: [facility] Work Phone: Start: 11-04-2023 End: 11-04-[address] Filomena Wong Work Phone: [facility]Cardi[facility] Services Work Phone: Start: 11-02-2023 End: 11-02-[address] Filomena Wong Work Phone: [facility] Work Phone: Start: 10-26-2023 End: 10-26-[address] Filomena Wong Work Phone: [facility] Work Phone: Start: 10-26-2023 End: 10-26-[address] Filomena Wong Work Phone: [facility]-Laboratory Work Phone: Start: 10-22-2023 Non-patient / Non-visit Dr. Spike Wong Work Phone: [facility] Start: 10-22-2023 End: 10-22-[address] Filomena Wong Work Phone: [facility] Work Phone: Start: 10-22-2023 End: 10-22-[address] [facility] Procedures Date Procedure Procedure Detail Performing Clinician Start: 05-30-2025 X-ray of chest, PA a nd lateral views David De Leon MD Work Phone: Start: 05-30-2025 D-dimer assay, quantitative David De Leon MD Work Phone: Comment on above: NORMAL D-Dimer level (<0.50) indicates no DVT or PE. Start: 05-30-2025 Estimated creatinine clearance David De Leon MD Work Phone: Plan of Treatment Date Care Activity Detail Author Start: 05-30-2025 [facility] Start: 05-30-2025 [facility] Start: 11-11-2023 Patient discharge [facility] Start: 11-10-2023 Elevation of head of bed [facility] Start: 11-10-2023 Bedrest [facility] Start: 11-10-2023 Notification of physician [facility] Start: 11-10-2023 Provision of activit y privileges [facility] Start: 11-10-2023 Pulse taking [facility] Start: 11-10-2023 Taking patient vital signs [facility] Start: 11-10-2023 End: 11-10-2023 [facility] Start: 11-09-2023 Ambulation without limitation [facility] Start: 11-09-2023 Assessment of risk o f venous thromboembolism [facility] Start: 11-09-2023 Elevation of affected extremity [facility] Start: 11-09-2023 Incentive spirometry [facility] Start: 11-09-2023 Insertion of cathete r into peripheral vein [facility] Start: 11-09-2023 Measuring intake and output [facility] Start: 11-09-2023 Medication not administered [facility] Start: 11-09-2023 Notification of physician [facility] Start: 11-09-2023 Oxygen therapy [facility] Start: 11-09-2023 Providing care accor ding to standard [facility] Start: 11-09-2023 Self-administration of medication [facility] Start: 11-09-2023 [facility] Start: 11-09-2023 Admission procedure [facility] Start: 11-09-2023 Verification routine [facility] Start: 11-09-2023 Following clinical p athway protocol [facility] Patient Education ED Dyspnea [facility] Work Phone: Patient referral [facility] Work Phone: XR Lumbar spine 2 or 3 Views [facility] Immunizations Immunization Date Immunization Notes Care Provider Justina perez 01-04-2021 Covid (Pfizer) Dr. Filomena barry Work Phone: [facility] 12-14-2020 Covid (Pfizer) Dr. Filomena barry Work Phone: [facility] 03-31-2016 tetanus and diphther ia toxoids, adsorbed, preservative free, for adult use (2 Lf of tetanus toxoid and 2 Lf of diphtheria toxoid) Dr. Filomena Wong Work Phone: [facility] Payers Date Payer Category Payer Self-pay [id number] 2023 Unknown [id number] Private Health Insurance [id number] Private Health Insurance [facility] [id number] Unknown [facility] MHS DO NOT USE [id number] Unknown [id number] 64 Unknown [id number] 62 Unknown [id number] 62 Unknown [id number] 62 Unknown [id number] 62 Unknown [id number] 64 Unknown [id number] 64 Social History Date Type Detail Facility Start: 09-16-2021 End: 11-09-2023 Tobacco smoking status NHIS Unknown if ever smoked [facility] Start: 04-04-2020 Heavy [facility] Start: 04-04-2020 None [facility] Start: 04-04-2020 Spouse/ Signif icant Other [facility] Start: 04-26-2020 Cigarettes [facility] Start: 1960 Sex Assigned At Male [facility] Start: 12-07-2024 End: 05-30-2025 Tobacco smoking status NHIS Current Heavy tobacco smoker [facility] Start: 12-14-2024 Sex Male (finding) [facility] Medical Equipment Procedure Code Equipment Code Equipment Origin al Text Equipment Identifier Dates Iliofemoral vein stent [id number] FDA Start: 11-10-2023 Goals Date Patient Goal Desired Activity /State Functional Status Date Assessment Result Facility 11-11-2023 Functional status Ambulates [facility] Work Phone: Mental Status Date Assessment Result Facility 11-11-2023 Cognitive function Voice/Name [facility] Work Phone: Clinical Notes 11-09-2023 to 05-30-2025 Note Date & Type Note Facility 05-30-2025 Radiology Diagnostic study note [facility] Imaging Services [address] [place] [address] Chest PA and Lateral MR#: [id number] Acct: [id number] Name: LINDSAY HUNTER Rep #: [id number] : 1960 M 64 From: Teo Garcia MD PCP: Dr. David De Leon MD Status: REG ER Study:Chest PA and Lateral Date of Exam: 05/30/25 Exam# [id number] Ordering Dr: Bill Nayak MD PROCEDURE: CHEST PA AND LATERAL 05/30/2025 REASON FOR EXAM: CHEST PAIN TECHNIQUE: Procedure Code: RADCXR Modality: DX Procedure: CHEST PA AND LATERAL COMPARISON: None FINDINGS: Hardware: EKG leads are present Heart: Normal-size Mediastinum: Normal Lungs: Clear Bones: Minimal degenerative changes RAD/Chest PA and Lateral IMPRESSION: No acute cardiopulmonary process [id number] CC: Dr. David De Leon MD; Dr. Adelaide Nayak MD ~ Damage Cutter: Signed [facility] 12-07-2024 Evaluation note Diagnosis Onset Date Resolution Claudication acute December 07, 2024 12:51pm Iliac vein stenosis, right acute December 07, 2024 12:51pm PAD (peripheral artery disease) acute December 07, 2024 12:51pm History of DVT (deep vein thrombosis) chronic December 07 12:51pm [facility] Work Phone: 1(963) 179-550202-14-2024 Discharge summary Author Yazan Jones [facility] November 11, 2023 10:51am Note Date/Time November 11, 2023 9:01am [facility] Medical Records Department [address] [place] [address] Discharge Summary 11/11/23 0853 MR#: [id number] Acct: [id number] Name: LINDSAY HUNTER Rep #:[id number] : 1960 63 From: Ariadna ENCARNACION PCP: Dr. Filomena Wong MD Status:ADM IN Location: [place] [address] Providers Date of Admission: 11/09/23 Primary Care [...] take this with Tylenol as needed. Our legal secretary receptionist will contact you to schedule your 1 [...] take this with Tylenol as needed. Our legal secretary receptionist will contact you to schedule your 1 [...] Wong MD; Dr. Yazan Jones MD~ Signed [facility] Work Phone: 1(296) 119-949102-14-2024 Progress note Author Yazan [facility] November 11, 2023 10:51am Note Date/Time November 11, 2023 8:52am [facility] Medical Records Department [address] [place] [address] Progress Note - Surgery 11/11/23 0845 MR#: [id number] Acct: [id number] Name: LINDSAY HUNTER Rep #:[id number] : 1960 63 From: Ariadna ENCARNACION PCP: Dr. Filomena Wong MD Status:ADM IN Location: [place] [address] Subjective Subjective Patient is seen resting comfortably [...] by Yazan Jones MD> CC: ~ Signed [facility] Work Phone: 1(393) 821-770202-12-2024 History and physical note Author Yazan Jones [facility] November 09, 2023 5:24pm Note Date/Time November 09, 2023 5:24pm [facility] Medical Records Department [address] [place] [address] History & Physical Exam 11/09/23 1723 MR#: [id number] Acct: [id number] Name: LINDSAY HUNTER Rep #:[id number] : 1960 63 From: Yazan Jones MD PCP: Dr. Filomena Wong MD Status:ADM IN Location: [place] [id number] HPI - General General Date of Admission: 11/09/23 HPI Narrative LINDSAY HUNTER, is a 63 M who presents with extensive RLE DVT with no improvement in symptoms or thrombus resolution with~3 weeks of anticoagulation. He presents for heparin bridging prior to venogram and thrombectomy. PFSH Medical History Diverticulosis GI bleed Hemorrhoid History [...] femoral vein PLAN: -heparin -venogram tomorrow 11/09/23 8258 <Electronically signed by Yazan Jones MD> Cosigner Signature (if applicable): CC: Dr. Filomena Wong MD; Dr. Yazan Jones MD~ Signed [facility] Work Phone: Consult note Author Mariana Whitley [facility] November 11, 2023 11:32am Note Date/Time November 11, 2023 11:32am [facility] Medical Records Department [address] [place] [address] Counseling Note - Pharmacy 11/11/23 1131 MR#: [id number] Acct: [id number] Name: LINDSAY HUNTER Rep #:[id number] : 1960 63 From: Mariana Whitley PCP: Dr. Filomena Wong MD Status:ADM IN Location: [place] [address] Pharmacy [facility] has performed discharge [...] of their dischargemedications. Patient counseled by pharmacy affairs assistantWilfredo. Medications at Discharge Home Medications omeprazole 20 [...] signed by Mariana Whitley> Date _ Mariana Cedeño Signature (if applicable): Date CC: ~ Signed [facility] Work Phone: Evaluation noteNo assessment information available [facility] Work Phone: Evaluation note* Diagnosis Onset Date Resolution Status Dvt femoral (deep venous thrombosis) acute [facility] Work Phone: Evaluation note* Diagnosis Onset Date Resolution Status Dvt femoral (deep venous thrombosis) acute Dvt femoral (deep venous thrombosis) acute [facility] Work Phone: Hospital Discharge instructionsAdditional Instructions Your [...] if your symptoms worsen or new symptoms develop.[facility] Work Phone: Reason for referral (narrative)No [facility] for [facility] Work [facility]: Chief Complaint and Reason [...] 12: 51pm Iliac vein stenosis, right December 07 025 12:51pm PAD (peripheral artery disease) December 072024 12:51pm History of DVT (deep vein thrombosis) [facility] 2024 12:51pm Chief Complaint Admit Date sob [...] No April 26, 2020 12:17pm Power of Ed Teacher No April 26 12:17pm Advance Directive Response Recorded Date/ Time Living Will No November 09 024 4:37pm Power of Ed Teacher No November 09, 2023 4:37pm Advance Directive Response Recorded Date/ Time Living Will No November 09 024 5:37pm Power of Ed Teacher No November 09, 2023 5:37pm Advance Directive Response Recorded Date/ Time Do you have a Healthcare Power of Ed Teacher? No May 30, 2025 8:23am Summary Purpose [...] ized section and content) DATE CREATED AUTHOR 06/20/2025 [facility] FOR RECORDS PERTAINING TO PATIENTS WHO ARE [...] BE BASED ON THE PRIMARY CLINICAL RECORDS. [employer] provides no warranty or guarantee of the accuracy or completeness of information in this document.
--- OUTSIDE RECORDS SUMMARY | 2025-06-29 21:17 | XMS RPT_ITS | CCD ---
Author Organization [facility] Care Team Providers Care Electronic Systems Security Assessment Name Role Phone Dr. Filomena Wong Primary Care Provider Dr. Yazan Jones Attending Provider [phone] MD David De Leon Referring Provider [phone] Dr. Filomena Wong Referring Provider [phone] Yazan Jones Admit Provider Dr. Yazan [...] (5 sources) Erythromycin Drug Allergy 11-02-2023 Vomiting [facility] (1 source) Erythromycin Drug Allergy 06-19-2025 [facility] Repository Medications Current Medications Medication Drug Class(es) Dates Sig (Normalized) Sig (Original) [id number] 200 actuat albuterol 0.09 mg/actuat metered dose [...] 1:00am December 09, 2023 1:10pm blood thinner Tf-Egb-Kskmg-K1-Lyco pen-Lutein (Centrum Silver Men) 710-13-883-300 mcg tablet (1 source) Start: 06-07-2025 Rl-Fdr-Wqonh-K1-Lyco pen-Lutein (Centrum Silver Men) 811-35-144-300 mcg tablet Discontinued 1 {tbl} PO daily [...] and due to atherosclerosis; Translations: [Atherosclerosis of [place] arteries of extremities with intermittent claudication, bilateral [...] Department Summary on 06-20-2025 Emergency Department Summary [facility] Medical Records Department [address] [place] [address] Emergency Department Summary 06/20/25 MR#: [id number] Acct: [id number] Name: LINDSAY HUNTER Rep #: [id number] : 1960 65 From: Mikie England DO [...] chest pain palpitations nausea vomiting or diaphoresis [facility] Medical History Hemorrhoid History of DVT [...] Rx aerosol inhaler (Ventolin HFA) Wheezing ##1 iilyswrd-qp-tnkyb 300 mcg-K 60 1 tab PO QDAY [...] 91 Oxygen (more content not included)... Normal [facility] Basic Metabolic Profile (BMP )on 06-19-2025 BUN/CRE 4.6 RATIO Low 10-20 [facility] Comment on above: Performed By: #### L 500.2500, L501.5200, L300.3900, L503.7505, L300.4310, L100.0100 ####[facility] [address] [place], [address] Calcium [Mass/Vol] 9.5 mg/dL Normal 7.6-11.0 [facility] Comment on above: Performed By: #### L 500.2500, L501.5200, L300.3900, L503.7505, L300.4310, L100.0100 ####[facility] [address] [place], [address] Chloride [Moles/Vol] 93 mmol/L Low 98-108 [facility] Comment on above: Performed By: #### L 500.2500, L501.5200, L300.3900, L503.7505, L300.4310, L100.0100 ####[facility] [address] [place], [address] CO2 [Moles/Vol] 20.7 mmol/L Low 21.0-32.0 [facility] Comment on above: Performed By: #### L 500.2500, L501.5200, L300.3900, L503.7505, L300.4310, L100.0100 ####[facility] [address] [place], [address] Creatinine [Mass/Vol] 0.60 mg/dL Low 0.70-1.20 [facility] Comment on above: Performed By: #### L 500.2500, L501.5200, L300.3900, L503.7505, L300.4310, L100.0100 ####[facility] [address] [place], [address] ECRCL 152.68 ml/min Normal 50-250 [facility] Comment on above: Performed By: #### L 500.2500, L501.5200, L300.3900, L503.7505, L300.4310, L100.0100 ####[facility] [address] [place], [address] GAP 18 High 5-15 [facility] Comment on above: Performed By: #### L 500.2500, L501.5200, L300.3900, L503.7505, L300.4310, L100.0100 ####[facility] [address] [place], [address] GFR/1.73 sq M.predicted among non-blacks MDRD (S/P/Bld) [Vol rate/Area] 108 mL/min/{1.73_m2} Normal >60 [facility] Comment on above: Result Comment: mL/m in/1.73m2 CKD-EPI Creatinine Equation (2020) Performed By: #### L 500.2500, L501.5200, L300.3900, L503.7505, L300.4310, L100.0100 ####[facility] [address] [place], [address] Glucose [Mass/Vol] 110 mg/dL High 70-99 [facility] Comment on above: Performed By: #### L 500.2500, L501.5200, L300.3900, L503.7505, L300.4310, L100.0100 ####[facility] [address] [place], [address] Potassium [Moles/Vol] 3.2 mmol/L Low 3.3-5.1 [facility] Comment on above: Performed By: #### L 500.2500, L501.5200, L300.3900, L503.7505, L300.4310, L100.0100 ####[facility] [address] [place], [address] Sodium [Moles/Vol] 132 mmol/L Low 133-145 [facility] Comment on above: Performed By: #### L 500.2500, L501.5200, L300.3900, L503.7505, L300.4310, L100.0100 ####[facility] [address] [place], [address] Urea nitrogen [Mass/Vol] 3 mg/dL Low 4-19 [facility] Comment on above: Performed By: #### L 500.2500, L501.5200, L300.3900, L503.7505, L300.4310, L100.0100 ####[facility] [address] [place], [address] CBC W/Diff, Automatedon 09-2 -2024 Absolute Lymph 2.07 X10 3/uL Normal 0.83-4.51 [facility] Comment on above: Performed By: #### L 500.2500, L501.5200, L300.3900, L503.7505, L300.4310, L100.0100 ####[facility] [address] [place], [address] Absolute Neut 5.8 X10 3/uL Normal 2.0-7.7 [facility] Comment on above: Performed By: #### L 500.2500, L501.5200, L300.3900, L503.7505, L300.4310, L100.0100 ####[facility] [address] [place], [address] Basophils/100 WBC (Bld) 0.8 % Normal 0-1 [facility] Comment on above: Performed By: #### L 500.2500, L501.5200, L300.3900, L503.7505, L300.4310, L100.0100 ####[facility] [address] [place], [address] Eosinophils/100 WBC (Bld) 8.7 % High 0-5 [facility] Comment on above: Performed By: #### L 500.2500, L501.5200, L300.3900, L503.7505, L300.4310, L100.0100 ####[facility] [address] [place], [address] Erythrocyte distribution width (RBC) [Ratio] 12.4 % Normal 11.6-14.6 [facility] Comment on above: Performed By: #### L 500.2500, L501.5200, L300.3900, L503.7505, L300.4310, L100.0100 ####[facility] [address] [place], [address] Hematocrit (Bld) [Volume fraction] 44.1 % Normal 40-54 [facility] Comment on above: Performed By: #### L 500.2500, L501.5200, L300.3900, L503.7505, L300.4310, L100.0100 ####[facility] [address] [place], [address] Hemoglobin (Bld) [Mass/Vol] 15.6 g/dL Normal 13.0-16.5 [facility] Comment on above: Performed By: #### L 500.2500, L501.5200, L300.3900, L503.7505, L300.4310, L100.0100 ####[facility] [address] [place], [address] IG% 0.600 Normal 0.0-0.9 [facility] Comment on above: Result Comment: IG% - Immature Granulocytes (promyelocytes, myelocytes and metamyelocytes) > 1% indicates that a LEFT SHIFT is Present. Performed By: #### L 500.2500, L501.5200, L300.3900, L503.7505, L300.4310, L100.0100 ####[facility] [address] [place], [address] Lymphocytes/100 WBC (Bld) 20.3 % Normal 19-41 [facility] Comment on above: Performed By: #### L 500.2500, L501.5200, L300.3900, L503.7505, L300.4310, L100.0100 ####[facility] [address] [place], [address] MCH (RBC) [Entitic mass] 33.4 pg High 27.0-32.0 [facility] Comment on above: Performed By: #### L 500.2500, L501.5200, L300.3900, L503.7505, L300.4310, L100.0100 ####[facility] [address] [place], [address] MCHC (RBC) [Mass/Vol] 35.4 g/dL Normal 32-36 [facility] Comment on above: Performed By: #### L 500.2500, L501.5200, L300.3900, L503.7505, L300.4310, L100.0100 ####[facility] [address] [place], [address] MCV (RBC) [Entitic vol] 94.4 fL High 80-94 [facility] Comment on above: Performed By: #### L 500.2500, L501.5200, L300.3900, L503.7505, L300.4310, L100.0100 ####[facility] [address] [place], [address] Monocytes/100 WBC (Bld) 13.0 % High 0-10 [facility] Comment on above: Performed By: #### L 500.2500, L501.5200, L300.3900, L503.7505, L300.4310, L100.0100 ####[facility] [address] [place], [address] Neutrophils/100 WBC (Bld) 56.6 % Normal 47-70 [facility] Comment on above: Performed By: #### L 500.2500, L501.5200, L300.3900, L503.7505, L300.4310, L100.0100 ####[facility] [address] [place], [address] Nucleated RBC (Bld) [#/Vol] 0 10*3/uL Normal 0-5 [facility] Comment on above: Performed By: #### L 500.2500, L501.5200, L300.3900, L503.7505, L300.4310, L100.0100 ####[facility] [address] [place], [address] Platelet mean volume (Bld) [Entitic vol] 10.0 fL Normal 6.2-12.0 [facility] Comment on above: Performed By: #### L 500.2500, L501.5200, L300.3900, L503.7505, L300.4310, L100.0100 ####[facility] [address] [place], [address] Platelets (Bld) [#/Vol] 301 10*3/uL Normal 150-450 [facility] Comment on above: Performed By: #### L 500.2500, L501.5200, L300.3900, L503.7505, L300.4310, L100.0100 ####[facility] [address] [place], [address] RBC (Bld) [#/Vol] 4.67 10*6/uL Normal 4.6-6.2 [facility] Comment on above: Performed By: #### L 500.2500, L501.5200, L300.3900, L503.7505, L300.4310, L100.0100 ####[facility] [address] [place], [address] RDW SD 43.0 fl Normal 35.1-43.9 [facility] Comment on above: Performed By: #### L 500.2500, L501.5200, L300.3900, L503.7505, L300.4310, L100.0100 ####[facility] [address] [place], [address] WBC (Bld) [#/Vol] 10.2 10*3/uL Normal 4.4-11.0 [facility] Comment on above: Performed By: #### L 500.2500, L501.5200, L300.3900, L503.7505, L300.4310, L100.0100 ####[facility] [address] [place], [address] CTA Chest W/WO Contraston CTA Chest W/WO Contrast [facility] Imaging Services [address] [place] [address] CTA Chest W/WO Contrast MR#: [id number] Acct: [id number] Name: LINDSAY HUNTER Rep #: [id number] : 1960 M 65 From: Deidre hammond MD PCP: Dr. David De Leon MD Status: DEP ER Study: CTA Chest W/WO Contrast Date of Exam: 06/19/25 Exam# [id number] Ordering Dr: Mikie England DO PROCEDURE: CTA [...] obvious pulmonary masses or consolidations. Reading Location: [place] [address] CC: Dr. David De Leon MD; Mikie England DO Criminal Investigative Agent: Signed Normal [facility] M100.678on 06-19-2025 M100.678 SARS-CoV-2 (COVID 19) Negative INFLUENZA A Negative INFLUENZA B Negative RSV PCR Negative Normal [facility] Comment on above: Performed By: #### M 100.678 #### [facility] [address] [place], [address] Magnesiumon 06-19-2025 Magnesium [Mass/Vol] 2.1 mg/dL Normal 1.5-2.2 [facility] Comment on above: Performed By: #### L 500.2500, L501.5200, L300.3900, L503.7505, L300.4310, L100.0100 ####[facility] [address] [place], [address] Partial Thromboplast Timeon 06-19-2025 aPTT Coag (Bld) [Time] 26.0 s Normal 24.1-36.2 [facility] Comment on above: Performed By: #### L 500.2500, L501.5200, L300.3900, L503.7505, L300.4310, L100.0100 ####[facility] [address] [place], [address] Pro- Brain NATRIURETIC PEPTI Shayne 06-19-2025 Natriuretic peptide B (Bld) [Mass/Vol] 120 pg/mL Normal <=900 [facility] Comment on above: Result Comment: Hear t Failure Unlikely: < 300 pg/mL Heart Failure Likely < 50 Years: > 450 pg/mL 50-75 Years: > 900 pg/mL >75 Years: > 1800 pg/mL Performed By: #### L 500.2500, L501.5200, L300.3900, L503.7505, L300.4310, L100.0100 ####[facility] [address] [place], [address] Prothrombin Time w/INRon INR Coag (PPP) [Relative time] 1.0 {INR} Normal [facility] Comment on above: Performed By: #### L 500.2500, L501.5200, L300.3900, L503.7505, L300.4310, L100.0100 ####[facility] [address] [place], [address] PT Coag (PPP) [Time] 13.1 s Normal 11.7-14.9 [facility] Comment on above: Performed By: #### L 500.2500, L501.5200, L300.3900, L503.7505, L300.4310, L100.0100 ####[facility] [address] [place], [address] MR/BMS.BVAries 06-07-2025 MR/BMS.S [facility] Vascular Surgery [address] [place] [address] OFFICE VISIT Date of Service: 06/07/25 MR#: [id number] Acct: [id number] Name: PADDY HUNTERROSALBA Erickson Rep #: [id number] : 1960 Provider: ALYSHA Ruiz Age/Sex: 64/M Location: [facility] Status: Signed Intake Vital Signs 11/10/23 09:38 [...] Rx aerosol inhaler (Ventolin HFA) Wheezing ##1 nrnyaaag-rf-bnrhx 300 mcg-K 60 1 tab PO QDAY [...] Yes cons (more content not included)... Normal [facility] 12 Lead EKGon 05-30-2025 12 Lead EKG [facility] Cardi[facility] Services [address] [place] [address] 12 Lead EKG 05/30/25 0757 MR#: [id number] Acct: [id number] Name: LINDSAY HUNTER Rep #: [id number] : 1960 64 From: Alan Del Cid [...] WAVE BORDERLINE Confirmed by Alan Del Cid ([id number]), web editor ENRIQUE VALENZUELA ([id number]) on 05/31/2025 8:18:58 AM Referred By: Confirmed By: Alan Del Cid 05/31/25817 Alan Del Cid MD CC: Dr. David De Leon MD; Dr. Adelaide Nayak MD Signed Normal [facility] Absolute lymphocyte countOrd ered By: Adelaide Nayak on 05-30-2025 Lymphocytes Auto (Unsp spec) [#/Vol] 1.57 10*3/uL 0.83-4.51 [facility] Absolute neutrophil countOrd ered By: Adelaide Nayak on 05-30-2025 Neutrophils (Bld) [#/Vol] 5.4 10*3/uL 2.0-7.7 [facility] Anion gap in Serum or Plasma Ordered By: Adelaide Nayak on 05-30-2025 Anion gap [Moles/Vol] 13 mmol/L 5-15 [facility] Automated lymphocyte count a s percentage of total leukocytesOrdered By: Adelaide Nayak on 05-30-2025 Lymphocytes/100 WBC Auto (Unsp spec) 18.1 % Low 19-41 [facility] BUN/creatinine ratioOrdered By: Adelaide Nayak on 05-30-2025 Urea nitrogen/Creatinine [Mass ratio] 5.5 mg/mg Low 10-20 [facility] Basic Metabolic Profile (BMP )on 05-30-2025 BUN/CRE 5.5 RATIO Low 10-20 [facility] Comment on above: Performed By: #### L 501.4021, L501.5200, L501.9520, L300.8000, L100.0100, L500.2500, L503.7505 ####[facility] [address] [place], [place], [address] Calcium [Mass/Vol] 9.2 mg/dL Normal 7.6-11.0 [facility] Comment on above: Performed By: #### L 501.4021, L501.5200, L501.9520, L300.8000, L100.0100, L500.2500, L503.7505 ####[facility] [address] [place], [address] Chloride [Moles/Vol] 96 mmol/L Low 98-108 [facility] Comment on above: Performed By: #### L 501.4021, L501.5200, L501.9520, L300.8000, L100.0100, L500.2500, L503.7505 ####[facility] [address] [place], [address] CO2 [Moles/Vol] 23.8 mmol/L Normal 21.0-32.0 [facility] Comment on above: Performed By: #### L 501.4021, L501.5200, L501.9520, L300.8000, L100.0100, L500.2500, L503.7505 ####[facility] [address] [place], [address] Creatinine [Mass/Vol] 0.65 mg/dL Low 0.70-1.20 [facility] Comment on above: Performed By: #### L 501.4021, L501.5200, L501.9520, L300.8000, L100.0100, L500.2500, L503.7505 ####[facility] [address] [place], [address] ECRCL 143.49 ml/min Normal 50-250 [facility] Comment on above: Performed By: #### L 501.4021, L501.5200, L501.9520, L300.8000, L100.0100, L500.2500, L503.7505 ####[facility] [address] [place], [address] GAP 13 Normal 5-15 [facility] Comment on above: Performed By: #### L 501.4021, L501.5200, L501.9520, L300.8000, L100.0100, L500.2500, L503.7505 ####[facility] [address] [place], [address] GFR/1.73 sq M.predicted among non-blacks MDRD (S/P/Bld) [Vol rate/Area] 107 mL/min/{1.73_m2} Normal >60 [facility] Comment on above: Result Comment: mL/m in/1.73m2 CKD-EPI Creatinine Equation (2020) Performed By: #### L 501.4021, L501.5200, L501.9520, L300.8000, L100.0100, L500.2500, L503.7505 ####[facility] [address] [place], [address] Glucose [Mass/Vol] 113 mg/dL High 70-99 [facility] Comment on above: Performed By: #### L 501.4021, L501.5200, L501.9520, L300.8000, L100.0100, L500.2500, L503.7505 ####[facility] [address] [place], [address] Potassium [Moles/Vol] 4.3 mmol/L Normal 3.3-5.1 [facility] Comment on above: Performed By: #### L 501.4021, L501.5200, L501.9520, L300.8000, L100.0100, L500.2500, L503.7505 ####[facility] [address] [place], [address] Sodium [Moles/Vol] 133 mmol/L Normal 133-145 [facility] Comment on above: Performed By: #### L 501.4021, L501.5200, L501.9520, L300.8000, L100.0100, L500.2500, L503.7505 ####[facility] [address] [place], [address] Urea nitrogen [Mass/Vol] 4 mg/dL Normal 4-19 [facility] Comment on above: Performed By: #### L 501.4021, L501.5200, L501.9520, L300.8000, L100.0100, L500.2500, L503.7505 ####[facility] [address] [place], [address] Basophil percentageOrdered B y: Adelaide Nayak on 05-30-2025 Basophils/100 WBC (Bld) 0.8 % 0-1 [facility] CBC W/Diff, Automatedon Absolute Lymph 1.57 X10 3/uL Normal 0.83-4.51 [facility] Comment on above: Performed By: #### L 501.4021, L501.5200, L501.9520, L300.8000, L100.0100, L500.2500, L503.7505 ####[facility] [address] [place], [address] Absolute Neut 5.4 X10 3/uL Normal 2.0-7.7 [facility] Comment on above: Performed By: #### L 501.4021, L501.5200, L501.9520, L300.8000, L100.0100, L500.2500, L503.7505 ####[facility] [address] [place], [address] Basophils/100 WBC (Bld) 0.8 % Normal 0-1 [facility] Comment on above: Performed By: #### L 501.4021, L501.5200, L501.9520, L300.8000, L100.0100, L500.2500, L503.7505 ####[facility] [address] [place], [address] Eosinophils/100 WBC (Bld) 7.7 % High 0-5 [facility] Comment on above: Performed By: #### L 501.4021, L501.5200, L501.9520, L300.8000, L100.0100, L500.2500, L503.7505 ####[facility] [address] [place], [address] Erythrocyte distribution width (RBC) [Ratio] 12.2 % Normal 11.6-14.6 [facility] Comment on above: Performed By: #### L 501.4021, L501.5200, L501.9520, L300.8000, L100.0100, L500.2500, L503.7505 ####[facility] [address] [place], [address] Hematocrit (Bld) [Volume fraction] 42.9 % Normal 40-54 [facility] Comment on above: Performed By: #### L 501.4021, L501.5200, L501.9520, L300.8000, L100.0100, L500.2500, L503.7505 ####[facility] [address] [place], [address] Hemoglobin (Bld) [Mass/Vol] 15.2 g/dL Normal 13.0-16.5 [facility] Comment on above: Performed By: #### L 501.4021, L501.5200, L501.9520, L300.8000, L100.0100, L500.2500, L503.7505 ####[facility] [address] [place], [address] IG% 0.500 Normal 0.0-0.9 [facility] Comment on above: Result Comment: IG% - Immature Granulocytes (promyelocytes, myelocytes and metamyelocytes) > 1% indicates that a LEFT SHIFT is Present. Performed By: #### L 501.4021, L501.5200, L501.9520, L300.8000, L100.0100, L500.2500, L503.7505 ####[facility] [address] [place], [address] Lymphocytes/100 WBC (Bld) 18.1 % Low 19-41 [facility] Comment on above: Performed By: #### L 501.4021, L501.5200, L501.9520, L300.8000, L100.0100, L500.2500, L503.7505 ####[facility] [address] [place], [address] MCH (RBC) [Entitic mass] 33.5 pg High 27.0-32.0 [facility] Comment on above: Performed By: #### L 501.4021, L501.5200, L501.9520, L300.8000, L100.0100, L500.2500, L503.7505 ####[facility] [address] [place], [address] MCHC (RBC) [Mass/Vol] 35.4 g/dL Normal 32-36 [facility] Comment on above: Performed By: #### L 501.4021, L501.5200, L501.9520, L300.8000, L100.0100, L500.2500, L503.7505 ####[facility] [address] [place], [address] MCV (RBC) [Entitic vol] 94.5 fL High 80-94 [facility] Comment on above: Performed By: #### L 501.4021, L501.5200, L501.9520, L300.8000, L100.0100, L500.2500, L503.7505 ####[facility] [address] [place], [address] Monocytes/100 WBC (Bld) 10.7 % High 0-10 [facility] Comment on above: Performed By: #### L 501.4021, L501.5200, L501.9520, L300.8000, L100.0100, L500.2500, L503.7505 ####[facility] [address] [place], [address] Neutrophils/100 WBC (Bld) 62.2 % Normal 47-70 [facility] Comment on above: Performed By: #### L 501.4021, L501.5200, L501.9520, L300.8000, L100.0100, L500.2500, L503.7505 ####[facility] [address] [place], [address] Nucleated RBC (Bld) [#/Vol] 0 10*3/uL Normal 0-5 [facility] Comment on above: Performed By: #### L 501.4021, L501.5200, L501.9520, L300.8000, L100.0100, L500.2500, L503.7505 ####[facility] [address] [place], [address] Platelet mean volume (Bld) [Entitic vol] 10.1 fL Normal 6.2-12.0 [facility] Comment on above: Performed By: #### L 501.4021, L501.5200, L501.9520, L300.8000, L100.0100, L500.2500, L503.7505 ####[facility] [address] [place], [address] Platelets (Bld) [#/Vol] 264 10*3/uL Normal 150-450 [facility] Comment on above: Performed By: #### L 501.4021, L501.5200, L501.9520, L300.8000, L100.0100, L500.2500, L503.7505 ####[facility] [address] [place], [address] RBC (Bld) [#/Vol] 4.54 10*6/uL Low 4.6-6.2 [facility] Comment on above: Performed By: #### L 501.4021, L501.5200, L501.9520, L300.8000, L100.0100, L500.2500, L503.7505 ####[facility] [address] [place], [address] RDW SD 42.2 fl Normal 35.1-43.9 [facility] Comment on above: Performed By: #### L 501.4021, L501.5200, L501.9520, L300.8000, L100.0100, L500.2500, L503.7505 ####[facility] [address] [place], [address] WBC (Bld) [#/Vol] 8.7 10*3/uL Normal 4.4-11.0 [facility] Comment on above: Performed By: #### L 501.4021, L501.5200, L501.9520, L300.8000, L100.0100, L500.2500, L503.7505 ####[facility] [address] [place], [address] Carbon dioxide, total [Moles /volume] in Central venous bloodOrdered By: Adelaide Nayak on 05-30-2025 CO2 [Moles/Vol] 23.8 mmol/L 21.0-32.0 [facility] Chest PA and Lateralon 05-30 Chest PA and Lateral [facility] [address] [place] [address] Chest PA and Lateral MR#: [id number] Acct: [id number] Name: LINDSAY HUNTER Rep #: [id number] : 1960 M 64 From: Deven Garcia MD PCP: Dr. David De Leon MD Status: REG ER Study: Chest PA and Lateral Date of Exam: 05/30/25 Exam# [id number] Ordering Dr: Adeladie Nayak MD PROCEDURE: CHEST PA AND LATERAL 05/30/2025 REASON FOR EXAM: CHEST PAIN TECHNIQUE: Procedure Code: RADCXR Modality: DX Procedure: CHEST PA AND LATERAL COMPARISON: None FINDINGS: Hardware: EKG leads are present Heart: Normal-size Mediastinum: Normal Lungs: Clear Bones: Minimal degenerative changes RAD/Chest PA and Lateral IMPRESSION: No acute cardiopulmonary process Reading [id number] CC: Dr. David De Leon MD; Dr. Adelaide Nayak MD Criminal Investigative Agent: Signed Normal [facility] Chloride assayOrdered By: Bill Nayak on 05-30-2025 Chloride [Moles/Vol] 96 mmol/L Low 98-108 [facility] D-Dimer Quantitative (DVT/PE )on 05-30-2025 D-DIMER QUANT 0.27 FEU/ug/m Normal 0.27-0.49 [facility] Comment on above: Result Comment: NORM AL D-Dimer level (<0.50) indicates no DVT or PE. Performed By: #### L 501.4021, L501.5200, L501.9520, L300.8000, L100.0100, L500.2500, L503.7505 ####[facility] [address] [place], [address] Emergency Department Summary on 05-30-2025 Emergency Department Summary [facility] Medical Records Department [address] [place] [address] Emergency Department Summary 05/30/25 MR#: [id number] Acct: [id number] Name: LINDSAY HUNTER Rep #: [id number] : 1960 64 From: Adelaide Nayak MD [...] past few days and has similar symptoms. [facility] Medical History Hemorrhoid History of DVT [...] seen and (more content not included)... Normal [facility] Eosinophil percentageOrdered By: Adelaide Nayak on 05-30-2025 Eosinophils/100 WBC (Bld) 7.7 % High 0-5 [facility] Erythrocyte distribution wid th ratioOrdered By: Adelaide Nayak on 05-30-2025 Erythrocyte distribution width (RBC) [Ratio] 12.2 % 11.6-14.6 [facility] Erythrocyte distribution wid th standard deviationOrdered By: Adelaide Nayak on 05-30-2025 Erythrocyte distribution width (RBC) [Ratio] 42.2 fl 35.1-43.9 [facility] Glomerular filtration rate ( GFR) estimation/1.73 sq m using serum, plasma, or whole bOrdered By: Adelaide Nayak on 05-30-2025 GFR/1.73 sq M.predicted among non-blacks MDRD (S/P/Bld) [Vol rate/Area] 107 mL/min/{1.73_m2} >60 [facility] Comment on above: mL/min/1.73m2 CKD-EP I Creatinine Equation (2020) Hematocrit Auto (Bld) [Volum e fraction]Ordered By: Adelaide Nayak on 05-30-2025 Hematocrit (Bld) [Volume fraction] 42.9 % 40-54 [facility] Hemoglobin measurementOrdere d By: Adelaide Nayak on 05-30-2025 Hemoglobin (Bld) [Mass/Vol] 15.2 g/dL 13.0-16.5 [facility] Immature granulocytes/100 WB C Auto (Bld)Ordered By: Adelaide Nayak on 05-30-2025 Immature granulocytes/100 WBC (Bld) 0.500 % 0.0-0.9 [facility] Comment on above: IG% - Immature Granu locytes (promyelocytes, myelocytes and metamyelocytes) > 1% indicates that a LEFT SHIFT is Present. L501.4021on 05-30-2025 Trop T High Sen 11 ng/L Normal <=22 [facility] Comment on above: Performed By: #### L 501.4021, L501.5200, L501.9520, L300.8000, L100.0100, L500.2500, L503.7505 ####[facility] [id number] [place], [address] MCV (mean corpuscular volume ) determinationOrdered By: Adelaide Nayak on 05-30-2025 MCV (RBC) [Entitic vol] 94.5 fL High 80-94 [facility] Magnesiumon 05-30-2025 Magnesium [Mass/Vol] 2.1 mg/dL Normal 1.5-2.2 [facility] Comment on above: Performed By: #### M 100.678 #### [facility] [address] [place], [address] Magnesium measurement (mass/ volume)Ordered By: Adelaide aNyak on 05-30-2025 Magnesium (Unsp spec) [Mass/Vol] 2.1 mg/dL 1.5-2.2 [facility] Mean corpuscular hemoglobin (MCH) determinationOrdered By: Adelaide Nayak on 05-30-2025 MCH (RBC) [Entitic mass] 33.5 pg High 27.0-32.0 [facility] Mean corpuscular hemoglobin concentration (MCHC) determinationOrdered By: Adelaide Nayak on 05-30-2025 MCHC (RBC) [Mass/Vol] 35.4 g/dL 32-36 [facility] Mean platelet volume determi nationOrdered By: Adelaide Nayak on 05-30-2025 Platelet mean volume (Bld) [Entitic vol] 10.1 fL 6.2-12.0 [facility] Monocyte percentageOrdered B y: Adelaide Nayak on 05-30-2025 Monocytes/100 WBC (Bld) 10.7 % High 0-10 [facility] Natriuretic peptide.B prohor newton N-Terminal [Mass/volume] in Serum or PlasmaOrdered By: Adelaide Nayak on 05-30-2025 Natriuretic peptide.B prohormone N-Terminal [Mass/Vol] 59 pg/mL <900 [facility] Comment on above: Heart Failure Unlike ly: < 300 pg/mLHeart Failure Likely< 50 Years: > 450 pg/mL50-75 Years: > 900 pg/mL>75 Years: > 1800 pg/mL Neutrophil percentageOrdered By: Adelaide Nayak on 05-30-2025 Neutrophils/100 WBC (Bld) 62.2 % 47-70 [facility] Nucleated red blood cell per centageOrdered By: Adelaide Nayak on 05-30-2025 Nucleated RBC/100 WBC (Bld) [Ratio] 0 % 0-5 [facility] Platelet countOrdered By: Bill Nayak on 05-30-2025 Platelets (Bld) [#/Vol] 264 10*3/uL 150-450 [facility] Potassium measurement (mass/ volume)Ordered By: Adelaide Nayak on 05-30-2025 Potassium (Unsp spec) [Mass/Vol] 4.3 mmol/L 3.3-5.1 [facility] Pro- Brain NATRIURETIC PEPTI Shayne 05-30-2025 Natriuretic peptide B (Bld) [Mass/Vol] 59 pg/mL Normal <=900 [facility] Comment on above: Result Comment: Hear t Failure Unlikely: < 300 pg/mL Heart Failure Likely < 50 Years: > 450 pg/mL 50-75 Years: > 900 pg/mL >75 Years: > 1800 pg/mL Performed By: #### M 100.678 #### [facility] [address] [place], [address] RBC Auto (Bld) [#/Vol]Ordere d By: Adelaide Nayak on 05-30-2025 RBC (Bld) [#/Vol] 4.54 10*6/uL Low 4.6-6.2 [facility] Serum creatinine measurement (mass/volume)Ordered By: Adelaide Nayak on 05-30-2025 Creatinine [Mass/Vol] 0.65 mg/dL Low 0.70-1.20 [facility] Serum glucose measurement (m ass/volume)Ordered By: Adelaide Nayak on 05-30-2025 Glucose [Mass/Vol] 113 mg/dL High 70-99 [facility] Serum or plasma calcium alonso urement (mass/volume)Ordered By: Adelaide Nayak on 05-30-2025 Calcium [Mass/Vol] 9.2 mg/dL 7.6-11.0 [facility] Serum or plasma urea nitroge n measurement (mass/volume)Ordered By: Adelaide Nayak on 05-30-2025 Urea nitrogen [Mass/Vol] 4 mg/dL 4-19 [facility] Sodium levelOrdered By: Yazan Nayak on 05-30-2025 Sodium [Moles/Vol] 133 mmol/L 133-145 [facility] TSH DL <= 0.005 mIU/L QnOrde red By: Adelaide Nayak on 05-30-2025 TSH Qn 1.540 uIU/mL 0.300-4.200 [facility] Thyroid Stim Hormone (TSH)on 05-30-2025 TSH 1.540 uIU/mL Normal 0.300-4.200 [facility] Comment on above: Performed By: #### M 100.678 #### [facility] [address] [facility] [address] [place], [place], [id number] Troponin T HS 2 HRon 025 Trop T High Sen 9 ng/L Normal <=22 [facility] Comment on above: Performed By: #### M 100.678 #### [facility] [address] [place], [place], [id number] Troponin T.cardiac [Mass/vol ume] in Serum or Plasma by High sensitivity methodOrdered By: Adelaide Nayak on 05-30-2025 Troponin T.cardiac High sensitivity method [Mass/Vol] 9 ng/L <22 [facility] Troponin T.cardiac High sensitivity method [Mass/Vol] 11 ng/L <22 [facility] White blood cell (WBC) count Ordered By: Adelaide Nayak on 05-30-2025 WBC (Bld) [#/Vol] 8.7 10*3/uL 4.4-11.0 [facility] Lumbar Spine 2 or 3 Viewson 01-25-2025 Lumbar Spine 2 or 3 Views [facility] Services [address] [place], [place] [id number] Lumbar Spine 2 or 3 Views MR#: [id number] Acct: [id number] Name: LINDSAY HUNTER Rep #: [id number] : 1960 M 64 From: Kasie Soriano PCP: Dr. David De Leon MD Status: REG CLI Study: Lumbar Spine 2 or 3 Views Date of Exam: Exam# [id number] Ordering Dr: Ariadna Negrete PROCEDURE: LUMBAR SPINE [...] vascular disease of the aorta. Reading Location: LIA-KFEIN-PX CC: ALYSHA Ruiz; Dr. David De Leon MD Criminal Investigative Agent: Signed Normal [facility] Abdominal aortic duplex scan reportOrdered By: Yazan Jones on 12-07-2024 US.doppler Thoracic and abdominal aorta [facility] [address] [place] [address] Abd Aortic/IVC Duplex scan 12/06/24 0904 MR#: [id number] Acct: [id number] Name: LINDSAY HUNTER Rep #:[id number] : 1960 64 From: Yazan Redd Attending Dr: Dr. Yazan Jones MD S tatus: REG CLI Ordering Dr: Yazan Jones MD Date: 08/22 Location: [facility] Sex: M C Admitted: Reason For [...] Aorta IVC Iliac vasculature or bypass grafts 148[address]. Exam performed in department. VL/Abd Aortic/IVC Duplex [...] ~ Date Dictated: 12/06/24903 Date Transcribed: 12/07/24702 Criminal Investigative Agent: Signed [facility] Work Phone: Arterial study reportOrdered By: Yazan Jones on 12-07-2024 Noninvasive arteriosclerosis study report [facility] [place] [place] [address] [place] [address] Lower Ext Art Exam w/ Exercise 12/06/24916 MR#: [id number] Acct: [id number] Name: LINDSAY HUNTER Rep #:[id number] : 1960 64 From: Yazan Redd Attending Dr: Dr. Yazan Jones MD S tatus: REG CLI Ordering Dr: Yazan Jones MD Date: 08/22 Location: [facility] Sex: M C Admitted: Reason For [...] ~ Date Dictated: 12/06/24916 Date Transcribed: 12/07/24700 Criminal Investigative Agent: Signed [facility] Work Phone: MR/BMS.BVSon 12-07-2024 MR/BMS.S [facility] Vascular Surgery [address] [facility] [place] [address] OFFICE VISIT Date of Service: 12/07/24 MR#: [id number] Acct: [id number] Name: LINDSAY HUNTER Rep #: [id number] : 1960 Provider: ALYSHA Ruiz Age/Sex: 64/M Location: [facility] Status: Signed Intake Vital Signs 11/10/23 [...] developed Nutr (more content not included)... Normal [facility] Abd Aortic/IVC Duplex scanon 12-06-2024 Abd Aortic/IVC Duplex scan [facility] [address] [place] [address] Abd Aortic/IVC Duplex scan 12/06/24 0904 MR#: [id number] Acct: [id number] Name: LINDSAY HUNTER Rep #: [id number] : 1960 64 From: Yazan Jones MD [...] Aorta IVC Iliac vasculature or bypass grafts [address]55[address]. Exam performed in department. VL/Abd Aortic/IVC Duplex [...] MD Date Dictated: 12/06/24903 Date Transcribed: 12/07/24702 Criminal Investigative Agent: Signed Normal [facility] Lower Ext Art Exam w/ Exerci raghav 12-06-2024 Lower Ext Art Exam w/ Exercise [facility] [place] [place] [address] [place] [address] Lower Ext Art Exam w/ Exercise 12/06/24916 MR#: [id number] Acct: [id number] Name: LINDSAY HUNTER Rep #: [id number] : 1960 64 From: Yazan Jones MD Attending Dr: Dr. Yazan Jones MD Status: REG C ROBERT Ordering Dr: Yazan Jones MD Date: 12/06/24 Location: [facility] Sex: M C Admitted: Reason For [...] MD Date Dictated: 12/06/24916 Date Transcribed: 12/07/24700 Criminal Investigative Agent: Signed Normal [facility] Activated partial thrombopla stin time (aPTT) in platelet poor plasma by coagulation aOrdered By: Yazan Jones on 11-11-2023 aPTT Coag (PPP) [Time] 43.0 s 24.1-36.2 [facility] Basophil percentageOrdered B y: Yazan Jones on 11-11-2023 Chloride [Moles/Vol] 107 mmol/L 98-107 [facility] Glucose [Mass/Vol] 106 mg/dL 74-106 [facility] Comment on above: Fasting Glucose resu lt from 100 to 125 mg/dL suggests IMPAIRED HOMEOSTASIS per A.D.A. criteria. Hemoglobin (Bld) [Mass/Vol] 13.6 g/dL 13.0-16.5 [facility] Potassium [Moles/Vol] 3.9 mmol/L 3.5-5.1 [facility] Sodium [Moles/Vol] 139 mmol/L 136-145 [facility] WBC (Bld) [#/Vol] 8.2 10*3/uL 4.4-11.0 [facility] Determination of erythrocyte mean corpuscular volume (MCV)Ordered By: Yazan Jones on 11-11-2023 MCV (RBC) [Entitic vol] 96.9 fL 80-94 [facility] Erythrocyte distribution wid th ratioOrdered By: Yazan Jones on 11-11-2023 Erythrocyte distribution width (RBC) [Ratio] 11.9 % 11.6-14.6 [facility] Erythrocyte distribution wid th standard deviationOrdered By: Yazan Jones on 11-11-2023 Erythrocyte distribution width (RBC) [Entitic vol] 42.6 fL 35.1-43.9 [facility] Hematocrit Auto (Bld) [Volum e fraction]Ordered By: Yazan Jones on 11-11-2023 Hematocrit (Bld) [Volume fraction] 41.1 % 40-54 [facility] - Chemistry and C hemistry - challengeOrdered By: Yazan Jones on 11-11-2023 CO2 [Moles/Vol] 26.0 mmol/L 21.0-32.0 [facility] Urea nitrogen/Creatinine [Mass ratio] 9.5 mg/mg 10-20 [facility] - CoagulationOrde red By: Yazan Jones on 11-11-2023 INR Coag (Bld) [Relative time] 1.0 {INR} [facility] PT Coag (PPP) [Time] 13.5 s 11.7-14.9 [facility] - Hematology and Cell countsOrdered By: Yazan Jones on 11-11-2023 MCH (RBC) [Entitic mass] 32.1 pg 27.0-32.0 [facility] MCHC (RBC) [Mass/Vol] 33.1 g/dL 32-36 [facility] Platelet mean volume (Bld) [Entitic vol] 10.3 fL 6.2-12.0 [facility] Platelets (Bld) [#/Vol] 386 10*3/uL 150-450 [facility] No Panel InformationOrdered By: Yazan Jones on 11-11-2023 Estimated Creatinine Clearance Calc 147.38 ml/min [facility] Estimated GFR (MDRD) Amer 166 mL/min >60 [facility] Comment on above: GFR Calc Estimated GFR (MDRD) Non-Af Amer 137 mL/min >60 [facility] Comment on above: Non- GFR Calc RBC Auto (Bld) [#/Vol]Ordere d By: Yazan Jones on 11-11-2023 RBC (Bld) [#/Vol] 4.24 10*6/uL 4.6-6.2 [facility] Serum or plasma calcium alonso urement (mass/volume)Ordered By: Yazan Jones on 11-11-2023 Calcium [Mass/Vol] 9.1 mg/dL 8.5-10.1 [facility] Serum or plasma creatinine m easurement (mass/volume)Ordered By: Yazan Jones on 11-11-2023 Creatinine [Mass/Vol] 0.63 mg/dL 0.70-1.30 [facility] Comment on above: The validity of the calculated GFR & GFRAA in patients over 70 years has not been determined. Clinical correlation is essential. Serum or plasma urea nitroge n measurement (mass/volume)Ordered By: Yazan Jones on 11-11-2023 Urea nitrogen [Mass/Vol] 6 mg/dL 7-18 [facility] Thin prep Papanicolaou smear with manual screeningOrdered By: Yazan Jones on 11-11-2023 Thin prep Papanicolaou smear with manual screening 6 5-15 [facility] No Panel InformationOrdered By: Yazan Jones on 11-10-2023 Activated Clotting Time 223 sec 74-137 [facility] Absolute lymphocyte countOrd ered By: David De Leon on 10-26-2023 Lymphocytes Auto (Unsp spec) [#/Vol] 1.43 10*3/uL 0.83-4.51 [facility] Automated lymphocyte count a s percentage of total leukocytesOrdered By: David De Leon on 10-26-2023 Lymphocytes/100 WBC Auto (Unsp spec) 14.6 % 19-41 [facility] Basophil percentageOrdered B y: David De Leon on 10-26-2023 Basophils/100 WBC (Bld) 0.7 % 0-1 [facility] Bilirubin [Mass/Vol] 0.50 mg/dL 0.20-1.00 [facility] Comment on above: For patients on eltr ombopag therapy, use of Dimension [place] TBIL is not recommended. Chloride [Moles/Vol] 100 mmol/L 98-107 [facility] Cholesterol [Mass/Vol] 197 mg/dL <200 [facility] Comment on above: <200 mg/dL Desirable 200-240 mg/dL Borderline >240 mg/dL High Risk Eosinophils/100 WBC (Bld) 3.2 % 0-5 [facility] Glucose [Mass/Vol] 111 mg/dL 74-106 [facility] Comment on above: Fasting Glucose resu lt from 100 to 125 mg/dL suggests IMPAIRED HOMEOSTASIS per A.D.A. criteria. Hemoglobin (Bld) [Mass/Vol] 14.6 g/dL 13.0-16.5 [facility] Monocytes/100 WBC (Bld) 13.8 % 0-10 [facility] Neutrophils (Bld) [#/Vol] 6.6 10*3/uL 2.0-7.7 [facility] Neutrophils/100 WBC (Bld) 66.7 % 47-70 [facility] Potassium [Moles/Vol] 3.7 mmol/L 3.5-5.1 [facility] Protein [Mass/Vol] 8.0 g/dL 6.4-8.2 [facility] Sodium [Moles/Vol] 131 mmol/L 136-145 [facility] Triglyceride [Mass/Vol] 150 mg/dL <199 [facility] Comment on above: The drugs N-Acetylcy steine and Metamizole may falsely depress this assay.Serum Triglycerides Reference Interval Normal <150 mg/dL Borderline high 150 - 199 mg/dL High 200 - 499 mg/dL Very High > or = 500 mg/dL WBC (Bld) [#/Vol] 9.8 10*3/uL 4.4-11.0 [facility] Determination of erythrocyte mean corpuscular volume (MCV)Ordered By: David De Leon on 10-26-2023 MCV (RBC) [Entitic vol] 97.1 fL 80-94 [facility] Erythrocyte distribution wid th ratioOrdered By: David De Leon on 10-26-2023 Erythrocyte distribution width (RBC) [Ratio] 12.2 % 11.6-14.6 [facility] Erythrocyte distribution wid th standard deviationOrdered By: [facility] Moises on 10-26-2023 Erythrocyte distribution width (RBC) [Entitic vol] 43.6 fL 35.1-43.9 [facility] Hematocrit Auto (Bld) [Volum e fraction]Ordered By: David De Leon on 10-26-2023 Hematocrit (Bld) [Volume fraction] 43.6 % 40-54 [facility] High density lipoprotein (HD L) measurementOrdered By: [facility] De Leon on 10-26-2023 Cholesterol in HDL (Body fld) [Mass/Vol] 33 mg/dL >40 [facility] Comment on above: The drugs N-Acetylcy steine and Metamizole may falsely depress this assay. Reference Range HDL <40 mg/dL Low HDL Cholesterol HDL >or= 60 mg/dL High HDL Cholesterol Immature granulocytes/100 WB C Auto (Bld)Ordered By: David De Leon on 10-26-2023 Immature granulocytes/100 WBC (Bld) 1.000 % 0.0-0.9 [facility] Comment on above: IG% - Immature Granu locytes (promyelocytes, myelocytes and metamyelocytes) > 1% indicates that a LEFT SHIFT is Present. Laboratory - Chemistry and C hemistry - challengeOrdered By: David De Leon on 10-26-2023 Albumin/Globulin [Mass ratio] 0.6 {ratio} 0.9-2.4 [facility] ALP [Catalytic activity/Vol] 90 U/L 45-117 [facility] ALT [Catalytic activity/Vol] 36 U/L 16-61 [facility] CO2 [Moles/Vol] 23.0 mmol/L 21.0-32.0 [facility] Globulin (S) [Mass/Vol] 5.1 g/dL 2.2-4.2 [facility] Urea nitrogen/Creatinine [Mass ratio] 17.8 mg/mg 10-20 [facility] - Hematology and Cell countsOrdered By: David De Leon on 10-26-2023 MCH (RBC) [Entitic mass] 32.5 pg 27.0-32.0 [facility] MCHC (RBC) [Mass/Vol] 33.5 g/dL 32-36 [facility] Nucleated RBC/100 WBC (Bld) [Ratio] 0 % 0-5 [facility] Platelets (Bld) [#/Vol] 360 10*3/uL 150-450 [facility] Low density lipoprotein (LDL ) cholesterol measurementOrdered By: David De Leon on 10-26-2023 Cholesterol in LDL (Body fld) [Moles/Vol] 134 mg/dL 0-130 [facility] No Panel InformationOrdered By: David De Leon on 10-26-2023 Estimated GFR (MDRD) Amer 154 mL/min >60 [facility] Comment on above: GFR Calc Estimated GFR (MDRD) Non-Af Amer 127 mL/min >60 [facility] Comment on above: Non- GFR Calc Platelet mean volume Rafael-Ec ker (Bld) [Entitic vol]Ordered By: David De Leon on 10-26-2023 Platelet mean volume (Bld) [Entitic vol] 9.5 fL 6.2-12.0 [facility] RBC Auto (Bld) [#/Vol]Ordere d By: David De Leon on 10-26-2023 RBC (Bld) [#/Vol] 4.49 10*6/uL 4.6-6.2 [facility] Serum or plasma calcium alonso urement (mass/volume)Ordered By: David De Leon on 10-26-2023 Calcium [Mass/Vol] 9.5 mg/dL 8.5-10.1 [facility] Serum or plasma creatinine m easurement (mass/volume)Ordered By: David De Leon on 10-26-2023 Creatinine [Mass/Vol] 0.68 mg/dL 0.70-1.30 [facility] Comment on above: The validity of the calculated GFR & GFRAA in patients over 70 years has not been determined. Clinical correlation is essential. Serum or plasma thyroid stim ulating hormone (TSH) measurement (units/volume)Ordered By: David De Leon on 10-26-2023 TSH Qn 2.14 uIU/mL 0.358-3.74 [facility] Serum or plasma urea nitroge n measurement (mass/volume)Ordered By: David De Leon on 10-26-2023 Urea nitrogen [Mass/Vol] 12 mg/dL 7-18 [facility] Thin prep Papanicolaou smear with manual screeningOrdered By: David De Leon on 10-26-2023 Thin prep Papanicolaou smear with manual screening 2.9 g/dL 3.2-5.0 [facility] Thin prep Papanicolaou smear with manual screening 37 U/L 15-37 [facility] Thin prep Papanicolaou smear with manual screening 8 5-15 [facility] Very low density lipoprotein (VLDL) cholesterol measurementOrdered By: David De Leon on 10-26-2023 Cholesterol in VLDL Calc [Moles/Vol] 30 mg/dL 5-40 [facility] Vital Signs Date Time Vital Sign Value Performing Clinician Faci lity 06-07-2025 13:15-0400 Body temperature 98.4 [degF] David De Leon MD Work Phone: [facility] 06-07-2025 13:15-0400 Body weight 101.15 kg David De Leon MD Work Phone: [facility] 06-07-2025 13:15-0400 Diastolic blood pressure 88 mm[Hg] David De Leon MD Work Phone: [facility] 06-07-2025 13:15-0400 Heart rate 94 /min David De Leon MD Work Phone: [facility] 06-07-2025 13:15-0400 Respiratory rate 18 /min David De Leon MD Work Phone: [facility] 06-07-2025 13:15-0400 SaO2% (BldA) [Mass fraction] 96 % David De Leon MD Work Phone: [facility] 06-07-2025 13:15-0400 Systolic blood pressure 140 mm[Hg] David De Leon MD Work Phone: 6(068)545-626844 [address] 05-30-2025 13:06-0400 Body temperature 98.6 [degF] David De Leon MD Work Phone: 5(890)405-861927 [place] [address] 05-30-2025 13:06-0400 Diastolic blood pressure 76 mm[Hg] David De Leon MD Work Phone: 4(731)750-133627 [place] [address] 05-30-2025 13:06-0400 Heart rate 97 /min David De Leon MD Work Phone: 3(441)646-815627 [place] [address] 05-30-2025 13:06-0400 Respiratory rate 18 /min David De Leon MD Work Phone: 4(096)247-461127 [place] [address] 05-30-2025 13:06-0400 SaO2% (BldA) [Mass fraction] 96 % David De Leon MD Work Phone: 8(654)558-554827 [place] [address] 05-30-2025 13:06-0400 Systolic blood pressure 138 mm[Hg] David De Leon MD Work Phone: 3(997)937-966227 [place] [address] 05-30-2025 07:50-0400 Body height 180.34 cm David De Leon MD Work Phone: 5(184)319-205227 [place] [address] 05-30-2025 07:50-0400 Body mass index (BMI) [Ratio] 31.4 kg/m2 David De Leon MD Work Phone: 1(421)445-918627 [place] [address] 05-30-2025 07:50-0400 Body weight 102.28 kg David De Leon MD Work Phone: 7(854)193-396627 [place] [address] 12-07-2024 13:17-0400 Body temperature 97.8 [degF] Dr. Filomena Wong MD Work Phone: 2(190)796-572927 [place] [address] 12-07-2024 13:17-0400 Body weight 105.[address] Filomena Wong MD Work Phone: 2(683)570-188427 [place] [address] 12-07-2024 13:17-0400 Diastolic blood pressure 84 mm[Hg] Dr. Filomena Wong MD Work Phone: 5(868)286-082027 [place] [address] 12-07-2024 13:17-0400 Heart rate 100 /min Dr. Filomena Wong MD Work Phone: [facility] 12-07-2024 13:17-0400 Respiratory rate 16 /min Dr. Filomena Wong MD Work Phone: [facility] 12-07-2024 13:17-0400 SaO2% (BldA) [Mass fraction] 96 % Dr. Filomena Wong MD Work Phone: [facility] 12-07-2024 13:17-0400 Systolic blood pressure 165 mm[Hg] Dr. Filomena Wong MD Work Phone: 1(544)074-925844 [address] 11-11-2023 10:12-0500 Body temperature 97.9 [degF] Dr. Filomena Wong Work Phone: 2(381)709-243838 [place] [address] 11-11-2023 10:12-0500 Diastolic blood pressure 88 mm[Hg] Dr. Filomena oWng Work Phone: 3(836)607-378538 [place] [address] 11-11-2023 10:12-0500 Heart rate 80 /min Dr. Filomena Wong Work Phone: 7(554)168-607638 [place] [address] 11-11-2023 10:12-0500 Respiratory rate 16 /min Dr. Filomena Wong Work Phone: [facility] 11-11-2023 10:12-0500 SaO2% (BldA) [Mass fraction] 97 % Dr. Filomena Wong Work Phone: [facility] 11-11-2023 10:12-0500 Systolic blood pressure 152 mm[Hg] Dr. Filomena Wong Work Phone: [facility] 11-10-2023 09:38-0500 Body height 180.[address] Filomena Wong Work Phone: [facility] 11-10-2023 09:38-0500 Body mass index (BMI) [Ratio] 30.3 kg/m2 Dr. Filomena Wong Work Phone: [facility] 11-10-2023 09:38-0500 Body weight 98.[address] Filomena Wong Work Phone: [facility] 11-02-2023 14:14-0500 Body temperature 98.2 [degF] Dr. Filomena Wong Work Phone: [facility] 11-02-2023 14:14-0500 Body weight 101.[address] Filomena Wong Work Phone: [facility] 11-02-2023 14:14-0500 Diastolic blood pressure 84 mm[Hg] Dr. Filomena Wong Work Phone: [facility] 11-02-2023 14:14-0500 Heart rate 103 /min Dr. Filomena Wong Work Phone: [facility] 11-02-2023 14:14-0500 Respiratory rate 16 /min Dr. Filomena Wong Work Phone: [facility] 11-02-2023 14:14-0500 SaO2% (BldA) [Mass fraction] 97 % Dr. Filomena Wong Work Phone: [facility] 11-02-2023 14:14-0500 Systolic blood pressure 130 mm[Hg] Dr. Filomena Wong Work Phone: [facility] Encounters Encounter Date Encounter Type Care Provider Facility Start: 06-19-2025 End: 06-20-2025 Emergency department patient visit Mikie England Facility:[facility] Start: 06-07-2025 End: 06-07-2025 Patient encounter procedure [facility] Work Phone: Start: 06-07-2025 End: 06-07-2025 ambulatory David De Leon MD Work Phone: -[facility] Start: 05-30-2025 End: 05-30-2025 Emergency department patient visit David De Leon MD Work Phone: -Emergency Department Work Phone: Start: 01-25-2025 End: 01-25-2025 ambulatory Ariadna Negrete Facility:[facility] Start: 12-07-2024 End: 12-07-2024 Patient encounter procedure Ariadna ENCARNACION -[facility] Work Phone: Start: 12-07-2024 End: 12-07-2024 ambulatory Filomena Wong Facility:[facility] Start: 12-06-2024 Non-patient / Non-visit Dr. Yazan nguyen MD -[facility] Start: 12-06-2024 End: 12-06-[address] Filomena Wong MD Work Phone: [facility] Work Phone: Start: 12-06-2024 End: 12-06-[address] Yazan Jones MD -Cardiovascular Services Work Phone: Start: 12-06-2024 End: 12-06-2024 ambulatory Filomena Wong Facility:[facility] Start: 11-11-2023 Non-patient / Non-visit Dr. Spike Wong Work Phone: [facility] Start: 11-09-2023 Non-patient / Non-visit Dr. Spike Wong Work Phone: [facility] Start: 11-09-2023 End: 11-11-2023 Evaluation and management of inpatient Dr. Filomena Wong Work Phone: [facility]-Progressive [facility] Unit Work Phone: Start: 11-04-2023 Non-patient / Non-visit Dr. Spike oWng Work Phone: [facility] Start: 11-04-2023 End: 11-04-[address] Filomena Wong Work Phone: [facility] Work Phone: Start: 11-04-2023 End: 11-04-[address] Filomena Wong Work Phone: [facility]Cardi[facility] Services Work Phone: Start: 11-02-2023 End: 11-02-[address] Filomena Wong Work Phone: [facility] Work Phone: Start: 10-26-2023 End: 10-26-[address] Filomena Wong Work Phone: [facility] Work Phone: Start: 10-26-2023 End: 10-26-[address] Filomena Wong Work Phone: [facility]-Laboratory Work Phone: Start: 10-22-2023 Non-patient / Non-visit Dr. Spike Wong Work Phone: [facility] Start: 10-22-2023 End: 10-22-[address] Filomena Wong Work Phone: [facility] Work Phone: Start: 10-22-2023 End: 10-22-[address] [facility] Procedures Date Procedure Procedure [...] Date Care Activity Detail Author Start: 05-30-2025 [facility] Start: 05-30-2025 [facility] Start: 11-11-2023 Patient discharge [facility] Start: 11-10-2023 Elevation of head of bed [facility] Start: 11-10-2023 Bedrest [facility] Start: 11-10-2023 Notification of physician [facility] Start: 11-10-2023 Provision of activit y privileges [facility] Start: 11-10-2023 Pulse taking [facility] Start: 11-10-2023 Taking patient vital signs [facility] Start: 11-10-2023 End: 11-10-2023 [facility] Start: 11-09-2023 Ambulation without limitation [facility] Start: 11-09-2023 Assessment of risk o f venous thromboembolism [facility] Start: 11-09-2023 Elevation of affected extremity [facility] Start: 11-09-2023 Incentive spirometry [facility] Start: 11-09-2023 Insertion of cathete r into peripheral vein [facility] Start: 11-09-2023 Measuring intake and output [facility] Start: 11-09-2023 Medication not administered [facility] Start: 11-09-2023 Notification of physician [facility] Start: 11-09-2023 Oxygen therapy [facility] Start: 11-09-2023 Providing care accor ding to standard [facility] Start: 11-09-2023 Self-administration of medication [facility] Start: 11-09-2023 [facility] Start: 11-09-2023 Admission procedure [facility] Start: 11-09-2023 Verification routine [facility] Start: 11-09-2023 Following clinical p athway protocol [facility] Patient Education ED Dyspnea [facility] Work Phone: Patient referral [facility] Work Phone: XR Lumbar spine 2 or 3 Views [facility] Immunizations Immunization Date Immunization Notes Care Provider Justina perez 01-04-2021 Covid (Pfizer) Dr. Filomena barry Work Phone: [facility] 12-14-2020 Covid (Pfizer) Dr. Filomena barry Work Phone: [facility] 03-31-2016 tetanus and diphther ia toxoids, adsorbed, preservative free, for adult use (2 Lf of tetanus toxoid and 2 Lf of diphtheria toxoid) Dr. Filomena Wong Work Phone: [facility] Payers Date Payer Category Payer Self-pay [id number] 2023 Unknown [id number] Private Health Insurance [id number] Private Health Insurance [facility] [id number] Unknown [facility] MHS DO NOT USE [id number] Unknown [id number] 62 Unknown [id number] 62 Unknown [id number] 62 Unknown [id number] 62 Unknown [id number] 62 Unknown [id number] 62 Unknown [id number] 62 Social History Date Type Detail Facility Start: 09-16-2021 End: 11-09-2023 Tobacco smoking status NHIS Unknown if ever smoked [facility] Start: 04-04-2020 Heavy [facility] Start: 04-04-2020 None [facility] Start: 04-04-2020 Spouse/ Signif icant Other [facility] Start: 04-26-2020 Cigarettes [facility] Start: 1960 Sex Assigned At Male W [facility] Start: 12-07-2024 End: 05-30-2025 Tobacco smoking status NHIS Current Heavy tobacco smoker [facility] Start: 12-14-2024 Sex Male (finding) [facility] Medical Equipment Procedure Code Equipment Code Equipment Origin al Text Equipment Identifier Dates Iliofemoral vein stent [id number] FDA Start: 11-10-2023 Goals Date Patient Goal Desired Activity /State Functional Status Date Assessment Result Facility 11-11-2023 Functional status Ambulates [facility] Work Phone: Mental Status Date Assessment Result Facility 11-11-2023 Cognitive function Voice/Name [facility] Work Phone: Clinical Notes 11-09-2023 to 05-30-2025 Note Date & Type Note Facility 05-30-2025 Radiology Diagnostic study note [facility] Imaging Services [address] [place] [address] Chest PA and Lateral MR#: [id number] Acct: [id number] Name: LINDSAY HUNTER Rep #: [id number] : 1960 M 64 From: Teo Garcia MD PCP: Dr. David De Leon MD Status: REG ER Study:Chest PA and Lateral Date of Exam: 05/30/25 Exam# [id number] Ordering Dr: Bill Nayak MD PROCEDURE: CHEST PA AND LATERAL 05/30/2025 REASON FOR EXAM: CHEST PAIN TECHNIQUE: Procedure Code: RADCXR Modality: DX Procedure: CHEST PA AND LATERAL COMPARISON: None FINDINGS: Hardware: EKG leads are present Heart: Normal-size Mediastinum: Normal Lungs: Clear Bones: Minimal degenerative changes RAD/Chest PA and Lateral IMPRESSION: No acute cardiopulmonary process Reading [id number] CC: Dr. David De Leon MD; Dr. Adelaide Nayak MD ~ Criminal Investigative Agent: Signed [facility] 12-07-2024 Evaluation note Diagnosis Onset Date Resolution Claudication acute December 07, 2024 12:51pm Iliac vein stenosis, right acute December 07, 2024 12:51pm PAD (peripheral artery disease) acute December 07, 2024 12:51pm History of DVT (deep vein thrombosis) chronic December 07 12:51pm [facility] Work Phone: 1(825) 942-689202-14-2024 Discharge summary Author Yazan Jones [facility] November 11, 2023 10:51am Note Date/Time November 11, 2023 9:01am [facility] Medical Records Department [address] [place] [address] Discharge Summary 11/11/23 0853 MR#: [id number] Acct: [id number] Name: LINDSAY HUNTER Rep #:[id number] : 1960 63 From: Ariadna ENCARNACION PCP: Dr. Filomena Wong MD Status:ADM IN Location: [place] [address] Providers Date of Admission: 11/09/23 Primary Care [...] take this with Tylenol as needed. Our secretary of police will contact you to schedule your 1 [...] take this with Tylenol as needed. Our secretary of police will contact you to schedule your 1 [...] Wong MD; Dr. Yazan Jones MD~ Signed [facility] Work Phone: 1(707) 599-730102-14-2024 Progress note Author Yazan [facility] November 11, 2023 10:51am Note Date/Time November 11, 2023 8:52am [facility] Medical Records Department [address] [place] [address] Progress Note - Surgery 11/11/23 0845 MR#: [id number] Acct: [id number] Name: LINDSAY HUNTER Rep #:[id number] : 1960 63 From: Ariadna ENCARNACION PCP: Dr. Filomena Wong MD Status:ADM IN Location: [place] [address] Subjective Subjective Patient is seen resting comfortably [...] by Yazan Jones MD> CC: ~ Signed [facility] Work Phone: 1(296) 109-897702-12-2024 History and physical note Author Yazan Jones [facility] November 09, 2023 5:24pm Note Date/Time November 09, 2023 5:24pm [facility] Medical Records Department [address] [place] [address] History & Physical Exam 11/09/23 1723 MR#: [id number] Acct: [id number] Name: LINDSAY HUNTER Rep #:[id number] : 1960 63 From: Yazan Jones MD PCP: Dr. Filomena Wong MD Status:ADM IN Location: [place] [id number] HPI - General General Date of [...] femoral vein PLAN: -heparin -venogram tomorrow 11/09/23 8955 <Electronically signed by Yazan Jones MD> Cosigner Signature (if applicable): CC: Dr. Filomena Wong MD; Dr. Yazan Jones MD~ Signed [facility] Work Phone: Consult note Author Mariana Whitley [facility] November 11, 2023 11:32am Note Date/Time November 11, 2023 11:32am [facility] Medical Records Department [address] [place] [address] Counseling Note - Pharmacy 11/11/23 1131 MR#: [id number] Acct: [id number] Name: LINDSAY HUNTER Rep #:[id number] : 1960 63 From: Mariana Whitley PCP: Dr. Filomena Wong MD Status:ADM IN Location: [place] [address] Pharmacy [facility] has performed discharge medication [...] understanding of their dischargemedications. Patient counseled by manager pharmacyWilfredo. Medications at Discharge Home Medications omeprazole 20 [...] Signature (if applicable): Date CC: ~ Signed [facility] Work Phone: Evaluation noteNo assessment information available [facility] Work Phone: Evaluation note* Diagnosis Onset Date Resolution Status Dvt femoral (deep venous thrombosis) acute [facility] Work Phone: Evaluation note* Diagnosis Onset Date Resolution Status Dvt femoral (deep venous thrombosis) acute Dvt femoral (deep venous thrombosis) acute [facility] Work Phone: Hospital Discharge instructionsAdditional Instructions Your [...] if your symptoms worsen or new symptoms develop.[facility] Work Phone: Reason for referral (narrative)No reason for referral information [facility] Work Phone: Chief Complaint and Reason for [...] 12:51pm History of DVT (deep vein thrombosis) [facility] 2024 12:51pm Chief Complaint Admit Date sob [...] No April 26, 2020 12:17pm Power of Aerial Gunner No April 26 12:17pm Advance Directive Response Recorded Date/ Time Living Will No November 09 024 4:37pm Power of Aerial Gunner No November 09, 2023 4:37pm Advance Directive Response Recorded Date/ Time Living Will No November 09 024 5:37pm Power of Aerial Gunner No November 09, 2023 5:37pm Advance Directive Response Recorded Date/ Time Do you have a Healthcare Power of Aerial Gunner? No May 30, 2025 8:23am Summary Purpose [...] section and content) DATE CREATED AUTHOR 06/20/2025 [facility] FOR RECORDS PERTAINING TO PATIENTS WHO ARE [...] BE BASED ON THE PRIMARY CLINICAL RECORDS. [employer] provides no warranty or guarantee of the accuracy or completeness of information in this document.
[2025-06-29 21:54] VITALS: BP 154/87; PULSE 80; RESP 16; TEMP 36.5; O2SAT 93
[2025-06-30] VITALS (9 sets, daily range): BP systolic 131–171; BP diastolic 52–93; PULSE 80–93; RESP 16–18; TEMP 36.3–36.8; O2SAT 90–96
--- NOTE | 2025-06-30 06:15 | RAD_ITS ---
PROCEDURE: CHEST 1 VIEW (PORTABLE) 06/30/2025 REASON FOR EXAM: RIGHT PNEUMOTHORAX TECHNIQUE: Frontal view of the chest. COMPARISON: 06/29/2025. FINDINGS: Unchanged right thoracostomy pleural drainage catheter. Further decrease in right apical pneumothorax which is estimated at 2% on the current exam. Unchanged bilateral basilar atelectatic pulmonary changes. Enlarged cardiac silhouette. Normal mediastinum and brian. Normal visualized pulmonary arteries. Atheromatous plaques of the visualized aortic arch and descending thoracic aorta. Diffuse spondylosis of the visualized thoracic spine. Normal visualized ribs, clavicles. Degenerative joint disease. There is no demonstrated abnormality of the visualized soft tissue structures of the upper abdomen. RAD/Chest 1 View (Portable) IMPRESSION: Unchanged right thoracostomy pleural drainage catheter. Further decrease in right apical pneumothorax which is estimated at 2% on the c urrent exam. Unchanged bilateral basilar atelectatic pulmonary changes. Enlarged cardiac silhouette. Reading Location: [facility]
--- NOTE | 2025-06-30 07:45 | PN.SURG_ITS ---
Subjective Subjective Patient reports he had some hallucinations overnight. He reports his chest pain is controlled but is still severe. Objective Data Objective Data Vital Signs: Vital Signs Temp Pulse Resp BP Pulse Ox O2 Del Method O2 Flow Rate 97.9 F 81 16 154/86 H 92 Room Air 2 06/30/25 05:32 06/30/25 05:32 06/30/25 05:32 06/30/25 05:32 06/30/25 05:32 06/30/25 05:32 06/30/25 02:01 FiO2 2 06/28/25 09:55 Oxygen Flow Rate (L/min) 2 Oxygen Delivery Method Room Air Weight: 214 lb 1.102 oz Body Mass Index (BMI) 29.8 Intake & Output: Intake and Output for Last 24 Hours 06/28/25 06/29/25 06/30/25 23:59 23:59 23:59 Intake Total 1080 / 1080 1900 / 1900 250 / 250 Output Total 400 / 400 1400 / 1400 Balance 680 / 680 500 / 500 250 / 250 Lab / Micro Data 06/27/25 18:10 06/27/25 18:10 Radiography Diagnostic Testing: Radiology Impression Chest X-Ray 06/30/25 06:15 IMPRESSION: Unchanged right thoracostomy pleural drainage catheter. Further decrease in right apical pneumothorax which is estimated at 2% on the current exam. Unchanged bilateral basilar atelectatic pulmonary changes. Enlarged cardiac silhouette. Reading Location: [place] [address] Physical Exam Const oriented x3 and no apparent distress Resp normal respiratory effort Assessment & Plan Assessment/Plan (1) Traumatic fracture of ribs of right side with pneumothorax: PLAN: Continue pain management. I placed his chest tube to waterseal today. Obtaining a chest x-ray in 4 hours. Hopeful for discharge tomorrow. Chago Anna MD Pager: [facility] [address] [place] [address], [address] [place] [address] Office:
[2025-06-30] MEDS: Lidocaine 5% Patch 2 PATCH TOPICAL (09:00)
[2025-06-30] MEDS: Potassium Chloride Oral Tablet 10 MEQ PO (09:00)
[2025-06-30] MEDS: 0.9% Saline Lock 10 ML Syringe IV ×3 (09:01→21:58)
--- NOTE | 2025-06-30 12:05 | RAD_ITS ---
PROCEDURE: CHEST 1 VIEW (PORTABLE) 06/30/2025 REASON FOR EXAM: PNEUMOTHROAX TECHNIQUE: Frontal view of the chest. COMPARISON: Earlier today's exam. FINDINGS: Hardware and support lines: Small bore right-sided chest drain. Heart: Negative. Lungs: Negative for infiltrates, or pulmonary edema. Pleura: Minimal right apical pneumothorax. No mediastinal shift. No pleural effusion. Mediastinum and aorta: Negative for hilar adenopathy. Mildly tortuous thoracic aorta. Bones: Age-appropriate degenerative changes of the spine. Other: Remainder of the exam negative. RAD/Chest 1 View (Portable) IMPRESSION: Small bore right-sided chest tube with near-complete resolution right-sided pne umothorax. Reading Location: [id number]
--- NOTE | 2025-06-30 15:35 | PN_ITS ---
Progress Note Patient reports doing well throughout the day. His repeat chest x-ray after going to [facility] showed no pneumothorax. I remove the patient's chest tube this afternoon. I placed a bandage over it. I will repeat a chest x-ray tomorrow morning as long as that is stable I will discharge him home on pain medications.
--- NOTE | 2025-07-01 03:21 | RAD_ITS ---
PROCEDURE: CHEST 1 VIEW (PORTABLE) 07/01/2025 REASON FOR EXAM: CHEST TUBE REMOVAL TECHNIQUE: Frontal view of the chest. COMPARISON: 06/30/2025. FINDINGS: Right pleural drainage catheter has been removed in the interim. The lungs are expanded. There is no demonstrated parenchymal abnormality. There is no demonstrated pleural abnormality. Enlarged cardiac silhouette. Normal mediastinum and brian. Normal visualized pulmonary arteries. Atheromatous plaques of the visualized aortic arch and descending thoracic aorta. Diffuse spondylosis of the visualized thoracic spine. Normal visualized ribs, clavicles. Degenerative joint disease. There is no demonstrated abnormality of the visualized soft tissue structures of the upper abdomen. RAD/Chest 1 View (Portable) IMPRESSION: Right pleural drainage catheter has been removed in the interim. No radiographic evidence of pneumothorax. Reading Location[facility]
[2025-07-01 03:23] VITALS: BP 152/84; PULSE 84; RESP 16; TEMP 36.4; O2SAT 98
[2025-07-01] MEDS: 0.9% Saline Lock 10 ML Syringe IV (05:06)
[2025-07-01 08:04] VITALS: BP 136/87; PULSE 80; RESP 16; TEMP 37.1; O2SAT 98
--- NOTE | 2025-07-01 08:35 | PCM.PN.SRG ---
Subjective Subjective Patient is doing well and he is comfortable Objective Data Objective Data Vital Signs: Vital Signs Temp Pulse Resp BP Pulse Ox O2 Del Method O2 Flow Rate 98.8 F 80 16 136/87 H 98 Room Air 2 07/01/25 08:04 07/01/25 08:04 07/01/25 08:04 07/01/25 08:04 07/01/25 08:04 07/01/25 08:04 07/01/25 07:29 FiO2 2 06/28/25 09:55 Oxygen Flow Rate (L/min) 2 Oxygen Delivery Method Room Air Weight: 214 lb 1.102 oz Body Mass Index (BMI) 29.8 Intake & Output: Intake and Output for Last 24 Hours 06/29/25 06/30/25 07/01/25 23:59 23:59 23:59 Intake Total 1900 / 1900 250 / 500 450 / 450 Output Total 1400 / 1400 Balance 500 / 500 250 / 500 450 / 450 Lab / Micro Data 06/27/25 18:10 06/27/25 18:10 Radiography Diagnostic Testing: Radiology Impression Chest X-Ray 06/30/25 12:05 IMPRESSION: Small bore right-sided chest tube with near-complete resolution right-sided pneumothorax. Reading Location: [id number] Chest X-Ray 07/01/25 03:21 IMPRESSION: Right pleural drainage catheter has been removed in the interim. No radiographic evidence of pneumothorax. Reading [facility] Physical Exam Const oriented x3 and no apparent distress Resp normal respiratory effort GI soft to palpation and non-tender Assessment & Plan Assessment/Plan (1) Traumatic fracture of ribs of right side with pneumothorax: PLAN: Patient seems to doing well and his chest x-ray showed no pneumothorax. I will discharge him home on oral pain medications. Follow-up in 1 week.
--- NOTE | 2025-07-01 08:38 | DS.PCM_ITS ---
Providers Date of Admission: 06/27/25 Primary Care Physician: David De Leon MD Reason For Visit: RIGHT RIB FRACTURES AND PNEUMOTHORAX Diagnosis Discharge Diagnosis (1) Traumatic fracture of ribs of right side with pneumothorax: Status: Acute Code(s): S22.41XA - Multiple fractures of ribs, right side, initial encounter for closed fracture; S27.0XXA - Traumatic pneumothorax, initial encounter Plan: Patient seems to doing well and his chest x-ray showed no pneumothorax. I will discharge him home on oral pain medications. Follow-up in 1 week. Medications at Discharge Home Medications omeprazole 20 mg capsule,delayed release 20 mg PO DAILY reflux 04/20/20 amlodipine 5 mg tablet 5 mg PO DAILY blood pressure 11/02/23 clopidogrel 75 mg tablet 75 mg PO DAILY blood thinner 30 days #30 tabs 11/02/24 aspirin 81 mg tablet,delayed release 81 mg PO QDAY blood thinner 12/07/24 albuterol sulfate 90 mcg/actuation aerosol inhaler (Ventolin HFA) 2 puff inhalation Q4H PRN PRN Wheezing ##1 05/30/25 osclfqxl-zv-dnril 300 mcg-K 60 mcg-lycop 600 mcg-lutein 300 mcg tablet (Centrum Silver Men) 1 tab PO QDAY supplement 06/07/25 albuterol sulfate 90 mcg/actuation aerosol inhaler (Ventolin HFA) 1 - 2 puff inhalation Q4H PRN PRN Wheezing #1 device 06/20/25 prednisone 10 mg tablet 10 mg PO UD virus #33 tabs 06/20/25 potassium chloride 10 mEq tablet,extended release 10 meq PO DAILY supplement 06/27/25 docusate sodium 100 mg capsule 100 mg PO BID #0 caps 07/01/25 oxycodone 5 mg tablet 5 - 10 mg (1 - 2 x 5 mg) PO Q4H PRN PRN Pain Score 4-10 5 days #20 tabs 07/01/25 Hospital Course Summary of Care Provided Hospital Course: The patient was admitted with a large pneumothorax on the right. Chest tube was placed in the emergency room and the patient was admitted to the floor. The following day the pneumothorax was larger and the chest tube was removed and a new chest tube was placed. This fully expanded the lung. Once 2 days went by and he did not have an air leak the chest tube was placed to waterseal and then removed. Chest x-ray this morning shows no pneumothorax and he will be discharged home. Weight / BMI Weight Weight: 214 lb 1.102 oz Body Mass Index (BMI) 29.8 ABG / Lab / Microbiology Data 06/27/25 18:10 06/27/25 18:10 Radiography Diagnostic Testing: Radiology Impression Chest X-Ray 06/30/25 12:05 IMPRESSION: Small bore right-sided chest tube with near-complete resolution right-sided pneumothorax. Reading Location: [id number] Chest X-Ray 07/01/25 03:21 IMPRESSION: Right pleural drainage catheter has been removed in the interim. No radiographic evidence of pneumothorax. Reading Location[facility] D/C Instructions Discharge Activity: May Drive (after done taking narcotics) and May Shower Lifting Restrictions: 15 lbs for 1 week Additional Activity Instructions: Alternate ibuprofen and Tylenol for pain control, oxycodone for breakthrough pain Use incentive spirometer Okay to resume aspirin and Plavix Call your doctor if your incision/area has: Continuous Slow Oozing, Sudden Increased Bleeding, Increased Pain/ Swelling, Increased Redness, Foul Smelling Discharge and Swelling at the incision site Call your doctor if you observe: Fever of 101 or Higher Remove Dressing in: 2 days Cleanse incision/area with: Soap & Water DC O2, CPAP, BIPAP Needs Home O2 Discharge instructions: No Please Follow Up With: Chago Anna MD When: Please call to schedule 1 week follow up appointment. [phone] Meaningful Use Info Meaningful Use Meaningful Use Diagnoses (Choose all that apply): None applicable Discharge Plan Admission Admit Date/Time: 06/27/25 22:29 Attending Provider: Chago Anna Primary Care Provider: David De Leon Discharge Orders/Prescriptions Prescriptions: New docusate sodium 100 mg Capsule 100 mg PO BID Qty: 0 0RF oxycodone 5 mg Tablet 5 - 10 mg PO Q4H PRN PRN (Reason: Pain Score 4-10) 5 Days Qty: 20 0RF Continued omeprazole 20 mg capsule,delayed release(DR/EC) 20 mg PO DAILY amlodipine 5 mg tablet 5 mg PO DAILY aspirin 81 mg tablet,delayed release (DR/EC) 81 mg PO QDAY Centrum Silver Men [id number] mcg tablet 1 tab PO QDAY albuterol sulfate [Ventolin HFA] 90 mcg/actuation HFA aerosol inhaler 2 puff inhalation Q4H PRN PRN (Reason: Wheezing) Qty: 1 0RF prednisone 10 mg tablet 10 mg PO UD Qty: 33 0RF Patient Comments: pt is in the 20mg. did take today dose Rx Instructions: Take 4 tablets daily for 3 days, then 3 daily for 3 days, then 2 daily for 3 days, then 1 a day for 3 days then 1 QOD for 3 doses. albuterol sulfate [Ventolin HFA] 90 mcg/actuation HFA aerosol inhaler 1 - 2 puff inhalation Q4H PRN PRN (Reason: Wheezing) Qty: 1 0RF potassium chloride 10 mEq tablet extended release 10 meq PO DAILY clopidogrel 75 mg tablet 75 mg PO DAILY 30 Days Qty: 30 11RF Referrals / Follow Up: David De Leon MD [Primary Care Provider, Family Practice] Disposition Disposition (needs filled in before D/C Order can be placed): Home, Self Care
[2025-07-01 09:14] VITALS: RESP 18
[2025-07-01] MEDS: Lidocaine 5% Patch 2 PATCH TOPICAL (09:40)
[2025-07-01] MEDS: Potassium Chloride Oral Tablet 10 MEQ PO (09:40)
[2025-07-01 11:27] VITALS: BP 144/70; PULSE 78; RESP 18; TEMP 37.1; O2SAT 98
== END 2025-07-01 11:25 | disposition home or self-care (01) | DRG 200 ==
LOC: ED 20:40 → MS3 22:47
PROVIDERS: Admitting Provider Surgery; Emergency Provider Emergency Medicine; PCP Family Medicine; Visit Provider Surgery
DX: S27.0XXA Traumatic pneumothorax, initial encounter (principal); S22.41XA Multiple fractures of ribs, right side, initial encounter for closed fracture; S00.93XA Contusion of unspecified part of head, initial encounter; W19.XXXA Unspecified fall, initial encounter; Z87.891 Personal history of nicotine dependence; Z79.02 Long term (current) use of antithrombotics/antiplatelets; Z79.899 Other long term (current) drug therapy; Z79.51 Long term (current) use of inhaled steroids; Z79.82 Long term (current) use of aspirin; Z86.718 Personal history of other venous thrombosis and embolism
CPT/HCPCS: 32551; 70450; 71045; 71101; 71250; 80048; 80076; 85025; 93005; 94668; 97802; 99285; 99406; A4216; J2405

== ENCOUNTER → 2025-07-11 | Outpatient (CLI) | payer OTHER, SELFPAY ==
[2025-07-11 15:46] LABS: Anion Gap 13 (5-15); BUN 6 mg/dL (4-19); BUN/Creat Ratio 9.5 RATIO (10-20); Calcium,Total 9.7 mg/dL (7.6-11.0); Carbon Dioxide 27.0 mmol/L (21.0-32.0); Chloride 94 mmol/L (98-108); Glucose 106 mg/dL (70-99); Potassium 3.8 mmol/L (3.3-5.1)
== END | disposition home or self-care (01) ==
LOC: MTLAB 13:46
PROVIDERS: PCP Family Medicine; Referring Provider Family Medicine; Visit Provider Family Medicine
DX: Z09 Encounter for follow-up examination after completed treatment for conditions other than malignant neoplasm (principal)
CPT/HCPCS: 36415; 80048

== ENCOUNTER → 2025-07-12 | Outpatient (CLI) | payer OTHER, SELFPAY ==
--- NOTE | 2025-07-12 11:30 | RAD_ITS ---
PROCEDURE: CHEST PA AND LATERAL 07/12/2025 REASON FOR EXAM: SOB, HX OF PNEUMOTHORAX TECHNIQUE: Procedure Code: RADCXR Modality: DX Procedure: CHEST PA AND LATERAL COMPARISON: July 01, 2025, June 30, 2025 FINDINGS: Hardware: None Heart: The heart size is normal. Mediastinum: The mediastinal contour is unremarkable. Lungs: The lungs are clear. Bones: The bones are unremarkable. RAD/Chest PA and Lateral IMPRESSION: No acute cardiopulmonary process. No pneumothorax. Reading Location: [id number]
== END | disposition home or self-care (01) ==
LOC: RAD 11:30
PROVIDERS: PCP Family Medicine; Referring Provider Physician Assistant; Visit Provider Physician Assistant
DX: R06.02 Shortness of breath (principal); Z87.09 Personal history of other diseases of the respiratory system
CPT/HCPCS: 71046

== ENCOUNTER → 2025-08-01 | Outpatient (CLI) | payer OTHER, SELFPAY ==
--- NOTE | 2025-08-01 17:45 | RAD_ITS ---
PROCEDURE: RAD/Chest PA and Lateral
[2025-08-01 18:13] LABS: Hematocrit 40.5 % (40-54); Hemoglobin 13.8 g/dL (13.0-16.5); Immature Granulocytes Count 0.100 X10^3/uL (0.0-0.0); Mean Corp Hgb Conc 34.1 g/dL (32-36); Mean Corpuscular Volume 95.7 fL (80-94); Mean Platelet Vol. 9.4 fl (6.2-12.0); NRBC Flagged by Analyzer 0 % (0-5); Platelet Count 327 K/mm3 (150-450); RBC Distribution Width CV 12.5 % (11.6-14.6); RBC Distribution Width SD 44.0 fl (35.1-43.9); Red Blood Count 4.23 M/mm3 (4.6-6.2); White Blood Count 11.9 K/mm3 (4.4-11.0)
[2025-08-01 18:38] LABS: D-Dimer Quantitative (DVT/PE) 0.32 FEU/ug/m (0.27-0.49)
[2025-08-01 19:30] LABS: AST(SGOT) 25 U/L (<=37); Alanine Aminotransfer ALT/SGPT 27 U/L (<=46); Albumin, Serum 4.0 g/dL (3.4-4.8); Alkaline Phosphatase 91 U/L (40-129); Anion Gap 13 (5-15); BUN 9 mg/dL (4-19); BUN/Creat Ratio 11.2 RATIO (10-20); Calcium,Total 9.2 mg/dL (7.6-11.0); Carbon Dioxide 22.9 mmol/L (21.0-32.0); Chloride 99 mmol/L (98-108); Globulin 2.6 g/dL (2.2-4.2); Glucose 105 mg/dL (70-99); Potassium 4.5 mmol/L (3.3-5.1); Pro- Brain NATRIURETIC PEPTIDE 42 pg/mL (<=900)
== END | disposition home or self-care (01) ==
LOC: RAD 17:42
PROVIDERS: PCP Family Medicine; Visit Provider Family Medicine
DX: R05.8 Other specified cough (principal); R06.02 Shortness of breath
CPT/HCPCS: 36415; 71046; 80053; 83880; 84443; 85025; 85379

== ENCOUNTER → 2025-08-09 | Outpatient (CLI) | payer OTHER, SELFPAY ==
--- NOTE | 2025-08-09 08:36 | CPS ---
B/A bronchodilator ordered. No DLCO or lung volumes wanted.
== END | disposition home or self-care (01) ==
LOC: PSN 08:00
PROVIDERS: PCP Family Medicine; Referring Provider Family Medicine; Visit Provider Family Medicine
DX: R06.02 Shortness of breath (principal)
CPT/HCPCS: 94060